=== PATIENT | female | born 1945 | race Caucasian/White ===

== ENCOUNTER → 2017-02-23 | Outpatient (CLI) | payer MEDICARE, BC ==
--- NOTE | 2017-02-24 10:31 | MM ---
Reason for exam: screening (asymptomatic). Last mammogram was performed 1 year and 6 months ago. History: Patient is postmenopausal. Physical Findings: A clinical breast exam by your physician is recommended on an annual basis and results should be correlated with mammographic findings. MG 3D Screening Mammo W/Cad Bilateral CC and MLO view(s) were taken. XCCL view(s) were taken of the right breast. Prior study comparison: August 31, 2015, bilateral MG screening mammo w CAD. August 11, 2014, bilateral MG screening mammo w CAD. The breast tissue is heterogeneously dense. This may lower the sensitivity of mammography. Finding: There are typically benign vascular, round calcifications in both breasts. There is no discrete abnormality. ASSESSMENT: Benign, BI-RAD 2 RECOMMENDATION: Routine screening mammogram of both breasts in 1 year.
== END | disposition home or self-care (01) ==
LOC: RADMAMWWP 14:31
PROVIDERS: ATTEND Family Medicine
DX: Z12.31 Encounter for screening mammogram for malignant neoplasm of breast (principal)
CPT/HCPCS: 77063; G0202

== ENCOUNTER → 2018-04-02 | Outpatient (CLI) | payer MEDICARE, BC ==
--- NOTE | 2018-04-03 14:03 | MM ---
Reason for exam: screening (asymptomatic). Last mammogram was performed 1 year and 1 month ago. History: Patient is postmenopausal. Physical Findings: A clinical breast exam by your physician is recommended on an annual basis and results should be correlated with mammographic findings. MG 3D Screening Mammo W/Cad Bilateral CC and MLO view(s) were taken. Prior study comparison: February 23, 2017, bilateral MG 3d screening mammo w/cad. August 31, 2015, bilateral MG screening mammo w CAD. The breast tissue is heterogeneously dense. This may lower the sensitivity of mammography. No significant changes when compared with prior studies. ASSESSMENT: Benign, BI-RAD 2 RECOMMENDATION: Routine screening mammogram of both breasts in 1 year.
== END | disposition home or self-care (01) ==
LOC: RADMAMWWP 13:02
PROVIDERS: ATTEND Family Medicine
DX: Z12.31 Encounter for screening mammogram for malignant neoplasm of breast (principal)
CPT/HCPCS: 77063; 77067

== ENCOUNTER 2018-11-15 10:57 | Inpatient (IN) | payer MEDICARE, BC ==
[2018-11-15 12:08] LABS: ALT 18 U/L (9-52); AST 36 U/L (14-36); Albumin 3.8 g/dL (3.5-5.0); Alkaline Phosphatase 63 U/L (38-126); Anion Gap 9 mmol/L; Blood Urea Nitrogen 16 mg/dL (7-17); Carbon Dioxide 24 mmol/L (22-30); Chloride 96 mmol/L (98-107); Glucose 89 mg/dL (74-99); INR 0.9 (<1.2); Lipase 224 U/L (23-300); Partial Thromboplastin Time 24.4 sec (22.0-30.0); Potassium 4.2 mmol/L (3.5-5.1); Prothrombin Time 9.9 sec (9.0-12.0); Sodium 129 mmol/L (137-145); Total Bilirubin 0.5 mg/dL (0.2-1.3); Total Protein 6.2 g/dL (6.3-8.2)
[2018-11-15 12:20] LABS: Anisocytosis Slight; HCT 23.1 % (34.0-46.0); Hypochromasia Marked; MCH 17.4 pg (25.0-35.0); MCHC 28.9 g/dL (31.0-37.0); MCV 60.3 fL (80.0-100.0); Mean Platelet Volume 6.6; Microcytosis Marked; Platelet Count 323 k/uL (150-450); Poikilocytosis Moderate; RBC 3.83 m/uL (3.80-5.40); WBC 3.9 k/uL (3.8-10.6)
[2018-11-15 12:23] LABS: HGB 6.7 gm/dL (11.4-16.0)
[2018-11-15 12:37] LABS: Eosinophils # (M) 0.08 k/uL (0-0.7); Lymphocytes # (M) 0.78 k/uL (1.0-4.8); Monocytes # (M) 0.27 k/uL (0-1.0); Neutrophils # (M) 2.77 k/uL (1.3-7.7); Neutrophils % (M) 71 %; Nucleated Red Blood Cells 0 /100 WBC (0-0); Total Cells Counted 100
[2018-11-15] MEDS ORDERED: ONDANSETRON 4 MG/2 ML VIAL IVP PRN (12:46)
--- NOTE | 2018-11-15 12:46 | ED ---
General Adult HPI - General Chief complaint: Recheck/Abnormal Lab/Rx Stated complaint: Abnormal labs Time Seen by Provider: 11/15/18 11:18 Source: patient, RN notes reviewed Mode of arrival: ambulatory Limitations: no limitations - History of Present Illness Initial comments: 73-year-old female presents emergency Department with chief complaint of low hemoglobin. Patient states she saw her email marketing specialist yesterday for her 6 month checkup and had lab work back. Patient states that they called her tongue or her hemoglobin was below 7. Patient denies any shortness breath, chest pain, melena or hematochezia. Patient states no history of anemia denies any cancer. Patient states that she's had no exertional shortness of breath she does have some dizziness which is been chronic - Related Data Home Medications Medication Instructions Recorded Confirmed Cyclobenzaprine [Flexeril] 10 mg PO HS 09/08/16 11/15/18 Ergocalciferol (Vitamin D2) 50,000 unit PO QMONTH 09/08/16 11/15/18 [Drisdol] Levothyroxine Sodium [Synthroid] 88 mcg PO DAILY 09/08/16 11/15/18 Atenolol 50 mg PO DAILY 09/25/16 11/15/18 Lisinopril/Hydrochlorothiazide 1.5 tab PO DAILY 09/25/16 11/15/18 [Lisinopril-Hctz 20-12.5 mg Tab] Naproxen 500 mg PO Q12HR 09/25/16 11/15/18 Alendronate Sodium [Fosamax] 70 mg PO TH 11/15/18 11/15/18 Aspirin EC [Ecotrin] 325 mg PO DAILY 11/15/18 11/15/18 Atenolol [Tenormin] 25 mg PO HS 11/15/18 11/15/18 Gabapentin [Neurontin] 400 mg PO TID 11/15/18 11/15/18 Multivitamins, Thera [Multivitamin 1 tab PO BID 11/15/18 11/15/18 (formulary)] Potassium 595mg 595 mg PO DAILY 11/15/18 11/15/18 Red Yeast Rice 600 mg PO DAILY 11/15/18 11/15/18 amLODIPine [Norvasc] 10 mg PO DAILY 11/15/18 11/15/18 Allergies Allergy/AdvReac Type Severity Reaction Status Date / Time diazepam [From Valium] Allergy Severe Nausea & Verified 11/15/18 11:37 Vomiting, dizzy,muscle pain,mouth numb escitalopram oxalate Allergy Severe Nausea & Verified 11/15/18 11:37 [From Lexapro] Vomiting, dizzy,muscle pain, mouth numb fluticasone propionate Allergy Severe Nausea & Verified 11/15/18 11:37 [From Flonase] Vomiting, dizzy,muscle pain, mouth numb furosemide [From Lasix] Allergy Severe Nausea & Verified 11/15/18 11:37 Vomiting,dizzy, muscle pain, mouth numb hydrocodone bitartrate Allergy Severe Nausea & Verified 11/15/18 11:37 [From Lortab] Vomiting,Dizzy, Muscle Pain, Mouth Numb meclizine HCl [From Antivert] Allergy Severe Nausea & Verified 11/15/18 11:37 Vomiting,dizzy,muscle pain, mouth numb olmesartan medoxomil Allergy Severe Nausea & Verified 11/15/18 11:37 [From Benicar] Vomiting, dizzy, muscle pain, mouth numb promethazine Allergy Severe Nausea & Verified 11/15/18 11:37 Vomiting, dizzy , muscle pain, mouth numb Jlizose-Nkc-Jzp Reductase Allergy Severe Nausea & Verified 11/15/18 11:37 Inhibitor Vomiting,dizzy, muscle pain, mouth numb tizanidine HCl Allergy Severe Nausea & Verified 11/15/18 11:37 [From Zanaflex] Vomiting,dizzy,muscle pain,mouth numb prednisone Allergy Dyspnea, Verified 11/15/18 11:37 Nausea & Vomiting, Dizzy, Muscle Pain, Mouth Numb. Sulfa (Sulfonamide Allergy Nausea & Verified 11/15/18 11:37 Antibiotics) Vomiting,dizzy,muscle pain, mouth numb. Review of Systems ROS Statement: Those systems with pertinent positive or pertinent negative responses have been documented in the HPI. ROS Other: All systems not noted in ROS Statement are negative. Past Medical History Past Medical History: CVA/TIA, Hyperlipidemia, Hypertension, Osteoarthritis (OA) , Thyroid Disorder Additional Past Medical History / Comment(s): ? 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 constipation d/t meds History of Any Multi-Drug Resistant Organisms: None Reported Past Surgical History: Joint Replacement, Orthopedic Surgery Additional Past Surgical History / Comment(s): LITHOTRIPSY, KIDNEY SURGERY X2 FOR STONES, ACHILLES TENDON RUPTURE(LT), RIGHT KNEE ARTHROSCOPY, RIGHT ROTATOR CUFF, MARISOL CARPAL TUNNEL , 05-23-16 total rt knee, Left knee total 08-22-2016. Past Anesthesia/Blood Transfusion Reactions: Motion Sickness Past Psychological History: No Psychological Hx Reported Smoking Status: Former smoker Past Alcohol Use History: Rare Past Drug Use History: None Reported - Past Family History Father Family Medical History: No Reported History Additional Family Medical History / Comment(s): heart disease- age 62 Mother Family Medical History: Hyperlipidemia, Hypertension, Thyroid Disorder Additional Family Medical History / Comment(s): hiatal hernia General Exam Limitations: no limitations General appearance: alert, in no apparent distress Head exam: Present: atraumatic, normocephalic, normal inspection Eye exam: Present: normal appearance, PERRL, EOMI. Absent: scleral icterus, conjunctival injection, periorbital swelling ENT exam: Present: normal exam, normal oropharynx, mucous membranes moist Neck exam: Present: normal inspection, full ROM. Absent: tenderness, meningismus, lymphadenopathy Respiratory exam: Present: normal lung sounds bilaterally. Absent: respiratory distress, wheezes, rales, rhonchi, stridor Cardiovascular Exam: Present: regular rate, normal rhythm, normal heart sounds. Absent: systolic murmur, diastolic murmur, rubs, gallop, clicks GI/Abdominal exam: Present: soft, normal bowel sounds. Absent: distended, tenderness, guarding, rebound, rigid Rectal exam: Present: normal inspection, normal rectal tone, heme (-) stool, other (Exam performed with [facility] HARRIS) Skin exam: Present: warm, dry, intact, normal color. Absent: rash Course Vital Signs 11/15/18 11/15/18 11/15/18 11:01 12:34 12:35 Temperature 97.5 F L Pulse Rate 70 89 Respiratory 18 18 Rate Blood Pressure 117/70 105/67 O2 Sat by Pulse 100 100 100 Oximetry Medical Decision Making - Medical Decision Making 71-year-old female presented for anemia. Hemoglobin currently 6.7. Patient will be transfused one unit of blood. Patiently admitted for further evaluation. - Lab Data Result diagrams: 11/15/18 11:38 11/15/18 11:38 Lab Results 11/15/18 11/15/18 11/15/18 Range/Units 11:38 11:38 11:38 WBC 3.9 (3.8-10.6) k/uL RBC 3.83 (3.80-5.40) m/uL Hgb 6.7 L* (11.4-16.0) gm/dL Hct 23.1 L (34.0-46.0) % MCV 60.3 L (80.0-100.0) fL MCH 17.4 L (25.0-35.0) pg MCHC 28.9 L (31.0-37.0) g/dL RDW 17.0 H (11.5-15.5) % Plt Count 323 (150-450) k/uL Neutrophils % (Manual) 71 % Lymphocytes % (Manual) 20 % Monocytes % (Manual) 7 % Eosinophils % (Manual) 2 % Neutrophils # (Manual) 2.77 (1.3-7.7) k/uL Lymphocytes # (Manual) 0.78 L (1.0-4.8) k/uL Monocytes # (Manual) 0.27 (0-1.0) k/uL Eosinophils # (Manual) 0.08 (0-0.7) k/uL Nucleated RBCs 0 (0-0) /100 WBC Manual Slide Review Performed Hypochromasia Marked Poikilocytosis Moderate Anisocytosis Slight Microcytosis Marked PT 9.9 (9.0-12.0) sec INR 0.9 (<1.2) APTT 24.4 (22.0-30.0) sec Sodium 129 L (137-145) mmol/L Potassium 4.2 (3.5-5.1) mmol/L Chloride 96 L (98-107) mmol/L Carbon Dioxide 24 (22-30) mmol/L Anion Gap 9 mmol/L BUN 16 (7-17) mg/dL Creatinine 0.69 (0.52-1.04) mg/dL Est GFR (CKD-EPI)AfAm >90 (>60 ml/min/1.73 sqM) Est GFR (CKD-EPI)NonAf 87 (>60 ml/min/1.73 sqM) Glucose 89 (74-99) mg/dL Calcium 9.0 (8.4-10.2) mg/dL Total Bilirubin 0.5 (0.2-1.3) mg/dL AST 36 (14-36) U/L ALT 18 (9-52) U/L Alkaline Phosphatase 63 (38-126) U/L Total Protein 6.2 L (6.3-8.2) g/dL Albumin 3.8 (3.5-5.0) g/dL Lipase 224 (23-300) U/L Stool Occult Blood (Negative) 11/15/18 Range/Units 11:51 WBC (3.8-10.6) k/uL RBC (3.80-5.40) m/uL Hgb (11.4-16.0) gm/dL Hct (34.0-46.0) % MCV (80.0-100.0) fL MCH (25.0-35.0) pg MCHC (31.0-37.0) g/dL RDW (11.5-15.5) % Plt Count (150-450) k/uL Neutrophils % (Manual) % Lymphocytes % (Manual) % Monocytes % (Manual) % Eosinophils % (Manual) % Neutrophils # (Manual) (1.3-7.7) k/uL Lymphocytes # (Manual) (1.0-4.8) k/uL Monocytes # (Manual) (0-1.0) k/uL Eosinophils # (Manual) (0-0.7) k/uL Nucleated RBCs (0-0) /100 WBC Manual Slide Review Hypochromasia Poikilocytosis Anisocytosis Microcytosis PT (9.0-12.0) sec INR (<1.2) APTT (22.0-30.0) sec Sodium (137-145) mmol/L Potassium (3.5-5.1) mmol/L Chloride (98-107) mmol/L Carbon Dioxide (22-30) mmol/L Anion Gap mmol/L BUN (7-17) mg/dL Creatinine (0.52-1.04) mg/dL Est GFR (CKD-EPI)AfAm (>60 ml/min/1.73 sqM) Est GFR (CKD-EPI)NonAf (>60 ml/min/1.73 sqM) Glucose (74-99) mg/dL Calcium (8.4-10.2) mg/dL Total Bilirubin (0.2-1.3) mg/dL AST (14-36) U/L ALT (9-52) U/L Alkaline Phosphatase (38-126) U/L Total Protein (6.3-8.2) g/dL Albumin (3.5-5.0) g/dL Lipase (23-300) U/L Stool Occult Blood Negative (Negative) Disposition Clinical Impression: Anemia Disposition: ADMITTED IP TO THIS HOSP Condition: Stable Referrals: Elissa Baird MD [Primary Care Provider] - 1-2 days
--- NOTE | 2018-11-15 14:42 | P.HPIM ---
History of Present Illness H&P Date: 11/15/18 This is a 73-year-old female patient of Dr. castano. Patient presented to the hospital from her primary care recommendation due to low hemoglobin. Patient states she sees her mixing machine tender for her arthritis and was called by her mixing machine tender stating that she had a low hemoglobin. She denies any signs of active bleeding. Patient denies any symptoms of dizziness shortness of breath increased weakness or pallor. Patient does reports she said naproxen for her arthritis pain for many years. Patient denies any alcohol consumption. Patient denies ever having an issue with anemia in the past. Patient does have a significant past medical history for CVA, hyperlipidemia, hypertension, osteoporosis, hypothyroidism and ex-smoker. hemoglobin on admission at 6.7. Occult stool negative for blood. Patient received 1 unit of PRBCs. Patient also to be consulted for GI services. At this time patient is resting comfortably bed with no complaints. Patient denies nausea vomiting or diarrhea. Patient denies any urinary burning or frequency. 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 History of Any Multi-Drug Resistant Organisms: None Reported Past Surgical History: Joint Replacement, Orthopedic Surgery Additional Past Surgical History / Comment(s): LITHOTRIPSY, KIDNEY SURGERY X2 FOR STONES, ACHILLES TENDON RUPTURE(LT), RIGHT KNEE ARTHROSCOPY, RIGHT ROTATOR CUFF, MARISOL CARPAL TUNNEL , bilateral total knee arthroplasties, colonoscopy, sinus surgery, D&C. Past Anesthesia/Blood Transfusion Reactions: No Reported Reaction Smoking Status: Former smoker - Past Family History Father Family Medical History: Coronary Artery Disease (CAD) Additional Family Medical History / Comment(s): heart disease- age 62 Mother Family Medical History: Hyperlipidemia, Hypertension, Thyroid Disorder Additional Family Medical History / Comment(s): hiatal hernia Medications and Allergies Home Medications Medication Instructions Recorded Confirmed Type Cyclobenzaprine [Flexeril] 10 mg PO HS 09/08/16 11/15/18 History Ergocalciferol (Vitamin D2) 50,000 unit PO QMONTH 09/08/16 11/15/18 History [Drisdol] Levothyroxine Sodium [Synthroid] 88 mcg PO DAILY 09/08/16 11/15/18 History Atenolol 50 mg PO DAILY 09/25/16 11/15/18 History Lisinopril/Hydrochlorothiazide 1.5 tab PO DAILY 09/25/16 11/15/18 History [Lisinopril-Hctz 20-12.5 mg Tab] Naproxen 500 mg PO Q12HR 09/25/16 11/15/18 History Alendronate Sodium [Fosamax] 70 mg PO TH 11/15/18 11/15/18 History Aspirin EC [Ecotrin] 325 mg PO DAILY 11/15/18 11/15/18 History Atenolol [Tenormin] 25 mg PO HS 11/15/18 11/15/18 History Gabapentin [Neurontin] 400 mg PO TID 11/15/18 11/15/18 History Multivitamins, Thera [Multivitamin 1 tab PO BID 11/15/18 11/15/18 History (formulary)] Potassium 595mg 595 mg PO DAILY 11/15/18 11/15/18 History Red Yeast Rice 600 mg PO DAILY 11/15/18 11/15/18 History amLODIPine [Norvasc] 10 mg PO DAILY 11/15/18 11/15/18 History Allergies Allergy/AdvReac Type Severity Reaction Status Date / Time diazepam [From Valium] Allergy Severe Nausea & Verified 11/15/18 11:37 Vomiting, dizzy,muscle pain,mouth numb escitalopram oxalate Allergy Severe Nausea & Verified 11/15/18 11:37 [From Lexapro] Vomiting, dizzy,muscle pain, mouth numb fluticasone propionate Allergy Severe Nausea & Verified 11/15/18 11:37 [From Flonase] Vomiting, dizzy,muscle pain, mouth numb furosemide [From Lasix] Allergy Severe Nausea & Verified 11/15/18 11:37 Vomiting,dizzy, muscle pain, mouth numb hydrocodone bitartrate Allergy Severe Nausea & Verified 11/15/18 11:37 [From Lortab] Vomiting,Dizzy, Muscle Pain, Mouth Numb meclizine HCl [From Antivert] Allergy Severe Nausea & Verified 11/15/18 11:37 Vomiting,dizzy,muscle pain, mouth numb olmesartan medoxomil Allergy Severe Nausea & Verified 11/15/18 11:37 [From Benicar] Vomiting, dizzy, muscle pain, mouth numb promethazine Allergy Severe Nausea & Verified 11/15/18 11:37 Vomiting, dizzy , muscle pain, mouth numb Kazpils-Dmk-Mvb Reductase Allergy Severe Nausea & Verified 11/15/18 11:37 Inhibitor Vomiting,dizzy, muscle pain, mouth numb tizanidine HCl Allergy Severe Nausea & Verified 11/15/18 11:37 [From Zanaflex] Vomiting,dizzy,muscle pain,mouth numb prednisone Allergy Dyspnea, Verified 11/15/18 11:37 Nausea & Vomiting, Dizzy, Muscle Pain, Mouth Numb. Sulfa (Sulfonamide Allergy Nausea & Verified 11/15/18 11:37 Antibiotics) Vomiting,dizzy,muscle pain, mouth numb. Physical Exam Vitals: Vital Signs Temp Pulse Resp BP Pulse Ox 11/15/18 12:35 89 18 105/67 100 11/15/18 12:34 100 11/15/18 11:01 97.5 F L 70 18 117/70 100 Intake and Output 11/14/18 11/15/18 11/15/18 22:59 06:59 14:59 Other: Weight 63.503 kg Head normocephalic Neck supple Lungs clear to auscultation bilaterally no wheezing or crackles Heart regular rate and rhythm S1-S2, no rub or gallop Abdomen is soft nontender nondistended positive bowel sounds no hepatosplenomegaly Extremities no edema Neuro alert and orientated to 3 Results CBC & Chem 7: 11/15/18 11:38 11/15/18 11:38 Labs: Abnormal Lab Results - Last 24 Hours (Table) 11/15/18 11/15/18 11/15/18 Range/Units 11:38 11:38 11:38 Hgb 6.7 L* (11.4-16.0) gm/dL Hct 23.1 L (34.0-46.0) % MCV 60.3 L (80.0-100.0) fL MCH 17.4 L (25.0-35.0) pg MCHC 28.9 L (31.0-37.0) g/dL RDW 17.0 H (11.5-15.5) % Lymphocytes # (Manual) 0.78 L (1.0-4.8) k/uL Sodium 129 L (137-145) mmol/L Chloride 96 L (98-107) mmol/L Total Protein 6.2 L (6.3-8.2) g/dL Crossmatch See Detail Thrombosis Risk Factor Assmnt - Choose All That Apply Any of the Below Risk Factors Present?: Yes Each Factor Represents 1 point: Obesity (BMI >25) Other Risk Factors: Yes Each Risk Factor Represents 2 Points: Age 61-74 years Other congenital or acquired thrombophilia - If yes, enter type in comment: No Thrombosis Risk Factor Assessment Total Risk Factor Score: 3 Thrombosis Risk Factor Assessment Level: Moderate Risk Assessment and Plan Assessment: 1. Anemia. Will order iron studies. GI services have been consulted. Stool occult negative. Patient's hemoglobin 6.7. Patient received 1 unit of PRBCs 2. History of arthritis. Patient follows with mixing machine tender 3. History of CVA. 4. History of essential hypertension 5. History of hyperlipidemia 6. History of hypothyroidism 7. Hyponatremia. Sodium 129. Continue to monitor closely DVT prophylaxis SCDs due to anemia. GI prophylaxis Protonix
[2018-11-15] MEDS: GABAPENTIN 400 MG CAP PO SCH ×2 (15:41→20:30)
[2018-11-15] MEDS: SODIUM CHLORIDE 0.9% 1,000 ML IV SCH (15:44)
[2018-11-15] MEDS: CYCLOBENZAPRINE 10 MG TAB PO SCH (20:30)
[2018-11-15] MEDS: ATENOLOL 25 MG TAB PO SCH (20:30)
[2018-11-15] MEDS: MULTIVITAMINS, THERA 1 EACH TAB PO SCH (20:30)
[2018-11-15 20:31] LABS: Iron Saturation 2.07 (12.00-45.00)
[2018-11-15 20:55] LABS: Anisocytosis Moderate; HCT 25.1 % (34.0-46.0); HGB 7.4 gm/dL (11.4-16.0); Hypochromasia Marked; MCH 19.1 pg (25.0-35.0); MCHC 29.4 g/dL (31.0-37.0); MCV 64.9 fL (80.0-100.0); Mean Platelet Volume 5.7; Microcytosis Marked; Platelet Count 267 k/uL (150-450); Poikilocytosis Marked; RBC 3.87 m/uL (3.80-5.40); RDW 20.9 % (11.5-15.5); WBC 3.8 k/uL (3.8-10.6)
[2018-11-15 21:34] LABS: Band Neutrophils % 2 %; Basophils # (M) 0.04 k/uL (0-0.2); Eosinophils # (M) 0.19 k/uL (0-0.7); Lymphocytes # (M) 0.84 k/uL (1.0-4.8); Monocytes # (M) 0.19 k/uL (0-1.0); Neutrophils % (M) 65 %; Nucleated Red Blood Cells 0 /100 WBC (0-0); Poikilocytosis (M) Present; Target Cells Present; Total Cells Counted 100
[2018-11-16] MEDS: LEVOTHYROXINE 88 MCG TAB PO SCH (06:26)
[2018-11-16] MEDS: PANTOPRAZOLE 40 MG/10 ML VIAL IV SCH (07:34)
[2018-11-16] MEDS: ATENOLOL 50 MG TAB PO SCH (07:35)
[2018-11-16] MEDS: GABAPENTIN 400 MG CAP PO SCH ×2 (07:35→16:09)
[2018-11-16] MEDS: MULTIVITAMINS, THERA 1 EACH TAB PO SCH ×2 (07:35→21:10)
[2018-11-16] MEDS ORDERED: amLODIPine 10 MG TAB PO SCH (09:00)
[2018-11-16] MEDS ORDERED: LISINOPRIL-HCTZ 20-12.5 MG 1 EACH TAB PO SCH (09:00)
[2018-11-16 09:17] LABS: Anisocytosis Moderate; Basophils % (A) 1 %; Eosinophils # (A) 0.1 k/uL (0-0.7); Eosinophils % (A) 3 %; HCT 28.5 % (34.0-46.0); HGB 8.3 gm/dL (11.4-16.0); Hypochromasia Marked; Lymphocytes # (A) 0.7 k/uL (1.0-4.8); Lymphocytes % (A) 19 %; MCH 19.5 pg (25.0-35.0); MCHC 29.2 g/dL (31.0-37.0); MCV 66.8 fL (80.0-100.0); Mean Platelet Volume 6.4; Microcytosis Marked; Monocytes # (A) 0.2 k/uL (0-1.0); Monocytes % (A) 7 %; Neutrophils # (A) 2.4 k/uL (1.3-7.7); Neutrophils % (A) 67 %; Platelet Count 296 k/uL (150-450); Poikilocytosis Marked; RBC 4.27 m/uL (3.80-5.40); RDW 21.1 % (11.5-15.5); WBC 3.5 k/uL (3.8-10.6)
[2018-11-16 09:24] LABS: ALT 19 U/L (9-52); AST 22 U/L (14-36); Albumin 3.3 g/dL (3.5-5.0); Alkaline Phosphatase 53 U/L (38-126); Anion Gap 7 mmol/L; Blood Urea Nitrogen 10 mg/dL (7-17); Calcium 8.9 mg/dL (8.4-10.2); Carbon Dioxide 22 mmol/L (22-30); Chloride 103 mmol/L (98-107); Glucose 142 mg/dL (74-99); Potassium 3.9 mmol/L (3.5-5.1); Sodium 132 mmol/L (137-145); Total Bilirubin 0.5 mg/dL (0.2-1.3); Total Protein 5.6 g/dL (6.3-8.2)
--- NOTE | 2018-11-16 09:39 | P.CONS ---
History of Present Illness - Reason for Consult Consult date: 11/16/18 Anemia Requesting physician: Janis Rutledge - Chief Complaint Abnormal outpatient CBC - History of Present Illness 73-year-old active female with a history of CVA 2, chronic vertigo admitted secondary to notification of an abnormal outpatient CBC. Admission hemoglobin 6.7. Patient asymptomatic denies shortness of breath fatigue malaise or chest pain. No history of GI bleed or peptic ulcer disease. She takes Naprosyn 1 tablet twice a day for at least 15 years for arthritic pain. No GI prophylaxis. Admission MCV 60. Platelet 323. BUN 16. Creatinine 0.6. Iron 9. TIBC 434. Iron saturation 2%. Ferritin 5.9. FOBT negative. Received 1 unit of blood current hemoglobin is 8.3. Denies overt bleeding such as hematemesis hematochezia melena. No weight loss fever chills or abdominal pain. No dyspepsia dysphagia odynophagia constipation or diarrhea. Last colonoscopy several years ago to her memory was unremarkable. EGD 4-5 years ago secondary to nausea to her memory unremarkable. No aspirin or additional antiplatelet medications. No alcohol. Review of Systems Constitutional: Denies fever, chills, sweats, weight gain, or loss. HEENT: Negative for migraines, blurred vision or loss, earaches, drainage, tinnitus, oral mucosal lesions, dysphagia, or odynophagia. Chronic vertigo. CARDIAC: Negative for chest pain, arrhythmias, or palpitation. RESPIRATORY: Negative for shortness of breath, hemoptysis, cough, or sputum production. GI: See HPI for pertinent findings. : Negative for hematuria, urgency, frequency, polyuria, or dysuria. GYNc: Negative vaginal discharge. MUSCULOSKELETAL: Negative for muscle aches, swelling, arthritis, and arthralgias. NEUROLOGIC: History CVA 2. ENDOCRINE: Negative for thyroid problems. SKIN: Negative for rash or itching. 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 History of Any Multi-Drug Resistant Organisms: None Reported Past Surgical History: Joint Replacement, Orthopedic Surgery Additional Past Surgical History / Comment(s): LITHOTRIPSY, KIDNEY SURGERY X2 FOR STONES, ACHILLES TENDON RUPTURE(LT), RIGHT KNEE ARTHROSCOPY, RIGHT ROTATOR CUFF, MARISOL CARPAL TUNNEL , bilateral total knee arthroplasties, colonoscopy, sinus surgery, D&C. Past Anesthesia/Blood Transfusion Reactions: No Reported Reaction Smoking Status: Former smoker - Past Family History Father Family Medical History: Coronary Artery Disease (CAD) Additional Family Medical History / Comment(s): heart disease- age 62 Mother Family Medical History: Hyperlipidemia, Hypertension, Thyroid Disorder Additional Family Medical History / Comment(s): hiatal hernia Medications and Allergies Home Medications Medication Instructions Recorded Confirmed Type Cyclobenzaprine [Flexeril] 10 mg PO HS 09/08/16 11/15/18 History Ergocalciferol (Vitamin D2) 50,000 unit PO QMONTH 09/08/16 11/15/18 History [Drisdol] Levothyroxine Sodium [Synthroid] 88 mcg PO DAILY 09/08/16 11/15/18 History Atenolol 50 mg PO DAILY 09/25/16 11/15/18 History Lisinopril/Hydrochlorothiazide 1.5 tab PO DAILY 09/25/16 11/15/18 History [Lisinopril-Hctz 20-12.5 mg Tab] Naproxen 500 mg PO Q12HR 09/25/16 11/15/18 History Alendronate Sodium [Fosamax] 70 mg PO TH 11/15/18 11/15/18 History Aspirin EC [Ecotrin] 325 mg PO DAILY 11/15/18 11/15/18 History Atenolol [Tenormin] 25 mg PO HS 11/15/18 11/15/18 History Gabapentin [Neurontin] 400 mg PO TID 11/15/18 11/15/18 History Multivitamins, Thera [Multivitamin 1 tab PO BID 11/15/18 11/15/18 History (formulary)] Potassium 595mg 595 mg PO DAILY 11/15/18 11/15/18 History Red Yeast Rice 600 mg PO DAILY 11/15/18 11/15/18 History amLODIPine [Norvasc] 10 mg PO DAILY 11/15/18 11/15/18 History Allergies Allergy/AdvReac Type Severity Reaction Status Date / Time diazepam [From Valium] Allergy Severe Nausea & Verified 11/15/18 11:37 Vomiting, dizzy,muscle pain,mouth numb escitalopram oxalate Allergy Severe Nausea & Verified 11/15/18 11:37 [From Lexapro] Vomiting, dizzy,muscle pain, mouth numb fluticasone propionate Allergy Severe Nausea & Verified 11/15/18 11:37 [From Flonase] Vomiting, dizzy,muscle pain, mouth numb furosemide [From Lasix] Allergy Severe Nausea & Verified 11/15/18 11:37 Vomiting,dizzy, muscle pain, mouth numb hydrocodone bitartrate Allergy Severe Nausea & Verified 11/15/18 11:37 [From Lortab] Vomiting,Dizzy, Muscle Pain, Mouth Numb meclizine HCl [From Antivert] Allergy Severe Nausea & Verified 11/15/18 11:37 Vomiting,dizzy,muscle pain, mouth numb olmesartan medoxomil Allergy Severe Nausea & Verified 11/15/18 11:37 [From Benicar] Vomiting, dizzy, muscle pain, mouth numb promethazine Allergy Severe Nausea & Verified 11/15/18 11:37 Vomiting, dizzy , muscle pain, mouth numb Otttobc-Lgg-Tuz Reductase Allergy Severe Nausea & Verified 11/15/18 11:37 Inhibitor Vomiting,dizzy, muscle pain, mouth numb tizanidine HCl Allergy Severe Nausea & Verified 11/15/18 11:37 [From Zanaflex] Vomiting,dizzy,muscle pain,mouth numb prednisone Allergy Dyspnea, Verified 11/15/18 11:37 Nausea & Vomiting, Dizzy, Muscle Pain, Mouth Numb. Sulfa (Sulfonamide Allergy Nausea & Verified 11/15/18 11:37 Antibiotics) Vomiting,dizzy,muscle pain, mouth numb. Physical Exam Vitals: Vital Signs Temp Pulse Pulse Resp BP BP Pulse Ox 11/16/18 06:35 98.0 F 66 18 97/60 96 11/15/18 23:00 98.1 F 65 18 93/54 94 L 11/15/18 17:58 98.2 F 65 16 110/58 11/15/18 15:15 68 14 105/55 99 11/15/18 15:00 97.7 F 57 L 16 118/56 90 L 11/15/18 14:45 98.0 F 65 14 108/57 100 11/15/18 14:35 98.1 F 65 14 108/58 100 11/15/18 12:35 89 18 105/67 100 11/15/18 12:34 100 11/15/18 11:01 97.5 F L 70 18 117/70 100 Intake and Output 11/15/18 11/16/18 11/16/18 22:59 06:59 14:59 Intake Total 610 300 Balance 610 300 Intake: Oral 300 300 Blood Product 310 Rc As-1 Unit 310 [id number] Other: # Voids 1 1 General appearance: The patient is alert, oriented, in no acute distress. HET: Head is normocephalic and atraumatic. Pupils are equal and reactive. Oropharynx is clear without lesions. Neck: Supple without lymphadenopathy. Trachea midline. Heart: S1 S2. Regular rate and rhythm. Lungs: No crackles or wheezes are heard. Abdomen: Soft, nontender, nondistended with bowel sounds. No peritoneal signs. No palpable organomegaly or masses. Extremities: Normal skin color and turgor. No cyanosis, rash, ulceration, clubbing, or edema. Radial and pedal pulses are 2/4 bilaterally. Neurological: No focal deficits. Strength and sensation are grossly intact. Results CBC & Chem 7: 11/16/18 08:40 11/16/18 08:40 Labs: Abnormal Lab Results - Last 24 Hours (Table) 11/15/18 11/15/18 11/15/18 Range/Units 11:38 11:38 11:38 WBC (3.8-10.6) k/uL Hgb 6.7 L* (11.4-16.0) gm/dL Hct 23.1 L (34.0-46.0) % MCV 60.3 L (80.0-100.0) fL MCH 17.4 L (25.0-35.0) pg MCHC 28.9 L (31.0-37.0) g/dL RDW 17.0 H (11.5-15.5) % Lymphocytes # (1.0-4.8) k/uL Lymphocytes # (Manual) 0.78 L (1.0-4.8) k/uL Sodium 129 L (137-145) mmol/L Chloride 96 L (98-107) mmol/L Glucose (74-99) mg/dL Iron (50-170) ug/dL Iron Saturation (12.00-45.00) Ferritin (10.0-291.0) ng/mL Total Protein 6.2 L (6.3-8.2) g/dL Albumin (3.5-5.0) g/dL Crossmatch See Detail 11/15/18 11/15/18 11/16/18 Range/Units 11:38 20:09 08:40 WBC (3.8-10.6) k/uL Hgb 7.4 L (11.4-16.0) gm/dL Hct 25.1 L (34.0-46.0) % MCV 64.9 L (80.0-100.0) fL MCH 19.1 L (25.0-35.0) pg MCHC 29.4 L (31.0-37.0) g/dL RDW 20.9 H (11.5-15.5) % Lymphocytes # (1.0-4.8) k/uL Lymphocytes # (Manual) 0.84 L (1.0-4.8) k/uL Sodium 132 L (137-145) mmol/L Chloride (98-107) mmol/L Glucose 142 H (74-99) mg/dL Iron 9 L (50-170) ug/dL Iron Saturation 2.07 L (12.00-45.00) Ferritin 5.9 L (10.0-291.0) ng/mL Total Protein 5.6 L (6.3-8.2) g/dL Albumin 3.3 L (3.5-5.0) g/dL Crossmatch 11/16/18 Range/Units 08:40 WBC 3.5 L (3.8-10.6) k/uL Hgb 8.3 L (11.4-16.0) gm/dL Hct 28.5 L (34.0-46.0) % MCV 66.8 L (80.0-100.0) fL MCH 19.5 L (25.0-35.0) pg MCHC 29.2 L (31.0-37.0) g/dL RDW 21.1 H (11.5-15.5) % Lymphocytes # 0.7 L (1.0-4.8) k/uL Lymphocytes # (Manual) (1.0-4.8) k/uL Sodium (137-145) mmol/L Chloride (98-107) mmol/L Glucose (74-99) mg/dL Iron (50-170) ug/dL Iron Saturation (12.00-45.00) Ferritin (10.0-291.0) ng/mL Total Protein (6.3-8.2) g/dL Albumin (3.5-5.0) g/dL Crossmatch Assessment and Plan (1) Iron deficiency anemia Narrative/Plan: 73-year-old female presents with asymptomatic microcytic iron deficiency anemia without overt bleeding negative FOBT with an underlying history of chronic NSAID usage greater than 15 years, chronic vertigo and CVA. Etiology of iron deficiency is unclear at this time underlying GI source cannot be entirely excluded. Current Visit: Yes Status: Acute Code(s): D50.9 - IRON DEFICIENCY ANEMIA, UNSPECIFIED SNOMED Code(s): 33910456 (2) NSAID long-term use Current Visit: Yes Status: Acute Code(s): Z79.1 - NURSING HOME (CURRENT) USE OF NON-STEROIDAL NON-INFLAM (NSAID) SNOMED Code(s): 608866149 (3) Chronic vertigo Current Visit: Yes Status: Acute Code(s): R42 - DIZZINESS AND GIDDINESS SNOMED Code(s): 32481464544112 Plan: 1. EGD colonoscopy in a.m with Dr. Ken possible small bowel capsule endoscopy pending endoscopic results. CBC monitoring. Recommend hematology consult if endoscopic exams are unremarkable. The sap bpc architect has discussed the risks, benefits and alternative therapies for the above-mentioned procedure and for both sedation/analgesia as well as necessary blood product administration, if indicated, as they pertain to this patient. The patient has indicated understanding and acceptance of the risks and procedures discussed. Thank you for this kind referral and the opportunity to participate in the care of your patient. This consultation was discussed with Dr. Velocci. The impression and plan of care have been directed as dictated.
[2018-11-16] MEDS: SODIUM CHLORIDE 0.9% 1,000 ML IV SCH (11:58)
[2018-11-16] MEDS ORDERED: BISACODYL 5 MG TABLET.DR PO ONE (12:00)
--- NOTE | 2018-11-16 12:52 | P.PN ---
Subjective Progress Note Date: 11/16/18 This is a 73-year-old female patient of Dr. castano. Patient presented to the hospital from her primary care recommendation due to low hemoglobin. Patient states she sees her reinforced concrete inspector for her arthritis and was called by her reinforced concrete inspector stating that she had a low hemoglobin. She denies any signs of active bleeding. Patient denies any symptoms of dizziness shortness of breath increased weakness or pallor. Patient does reports she said naproxen for her arthritis pain for many years. Patient denies any alcohol consumption. Patient denies ever having an issue with anemia in the past. Patient does have a significant past medical history for CVA, hyperlipidemia, hypertension, osteoporosis, hypothyroidism and ex-smoker. hemoglobin on admission at 6.7. Occult stool negative for blood. Patient received 1 unit of PRBCs. Patient also to be consulted for GI services. At this time patient is resting comfortably bed with no complaints. Patient denies nausea vomiting or diarrhea. Patient denies any urinary burning or frequency. 11/16/2018 patient received 1 unit of blood yesterday. Hemoglobin on admission 6.7 and is now up to 8.3. She has been receiving IV fluids sodium level has improved from 129-132. Patient is scheduled for EGD and colonoscopy in the morning. She's being followed by GI service. Denies any abdominal pain. Denies any nausea or vomiting. Reports no blood or black stools. Fecal occult blood was negative. Naproxen discontinued on admission. Patient has been hypotensive Zestoretic and Norvasc discontinued Objective - Vital Signs Vital signs: Vital Signs Temp 98.0 F 11/16/18 06:35 Pulse 66 11/16/18 06:35 Resp 18 11/16/18 06:35 BP 97/60 11/16/18 06:35 Pulse Ox 96 11/16/18 06:35 Intake & Output 11/15/18 11/16/18 11/16/18 18:59 06:59 18:59 Intake Total 310 600 Balance 310 600 Weight 63.503 kg Intake: Oral 600 Blood Product 310 Rc As-1 Unit 310 [id number] Other: # Voids 1 - Exam Head normocephalic Neck supple Lungs clear to auscultation bilaterally no wheezing or crackles Heart regular rate and rhythm S1-S2, no rub or gallop Abdomen is soft nontender nondistended positive bowel sounds no hepatosplenomegaly Extremities no edema Neuro alert and orientated to 3 - Labs CBC & Chem 7: 11/16/18 08:40 11/16/18 08:40 Labs: Abnormal Lab Results - Last 24 Hours (Table) 11/15/18 11/15/18 11/15/18 Range/Units 11:38 11:38 20:09 WBC (3.8-10.6) k/uL Hgb 7.4 L (11.4-16.0) gm/dL Hct 25.1 L (34.0-46.0) % MCV 64.9 L (80.0-100.0) fL MCH 19.1 L (25.0-35.0) pg MCHC 29.4 L (31.0-37.0) g/dL RDW 20.9 H (11.5-15.5) % Lymphocytes # (1.0-4.8) k/uL Lymphocytes # (Manual) 0.84 L (1.0-4.8) k/uL Sodium (137-145) mmol/L Glucose (74-99) mg/dL Iron 9 L (50-170) ug/dL Iron Saturation 2.07 L (12.00-45.00) Ferritin 5.9 L (10.0-291.0) ng/mL Total Protein (6.3-8.2) g/dL Albumin (3.5-5.0) g/dL Crossmatch See Detail 11/16/18 11/16/18 Range/Units 08:40 08:40 WBC 3.5 L (3.8-10.6) k/uL Hgb 8.3 L (11.4-16.0) gm/dL Hct 28.5 L (34.0-46.0) % MCV 66.8 L (80.0-100.0) fL MCH 19.5 L (25.0-35.0) pg MCHC 29.2 L (31.0-37.0) g/dL RDW 21.1 H (11.5-15.5) % Lymphocytes # 0.7 L (1.0-4.8) k/uL Lymphocytes # (Manual) (1.0-4.8) k/uL Sodium 132 L (137-145) mmol/L Glucose 142 H (74-99) mg/dL Iron (50-170) ug/dL Iron Saturation (12.00-45.00) Ferritin (10.0-291.0) ng/mL Total Protein 5.6 L (6.3-8.2) g/dL Albumin 3.3 L (3.5-5.0) g/dL Crossmatch Assessment and Plan Assessment: 1. Iron deficiency anemia: Iron level low at 9. Admitting hemoglobin 6.7. Stool occult for occult blood is negative. Naproxen on hold. Patient scheduled for EGD and colonoscopy in a.m. GI following. Patient status post 1 unit of blood hemoglobin now up to 8.3 2. History of osteoarthritis. Patient follows with reinforced concrete inspector 3. History of CVA. 4. History of essential hypertension 5. History of hyperlipidemia 6. History of hypothyroidism 7. Hyponatremia. Sodium 129 on admission now to 132. Continue with IV fluid hydration. Discontinue Zestoretic 8. Hypotensive: Discontinue Zestoretic and Norvasc. Parameters have been placed around the atenolol to hold for systolic blood pressure less than 110 or heart rate less than 60. Increase IV fluids to normal saline at 100 mL an hour DVT prophylaxis SCDs due to anemia. GI prophylaxis Protonix I performed an examination of the patient and discussed their management with the physician Ordnance Truck Installation Mechanic. I have reviewed the Physician Ordnance Truck Installation Mechanic's notes and agree with the documented findings and plan of care
[2018-11-16] MEDS ORDERED: PEG 3350-NA SULF,BICARB,CL/KCL 4,000 ML BOTTLE PO ONE (16:00)
[2018-11-16] MEDS: CYCLOBENZAPRINE 10 MG TAB PO SCH (21:09)
[2018-11-16] MEDS: ATENOLOL 25 MG TAB PO SCH (21:09)
[2018-11-17] MEDS: GABAPENTIN 400 MG CAP PO SCH ×4 (00:41→22:14)
[2018-11-17] MEDS: LEVOTHYROXINE 88 MCG TAB PO SCH (06:04)
[2018-11-17] MEDS ORDERED: LIDOCAINE 1% INJ 10MG/ML (20 ML MDV) ONE (07:58)
[2018-11-17] MEDS ORDERED: PROPOFOL 10 MG/ML 20 ML VIAL IV ONE (07:58)
[2018-11-17] MEDS ORDERED: IV FLUID CONTINUATION 300 ML IV ONE (07:59)
--- NOTE | 2018-11-17 08:28 | P.PCN ---
Date of Procedure: 11/17/18 Procedure(s) Performed: Brief history: Patient is a pleasant 73-year-old white female, scheduled for an elective upper endoscopy as well as colonoscopy as a part of evaluation of symptomatic anemia and hemoglobin of 6 g/dL. Denies any active GI bleed. Procedure performed: Esophagogastroduodenoscopy with biopsy Colonoscopy Preoperative diagnosis: Severe symptomatic anemia Anesthesia: MAC Procedure: After informed consent was obtained from the patient was brought into the endoscopy unit and IV sedation was administered by anesthesia under continuous monitoring. Initially upper endoscopy was done. The Olympus GF 160 video endoscope was inserted inserted into the mouth and esophagus intubated without any difficulty and was gradually advanced into the stomach and duodenum and carefully examined. The bulb of the duodenum appeared normal. There was a duodenal superficial ulceration in the second portion the duodenum along with early duodenal stricture and he was able to advance the scope gentle palpation to the second portion of the duodenum which appeared normal. The scope was then withdrawn into the stomach adequately insufflated with air and upon careful examination the antrum had gastritis and biopsies were done from this area. The body, cardia and fundus appeared normal. The scope was then withdrawn into the esophagus. The GE junction was located at 40 cm to the incisors. It appeared regular with no erythema erosions or ulcerations. Rest of the esophagus appeared normal. Patient tolerated the procedure well. At this time the patient continued to remain sedation. Initial digital rectal examination was normal. Olympus CF 160 video colonoscope was then inserted into the rectum and gradually advanced to the cecum without any difficulty. Careful examination was performed as the scope was gradually being withdrawn. The prep was excellent. The cecum, ascending colon, transverse colon, descending colon, sigmoid colon and rectum appeared normal. Retroflexion was performed in the rectum and no lesions were noted. Patient tolerated the procedure well. Impression: 1. Upper endoscopy revealed antral gastritis, superficial duodenal ulcer and duodenal stricture 2. Colonoscopy revealed scattered sigmoid diverticulosis and no evidence of colorectal neoplasia Recommendations: Findings of this examination were discussed with the patient. She was advised to follow with the biopsy results. She will continue with Protonix 40 mg daily. He was also advised to avoid NSAIDs. diet will be advanced as tolerated.
[2018-11-17] MEDS ORDERED: SODIUM CHLORIDE 0.9% 500 ML 500 ML IV ONE (08:29)
[2018-11-17] MEDS: ATENOLOL 50 MG TAB PO SCH (09:13)
[2018-11-17] MEDS: PANTOPRAZOLE 40 MG/10 ML VIAL IV SCH (09:13)
[2018-11-17] MEDS: MULTIVITAMINS, THERA 1 EACH TAB PO SCH ×2 (09:13→22:14)
[2018-11-17 09:27] LABS: Anisocytosis Moderate; Basophils % (A) 1 %; Eosinophils # (A) 0.1 k/uL (0-0.7); Eosinophils % (A) 4 %; HCT 30.3 % (34.0-46.0); HGB 8.8 gm/dL (11.4-16.0); Hypochromasia Marked; Lymphocytes # (A) 0.7 k/uL (1.0-4.8); Lymphocytes % (A) 20 %; MCH 19.3 pg (25.0-35.0); MCV 66.4 fL (80.0-100.0); Mean Platelet Volume 5.6; Microcytosis Marked; Monocytes # (A) 0.3 k/uL (0-1.0); Monocytes % (A) 7 %; Neutrophils # (A) 2.2 k/uL (1.3-7.7); Neutrophils % (A) 64 %; Platelet Count 297 k/uL (150-450); Poikilocytosis Marked; RBC 4.56 m/uL (3.80-5.40); RDW 21.1 % (11.5-15.5); WBC 3.5 k/uL (3.8-10.6)
[2018-11-17 09:44] LABS: ALT 22 U/L (9-52); AST 21 U/L (14-36); Albumin 3.2 g/dL (3.5-5.0); Alkaline Phosphatase 61 U/L (38-126); Anion Gap 6 mmol/L; Blood Urea Nitrogen 10 mg/dL (7-17); Calcium 8.7 mg/dL (8.4-10.2); Carbon Dioxide 22 mmol/L (22-30); Chloride 107 mmol/L (98-107); Glucose 82 mg/dL (74-99); Sodium 135 mmol/L (137-145); Total Bilirubin 0.5 mg/dL (0.2-1.3); Total Protein 5.6 g/dL (6.3-8.2)
[2018-11-17] MEDS: SODIUM CHLORIDE 0.9% 1,000 ML IV SCH (10:20)
--- NOTE | 2018-11-17 17:07 | P.PN ---
Subjective Progress Note Date: 11/17/18 This is a 73-year-old female patient of Dr. castano. Patient presented to the hospital from her primary care recommendation due to low hemoglobin. Patient states she sees her video effects editor for her arthritis and was called by her video effects editor stating that she had a low hemoglobin. She denies any signs of active bleeding. Patient denies any symptoms of dizziness shortness of breath increased weakness or pallor. Patient does reports she said naproxen for her arthritis pain for many years. Patient denies any alcohol consumption. Patient denies ever having an issue with anemia in the past. Patient does have a significant past medical history for CVA, hyperlipidemia, hypertension, osteoporosis, hypothyroidism and ex-smoker. hemoglobin on admission at 6.7. Occult stool negative for blood. Patient received 1 unit of PRBCs. Patient also to be consulted for GI services. At this time patient is resting comfortably bed with no complaints. Patient denies nausea vomiting or diarrhea. Patient denies any urinary burning or frequency. On 11/17/2018 patient is alert and oriented 3 in no apparent distress there is no fever or chills no headache or dizziness no chest pain no shortness of breath no cough no nausea or vomiting no abdominal pain no diarrhea and no urinary symptoms she underwent EGD and colonoscopy today EGD revealed evidence of duodenal ulcer was duodenal stricture colonoscopy revealed evidence of diverticulosis Objective - Vital Signs Vital signs: Vital Signs Temp 98.7 F 11/17/18 14:54 Pulse 67 11/17/18 14:54 Resp 16 11/17/18 14:54 BP 93/58 11/17/18 14:54 Pulse Ox 97 11/17/18 14:54 Intake & Output 11/16/18 11/17/18 11/17/18 18:59 06:59 18:59 Intake Total 1200 800 Balance 1200 800 Intake: IV 0 Intake, IV Titration 800 Amount Sodium Chloride 0.9% 1, 800 000 ml @ 100 mls/hr IV . Q10H ZHANG Rx#:[id number] Oral 1200 Other: Voiding Method Toilet # Voids 1 3 1 # Bowel Movements 3 1 - Exam Head normocephalic Neck supple no JVD no goiter Lungs clear to auscultation bilaterally no wheezing or crackles Heart regular rate and rhythm S1-S2, no rub or gallop Abdomen is soft nontender nondistended positive bowel sounds no hepatosplenomegaly Extremities no edema no cyanosis or clubbing Neuro alert and orientated to 3 - Labs CBC & Chem 7: 11/17/18 08:42 11/17/18 08:42 Labs: Abnormal Lab Results - Last 24 Hours (Table) 11/17/18 11/17/18 Range/Units 08:42 08:42 WBC 3.5 L (3.8-10.6) k/uL Hgb 8.8 L (11.4-16.0) gm/dL Hct 30.3 L (34.0-46.0) % MCV 66.4 L (80.0-100.0) fL MCH 19.3 L (25.0-35.0) pg MCHC 29.0 L (31.0-37.0) g/dL RDW 21.1 H (11.5-15.5) % Lymphocytes # 0.7 L (1.0-4.8) k/uL Sodium 135 L (137-145) mmol/L Total Protein 5.6 L (6.3-8.2) g/dL Albumin 3.2 L (3.5-5.0) g/dL Assessment and Plan Plan: 1. Anemia. Will order iron studies. GI services have been consulted. Stool occult negative. Patient's hemoglobin 6.7. Patient received 1 unit of PRBCs 2. History of arthritis. Patient follows with video effects editor 3. History of CVA. 4. History of essential hypertension 5. History of hyperlipidemia 6. History of hypothyroidism 7. Hyponatremia. Sodium 129. Continue to monitor closely DVT prophylaxis SCDs due to anemia. GI prophylaxis Protonix Patient underwent EGD and colonoscopy today EGD revealed antral gastritis and superficial duodenal ulcer and duodenal stricture Colonoscopy revealed evidence of diverticulosis At this time patient is maintained on IV Protonix will continue Possible discharge to home tomorrow if stable
[2018-11-17] MEDS: ACETAMINOPHEN TAB 325 MG TAB PO PRN (18:37)
[2018-11-17] MEDS: CYCLOBENZAPRINE 10 MG TAB PO SCH (22:13)
[2018-11-17] MEDS: ATENOLOL 25 MG TAB PO SCH (22:13)
[2018-11-18] MEDS: SODIUM CHLORIDE 0.9% 1,000 ML IV SCH (04:58)
[2018-11-18] MEDS: LEVOTHYROXINE 88 MCG TAB PO SCH (06:32)
[2018-11-18] MEDS: ATENOLOL 50 MG TAB PO SCH (08:30)
[2018-11-18] MEDS: GABAPENTIN 400 MG CAP PO SCH ×3 (08:31→21:27)
[2018-11-18] MEDS: PANTOPRAZOLE 40 MG/10 ML VIAL IV SCH (08:31)
[2018-11-18] MEDS: MULTIVITAMINS, THERA 1 EACH TAB PO SCH ×2 (08:31→21:27)
[2018-11-18 10:14] LABS: ALT 17 U/L (9-52); AST 24 U/L (14-36); Albumin 3.1 g/dL (3.5-5.0); Alkaline Phosphatase 48 U/L (38-126); Anion Gap 5 mmol/L; Blood Urea Nitrogen 14 mg/dL (7-17); Calcium 8.6 mg/dL (8.4-10.2); Carbon Dioxide 23 mmol/L (22-30); Chloride 106 mmol/L (98-107); Glucose 110 mg/dL (74-99); Potassium 3.9 mmol/L (3.5-5.1); Sodium 134 mmol/L (137-145); Total Bilirubin 0.3 mg/dL (0.2-1.3); Total Protein 5.3 g/dL (6.3-8.2)
--- NOTE | 2018-11-18 10:22 | PN ---
PROGRESS NOTE DATE OF SERVICE: 11/18/2018. The patient is a 73-year-old pleasant white female admitted to the hospital with severe symptomatic anemia and hemoglobin of 6.4 g/dL, received 1 unit of blood transfusion. No active bleeding. She underwent an EGD and colonoscopy by me yesterday. Upper endoscopy revealed early duodenal stricture and duodenal ulcerations as well as antral gastritis. Colonoscopy was within normal limits. She has been taking Aleve twice daily for almost 20 years for rheumatoid arthritis. This morning she is feeling better. No abdominal pain. No nausea, vomiting. Tolerating diet. PHYSICAL EXAMINATION: Appears comfortable in no apparent distress. VITAL SIGNS: Stable. Blood pressure is 128/86, pulse rate 72, afebrile. HEENT examination unremarkable. Conjunctivae pink. Sclerae anicteric. Oral cavity no lesions. Neck no JVD or lymph node enlargement. Chest was clear to auscultation. HEART: Regular rate and rhythm. ABDOMEN: Soft. Bowel sounds are positive. No organomegaly. Extremities: No pedal edema. Skin no rashes. NEUROLOGIC: Alert and oriented x3. No focal deficits. LAB: Hemoglobin this morning is 8.8 g/dL. WBC 3.5, platelets are normal. IMPRESSION: Iron deficiency anemia secondary to occult gastrointestinal blood loss. EGD and colonoscopy done yesterday revealed duodenal ulcerations/duodenal stricture and antral erosive gastritis related to NSAID use. Hemoglobin stable today. Colonoscopy yesterday was unremarkable. RECOMMENDATIONS: 1. Continue with Protonix 40 mg daily. 2. Avoid Aleve. 3. She was advised to discuss with Dr. Good regarding other medications for arthritis and in the meantime can use Tylenol as needed. 4. Follow up in the office in 2 weeks following discharge from the hospital. Thank you for this consultation. MMODL / IJN: [id number] /
[2018-11-18 11:04] LABS: Anisocytosis Moderate; HCT 27.5 % (34.0-46.0); Hypochromasia Marked; MCH 19.3 pg (25.0-35.0); MCV 66.6 fL (80.0-100.0); Mean Platelet Volume 6.6; Microcytosis Marked; Platelet Count 283 k/uL (150-450); Poikilocytosis Moderate; RBC 4.13 m/uL (3.80-5.40); RDW 21.3 % (11.5-15.5); WBC 3.7 k/uL (3.8-10.6)
[2018-11-18 13:24] LABS: Eosinophils # (M) 0.11 k/uL (0-0.7); Monocytes # (M) 0.41 k/uL (0-1.0); Neutrophils # (M) 2.48 k/uL (1.3-7.7); Neutrophils % (M) 67 %; Nucleated Red Blood Cells 0 /100 WBC (0-0); Total Cells Counted 100
[2018-11-18 13:32] LABS: Target Cells Present
[2018-11-18 13:33] LABS: RBC Fragments Present
[2018-11-18] MEDS ORDERED: SODIUM FERRIC GLUCONAT-SUCROSE 125 MG in SODIUM CHLORIDE 0.9% 100 ML IVPB ONE (14:10)
--- NOTE | 2018-11-18 14:11 | P.PN ---
Subjective Progress Note Date: 11/18/18 This is a 73-year-old female patient of Dr. castano. Patient presented to the hospital from her primary care recommendation due to low hemoglobin. Patient states she sees her social worker delinquency prevention for her arthritis and was called by her social worker delinquency prevention stating that she had a low hemoglobin. She denies any signs of active bleeding. Patient denies any symptoms of dizziness shortness of breath increased weakness or pallor. Patient does reports she said naproxen for her arthritis pain for many years. Patient denies any alcohol consumption. Patient denies ever having an issue with anemia in the past. Patient does have a significant past medical history for CVA, hyperlipidemia, hypertension, osteoporosis, hypothyroidism and ex-smoker. hemoglobin on admission at 6.7. Occult stool negative for blood. Patient received 1 unit of PRBCs. Patient also to be consulted for GI services. At this time patient is resting comfortably bed with no complaints. Patient denies nausea vomiting or diarrhea. Patient denies any urinary burning or frequency. On 11/17/2018 patient is alert and oriented 3 in no apparent distress there is no fever or chills no headache or dizziness no chest pain no shortness of breath no cough no nausea or vomiting no abdominal pain no diarrhea and no urinary symptoms she underwent EGD and colonoscopy today EGD revealed evidence of duodenal ulcer was duodenal stricture colonoscopy revealed evidence of diverticulosis. On 11/18/2018 patient was seen and examined on the medical floor she is alert and oriented 3 in no apparent distress she is feeling weak otherwise she denies any complaints there is no fever or chills no headache or dizziness no chest pain no shortness of breath no cough no nausea or vomiting no abdominal pain no diarrhea and no urinary symptoms Objective - Vital Signs Vital signs: Vital Signs Temp 98.6 F 11/18/18 07:00 Pulse 74 11/18/18 07:00 Resp 16 11/18/18 07:00 BP 96/60 11/18/18 07:00 Pulse Ox 98 11/18/18 07:00 Intake & Output 11/17/18 11/18/18 11/18/18 18:59 06:59 18:59 Intake Total 800 120 0 Balance 800 120 0 Intake: IV 0 Intake, IV Titration 800 120 0 Amount Sodium Chloride 0.9% 1, 800 120 000 ml @ 100 mls/hr IV . Q10H [facility] Rx#:[id number] Sodium Chloride 0.9% 500 0 ml 500 ml @ 0 mls/hr [facility] . [facility] [id number] Other: # Voids 1 2 # Bowel Movements 1 - Exam Head normocephalic Neck supple no JVD no goiter Lungs clear to auscultation bilaterally no wheezing or crackles Heart regular rate and rhythm S1-S2, no rub or gallop Abdomen is soft nontender nondistended positive bowel sounds no hepatosplenomegaly Extremities no edema no cyanosis or clubbing Neuro alert and orientated to 3 - Labs CBC & Chem 7: 11/18/18 09:17 11/18/18 09:17 Labs: Abnormal Lab Results - Last 24 Hours (Table) 11/18/18 11/18/18 Range/Units 09:17 09:17 WBC 3.7 L (3.8-10.6) k/uL Hgb 8.0 L (11.4-16.0) gm/dL Hct 27.5 L (34.0-46.0) % MCV 66.6 L (80.0-100.0) fL MCH 19.3 L (25.0-35.0) pg MCHC 29.0 L (31.0-37.0) g/dL RDW 21.3 H (11.5-15.5) % Lymphocytes # (Manual) 0.70 L (1.0-4.8) k/uL Sodium 134 L (137-145) mmol/L Glucose 110 H (74-99) mg/dL Total Protein 5.3 L (6.3-8.2) g/dL Albumin 3.1 L (3.5-5.0) g/dL Assessment and Plan Plan: 1. Anemia. Will order iron studies. GI services have been consulted. Stool occult negative. Patient's hemoglobin 6.7. Patient received 1 unit of PRBCs 2. History of arthritis. Patient follows with social worker delinquency prevention 3. History of CVA. 4. History of essential hypertension 5. History of hyperlipidemia 6. History of hypothyroidism 7. Hyponatremia. Sodium 129. Continue to monitor closely DVT prophylaxis SCDs due to anemia. GI prophylaxis Protonix Patient underwent EGD and colonoscopy today EGD revealed antral gastritis and superficial duodenal ulcer and duodenal stricture Colonoscopy revealed evidence of diverticulosis At this time patient is maintained on IV Protonix will continue Hemoglobin today is down from 8.8-8 We will give 1 dose of IV iron Venofer at 125 mg today Possible discharge to home tomorrow if stable
[2018-11-18] MEDS: ACETAMINOPHEN TAB 325 MG TAB PO PRN (16:19)
[2018-11-18] MEDS: CYCLOBENZAPRINE 10 MG TAB PO SCH (21:27)
[2018-11-19] MEDS: ATENOLOL 25 MG TAB PO SCH ×2 (00:41→20:58)
[2018-11-19] MEDS: SODIUM CHLORIDE 0.9% 1,000 ML IV SCH (03:03)
[2018-11-19] MEDS: LEVOTHYROXINE 88 MCG TAB PO SCH (06:25)
[2018-11-19] MEDS: MULTIVITAMINS, THERA 1 EACH TAB PO SCH ×2 (08:30→20:58)
[2018-11-19] MEDS: GABAPENTIN 400 MG CAP PO SCH ×3 (08:30→20:58)
[2018-11-19] MEDS: ATENOLOL 50 MG TAB PO SCH (08:31)
[2018-11-19] MEDS: PANTOPRAZOLE 40 MG/10 ML VIAL IV SCH (08:31)
[2018-11-19 10:00] LABS: ALT 16 U/L (9-52); AST 18 U/L (14-36); Albumin 2.8 g/dL (3.5-5.0); Alkaline Phosphatase 47 U/L (38-126); Anion Gap 6 mmol/L; Blood Urea Nitrogen 10 mg/dL (7-17); Calcium 8.4 mg/dL (8.4-10.2); Carbon Dioxide 22 mmol/L (22-30); Chloride 109 mmol/L (98-107); Glucose 127 mg/dL (74-99); Potassium 3.7 mmol/L (3.5-5.1); Sodium 137 mmol/L (137-145); Total Bilirubin 0.2 mg/dL (0.2-1.3)
[2018-11-19 10:13] LABS: Anisocytosis Moderate; Basophils % (A) 1 %; Eosinophils # (A) 0.1 k/uL (0-0.7); Eosinophils % (A) 3 %; HCT 27.7 % (34.0-46.0); HGB 7.9 gm/dL (11.4-16.0); Hypochromasia Marked; Lymphocytes # (A) 0.8 k/uL (1.0-4.8); Lymphocytes % (A) 23 %; MCH 19.4 pg (25.0-35.0); MCHC 28.7 g/dL (31.0-37.0); MCV 67.8 fL (80.0-100.0); Mean Platelet Volume 5.6; Microcytosis Marked; Monocytes # (A) 0.2 k/uL (0-1.0); Monocytes % (A) 7 %; Neutrophils # (A) 2.2 k/uL (1.3-7.7); Neutrophils % (A) 62 %; Platelet Count 260 k/uL (150-450); Poikilocytosis Marked; RBC 4.08 m/uL (3.80-5.40); RDW 21.9 % (11.5-15.5); WBC 3.5 k/uL (3.8-10.6)
[2018-11-19 11:57] LABS: RBC Fragments Present
[2018-11-19] MEDS ORDERED: SODIUM FERRIC GLUCONAT-SUCROSE 125 MG in SODIUM CHLORIDE 0.9% 100 ML IVPB ONE (13:30)
[2018-11-19] MEDS: ACETAMINOPHEN TAB 325 MG TAB PO PRN (13:56)
--- NOTE | 2018-11-19 15:08 | P.PN ---
Subjective Progress Note Date: 11/19/18 This is a 73-year-old female patient of Dr. castano. Patient presented to the hospital from her primary care recommendation due to low hemoglobin. Patient states she sees her mine geologist for her arthritis and was called by her mine geologist stating that she had a low hemoglobin. She denies any signs of active bleeding. Patient denies any symptoms of dizziness shortness of breath increased weakness or pallor. Patient does reports she said naproxen for her arthritis pain for many years. Patient denies any alcohol consumption. Patient denies ever having an issue with anemia in the past. Patient does have a significant past medical history for CVA, hyperlipidemia, hypertension, osteoporosis, hypothyroidism and ex-smoker. hemoglobin on admission at 6.7. Occult stool negative for blood. Patient received 1 unit of PRBCs. Patient also to be consulted for GI services. At this time patient is resting comfortably bed with no complaints. Patient denies nausea vomiting or diarrhea. Patient denies any urinary burning or frequency. 11/16/2018 patient received 1 unit of blood yesterday. Hemoglobin on admission 6.7 and is now up to 8.3. She has been receiving IV fluids sodium level has improved from 129-132. Patient is scheduled for EGD and colonoscopy in the morning. She's being followed by GI service. Denies any abdominal pain. Denies any nausea or vomiting. Reports no blood or black stools. Fecal occult blood was negative. Naproxen discontinued on admission. Patient has been hypotensive Zestoretic and Norvasc discontinued On 11/17/2018 patient is alert and oriented 3 in no apparent distress there is no fever or chills no headache or dizziness no chest pain no shortness of breath no cough no nausea or vomiting no abdominal pain no diarrhea and no urinary symptoms she underwent EGD and colonoscopy today EGD revealed evidence of duodenal ulcer was duodenal stricture colonoscopy revealed evidence of diverticulosis. On 11/18/2018 patient was seen and examined on the medical floor she is alert and oriented 3 in no apparent distress she is feeling weak otherwise she denies any complaints there is no fever or chills no headache or dizziness no chest pain no shortness of breath no cough no nausea or vomiting no abdominal pain no diarrhea and no urinary symptoms 11/19/2018 patient's hemoglobin is 7.9. She'll receive another dose of IV iron today. She denies any active signs of bleeding. No abdominal pain Objective - Vital Signs Vital signs: Vital Signs Temp 99.0 F 11/19/18 07:00 Pulse 73 11/19/18 07:00 Resp 16 11/19/18 07:00 BP 105/62 11/19/18 07:00 Pulse Ox 97 11/19/18 07:00 Intake & Output 11/18/18 11/19/18 11/19/18 18:59 06:59 18:59 Intake Total 0 425 Balance 0 425 Intake: Intake, IV Titration 0 Amount Sodium Chloride 0.9% 500 0 ml 500 ml @ 0 mls/hr IV . [employer] [facility] Rx#: [id number] Oral 425 Other: Voiding Method Toilet # Voids 0 2 # Bowel Movements 0 - Exam Head normocephalic Neck supple Lungs clear to auscultation bilaterally no wheezing or crackles Heart regular rate and rhythm S1-S2, no rub or gallop Abdomen is soft nontender nondistended positive bowel sounds no hepatosplenomegaly Extremities no edema Neuro alert and orientated to 3 - Labs CBC & Chem 7: 11/19/18 09:27 11/19/18 09:27 Labs: Abnormal Lab Results - Last 24 Hours (Table) 11/19/18 11/19/18 Range/Units 09:27 09:27 WBC 3.5 L (3.8-10.6) k/uL Hgb 7.9 L (11.4-16.0) gm/dL Hct 27.7 L (34.0-46.0) % MCV 67.8 L (80.0-100.0) fL MCH 19.4 L (25.0-35.0) pg MCHC 28.7 L (31.0-37.0) g/dL RDW 21.9 H (11.5-15.5) % Lymphocytes # 0.8 L (1.0-4.8) k/uL Chloride 109 H (98-107) mmol/L Glucose 127 H (74-99) mg/dL Total Protein 5.0 L (6.3-8.2) g/dL Albumin 2.8 L (3.5-5.0) g/dL Assessment and Plan Assessment: 1. 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 Colonoscopy revealed diverticulosis. Hemoglobin is still low at 7.9. She will receive another dose of IV iron today. Continue Protonix. Repeat CBC in a.m. Iron level low at 9. Admitting hemoglobin 6.7. Stool occult for occult blood is negative. Naproxen on hold. Patient did require unit of blood during this admission 2. History of osteoarthritis. Patient follows with mine geologist 3. History of CVA. 4. History of essential hypertension 5. History of hyperlipidemia 6. History of hypothyroidism 7. Hyponatremia. Resolved currently off of her Zestoretic 8. Hypotensive: Discontinue Zestoretic and Norvasc. Parameters have been placed around the atenolol to hold for systolic blood pressure less than 110 or heart rate less than 60. Blood pressure currently stable still her side. We' ll monitor DVT prophylaxis SCDs due to anemia. GI prophylaxis Protonix Possible discharge tomorrow I performed an examination of the patient and discussed their management with the physician Mobile Patrol Officer. I have reviewed the Physician Mobile Patrol Officer's notes and agree with the documented findings and plan of care
[2018-11-19] MEDS: CYCLOBENZAPRINE 10 MG TAB PO SCH (20:58)
[2018-11-20] MEDS: LEVOTHYROXINE 88 MCG TAB PO SCH (06:28)
--- NOTE | 2018-11-20 07:16 | P.PN ---
Subjective Progress Note Date: 11/19/18 Principal diagnosis: Anemia Patient sitting bedside, no acute complaints or abdominal pain. No blood per rectum reported. Objective - Vital Signs Vital signs: Vital Signs Temp 98.4 F 11/19/18 23:00 Pulse 78 11/19/18 23:00 Resp 18 11/19/18 23:00 BP 106/67 11/19/18 23:00 Pulse Ox 96 11/19/18 23:00 Intake & Output 11/19/18 11/20/18 11/20/18 18:59 06:59 18:59 Intake Total 400 Balance 400 Intake: Oral 400 Other: # Voids 3 1 - Exam On physical examination, patient appears comfortable in no apparent distress. HEAD: Normocephalic, atraumatic. EYES: No scleral icterus. No conjunctival injection. MOUTH: No lesions, tongue midline. NECK: Trachea midline, no gross abnormalities. CHEST: Clear to auscultation with no wheezing or rhonchi appreciated. HEART: Regular rate and rhythm. ABDOMEN: Soft, obese. Bowel sounds are positive. No organomegaly. No guarding or rigidity. EXTREMITIES: No pedal edema. SKIN: No rashes, no jaundice. NEUROLOGIC: Alert and oriented x3. No focal deficits. - Labs CBC & Chem 7: 11/19/18 09:27 11/19/18 09:27 Labs: Abnormal Lab Results - Last 24 Hours (Table) 11/19/18 11/19/18 Range/Units 09:27 09:27 WBC 3.5 L (3.8-10.6) k/uL Hgb 7.9 L (11.4-16.0) gm/dL Hct 27.7 L (34.0-46.0) % MCV 67.8 L (80.0-100.0) fL MCH 19.4 L (25.0-35.0) pg MCHC 28.7 L (31.0-37.0) g/dL RDW 21.9 H (11.5-15.5) % Lymphocytes # 0.8 L (1.0-4.8) k/uL Chloride 109 H (98-107) mmol/L Glucose 127 H (74-99) mg/dL Total Protein 5.0 L (6.3-8.2) g/dL Albumin 2.8 L (3.5-5.0) g/dL Assessment and Plan (1) Anemia due to blood loss Narrative/Plan: Iron deficiency anemia due to blood loss with the patient having EGD and colonoscopy which were significant for antral gastritis, superficial duodenal ulcers and a duodenal stricture as well as scattered diverticulosis on lower endoscopy. Hemoglobin found to be 7.9 from 8 previously. Current Visit: Yes Status: Acute Code(s): D50.0 - IRON DEFICIENCY ANEMIA SECONDARY TO BLOOD LOSS (CHRONIC) SNOMED Code(s): 504851392 Plan: Supportive care Okay for diet Monitor hemoglobin and transfuse as needed Continue twice daily PPI therapy Avoid NSAID use Thank you for allowing us to participate in the care of the patient we will continue to follow
[2018-11-20] MEDS ORDERED: PANTOPRAZOLE 40 MG TABLET PO SCH (07:30)
[2018-11-20 08:33] VITALS: BP 100/63; PULSE 88; RESP 16; TEMP 98.3
[2018-11-20] MEDS: ATENOLOL 50 MG TAB PO SCH (08:51)
[2018-11-20] MEDS: MULTIVITAMINS, THERA 1 EACH TAB PO SCH (08:52)
[2018-11-20] MEDS: GABAPENTIN 400 MG CAP PO SCH (08:52)
[2018-11-20] MEDS: ACETAMINOPHEN TAB 325 MG TAB PO PRN (08:55)
[2018-11-20] MEDS ORDERED: SUCRALFATE 1 GM TAB PO SCH (09:00)
[2018-11-20 09:52] LABS: Anisocytosis Moderate; Basophils % (A) 1 %; Eosinophils # (A) 0.1 k/uL (0-0.7); Eosinophils % (A) 4 %; HCT 29.5 % (34.0-46.0); HGB 8.4 gm/dL (11.4-16.0); Hypochromasia Marked; Lymphocytes # (A) 0.7 k/uL (1.0-4.8); Lymphocytes % (A) 16 %; MCH 19.4 pg (25.0-35.0); MCHC 28.3 g/dL (31.0-37.0); MCV 68.6 fL (80.0-100.0); Mean Platelet Volume 5.9; Microcytosis Marked; Monocytes # (A) 0.3 k/uL (0-1.0); Monocytes % (A) 6 %; Neutrophils # (A) 2.8 k/uL (1.3-7.7); Neutrophils % (A) 70 %; Platelet Count 261 k/uL (150-450); Poikilocytosis Moderate; RDW 22.1 % (11.5-15.5)
[2018-11-20 10:10] LABS: ALT 19 U/L (9-52); AST 17 U/L (14-36); Albumin 3.1 g/dL (3.5-5.0); Alkaline Phosphatase 53 U/L (38-126); Anion Gap 6 mmol/L; Blood Urea Nitrogen 12 mg/dL (7-17); Calcium 8.7 mg/dL (8.4-10.2); Carbon Dioxide 23 mmol/L (22-30); Chloride 108 mmol/L (98-107); Glucose 141 mg/dL (74-99); Potassium 3.4 mmol/L (3.5-5.1); Sodium 137 mmol/L (137-145); Total Bilirubin 0.2 mg/dL (0.2-1.3); Total Protein 5.3 g/dL (6.3-8.2)
[2018-11-20] MEDS ORDERED: POTASSIUM CHLORIDE ER 20 MEQ TAB.ER PO STA (10:50)
--- NOTE | 2018-11-20 11:08 | P.DS ---
Providers Date of admission: 11/15/18 13:02 Expected date of discharge: 11/20/18 Attending physician: Janis Rutledge Primary care physician: Elissa Baird [facility] Course: Discharge diagnosis 1. 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 Colonoscopy revealed diverticulosis. Patient received IV iron and 1 unit of blood during this admission. Hemoglobin at discharge is 8.4 2. History of osteoarthritis. Patient follows with physicians and surgeons 3. History of CVA. 4. History of essential hypertension 5. History of hyperlipidemia 6. History of hypothyroidism 7. Hyponatremia. Resolved currently off of her Zestoretic 8. Hypotensive: Discontinue Zestoretic and Norvasc. Atenolol will be decreased to 25 twice a day. Blood pressure on discharge 100/63 heart rate 88 9. Hypokalemia Hospital course This is a 73-year-old female patient of Dr. castano. Patient presented to the hospital from her primary care recommendation due to low hemoglobin. Patient states she sees her physicians and surgeons for her arthritis and was called by her physicians and surgeons stating that she had a low hemoglobin. She denies any signs of active bleeding. Patient denies any symptoms of dizziness shortness of breath increased weakness or pallor. Patient does reports she said naproxen for her arthritis pain for many years. Patient denies any alcohol consumption. Patient denies ever having an issue with anemia in the past. Patient does have a significant past medical history for CVA, hyperlipidemia, hypertension, osteoporosis, hypothyroidism and ex-smoker. hemoglobin on admission at 6.7. Occult stool negative for blood. Patient received 1 unit of PRBCs. Patient also to be consulted for GI services. At this time patient is resting comfortably bed with no complaints. Patient denies nausea vomiting or diarrhea. Patient denies any urinary burning or frequency. 11/16/2018 patient received 1 unit of blood yesterday. Hemoglobin on admission 6.7 and is now up to 8.3. She has been receiving IV fluids sodium level has improved from 129-132. Patient is scheduled for EGD and colonoscopy in the morning. She's being followed by GI service. Denies any abdominal pain. Denies any nausea or vomiting. Reports no blood or black stools. Fecal occult blood was negative. Naproxen discontinued on admission. Patient has been hypotensive Zestoretic and Norvasc discontinued On 11/17/2018 patient is alert and oriented 3 in no apparent distress there is no fever or chills no headache or dizziness no chest pain no shortness of breath no cough no nausea or vomiting no abdominal pain no diarrhea and no urinary symptoms she underwent EGD and colonoscopy today EGD revealed evidence of duodenal ulcer was duodenal stricture colonoscopy revealed evidence of diverticulosis. On 11/18/2018 patient was seen and examined on the medical floor she is alert and oriented 3 in no apparent distress she is feeling weak otherwise she denies any complaints there is no fever or chills no headache or dizziness no chest pain no shortness of breath no cough no nausea or vomiting no abdominal pain no diarrhea and no urinary symptoms 11/19/2018 patient's hemoglobin is 7.9. She'll receive another dose of IV iron today. She denies any active signs of bleeding. No abdominal pain 11/20/2018 patient is medically stable for discharge. GI has also cleared her for discharge. Patient's hemoglobin has improved up to 8.4. GI services recommending Protonix and Carafate at the time of discharge. We'll follow-up with her in the office. We'll check CBC in 3 days. Also recommend checking BMP in 3 days to follow-up on her potassium. Patient's blood pressures have been low during this admission. As stated above the Zestoretic and Norvasc were discontinued. She is tolerated this well. Atenolol also be decreased to 25 mg twice a day. Recommend that she follows up with Dr. castano in the next 3 days to check on the blood pressure. And make further adjustments in medications as needed. Also recommend checking CBC and BMP in 3 days. Patient is medically stable for discharge. Please refer to chart for any further details. I performed an examination of the patient and discussed their management with the physician Drug Room Clerk. I have reviewed the Physician Drug Room Clerk's notes and agree with the documented findings and plan of care Patient Condition at Discharge: Stable Plan - Discharge Summary Discharge Rx Participant: No New Discharge Prescriptions: New Sucralfate [Carafate] 1 gm PO BID #28 tablet Pantoprazole [Protonix] 40 mg PO DAILY #30 tablet. Ferrous Sulfate [Feosol] 325 mg PO BID #60 tab Atenolol [Tenormin] 25 mg PO BID #60 tab Continue Levothyroxine Sodium [Synthroid] 88 mcg PO DAILY Cyclobenzaprine [Flexeril] 10 mg PO HS Ergocalciferol (Vitamin D2) [Drisdol] 50,000 unit PO QMONTH Red Yeast Rice 600 mg PO DAILY Multivitamins, Thera [Multivitamin (formulary)] 1 tab PO BID Gabapentin [Neurontin] 400 mg PO TID Potassium 595mg 595 mg PO DAILY Alendronate Sodium [Fosamax] 70 mg PO TH Discontinued Naproxen 500 mg PO Q12HR Lisinopril/Hydrochlorothiazide [Lisinopril-Hctz 20-12.5 mg Tab] 1.5 tab PO DAILY Atenolol 50 mg PO DAILY Aspirin EC [Ecotrin] 325 mg PO DAILY amLODIPine [Norvasc] 10 mg PO DAILY Atenolol [Tenormin] 25 mg PO HS Discharge Medication List Cyclobenzaprine [Flexeril] 10 mg PO HS 09/08/16 [History] Ergocalciferol (Vitamin D2) [Drisdol] 50,000 unit PO QMONTH 09/08/16 [History] Levothyroxine Sodium [Synthroid] 88 mcg PO DAILY 09/08/16 [History] Alendronate Sodium [Fosamax] 70 mg PO TH 11/15/18 [History] Gabapentin [Neurontin] 400 mg PO TID 11/15/18 [History] Multivitamins, Thera [Multivitamin (formulary)] 1 tab PO BID 11/15/18 [History] Potassium 595mg 595 mg PO DAILY 11/15/18 [History] Red Yeast Rice 600 mg PO DAILY 11/15/18 [History] Atenolol [Tenormin] 25 mg PO BID #60 tab 11/20/18 [Rx] Ferrous Sulfate [Feosol] 325 mg PO BID #60 tab 11/20/18 [Rx] Pantoprazole [Protonix] 40 mg PO DAILY #30 tablet. 11/20/18 [Rx] Sucralfate [Carafate] 1 gm PO BID #28 tablet 11/20/18 [Rx] Follow up Appointment(s)/Referral(s): Gaby Ken MD [STAFF PHYSICIAN] - 2 Weeks Elissa Baird MD [Primary Care Provider] - 3 Days Ambulatory/Diagnostic Orders: Complete Blood Count w/diff [LAB.AMB] Time Frame: 3 Days, Location: None Selected Patient Instructions/Handouts: Iron Deficiency Anemia (DC) Activity/Diet/Wound Care/Special Instructions: activity as tolerated bland diet Discharge Disposition: HOME SELF-CARE
== END 2018-11-20 12:40 | disposition home or self-care (01) | DRG 812 ==
LOC: EC 10:57 → 4MS4W 13:02
PROVIDERS: ADMIT Internal Medicine; ATTEND Internal Medicine
PROC: 30233N1 Transfusion of Nonautologous Red Blood Cells into Peripheral Vein, Percutaneous Approach (ICD-10-PCS; principal; 2018-11-15)
PROC: 0DB78ZX Excision of Stomach, Pylorus, Via Natural or Artificial Opening Endoscopic, Diagnostic (ICD-10-PCS; 2018-11-17 08:00)
PROC: 0DJD8ZZ Inspection of Lower Intestinal Tract, Via Natural or Artificial Opening Endoscopic (ICD-10-PCS; 2018-11-17 08:00)
DX: D50.0 Iron deficiency anemia secondary to blood loss (chronic) (principal); E87.1 Hypo-osmolality and hyponatremia; K31.5 Obstruction of duodenum; E03.9 Hypothyroidism, unspecified; E78.5 Hyperlipidemia, unspecified; E87.6 Hypokalemia; H35.30 Unspecified macular degeneration; I10 Essential (primary) hypertension; K29.60 Other gastritis without bleeding; K57.30 Diverticulosis of large intestine without perforation or abscess without bleeding; M06.9 Rheumatoid arthritis, unspecified; M17.0 Bilateral primary osteoarthritis of knee; M81.0 Age-related osteoporosis without current pathological fracture; T39.395A Adverse effect of other nonsteroidal anti-inflammatory drugs [NSAID], initial encounter; Z79.1 Long term (current) use of non-steroidal anti-inflammatories (NSAID); Z79.82 Long term (current) use of aspirin; Z79.83 Long term (current) use of bisphosphonates; Z79.890 Hormone replacement therapy; Z79.899 Other long term (current) drug therapy; Z82.49 Family history of ischemic heart disease and other diseases of the circulatory system; I69.398 Other sequelae of cerebral infarction; H53.8 Other visual disturbances; Z87.442 Personal history of urinary calculi; Z87.891 Personal history of nicotine dependence; Z96.653 Presence of artificial knee joint, bilateral; Z88.8 Allergy status to other drugs, medicaments and biological substances; Z88.2 Allergy status to sulfonamides; K26.9 Duodenal ulcer, unspecified as acute or chronic, without hemorrhage or perforation
CPT/HCPCS: 36415; 43239; 45378; 80053; 82272; 82728; 83540; 83550; 83690; 85025; 85610; 85730; 86850; 86900; 86901; 86920; 88305; 99284

== ENCOUNTER → 2019-01-09 | Outpatient (CLI) | payer MEDICARE, BC ==
[~2019-01-09] MED LIST: SODIUM CHLORIDE 0.9% 500 ML 500 ML in EMPTY BAG 1 BAG IV PRN; ZOLEDRONIC ACID 5 MG in SODIUM CHLORIDE 0.9% 100 ML IV NR
[2019-01-09 10:05] VITALS: BP 143/80; PULSE 68; RESP 16; TEMP 98.1
== END | disposition home or self-care (01) ==
LOC: PROCWHC3 09:41
PROVIDERS: ATTEND Family Medicine
DX: M81.0 Age-related osteoporosis without current pathological fracture (principal)
CPT/HCPCS: 96365; J3489

== ENCOUNTER → 2019-05-01 | Outpatient (CLI) | payer MEDICARE, BC ==
--- NOTE | 2019-05-06 07:38 | MM ---
Reason for exam: screening (asymptomatic). Last mammogram was performed 1 year and 1 month ago. History: Patient is postmenopausal. Physical Findings: A clinical breast exam by your physician is recommended on an annual basis and results should be correlated with mammographic findings. MG 3D Screening Mammo W/Cad Bilateral CC and MLO view(s) were taken. Prior study comparison: April 02, 2018, bilateral MG 3d screening mammo w/cad. February 23, 2017, bilateral MG 3d screening mammo w/cad. The breast tissue is heterogeneously dense. This may lower the sensitivity of mammography. No significant new finding when compared with prior studies. ASSESSMENT: Negative, BI-RAD 1 RECOMMENDATION: Routine screening mammogram of both breasts in 1 year.
== END | disposition home or self-care (01) ==
LOC: RADMAMWWP 13:49
PROVIDERS: ATTEND Family Medicine
DX: Z12.31 Encounter for screening mammogram for malignant neoplasm of breast (principal)
CPT/HCPCS: 77063; 77067

== ENCOUNTER → 2019-07-25 | Outpatient (CLI) | payer MEDICARE, BC ==
[2019-07-25 12:38] LABS: Basophils # (A) 0.1 k/uL (0-0.2); Basophils % (A) 1 %; Eosinophils % (A) 1 %; HGB 14.3 gm/dL (11.4-16.0); Lymphocytes # (A) 1.3 k/uL (1.0-4.8); Lymphocytes % (A) 19 %; MCHC 34.1 g/dL (31.0-37.0); MCV 93.8 fL (80.0-100.0); Mean Platelet Volume 6.9; Monocytes # (A) 0.3 k/uL (0-1.0); Monocytes % (A) 5 %; Neutrophils # (A) 4.7 k/uL (1.3-7.7); Neutrophils % (A) 71 %; Platelet Count 249 k/uL (150-450); RBC 4.47 m/uL (3.80-5.40); RDW 11.9 % (11.5-15.5); WBC 6.6 k/uL (3.8-10.6)
[2019-07-25 13:27] LABS: Erythrocyte Sedimentation Rate 17 mm/hr (0-20)
== END | disposition home or self-care (01) ==
LOC: LABWHC1 11:02
PROVIDERS: ATTEND Physical Medicine & Rehabilitation
DX: M50.122 Cervical disc disorder at C5-C6 level with radiculopathy (principal); M43.12 Spondylolisthesis, cervical region; M47.812 Spondylosis without myelopathy or radiculopathy, cervical region; R20.2 Paresthesia of skin; M35.3 Polymyalgia rheumatica
CPT/HCPCS: 36415; 85025; 85652; 86140

== ENCOUNTER 2019-08-05 15:34 | Observation (INO) | payer MEDICARE, BC ==
[2019-08-05 16:26] LABS: Basophils # (A) 0.1 k/uL (0-0.2); Basophils % (A) 2 %; Eosinophils # (A) 0.1 k/uL (0-0.7); Eosinophils % (A) 1 %; HCT 41.4 % (34.0-46.0); HGB 13.8 gm/dL (11.4-16.0); Lymphocytes % (A) 17 %; MCH 31.9 pg (25.0-35.0); MCHC 33.3 g/dL (31.0-37.0); MCV 95.7 fL (80.0-100.0); Mean Platelet Volume 6.6; Monocytes # (A) 0.4 k/uL (0-1.0); Monocytes % (A) 6 %; Neutrophils # (A) 4.2 k/uL (1.3-7.7); Neutrophils % (A) 71 %; Platelet Count 286 k/uL (150-450); RBC 4.33 m/uL (3.80-5.40); RDW 11.5 % (11.5-15.5)
--- NOTE | 2019-08-05 16:30 | ED ---
Recheck HPI - General Chief Complaint: Recheck/Abnormal Lab/Rx Stated Complaint: Abn labs Time Seen by Provider: 08/05/19 15:42 Source: patient Mode of arrival: ambulatory Limitations: no limitations - History of Present Illness Initial Comments: 74-year-old female presents emergency department for chief complaint of low sodium. Patient states she was found have low sodium outpatient until she may come to emergency from for evaluation. Patient states that she does take lisinopril hydrochlorothiazide 20-12.5mg tablets, 1.5 qAM. Patient denies any h istory of cancer. She states she does think she might be dehydrated. Patient denies any dizziness paresthesias numbness tingling shortness of breath fatigued headache nausea vomiting or any other associated symptoms. Patient appears well on arrival no acute distress. - Related Data Home Medications Medication Instructions Recorded Confirmed Cyclobenzaprine [Flexeril] 10 mg PO HS 09/08/16 08/05/19 Ergocalciferol (Vitamin D2) 50,000 unit PO QMONTH 09/08/16 08/05/19 [Drisdol] Levothyroxine Sodium [Synthroid] 88 mcg PO DAILY 09/08/16 08/05/19 Potassium 595mg 595 mg PO DAILY@1330 11/15/18 08/05/19 Acetaminophen [Tylenol] 1,000 mg PO TID 08/05/19 08/05/19 Atenolol [Tenormin] 25 mg PO HS 08/05/19 08/05/19 Atenolol [Tenormin] 50 mg PO DAILY 08/05/19 08/05/19 Famotidine 20 mg PO BID 08/05/19 08/05/19 Ferrous Sulfate [Feosol] 325 mg PO DAILY@1330 08/05/19 08/05/19 Gabapentin [Neurontin] 300 mg PO TID 08/05/19 08/05/19 Lisinopril-Hctz 20-12.5 mg 1.5 tab PO DAILY 08/05/19 08/05/19 [Zestoretic 20-12.5] Multivitamins, Thera [Multivitamin 2 tab PO DAILY@1330 08/05/19 08/05/19 (formulary)] Red Yeast Rice 1,200 mg PO DAILY@1330 08/05/19 08/05/19 amLODIPine [Norvasc] 10 mg PO DAILY 08/05/19 08/05/19 Allergies Allergy/AdvReac Type Severity Reaction Status Date / Time diazepam [From Valium] Allergy Severe Nausea & Verified 08/05/19 15:57 Vomiting, dizzy,muscle pain,mouth numb escitalopram oxalate Allergy Severe Nausea & Verified 08/05/19 15:57 [From Lexapro] Vomiting, dizzy,muscle pain, mouth numb fluticasone propionate Allergy Severe Nausea & Verified 08/05/19 15:57 [From Flonase] Vomiting, dizzy,muscle pain, mouth numb furosemide [From Lasix] Allergy Severe Nausea & Verified 08/05/19 15:57 Vomiting,dizzy, muscle pain, mouth numb hydrocodone bitartrate Allergy Severe Nausea & Verified 08/05/19 15:57 [From Lortab] Vomiting,Dizzy, Muscle Pain, Mouth Numb meclizine HCl [From Antivert] Allergy Severe Nausea & Verified 08/05/19 15:57 Vomiting,dizzy,muscle pain, mouth numb olmesartan medoxomil Allergy Severe Nausea & Verified 08/05/19 15:57 [From Benicar] Vomiting, dizzy, muscle pain, mouth numb promethazine Allergy Severe Nausea & Verified 08/05/19 15:57 Vomiting, dizzy , muscle pain, mouth numb Mnryiyz-Yyk-Aer Reductase Allergy Severe Nausea & Verified 08/05/19 15:57 Inhibitor Vomiting,dizzy, muscle pain, mouth numb tizanidine HCl Allergy Severe Nausea & Verified 08/05/19 15:57 [From Zanaflex] Vomiting,dizzy,muscle pain,mouth numb prednisone Allergy Dyspnea, Verified 08/05/19 15:57 Nausea & Vomiting, Dizzy, Muscle Pain, Mouth Numb. Sulfa (Sulfonamide Allergy Nausea & Verified 08/05/19 15:57 Antibiotics) Vomiting,dizzy,muscle pain, mouth numb. Review of Systems ROS Statement: Those systems with pertinent positive or pertinent negative responses have been documented in the HPI. ROS Other: All systems not noted in ROS Statement are negative. 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 History of Any Multi-Drug Resistant Organisms: None Reported Past Surgical History: Joint Replacement, Orthopedic Surgery Additional Past Surgical History / Comment(s): LITHOTRIPSY, KIDNEY SURGERY X2 FOR STONES, ACHILLES TENDON RUPTURE(LT), RIGHT KNEE ARTHROSCOPY, RIGHT ROTATOR CUFF, MARISOL CARPAL TUNNEL , bilateral total knee arthroplasties, colonoscopy, sinus surgery, D&C. Past Anesthesia/Blood Transfusion Reactions: No Reported Reaction Past Psychological History: No Psychological Hx Reported Smoking Status: Former smoker Past Alcohol Use History: None Reported Past Drug Use History: None Reported - Past Family History Father Family Medical History: Coronary Artery Disease (CAD) Additional Family Medical History / Comment(s): heart disease- age 62 Mother Family Medical History: Hyperlipidemia, Hypertension, Thyroid Disorder Additional Family Medical History / Comment(s): hiatal hernia General Exam - General Exam Comments Initial Comments: General: The patient is awake and alert, in no distress, and does not appear acutely ill. Eye: +3 mm pupils are equal, round and reactive to light, extra-ocular movements are intact. No nystagmus. There is normal conjunctiva bilaterally. No signs of icterus. Ears, nose, mouth and throat: There are dry mucous membranes and no oral lesions. Cardiovascular: There is a regular rate and rhythm. No murmur, rub or gallop is appreciated. Respiratory: Lungs are clear to auscultation, respirations are non-labored, breath sounds are equal. No wheezes, stridor, rales, or rhonchi. Gastrointestinal: Soft, non-distended, non-tender abdomen without masses or organomegaly noted. There is no rebound or guarding present. Musculoskeletal: Normal ROM, no tenderness. Strength 5/5. Sensation intact. Radial pulses equal bilaterally 2+. Neurological: A&O x 3. CN II-XII intact grossly, There are no obvious motor or sensory deficits. Coordination appears grossly intact. Speech is normal. Skin: Skin is warm and dry and no rashes or lesions are noted. No LE edema. Psychiatric: Cooperative, appropriate mood & affect, normal judgment. Limitations: no limitations Course Vital Signs 08/05/19 08/05/19 15:39 17:28 Temperature 98.3 F Pulse Rate 62 62 Respiratory 20 18 Rate Blood Pressure 134/76 116/65 O2 Sat by Pulse 99 99 Oximetry Medical Decision Making - Medical Decision Making 74-year-old female presenting for low sodium. Patient's sodium 124. No symptoms. Patient instructed mucous membranes. Patient states she does take a sample hydrochlorothiazide. Patient has low serum osmolality. Patient has <280 urine Osm. Remaining urine studies pending. Case discussed with attending Dr. Ochoa who spoke with Dr. Rutledge covering for Dr. Baird who recommends admission with fluids at 50cc/hr. Patient agreeable to admission. Transferred to the floor appearing well. - Lab Data Result diagrams: 08/05/19 16:11 08/05/19 16:11 Lab Results 08/05/19 08/05/19 08/05/19 Range/Units 16:11 16:11 16:11 WBC 6.0 (3.8-10.6) k/uL RBC 4.33 (3.80-5.40) m/uL Hgb 13.8 (11.4-16.0) gm/dL Hct 41.4 (34.0-46.0) % MCV 95.7 (80.0-100.0) fL MCH 31.9 (25.0-35.0) pg MCHC 33.3 (31.0-37.0) g/dL RDW 11.5 (11.5-15.5) % Plt Count 286 (150-450) k/uL Neutrophils % 71 % Lymphocytes % 17 % Monocytes % 6 % Eosinophils % 1 % Basophils % 2 % Neutrophils # 4.2 (1.3-7.7) k/uL Lymphocytes # 1.0 (1.0-4.8) k/uL Monocytes # 0.4 (0-1.0) k/uL Eosinophils # 0.1 (0-0.7) k/uL Basophils # 0.1 (0-0.2) k/uL Sodium 124 L (137-145) mmol/L Potassium 4.0 (3.5-5.1) mmol/L Chloride 88 L (98-107) mmol/L Carbon Dioxide 26 (22-30) mmol/L Anion Gap 10 mmol/L BUN 14 (7-17) mg/dL Creatinine 0.50 L (0.52-1.04) mg/dL Est GFR (CKD-EPI)AfAm >90 (>60 ml/min/1.73 sqM) Est GFR (CKD-EPI)NonAf >90 (>60 ml/min/1.73 sqM) Glucose 103 H (74-99) mg/dL Osmolality 257 L (280-301) mosm/kg Calcium 10.0 (8.4-10.2) mg/dL Total Bilirubin 0.4 (0.2-1.3) mg/dL AST 36 (14-36) U/L ALT 17 (9-52) U/L Alkaline Phosphatase 89 (38-126) U/L Total Protein 7.6 (6.3-8.2) g/dL Albumin 4.7 (3.5-5.0) g/dL Disposition Clinical Impression: Hyponatremia, Hypochloremia Disposition: ADMITTED IP TO THIS [facility] Condition: Stable Is patient prescribed a controlled substance at d/c from ED?: No Referrals: Elissa Baird MD [Primary Care Provider] - 1-2 days Time of Disposition: 18:00 Decision to Admit Reason: Admit from EC Decision Date: 08/05/19 Decision Time: 18:00
[2019-08-05 16:40] LABS: ALT 17 U/L (9-52); AST 36 U/L (14-36); African American GFR (CKD) >90 (>60 ml/min/1.73 sqM); Albumin 4.7 g/dL (3.5-5.0); Alkaline Phosphatase 89 U/L (38-126); Anion Gap 10 mmol/L; Blood Urea Nitrogen 14 mg/dL (7-17); Carbon Dioxide 26 mmol/L (22-30); Chloride 88 mmol/L (98-107); Glucose 103 mg/dL (74-99); Non-African American GFR(CKD) >90 (>60 ml/min/1.73 sqM); Sodium 124 mmol/L (137-145); Total Bilirubin 0.4 mg/dL (0.2-1.3); Total Protein 7.6 g/dL (6.3-8.2)
[2019-08-05] MEDS ORDERED: SODIUM CHLORIDE 0.9% 1,000 ML IV ONE (16:58)
[2019-08-05] MEDS: SODIUM CHLORIDE 0.9% 1,000 ML IV SCH (17:31)
[2019-08-05] MEDS ORDERED: NALOXONE 0.4 MG/ML 1 ML VIAL IV PRN (17:56)
[2019-08-05 18:55] LABS: Creatinine,Urine Random 13.3 mg/dL
[2019-08-05] MEDS: ATENOLOL 25 MG TAB PO SCH (21:13)
[2019-08-05] MEDS: GABAPENTIN 300 MG CAP PO SCH (21:13)
[2019-08-05] MEDS: FAMOTIDINE 20 MG TAB PO SCH (21:13)
[2019-08-05] MEDS: CYCLOBENZAPRINE 10 MG TAB PO SCH (21:13)
[2019-08-05] MEDS: ACETAMINOPHEN TAB 325 MG TAB PO SCH (21:16)
[2019-08-06] MEDS: SODIUM CHLORIDE 0.9% 1,000 ML IV SCH ×2 (04:03→16:25)
[2019-08-06] MEDS: ACETAMINOPHEN TAB 325 MG TAB PO SCH ×3 (05:13→20:33)
[2019-08-06] MEDS: LEVOTHYROXINE 88 MCG TAB PO SCH (05:13)
[2019-08-06] MEDS: FAMOTIDINE 20 MG TAB PO SCH ×2 (07:32→20:35)
[2019-08-06] MEDS: ATENOLOL 50 MG TAB PO SCH (07:32)
[2019-08-06] MEDS: GABAPENTIN 300 MG CAP PO SCH ×3 (07:32→20:34)
[2019-08-06] MEDS: amLODIPine 10 MG TAB PO SCH (07:32)
[2019-08-06] MEDS: LISINOPRIL 10 MG TAB PO SCH (07:32)
[2019-08-06 07:39] LABS: HCT 37.7 % (34.0-46.0); HGB 13.4 gm/dL (11.4-16.0); MCH 33.6 pg (25.0-35.0); MCHC 35.5 g/dL (31.0-37.0); MCV 94.8 fL (80.0-100.0); Mean Platelet Volume 5.7; Platelet Count 241 k/uL (150-450); RBC 3.98 m/uL (3.80-5.40); RDW 11.7 % (11.5-15.5); WBC 2.9 k/uL (3.8-10.6)
[2019-08-06 07:45] LABS: ALT 23 U/L (9-52); AST 31 U/L (14-36); African American GFR (CKD) >90 (>60 ml/min/1.73 sqM); Albumin 3.8 g/dL (3.5-5.0); Alkaline Phosphatase 71 U/L (38-126); Anion Gap 9 mmol/L; Blood Urea Nitrogen 9 mg/dL (7-17); Calcium 8.9 mg/dL (8.4-10.2); Carbon Dioxide 25 mmol/L (22-30); Chloride 98 mmol/L (98-107); Glucose 73 mg/dL (74-99); Non-African American GFR(CKD) >90 (>60 ml/min/1.73 sqM); Potassium 3.7 mmol/L (3.5-5.1); Sodium 132 mmol/L (137-145); Total Bilirubin 0.6 mg/dL (0.2-1.3); Total Protein 6.6 g/dL (6.3-8.2)
--- NOTE | 2019-08-06 11:00 | P.HPIM ---
History of Present Illness H&P Date: 08/06/19 Patient is a 74-year-old female who presented to the emergency room on 08/05/2019 after she was sent by her primary care physician Dr. Baird, for evaluation and treatment of hyponatremia. Low-sodium was revealed on outpatient lab studies. Patient states she takes lisinopril hydrochlorothiazide 2012.5 mg 1.5 tablets every morning. Patient is alert his 3, resting comfortably in bed. Patient denies history of cancer. Patient denies any cardiac history, denies chest pain, denies arrhythmia palpitation. Patient has a history of dizziness that she follows with ENT, remote history of kidney stones, hypertension, hyperlipidemia, osteoarthritis, hypothyroidism, CVA/TIA with no residual. Patie nt denies any current paresthesias, numbness, tingling, shortness of breath, denies chest pain, denies nausea, vomiting, denies any burning or frequency of urination, denies any recent illness. Initial sodium on emergency room admission was 124, on 08/06/2018 sodium has improved to 132. Patient states she does not frequently drink fluids at home. Patient states she has good appetite at home. Patient was admitted October 2018 for GI bleed. Patient had hyponatremia on medication. Lisinopril hydrochlorothiazide was discontinued upon discharge. Patient states she never stopped taking medication, and has been taking regularly ever since. 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 C-DIFF History of Any Multi-Drug Resistant Organisms: None Reported Past Surgical History: Joint Replacement, Orthopedic Surgery Additional Past Surgical History / Comment(s): LITHOTRIPSY, KIDNEY SURGERY X2 FOR STONES, ACHILLES TENDON RUPTURE(LT), RIGHT KNEE ARTHROSCOPY, RIGHT ROTATOR CUFF, MARISOL CARPAL TUNNEL , bilateral total knee arthroplasties, colonoscopy, sinus surgery, D&C. Past Anesthesia/Blood Transfusion Reactions: No Reported Reaction Past Psychological History: No Psychological Hx Reported Additional Psychological History / Comment(s): Pt resides with her spouse. She uses no assistive device. She drives short distances only. She exercises regu larly. Smoking Status: Former smoker Past Alcohol Use History: None Reported Additional Past Alcohol Use History / Comment(s): STARTED SMOKING AT AGE 18, SMOKED 1PPD AT BEGINNING AND TOWARDS THE END, SMOKED 1 CARTON PER MONTH) QUIT 25 YEARS AGO Past Drug Use History: None Reported - Past Family History Father Family Medical History: Coronary Artery Disease (CAD) Additional Family Medical History / Comment(s): heart disease- age 62 Mother Family Medical History: Hyperlipidemia, Hypertension, Thyroid Disorder Additional Family Medical History / Comment(s): hiatal hernia Medications and Allergies Home Medications Medication Instructions Recorded Confirmed Type Cyclobenzaprine [Flexeril] 10 mg PO HS 09/08/16 08/05/19 History Ergocalciferol (Vitamin D2) 50,000 unit PO QMONTH 09/08/16 08/05/19 History [Drisdol] Levothyroxine Sodium [Synthroid] 88 mcg PO DAILY 09/08/16 08/05/19 History Potassium 595mg 595 mg PO DAILY@1330 11/15/18 08/05/19 History Acetaminophen [Tylenol] 1,000 mg PO TID 08/05/19 08/05/19 History Atenolol [Tenormin] 25 mg PO HS 08/05/19 08/05/19 History Atenolol [Tenormin] 50 mg PO DAILY 08/05/19 08/05/19 History Famotidine 20 mg PO BID 08/05/19 08/05/19 History Ferrous Sulfate [Feosol] 325 mg PO DAILY@1330 08/05/19 08/05/19 History Gabapentin [Neurontin] 300 mg PO TID 08/05/19 08/05/19 History Lisinopril-Hctz 20-12.5 mg 1.5 tab PO DAILY 08/05/19 08/05/19 History [Zestoretic 20-12.5] Multivitamins, Thera [Multivitamin 2 tab PO DAILY@1330 10/07/19 10/07/19 History (formulary)] Red Yeast Rice 1,200 mg PO DAILY@1330 08/05/19 08/05/19 History amLODIPine [Norvasc] 10 mg PO DAILY 08/05/19 08/05/19 History Allergies Allergy/AdvReac Type Severity Reaction Status Date / Time diazepam [From Valium] Allergy Severe Nausea & Verified 08/05/19 19:09 Vomiting, dizzy,muscle pain,mouth numb escitalopram oxalate Allergy Severe Nausea & Verified 08/05/19 19:09 [From Lexapro] Vomiting, dizzy,muscle pain, mouth numb fluticasone propionate Allergy Severe Nausea & Verified 08/05/19 19:09 [From Flonase] Vomiting, dizzy,muscle pain, mouth numb furosemide [From Lasix] Allergy Severe Nausea & Verified 08/05/19 19:09 Vomiting,dizzy, muscle pain, mouth numb hydrocodone bitartrate Allergy Severe Nausea & Verified 08/05/19 19:09 [From Lortab] Vomiting,Dizzy, Muscle Pain, Mouth Numb meclizine HCl [From Antivert] Allergy Severe Nausea & Verified 08/05/19 19:09 Vomiting,dizzy,muscle pain, mouth numb olmesartan medoxomil Allergy Severe Nausea & Verified 08/05/19 19:09 [From Benicar] Vomiting, dizzy, muscle pain, mouth numb promethazine Allergy Severe Nausea & Verified 08/05/19 19:09 Vomiting, dizzy , muscle pain, mouth numb Eiwozwu-Qrh-Agk Reductase Allergy Severe Nausea & Verified 08/05/19 19:09 Inhibitor Vomiting,dizzy, muscle pain, mouth numb tizanidine HCl Allergy Severe Nausea & Verified 08/05/19 19:09 [From Zanaflex] Vomiting,dizzy,muscle pain,mouth numb prednisone Allergy Dyspnea, Verified 08/05/19 19:09 Nausea & Vomiting, Dizzy, Muscle Pain, Mouth Numb. Sulfa (Sulfonamide Allergy Nausea & Verified 08/05/19 19:09 Antibiotics) Vomiting,dizzy,muscle pain, mouth numb. Physical Exam Vitals: Vital Signs Temp Pulse Pulse Resp BP BP Pulse Ox 08/06/19 07:00 98.3 F 67 12 103/65 98 08/06/19 03:19 16 08/06/19 01:15 98.0 F 70 18 92/63 97 08/06/19 00:00 16 08/05/19 20:10 18 08/05/19 19:15 97.8 F 69 18 121/77 99 08/05/19 18:53 97.1 F L 65 18 122/72 98 08/05/19 17:28 62 18 116/65 99 08/05/19 15:39 98.3 F 62 20 134/76 99 Intake and Output 08/05/19 08/06/19 08/06/19 22:59 06:59 14:59 Intake Total 300 300 780 Balance 300 300 780 Intake: Intake, IV Titration 300 300 200 Amount Sodium Chloride 0.9% 1, 300 200 000 ml @ 50 mls/hr IV . Q20H [facility] Rx#:[id number] Sodium Chloride 0.9% 1, 300 000 ml @ 999 mls/hr IV . Q1H1M [facility] Rx#:[id number] Oral 580 Other: Voiding Method Toilet Toilet Toilet # Voids 2 2 Weight 61.689 kg Head normocephalic Neck supple Lungs clear to auscultation bilaterally no wheezing or crackles Heart regular rate and rhythm S1-S2, no rub or gallop Abdomen is soft nontender nondistended positive bowel sounds no hepatosplenomegaly Extremities mild edema Neuro alert and orientated to 3 Results CBC & Chem 7: 08/06/19 07:16 08/06/19 07:16 Labs: Abnormal Lab Results - Last 24 Hours (Table) 08/05/19 08/05/19 08/06/19 Range/Units 16:11 16:11 07:16 WBC 2.9 L (3.8-10.6) k/uL Sodium 124 L (137-145) mmol/L Chloride 88 L (98-107) mmol/L Creatinine 0.50 L (0.52-1.04) mg/dL Glucose 103 H (74-99) mg/dL Osmolality 257 L (280-301) mosm/kg 08/06/19 Range/Units 07:16 WBC (3.8-10.6) k/uL Sodium 132 L (137-145) mmol/L Chloride (98-107) mmol/L Creatinine 0.51 L (0.52-1.04) mg/dL Glucose 73 L (74-99) mg/dL Osmolality (280-301) mosm/kg Thrombosis Risk Factor Assmnt - Choose All That Apply Any of the Below Risk Factors Present?: Yes Each Factor Represents 1 point: Obesity (BMI >25) Other Risk Factors: Yes Each Risk Factor Represents 2 Points: Age 61-74 years Other congenital or acquired thrombophilia - If yes, enter type in comment: Yes Thrombosis Risk Factor Assessment Total Risk Factor Score: 3 Thrombosis Risk Factor Assessment Level: Moderate Risk Assessment and Plan Assessment: 1. Hyponatremia. Continue IV fluids 0.9 normal saline at 50 mL per hour. Sodium improved to 132. 2. History of hypertension 3. History of hyperlipidemia 4. History of kidney stones 5. History of osteoarthritis 6. History of hypothyroidism. Continue levothyroxine. 7. History of GI bleeding. Pepcid for GI prophylaxis. 8. History of dizziness. DVT prophylaxis heparin. GI prophylaxis Pepcid. Time with Patient: Greater than 30 (Greater than 60% of the total time spent in counseling and coordination of care. I performed an examination of the patient and discussed their management with the Nurse Practitioner. I have reviewed the Nurse Practitioner's notes and agree with the documented findings and plan of care)
[2019-08-06] MEDS ORDERED: FERROUS SULFATE 325 MG TAB PO SCH (13:30)
[2019-08-06] MEDS: CYCLOBENZAPRINE 10 MG TAB PO SCH (20:33)
[2019-08-06] MEDS: HEPARIN SODIUM,PORCINE 5,000 UNIT/ML 1 ML VIAL SQ SCH (20:35)
[2019-08-06] MEDS: ATENOLOL 25 MG TAB PO SCH (20:35)
[2019-08-06] MEDS ORDERED: ACETAMINOPHEN TAB 325 MG TAB PO SCH (21:00)
[2019-08-07 03:15] VITALS: RESP 16
[2019-08-07] MEDS: LEVOTHYROXINE 88 MCG TAB PO SCH (05:59)
[2019-08-07] MEDS: ACETAMINOPHEN TAB 325 MG TAB PO SCH (05:59)
[2019-08-07 07:26] LABS: ALT 19 U/L (9-52); AST 28 U/L (14-36); African American GFR (CKD) >90 (>60 ml/min/1.73 sqM); Albumin 3.6 g/dL (3.5-5.0); Alkaline Phosphatase 67 U/L (38-126); Anion Gap 7 mmol/L; Blood Urea Nitrogen 11 mg/dL (7-17); Calcium 8.6 mg/dL (8.4-10.2); Carbon Dioxide 23 mmol/L (22-30); Chloride 102 mmol/L (98-107); Glucose 76 mg/dL (74-99); Non-African American GFR(CKD) >90 (>60 ml/min/1.73 sqM); Potassium 3.9 mmol/L (3.5-5.1); Sodium 132 mmol/L (137-145); Total Bilirubin 0.4 mg/dL (0.2-1.3); Total Protein 6.4 g/dL (6.3-8.2)
[2019-08-07 07:50] LABS: Basophils % (A) 1 %; Eosinophils # (A) 0.1 k/uL (0-0.7); Eosinophils % (A) 2 %; HCT 38.2 % (34.0-46.0); HGB 12.4 gm/dL (11.4-16.0); Lymphocytes # (A) 0.9 k/uL (1.0-4.8); Lymphocytes % (A) 32 %; MCH 32.1 pg (25.0-35.0); MCHC 32.4 g/dL (31.0-37.0); MCV 99.2 fL (80.0-100.0); Mean Platelet Volume 6.6; Monocytes # (A) 0.3 k/uL (0-1.0); Monocytes % (A) 9 %; Neutrophils # (A) 1.5 k/uL (1.3-7.7); Neutrophils % (A) 52 %; Platelet Count 217 k/uL (150-450); RBC 3.86 m/uL (3.80-5.40); RDW 11.8 % (11.5-15.5); WBC 2.9 k/uL (3.8-10.6)
[2019-08-07] MEDS: FAMOTIDINE 20 MG TAB PO SCH (09:52)
[2019-08-07] MEDS: GABAPENTIN 300 MG CAP PO SCH (09:52)
[2019-08-07] MEDS: HEPARIN SODIUM,PORCINE 5,000 UNIT/ML 1 ML VIAL SQ SCH (09:52)
[2019-08-07] MEDS: ATENOLOL 50 MG TAB PO SCH (09:54)
--- NOTE | 2019-08-07 10:43 | P.DS ---
Providers Date of admission: 08/05/19 17:52 Expected date of discharge: 08/07/19 Attending physician: Janis Rutledge Primary care physician: Elissa Baird Hospital Course: Discharge diagnosis 1. Hyponatremia. Continue IV fluids 0.9 normal saline at 50 mL per hour. Sodium improved to 132. Zestoretic will be held. Patient will be discharged on lisinopril. Advised possible endocrine workup outpatient per PCP and sodium 132. Sodium ordered for 2 days 2. History of hypertension 3. History of hyperlipidemia 4. History of kidney stones 5. History of osteoarthritis 6. History of hypothyroidism. Continue levothyroxine. 7. History of GI bleeding. Pepcid for GI prophylaxis. 8. History of dizziness. hospital course Patient is a 74-year-old female who presented to the emergency room on 08/05/2019 after she was sent by her primary care physician Dr. Baird, for evaluation and treatment of hyponatremia. Low-sodium was revealed on outpatient lab studies. Patient states she takes lisinopril hydrochlorothiazide 2012.5 mg 1.5 tablets every morning. Patient is alert his 3, resting comfortably in bed. Patient denies history of cancer. Patient denies any cardiac history, denies chest pain, denies arrhythmia palpitation. Patient has a history of dizziness that she follows with ENT, remote history of kidney stones, hypertension, hyperlipidemia, osteoarthritis, hypothyroidism, CVA/TIA with no residual. Patient denies any current paresthesias, numbness, tingling, shortness of breath, denies chest pain, denies nausea, vomiting, denies any burning or frequency of urination, denies any recent illness. Initial sodium on emergency room admission was 124, on 08/06/2018 sodium has improved to 132. Patient states she does not frequently drink fluids at home. Patient states she has good appetite at home. Patient was admitted October 2018 for GI bleed. Patient had hyponatremia on medication. Lisinopril hydrochlorothiazide was discontinued upon discharge. Patient states she never stopped taking medication, and has been taking regularly ever since. On 08/07/2019 patient is alert and oriented 3. Sodium remained at 132. Zestoretic will be held on discharge. Patient advised follow up with PCP and possible endocrine workup outpatient. Patient remains asymptomatic. Patient denies chest pain shortness breath. Patient denies nausea vomiting or diarrhea. Patient denies any urinary burning or frequency. I performed an examination of the patient and discussed their management with the Nurse Practitioner. I have reviewed the Nurse Practitioner's notes and agree with the documented findings and plan of care Patient Condition at Discharge: Stable Plan - Discharge Summary Discharge Rx Participant: Yes New Discharge Prescriptions: New Lisinopril [Zestril] 10 mg PO DAILY 30 Days #30 tab Continue Levothyroxine Sodium [Synthroid] 88 mcg PO DAILY Cyclobenzaprine [Flexeril] 10 mg PO HS Ergocalciferol (Vitamin D2) [Drisdol] 50,000 unit PO QMONTH Potassium 595mg 595 mg PO DAILY@1330 Red Yeast Rice 1,200 mg PO DAILY@1330 Atenolol [Tenormin] 25 mg PO HS amLODIPine [Norvasc] 10 mg PO DAILY Famotidine 20 mg PO BID Acetaminophen [Tylenol] 1,000 mg PO TID Multivitamins, Thera [Multivitamin (formulary)] 2 tab PO DAILY@1330 Gabapentin [Neurontin] 300 mg PO TID Ferrous Sulfate [Iron (65 MG Elemental)] 325 mg PO DAILY@1330 Atenolol [Tenormin] 50 mg PO DAILY Discontinued Lisinopril-Hctz 20-12.5 mg [Zestoretic 20-12.5] 1.5 tab PO DAILY Discharge Medication List Cyclobenzaprine [Flexeril] 10 mg PO HS 09/08/16 [History] Ergocalciferol (Vitamin D2) [Drisdol] 50,000 unit PO QMONTH 09/08/16 [History] Levothyroxine Sodium [Synthroid] 88 mcg PO DAILY 09/08/16 [History] Potassium 595mg 595 mg PO DAILY@1330 11/15/18 [History] Acetaminophen [Tylenol] 1,000 mg PO TID 08/05/19 [History] Atenolol [Tenormin] 25 mg PO HS 08/05/19 [History] Atenolol [Tenormin] 50 mg PO DAILY 08/05/19 [History] Famotidine 20 mg PO BID 08/05/19 [History] Ferrous Sulfate [Iron (65 MG Elemental)] 325 mg PO DAILY@1330 08/05/19 [History] Gabapentin [Neurontin] 300 mg PO TID 08/05/19 [History] Multivitamins, Thera [Multivitamin (formulary)] 2 tab PO DAILY@1330 08/05/19 [History] Red Yeast Rice 1,200 mg PO DAILY@1330 08/05/19 [History] amLODIPine [Norvasc] 10 mg PO DAILY 08/05/19 [History] Lisinopril [Zestril] 10 mg PO DAILY 30 Days #30 tab 08/07/19 [Rx] Follow up Appointment(s)/Referral(s): Elissa Baird MD [Primary Care Provider] - 1-2 days Activity/Diet/Wound Care/Special Instructions: Activity as tolerated Diet heart healthy
[2019-08-07] MEDS: LISINOPRIL 10 MG TAB PO SCH (12:05)
[2019-08-07] MEDS: amLODIPine 10 MG TAB PO SCH (12:06)
[2019-08-07 12:44] VITALS: BP 105/54; PULSE 59; TEMP 97.9
== END 2019-08-07 12:40 | disposition home or self-care (01) ==
LOC: EC 15:34 → 4SSUR 17:52 → 3NMEDONC 08-06 17:45
PROVIDERS: ADMIT Internal Medicine; ATTEND Internal Medicine
DX: E87.1 Hypo-osmolality and hyponatremia (principal); E87.8 Other disorders of electrolyte and fluid balance, not elsewhere classified; I10 Essential (primary) hypertension; E78.5 Hyperlipidemia, unspecified; E03.9 Hypothyroidism, unspecified; E04.2 Nontoxic multinodular goiter; H35.30 Unspecified macular degeneration; K44.9 Diaphragmatic hernia without obstruction or gangrene; H91.91 Unspecified hearing loss, right ear; M19.012 Primary osteoarthritis, left shoulder; M19.011 Primary osteoarthritis, right shoulder; E66.9 Obesity, unspecified; Z68.28 Body mass index [BMI] 28.0-28.9, adult; R42 Dizziness and giddiness; Z79.890 Hormone replacement therapy; Z79.899 Other long term (current) drug therapy; Z88.5 Allergy status to narcotic agent; Z88.2 Allergy status to sulfonamides; Z88.8 Allergy status to other drugs, medicaments and biological substances; Z86.73 Personal history of transient ischemic attack (TIA), and cerebral infarction without residual deficits; Z87.442 Personal history of urinary calculi; Z87.440 Personal history of urinary (tract) infections; Z96.653 Presence of artificial knee joint, bilateral; Z87.891 Personal history of nicotine dependence; Z87.19 Personal history of other diseases of the digestive system; Z87.09 Personal history of other diseases of the respiratory system; Z82.49 Family history of ischemic heart disease and other diseases of the circulatory system; Z83.49 Family history of other endocrine, nutritional and metabolic diseases
CPT/HCPCS: 96372 ×2; 99284; 36415; 84300; 83930; 82570; 80053 ×3; 85025 ×2; 85027; 83935; G0378 ×4; J1644 ×2

== ENCOUNTER → 2019-12-11 | Outpatient (CLI) | payer MEDICARE, BC ==
[2019-12-11 17:29] LABS: % Iron Saturation 34.03 (12.00-45.00)
== END | disposition home or self-care (01) ==
LOC: LABWHC1 09:50
PROVIDERS: ATTEND Family Medicine
DX: D50.9 Iron deficiency anemia, unspecified (principal)
CPT/HCPCS: 36415; 82728; 83540; 83550

== ENCOUNTER → 2019-12-11 | Outpatient (CLI) | payer MEDICARE, BC ==
[2019-12-11 10:32] LABS: Appearance,Urine Clear (Clear); Bilirubin,Urine Negative (Negative); Blood,Urine Negative (Negative); Color,Urine Light Yellow; Glucose,Urine (UA) Negative (Negative); Ketones,Urine Negative (Negative); Leukocyte Esterase,Urine Negative (Negative); Nitrite,Urine Negative (Negative); Protein,Urine Negative (Negative); Specific Gravity,Urine 1.006 (1.001-1.035); Urobilinogen,Urine <2.0 mg/dL (<2.0)
[2019-12-11 10:37] LABS: Partial Thromboplastin Time 26.4 sec (22.0-30.0); Prothrombin Time 9.9 sec (9.0-12.0)
--- NOTE | 2019-12-11 10:55 | XR ---
"EXAMINATION TYPE: XR chest 2V DATE OF EXAM: 12/11/2019 COMPARISON: 08/18/2014 HISTORY: Presurgical evaluation TECHNIQUE: Frontal and lateral views of the chest are obtained. FINDINGS: New anterior mediastinal mass versus right middle lobe mass containing air and measuring a t least 6.4 x 5.6 cm if not greater. Remainder the lungs are well aerated. Cardiomediastinal silhouet te is stable and nonenlarged. Mild diffuse osseous demineralization and similar mid thoracic compress ion deformity. Mild degenerative change of the thoracic spine. 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 thorax with intravenous contrast is recommended for further evaluation. A Yellow level critical message alert has been initiated for Sallie Landon [id number] via the [employer] | Critical Results System on 12/11/2019 10:52 AM. This message alert has been sent to Sallie Landon [id number] via the preferences provided by the clinician for the receipt of Radiology Tona soto Findings. Message ID [id number]."
[2019-12-11 11:13] LABS: HCT 42.7 % (34.0-46.0); HGB 14.2 gm/dL (11.4-16.0); MCH 33.1 pg (25.0-35.0); MCHC 33.2 g/dL (31.0-37.0); MCV 99.7 fL (80.0-100.0); Platelet Count 203 k/uL (150-450); RBC 4.28 m/uL (3.80-5.40); RDW 11.3 % (11.5-15.5); WBC 5.5 k/uL (3.8-10.6)
[2019-12-11 12:01] LABS: Eosinophils # (M) 0.11 k/uL (0-0.7); Lymphocytes # (M) 1.27 k/uL (1.0-4.8); Monocytes # (M) 0.39 k/uL (0-1.0); Neutrophils # (M) 3.74 k/uL (1.3-7.7); Neutrophils % (M) 68 %; Nucleated Red Blood Cells 0 /100 WBC (0-0); Total Cells Counted 100
[2019-12-11 19:11] LABS: African American GFR (CKD) 104.8 (60.0-200.0); Anion Gap 9.2 mmol/L (4.00-12.00); Calcium 9.6 mg/dL (8.7-10.3); Carbon Dioxide 27.8 mmol/L (21.6-31.8); Non-African American GFR(CKD) 90.4 (60.0-200.0); Potassium 4.8 mmol/L (3.5-5.5)
== END ==
LOC: LABPAT 09:45
PROVIDERS: ATTEND Orthopaedic Surgery Orthopaedic Surgery of the Spine
DX: Z01.818 Encounter for other preprocedural examination (principal); Z01.812 Encounter for preprocedural laboratory examination; M48.02 Spinal stenosis, cervical region; Z51.81 Encounter for therapeutic drug level monitoring
CPT/HCPCS: 71046; 80048; 81003; 85025; 85610; 85730; 86850; 86900; 86901; 93005

== ENCOUNTER → 2019-12-13 | Outpatient (CLI) | payer MEDICARE, BC ==
[2019-12-13 14:34] LABS: African American GFR (CKD) >90 (>60 ml/min/1.73 sqM); Blood Urea Nitrogen 14 mg/dL (7-17); Non-African American GFR(CKD) >90 (>60 ml/min/1.73 sqM)
--- NOTE | 2019-12-13 16:24 | CT ---
EXAMINATION TYPE: CT chest w con DATE OF EXAM: 12/13/2019 COMPARISON: Chest x-ray 12/11/2019 HISTORY: Abnormal chest xray. CT DLP: 421 mGycm, Automated exposure control for dose reduction was used. CONTRAST: Performed injected with 100ml mL of Isovue 300. TECHNIQUE: Axial images were obtained at 5 mm thick sections. Reconstructed images are reviewed on [facility] computer in the coronal plane. FINDINGS: Portion of the thyroid visualized is normal. No suspicious lung nodules or focal infiltrates are present. Adjacent to the right heart border is a herniation of mesenteric fat to the anterior right diaphragm. No suspicious cavitary lesion is identified. No discrete masses are evident. No suspicious infiltrat es are present. No enlarged mediastinal or hilar adenopathy is evident. The ascending aorta diameter at the level o f the main pulmonary artery is 3.4 cm. The main pulmonary artery diameter at the bifurcation is 3.0 cm. Coronary artery calcifications present. Limited CT sections are obtained through the upper abdomen. There is a moderate size hiatal hernia pr esent. IMPRESSIONS: 1. 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 No suspicious cavitary lesions or in filtrates are evident. 2. Moderate size hiatal hernia.
== END | disposition home or self-care (01) ==
LOC: RADCTMAIN 13:39
PROVIDERS: ATTEND Family Medicine
DX: J98.4 Other disorders of lung (principal); R91.8 Other nonspecific abnormal finding of lung field
CPT/HCPCS: 82565; 84520; 71260; 36415; Q9967

== ENCOUNTER 2019-12-25 06:14 | Day surgery (SDC) | payer MEDICARE, BC ==
[2019-12-23 13:52] VITALS: BMI 28.8
[~2019-12-25 06:14] MED LIST changes: +BACITRACIN 50,000 UNIT, POLYMYXIN B 500,000 UNIT in SODIUM CHLORIDE 0.9% IRRIGATIO 1,00... IRRIGATION ONE; +DEXAMETHASONE SOD PHOSPHATE 10 MG/ML 1 ML VIAL IV ONE; +HYDROmorphone 0.5 MG/0.5 ML SYRINGE IVP PRN; +LIDOCAINE 1% 20 ML VIAL (10MG/ML) FOR IV START INTRADERMA PRN; +MIDAZOLAM 2 MG/2 ML VIAL IV PRN; +ONDANSETRON 4 MG/2 ML VIAL IVP ONE; +SCOPOLAMINE 1.5MG/72HR PATCH TRANSDERM ONE; -SODIUM CHLORIDE 0.9% 500 ML 500 ML in EMPTY BAG 1 BAG IV PRN; -ZOLEDRONIC ACID 5 MG in SODIUM CHLORIDE 0.9% 100 ML IV NR
[2019-12-25] MEDS: LACTATED RINGERS 1,000 ML IV SCH ×2 (07:08→21:56)
[2019-12-25] MEDS ORDERED: SUCCINYLCHOLINE CHLORIDE 100 MG/5 ML SYR IV ONE (07:25)
[2019-12-25] MEDS ORDERED: DEXAMETHASONE SOD PHOS (MDV) 100 MG/10 ML VIAL ONE (07:25)
[2019-12-25] MEDS ORDERED: MIDAZOLAM 2 MG/2 ML VIAL ONE (07:25)
[2019-12-25] MEDS ORDERED: LIDOCAINE 1% INJ 10MG/ML (20 ML MDV) ONE (07:25)
[2019-12-25] MEDS ORDERED: HYDROmorphone (PF) 1 MG/ML ONE (07:25)
[2019-12-25] MEDS ORDERED: PROPOFOL 10 MG/ML 20 ML VIAL IV ONE (07:25)
[2019-12-25] MEDS ORDERED: ePHEDrine SULFATE/0.9% NACL/PF 50 MG/5 ML SYRINGE IV ONE (07:25)
[2019-12-25] MEDS ORDERED: fentaNYL (PF) 50 MCG/ML 2 ML AMP ONE (07:25)
[2019-12-25] MEDS ORDERED: BUPIVACAINE (PF) 0.5% 30 ML VIAL SQ ONE (08:10)
--- NOTE | 2019-12-25 08:42 | XR ---
EXAMINATION TYPE: XR cervical spine 1V DATE OF EXAM: 12/25/2019 COMPARISON: NONE HISTORY: Localization TECHNIQUE: Crosstable lateral view of the cervical spine was obtained intraoperatively. FINDINGS: Localization device is noted at the anterior C4-5 level. IMPRESSION: As above
[2019-12-25] MEDS ORDERED: LACTATED RINGERS 1,000 ML IV ONE (08:55)
[2019-12-25] MEDS ORDERED: BENZOCAINE/MENTHOL LOZENG 1 EACH LOZENGE MUCOUS MEM PRN (09:28)
[2019-12-25] MEDS ORDERED: HYDROmorphone 0.5 MG/0.5 ML SYRINGE IVP PRN (09:28)
[2019-12-25] MEDS ORDERED: ONDANSETRON 4 MG/2 ML VIAL IVP PRN (09:28)
[2019-12-25] MEDS ORDERED: HYDROcodone/APAP 5-325MG 1 EACH TAB PO PRN (09:28)
[2019-12-25] MEDS ORDERED: traMADol 50 MG TAB PO PRN (09:30)
--- NOTE | 2019-12-25 09:36 | P.OP ---
Date of Procedure: 12/25/19 Preoperative Diagnosis: Spondylolisthesis C4 5, Cervical stenosis C4 5 C5 6, degenerative disc disease, upper extremity radiculopathy, neck pain Postoperative Diagnosis: Same Anesthesia: GETA Pathology: none sent Condition: stable Disposition: PACU Description of Procedure: BRIEF OPERATIVE NOTE Preoperative Diagnosis:Spondylolisthesis C4 5, Cervical stenosis C4 5 C5 6, degenerative disc disease, upper extremity radiculopathy, neck pain Postoperative Diagnosis:Spondylolisthesis C4 5, Cervical stenosis C4 5 C5 6, degenerative disc disease, upper extremity radiculopathy, neck pain Procedure: Anterior cervical decompression with discectomy and fusion C4 5 C5 6 Placement of interbody graft C4 5 C5 6 Reduction of spondylolisthesis C4 5 Application of anterior cervical plate C4 5 C5 6 Surgeon: Dr. Landon Curriculum Writer: Smith Stephens is present throughout the entire the case persistence during positioning, dissection, exposure, visualization, and all crucial elements of the case as well as closure. Anesthesia: General anesthesia per Dr. Aceves Estimated blood loss: Approximately 50 mL Complications: None apparent Components implanted: K2M Glascock anterior cervical plate system with 12 mm screws and Vikos interbody allograft bone graft Disposition: To recovery room in good stable condition. OPERATIVE INDICATIONS The patient has had long-standing issues in their neck and upper extremities. She is found have a spondylolisthesis which was dynamic at C4 5 as well as significant stenosis at C4 5 and C5 6. These findings correlate well with her neck and upper extremity symptoms and pain. She is having worsening symptoms despite aggressive conservative treatment. She is having significant debility due to the issues at her neck. The patient has been through conservative treatment. We discussed various treatment options including surgery, and the patient wishes to proceed with surgery We discussed the risk, patient's alternatives and benefits of surgery including but not limited to, risk of bleeding risk of infection, risk of need for further surgery, risk of decreased, loss of motion, muscle function, malunion nonunion, hardware failure, nerve damage, paralysis, heart attack, and . The patient had further testing and preoperative evaluation and clearance due to findings of a pulmonary mass which turned out to be a significant hiatal hernia for which she has had workup and is continuing management. OPERATIVE SUMMARY After discussing all the risks, patient alternatives and benefits at length, the patient elected to proceed with surgical intervention, signed informed consent, and presented for their procedure. The patient was seen and examined in the preoperative holding area and the surgical site was marked. The patient was given antibiotics and brought to the operating room. The patient was positioned on the operating room table in a supine position being careful to pad any bony prominences and pressure points. The patient was sedated and intubated by anesthesia in standard fashion. Once the airway and C- spine were stabilized the patient's arms were padded and tucked at her side, with her shoulders gently taped. The head was placed in a donut pad with the neck in good neutral alignment and position. We were careful to maintain the patient's cervical spine and good neutral alignment and position throughout. The patient was prepped and draped in a normal standard fashion. An appropriate timeout and keystone protocol performed. We were able to proceed with the surgery. The local wound area was infiltrated with local anesthetic. An incision was made transversely approximately 2-1/2 cm over the appropriate levels at C5. Dissection was taken down subcutaneously to the level of the platysma which was split in line with its fibers. Dissection was taken with a carotid approach, with the trachea and esophagus medial and the carotid sheath laterally. We dissected down to the anterior surface of the vertebral bodies at C4 5 and 6. Intraoperative x-ray was taken which showed a marker at the appropriate level of C4 5 where there was an obvious listhesis. With the appropriate level positively confirmed, we were able to proceed with discectomy at the appropriate levels. All of the operative levels were exposed appropriately. I started first at C4 5 and then moved to C5 6. The patient had all their twitches back, and there was no evidence of recurrent laryngeal issue. The wound was copiously irrigated and suctioned dry as had been done periodically throughout the case. At the appropriate level/levels, I established an annulotomy with an 11 blade scalpel. A discectomy was performed with a combination of pituitary rongeurs, curettes, a high-speed bur, and Kerrison rongeurs. The posterior longitudinal ligament was taken down as were any posterior osteophytes. This gave good central and bilateral foraminal decompression. There is no evidence of any dural tear or leak. The endplates were prepared with a high-speed bur. With the endplates in good parallel position, I was able to size for the appropriate size interbody graft. The wound was irrigated and suctioned dry the graft was prepared and malleted into position. It had good alignment and position with the anterior surface flush with the anterior surface of the vertebral bodies. This was done similarly the appropriate levels first at C4 5 and then at C5 6. There was still a listhesis at C4 5 which I plans to try to reduce with placement of the plate. With the grafts intact, I was able to measure and contour and appropriate sized plate. The plate was positioned at the midline over the appropriate levels at C4 5 and 6. Screw holes were established with a hand drill and drill guide. Screws were placed in good alignment and position with good bony purchase given her somewhat osteopenic bone. I was able to slowly do some reduction of the C5 vertebral body to the plate as we sequentially tightened the screws at C5. We will get them seated well. This had some reduction of the listhesis. It appeared to have good stability. They were seated under the locking device. The construct was checked and found to be stable. Intraoperative x-ray was taken which showed good alignment and position of the implants at the appropriate levels. There was no evidence of any dural tear or leak. Good hemostasis was maintained. The wound was copiously irrigated and suctioned dry as had been done periodically throughout the case. The platysma was closed with absorbable suture. The subcutaneous tissue was closed. The subcuticular tissue was closed with absorbable suture. The wound was cleaned and dried and dressed appropriately. A soft cervical collar was placed appropriately. The patient was woken up by anesthesia, extubated, transferred back gently to their hospital bed and brought to the recovery room in good stable condition. The patient will be admitted to the hospital for appropriate postoperative care, medical management and monitoring. We will continue to follow them closely about the postoperative course.
--- NOTE | 2019-12-25 09:52 | XR ---
EXAMINATION TYPE: XR cervical spine 1V DATE OF EXAM: 12/25/2019 COMPARISON: NONE HISTORY: Fusion TECHNIQUE: Crosstable lateral intraoperative cervical spine FINDINGS: Changes of ACDF at C4-5 and C5-6. Alignment is anatomic. IMPRESSION: As above
[2019-12-25] MEDS: SODIUM CHLORIDE 0.9% 1,000 ML IV SCH ×2 (13:18→21:52)
[2019-12-25] MEDS: ACETAMINOPHEN TAB 325 MG TAB PO PRN (17:14)
[2019-12-25] MEDS ORDERED: BENZOCAINE SPRAY 1 CAN MUCOUS MEM PRN (18:33)
[2019-12-25] MEDS: FAMOTIDINE 20 MG TAB PO SCH (21:05)
[2019-12-26 08:13] VITALS: BP 115/72; PULSE 70; RESP 16; TEMP 98.3
[2019-12-26] MEDS ORDERED: SENNOSIDES-DOCUSATE SODIUM 1 EACH TAB PO SCH (09:00)
[2019-12-26] MEDS: ACETAMINOPHEN TAB 325 MG TAB PO PRN (09:04)
[2019-12-26] MEDS: FAMOTIDINE 20 MG TAB PO SCH (09:05)
--- NOTE | 2019-12-26 10:07 | P.DS ---
Providers Date of admission: 12/25/19 Attending physician: Sallie Landon [facility] Course: The patient presented on the day of admission as per their operative note. She is postoperative day #1 status post anterior cervical decompression with discectomy and fusion C4 5 C5 6 for her spondylolisthesis with spinal stenosis and upper extremity radiculopathy. She feels her arms are doing well and is happy with results thus far. She has been ambulatory and had a bowel movement. She was able to tolerate some oatmeal and limited ice Physical Exam The incision site is clean dry and intact. There is no erythema no drainage. There is no purulence no evidence of infection. Abdomen soft and nontender. Chest has good excursion with deep inspiration and expiration. The patient has active and passive range of motion intact at the upper and lower extremities. There is no acute change in neurologic status. She feels her arms are doing well Hospital Course Postoperative day #1 status post anterior cervical decompression with discectomy and fusion C4 5 C5 6 for her spondylolisthesis with spinal stenosis and lumbar extremity radiculopathy. Patient feels that she is doing well and is happy with her results thus far. The patient has been making good progress postoperatively. They have completed the prophylactic antibiotics without any signs or symptoms of infection. The patient has been able to advance their diet, and is tolerating diet adequately. The pain was initially controlled with IV medications and is now controlled appropriately with oral medications. The patient has been able to increase the ir mobilization. The patient has progressed appropriately. I think they are in good stable condition for discharge today. Her neck is soft and supple with the dressing intact. They will be sent home with appropriate prescriptions. I answered their questions to the best of my ability in a language that they can understand and they are agreeable with the plan. They will follow up as directed in approximately 2 weeks or sooner if she having problems. Plan - Discharge Summary Discharge Rx Participant: Yes New Discharge Prescriptions: New traMADol HCL [Ultram] 50 mg PO Q6HR PRN 3 Days #12 tab PRN Reason: Pain No Action Levothyroxine Sodium [Synthroid] 88 mcg PO DAILY Ergocalciferol (Vitamin D2) [Drisdol] 50,000 unit PO QMONTH Potassium 595mg 595 mg PO DAILY Red Yeast Rice 1,200 mg PO HS Atenolol [Tenormin] 25 mg PO HS amLODIPine [Norvasc] 10 mg PO DAILY Famotidine 20 mg PO BID Acetaminophen [Tylenol] 1,000 mg PO TID Multivitamins, Thera [Multivitamin (formulary)] 2 tab PO DAILY@1330 Ferrous Sulfate [Iron (65 MG Elemental)] 325 mg PO BID Atenolol [Tenormin] 50 mg PO DAILY Lisinopril [Zestril] 40 mg PO DAILY Discharge Medication List Ergocalciferol (Vitamin D2) [Drisdol] 50,000 unit PO QMONTH 09/08/16 [History] Levothyroxine Sodium [Synthroid] 88 mcg PO DAILY 09/08/16 [History] Potassium 595mg 595 mg PO DAILY 11/15/18 [History] Acetaminophen [Tylenol] 1,000 mg PO TID 08/05/19 [History] Atenolol [Tenormin] 25 mg PO HS 08/05/19 [History] Atenolol [Tenormin] 50 mg PO DAILY 08/05/19 [History] Famotidine 20 mg PO BID 08/05/19 [History] Ferrous Sulfate [Iron (65 MG Elemental)] 325 mg PO BID 08/05/19 [History] Multivitamins, Thera [Multivitamin (formulary)] 2 tab PO DAILY@1330 08/05/19 [History] Red Yeast Rice 1,200 mg PO HS 08/05/19 [History] amLODIPine [Norvasc] 10 mg PO DAILY 08/05/19 [History] Lisinopril [Zestril] 40 mg PO DAILY 12/12/19 [History] traMADol HCL [Ultram] 50 mg PO Q6HR PRN 3 Days #12 tab 12/26/19 [Rx] Follow up Appointment(s)/Referral(s): Elissa Baird MD [Primary Care Provider] - 1 Week Sallie Landon DO [Doctor of Osteopathic Medicine] - 01/07/20 11:00 am Activity/Diet/Wound Care/Special Instructions: Patient is to wear hard collar at all times when out of bed. May soft collar when in bed or on the couch with a pillow behind her head. May remove brace for bathing. Keep site clean. May shower with waterproof Tegaderm intact. Do not soak in a tub. After 72 hours postoperatively, patient May remove dressing and then may shower with area uncovered. Leave Steri-Strips intact and allow them to fray off on their own. May ambulate as tolerated. Avoid heavy or rigorous activity. No repetitive bending twisting or lifting. No overhead work. Discharge Disposition: HOME SELF-CARE
== END 2019-12-26 12:45 | disposition home or self-care (01) ==
LOC: OR 06:14 → 4SSUR 10:06 → OR 12-26 12:45
PROVIDERS: ATTEND Orthopaedic Surgery Orthopaedic Surgery of the Spine
DX: M48.02 Spinal stenosis, cervical region (principal); M43.12 Spondylolisthesis, cervical region; M50.10 Cervical disc disorder with radiculopathy, unspecified cervical region; M47.22 Other spondylosis with radiculopathy, cervical region; M25.78 Osteophyte, vertebrae; M79.12 Myalgia of auxiliary muscles, head and neck; R26.81 Unsteadiness on feet; M19.012 Primary osteoarthritis, left shoulder; M19.011 Primary osteoarthritis, right shoulder; I10 Essential (primary) hypertension; D64.9 Anemia, unspecified; R53.1 Weakness; K44.9 Diaphragmatic hernia without obstruction or gangrene; E78.5 Hyperlipidemia, unspecified; E03.9 Hypothyroidism, unspecified; H35.30 Unspecified macular degeneration; H26.9 Unspecified cataract; Z87.891 Personal history of nicotine dependence; H81.09 Meniere's disease, unspecified ear; H40.9 Unspecified glaucoma; Z96.653 Presence of artificial knee joint, bilateral; Z86.73 Personal history of transient ischemic attack (TIA), and cerebral infarction without residual deficits; Z87.442 Personal history of urinary calculi; M81.0 Age-related osteoporosis without current pathological fracture; Z82.49 Family history of ischemic heart disease and other diseases of the circulatory system; H91.90 Unspecified hearing loss, unspecified ear; Z98.890 Other specified postprocedural states; Z97.3 Presence of spectacles and contact lenses; Z79.890 Hormone replacement therapy; Z79.899 Other long term (current) drug therapy; Z88.5 Allergy status to narcotic agent; Z88.2 Allergy status to sulfonamides; Z88.8 Allergy status to other drugs, medicaments and biological substances
CPT/HCPCS: 72020; 22551; 22552; 20931; 22845; L0120; C1713 ×2; C1762 ×2; J2250; J0690 ×2; J2405; J2001; J3010; J1170; J1100; J0330; J2704

== ENCOUNTER 2020-03-16 00:36 | Emergency (ER) | payer MEDICARE, BC ==
[2020-03-16 00:44] VITALS: RESP 18
[2020-03-16] MEDS ORDERED: SODIUM CHLORIDE 0.9% 500 ML 500 ML IV STA (00:53)
--- NOTE | 2020-03-16 01:05 | ED ---
Abdominal Pain HPI - General Chief Complaint: Abdominal Pain Stated Complaint: abd pain Time Seen by Provider: 03/16/20 00:38 Source: patient, EMS Mode of arrival: ambulatory Limitations: no limitations - History of Present Illness Initial Comments: 75-year-old female patient presents to the emergency department today for evaluation of abdominal pain and vomiting. Patient states she started vomiting on Monday, states yesterday she was unable to eat or drink anything. She went to bed this evening and woke up with increased pain to the abdomen. Patient states it is pressure and stabbing sensation, generalized. Denies radiation to her back. Denies any hematochezia, melena, or hematemesis. Denies any fevers. States she had 2 bowel movements on Monday and none since then. Denies any diarrhea. States she is passing gas. Denies any history of abdominal surgery. Has not taken any medications for her symptoms. Patient denies any recent rash, cough, shortness of breath, chest pain, numbness, tingling, dizziness, weakness, hematuria, dysuria, urinary urgency, urinary frequency, headache, visual changes, or any other complaints. - Related Data Home Medications Medication Instructions Recorded Confirmed Ergocalciferol (Vitamin D2) 50,000 unit PO QMONTH 09/08/16 12/25/19 [Drisdol] Levothyroxine Sodium [Synthroid] 88 mcg PO DAILY 09/08/16 12/25/19 Potassium 595mg 595 mg PO DAILY 11/15/18 12/23/19 Acetaminophen [Tylenol] 1,000 mg PO TID 08/05/19 12/25/19 Atenolol [Tenormin] 25 mg PO HS 08/05/19 12/25/19 Atenolol [Tenormin] 50 mg PO DAILY 08/05/19 12/25/19 Famotidine 20 mg PO BID 08/05/19 12/25/19 Ferrous Sulfate [Iron (65 MG 325 mg PO BID 08/05/19 12/25/19 Elemental)] Multivitamins, Thera [Multivitamin 2 tab PO DAILY@1330 08/05/19 12/23/19 (formulary)] Red Yeast Rice 1,200 mg PO HS 08/05/19 12/23/19 amLODIPine [Norvasc] 10 mg PO DAILY 08/05/19 12/25/19 Lisinopril [Zestril] 40 mg PO DAILY 12/12/19 12/25/19 Previous Rx's Medication Instructions Recorded traMADol HCL [Ultram] 50 mg PO Q6HR PRN 3 Days #12 tab 12/26/19 Allergies Allergy/AdvReac Type Severity Reaction Status Date / Time diazepam [From Valium] Allergy Severe Nausea & Verified 03/16/20 00:45 Vomiting, dizzy,muscle pain,mouth numb escitalopram oxalate Allergy Severe Nausea & Verified 03/16/20 00:45 [From Lexapro] Vomiting, dizzy,muscle pain, mouth numb fluticasone propionate Allergy Severe Nausea & Verified 03/16/20 00:45 [From Flonase] Vomiting, dizzy,muscle pain, mouth numb furosemide [From Lasix] Allergy Severe Nausea & Verified 03/16/20 00:45 Vomiting,dizzy, muscle pain, mouth numb hydrocodone bitartrate Allergy Severe Nausea & Verified 03/16/20 00:45 [From Lortab] Vomiting,Dizzy, Muscle Pain, Mouth Numb meclizine HCl [From Antivert] Allergy Severe Nausea & Verified 03/16/20 00:45 Vomiting,dizzy,muscle pain, mouth numb olmesartan medoxomil Allergy Severe Nausea & Verified 03/16/20 00:45 [From Benicar] Vomiting, dizzy, muscle pain, mouth numb promethazine Allergy Severe Nausea & Verified 03/16/20 00:45 Vomiting, dizzy , muscle pain, mouth numb Xfahhgw-Ioe-Wjo Reductase Allergy Severe Nausea & Verified 03/16/20 00:45 Inhibitor Vomiting,dizzy, muscle pain, mouth numb tizanidine HCl Allergy Severe Nausea & Verified 03/16/20 00:45 [From Zanaflex] Vomiting,dizzy,muscle pain,mouth numb prednisone Allergy Dyspnea, Verified 03/16/20 00:45 Nausea & Vomiting, Dizzy, Muscle Pain, Mouth Numb. Sulfa (Sulfonamide Allergy Nausea & Verified 03/16/20 00:45 Antibiotics) Vomiting,dizzy,muscle pain, mouth numb. Review of Systems ROS Statement: Those systems with pertinent positive or pertinent negative responses have been documented in the HPI. ROS Other: All systems not noted in ROS Statement are negative. 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 Past Anesthesia/Blood Transfusion Reactions: No Reported Reaction Past Psychological History: No Psychological Hx Reported Smoking Status: Former smoker Past Alcohol Use History: Rare Past Drug Use History: None Reported - Past Family History Mother Family Medical History: No Reported History Additional Family Medical History / Comment(s): . General Exam Limitations: no limitations General appearance: alert, in no apparent distress, other (This is a well- developed, well-nourished adult female patient in no acute distress. Vital signs upon presentation are temperature 98.3F, respirations 18, blood pressure 136/76) Eye exam: Present: normal appearance, PERRL, EOMI. Absent: scleral icterus, conjunctival injection, periorbital swelling ENT exam: Present: normal exam, normal oropharynx, mucous membranes moist Respiratory exam: Present: normal lung sounds bilaterally. Absent: respiratory distress, wheezes, rales, rhonchi, stridor Cardiovascular Exam: Present: regular rate, normal rhythm, normal heart sounds. Absent: systolic murmur, diastolic murmur, rubs, gallop, clicks GI/Abdominal exam: Present: soft, tenderness (Generalized), normal bowel sounds. Absent: distended, guarding, rebound, rigid Neurological exam: Present: alert, oriented X3, CN II-XII intact Psychiatric exam: Present: normal affect, normal mood Skin exam: Present: warm, dry, intact, normal color. Absent: rash Course Vital Signs 03/16/20 00:38 Temperature 98.3 F Pulse Rate 70 Respiratory 18 Rate Blood Pressure 136/76 O2 Sat by Pulse 98 Oximetry Medical Decision Making - Medical Decision Making 75-year-old female patient presented to the emergency department today for evaluation of 2 days of nausea and vomiting. Patient went to sleep this evening and woke up with severe upper abdominal pain. Physical examination did reveal midepigastric and right upper quadrant tenderness. Labs reviewed and did reveal elevated white blood cell count 11.4. BUN is 26. AST 37. Troponin negative. Lactic acid is 1.9. Urinalysis shows no evidence for infection. 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 Patient did have improvement of symptoms after 3 doses of pain medication and 2 doses of zofran. She is currently resting comfortably. My attending Dr. Vanessa did speak with oncall surgeon Dr. Willard she recommends transfer to higher level of care. I spoke to Dr. Napoles general surgery at [facility] who accepts transfer. - Lab Data Result diagrams: 03/16/20 00:47 03/16/20 00:47 Lab Results 03/16/20 03/16/20 03/16/20 Range/Units 00:47 00:47 00:47 WBC 11.4 H (3.8-10.6) k/uL RBC 4.81 (3.80-5.40) m/uL Hgb 15.0 (11.4-16.0) gm/dL Hct 47.6 H (34.0-46.0) % MCV 99.0 (80.0-100.0) fL MCH 31.1 (25.0-35.0) pg MCHC 31.5 (31.0-37.0) g/dL RDW 12.8 (11.5-15.5) % Plt Count 181 (150-450) k/uL Neutrophils % 85 % Lymphocytes % 9 % Monocytes % 5 % Eosinophils % 0 % Basophils % 0 % Neutrophils # 9.6 H (1.3-7.7) k/uL Lymphocytes # 1.0 (1.0-4.8) k/uL Monocytes # 0.6 (0-1.0) k/uL Eosinophils # 0.0 (0-0.7) k/uL Basophils # 0.0 (0-0.2) k/uL Sodium 138 (137-145) mmol/L Potassium 4.0 (3.5-5.1) mmol/L Chloride 104 (98-107) mmol/L Carbon Dioxide 24 (22-30) mmol/L Anion Gap 10 mmol/L BUN 26 H (7-17) mg/dL Creatinine 0.59 (0.52-1.04) mg/dL Est GFR (CKD-EPI)AfAm >90 (>60 ml/min/1.73 sqM) Est GFR (CKD-EPI)NonAf >90 (>60 ml/min/1.73 sqM) Glucose 129 H (74-99) mg/dL Plasma Lactic Acid Jai 1.9 (0.7-2.0) mmol/L Calcium 9.7 (8.4-10.2) mg/dL Total Bilirubin 1.0 (0.2-1.3) mg/dL AST 37 H (14-36) U/L ALT 18 (4-34) U/L Alkaline Phosphatase 85 (38-126) U/L Troponin I (0.000-0.034) ng/mL Total Protein 7.3 (6.3-8.2) g/dL Albumin 4.5 (3.5-5.0) g/dL Amylase 201 H (30-110) U/L Lipase 1067 H (23-300) U/L Urine Color Urine Appearance (Clear) Urine pH (5.0-8.0) Ur Specific [place] (1.001-1.035) Urine Protein (Negative) Urine Glucose (UA) (Negative) Urine Ketones (Negative) Urine Blood (Negative) Urine Nitrite (Negative) Urine Bilirubin (Negative) Urine Urobilinogen (<2.0) mg/dL Ur Leukocyte Esterase (Negative) Urine RBC (0-5) /hpf Urine WBC (0-5) /hpf Urine Mucus (None) /hpf 03/16/20 03/16/20 Range/Units 00:47 02:20 WBC (3.8-10.6) k/uL RBC (3.80-5.40) m/uL Hgb (11.4-16.0) gm/dL Hct (34.0-46.0) % MCV (80.0-100.0) fL MCH (25.0-35.0) pg MCHC (31.0-37.0) g/dL RDW (11.5-15.5) % Plt Count (150-450) k/uL Neutrophils % % Lymphocytes % % Monocytes % % Eosinophils % % Basophils % % Neutrophils # (1.3-7.7) k/uL Lymphocytes # (1.0-4.8) k/uL Monocytes # (0-1.0) k/uL Eosinophils # (0-0.7) k/uL Basophils # (0-0.2) k/uL Sodium (137-145) mmol/L Potassium (3.5-5.1) mmol/L Chloride (98-107) mmol/L Carbon Dioxide (22-30) mmol/L Anion Gap mmol/L BUN (7-17) mg/dL Creatinine (0.52-1.04) mg/dL Est GFR (CKD-EPI)AfAm (>60 ml/min/1.73 sqM) Est GFR (CKD-EPI)NonAf (>60 ml/min/1.73 sqM) Glucose (74-99) mg/dL Plasma Lactic Acid Jai (0.7-2.0) mmol/L Calcium (8.4-10.2) mg/dL Total Bilirubin (0.2-1.3) mg/dL AST (14-36) U/L ALT (4-34) U/L Alkaline Phosphatase (38-126) U/L Troponin I <0.012 (0.000-0.034) ng/mL Total Protein (6.3-8.2) g/dL Albumin (3.5-5.0) g/dL Amylase (30-110) U/L Lipase (23-300) U/L Urine Color Yellow Urine Appearance Clear (Clear) Urine pH 6.0 (5.0-8.0) Ur Specific [place] 1.036 H (1.001-1.035) Urine Protein 2+ H (Negative) Urine Glucose (UA) Negative (Negative) Urine Ketones 1+ H (Negative) Urine Blood Negative (Negative) Urine Nitrite Negative (Negative) Urine Bilirubin Negative (Negative) Urine Urobilinogen <2.0 (<2.0) mg/dL Ur Leukocyte Esterase Negative (Negative) Urine RBC 2 (0-5) /hpf Urine WBC 5 (0-5) /hpf Urine Mucus Few H (None) /hpf - EKG Data -: EKG Interpreted by Me EKG Comments: EKG obtained at 0101 shows normal sinus rhythm with a ventricular rate of 68, WY interval 140, QRS duration 96, QT 484, QTC 484. No evidence of ST elevation or depression. - Radiology Data Radiology results: report reviewed, image reviewed CT abdomen and pelvis is obtained. Report was reviewed in its entirety. Impr ession by Dr. Delarosa shows markedly dilated stomach. Large hiatal hernia appears complex and appears to contain the gastric antrum and proximal duodenum with resultant gastric volvulus. There is evidence of high-grade gastric outlet obstruction. There is mild abdominal ascites. 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
[2020-03-16 01:08] LABS: Basophils % (A) 0 %; Eosinophils % (A) 0 %; HCT 47.6 % (34.0-46.0); Lymphocytes % (A) 9 %; MCH 31.1 pg (25.0-35.0); MCHC 31.5 g/dL (31.0-37.0); Mean Platelet Volume 8.6; Monocytes # (A) 0.6 k/uL (0-1.0); Monocytes % (A) 5 %; Neutrophils # (A) 9.6 k/uL (1.3-7.7); Neutrophils % (A) 85 %; Platelet Count 181 k/uL (150-450); RBC 4.81 m/uL (3.80-5.40); RDW 12.8 % (11.5-15.5); WBC 11.4 k/uL (3.8-10.6)
[2020-03-16 01:19] LABS: ALT 18 U/L (4-34); African American GFR (CKD) >90 (>60 ml/min/1.73 sqM); Albumin 4.5 g/dL (3.5-5.0); Amylase 201 U/L (30-110); Anion Gap 10 mmol/L; Blood Urea Nitrogen 26 mg/dL (7-17); Calcium 9.7 mg/dL (8.4-10.2); Carbon Dioxide 24 mmol/L (22-30); Chloride 104 mmol/L (98-107); Glucose 129 mg/dL (74-99); Non-African American GFR(CKD) >90 (>60 ml/min/1.73 sqM); Sodium 138 mmol/L (137-145); Total Protein 7.3 g/dL (6.3-8.2)
[2020-03-16] MEDS ORDERED: MORPHINE SULFATE 2 MG/ML SYRINGE IVP STA (01:26)
[2020-03-16 01:35] LABS: AST 37 U/L (14-36); Alkaline Phosphatase 85 U/L (38-126)
[2020-03-16] MEDS ORDERED: ONDANSETRON 4 MG/2 ML VIAL IVP STA ×2 (01:42→04:34)
[2020-03-16] MEDS ORDERED: HYDROmorphone 0.5 MG/0.5 ML SYRINGE IVP STA (02:22)
[2020-03-16 02:42] LABS: Appearance,Urine Clear (Clear); Bilirubin,Urine Negative (Negative); Blood,Urine Negative (Negative); Color,Urine Yellow; Glucose,Urine (UA) Negative (Negative); Ketones,Urine 1+ (Negative); Leukocyte Esterase,Urine Negative (Negative); Mucus,Urine Few /hpf; Nitrite,Urine Negative (Negative); Protein,Urine 2+ (Negative); RBC,Urine 2 /hpf (0-5); Specific Gravity,Urine 1.036 (1.001-1.035); Urobilinogen,Urine <2.0 mg/dL (<2.0); WBC,Urine 5 /hpf (0-5)
--- NOTE | 2020-03-16 02:46 | CT ---
EXAMINATION TYPE: CT abdomen pelvis w con DATE OF EXAM: 03/16/2020 COMPARISON: 08/27/2014 HISTORY: Bilateral Upper Abd Pain CT DLP: 761.10 mGycm Automated exposure control for dose reduction was used. CONTRAST: Performed with IV Contrast, patient injected with 100 mL of Isovue 300. There is mild subsegmental atelectasis at the right lung base. There is hiatal hernia. There is no pl eural effusion. Heart size is normal. There is no pericardial effusion. There is dilated fluid-filled stomach. Hiatal hernia appears complex with the gastric antrum appearing to extend into the hernia. 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 Liver and spleen appear normal. There is no pancreatic mass. Gallbladder appears normal. Bile ducts a re not dilated. There is no adrenal mass. Kidneys have normal size and contour. There is no hydronephrosis. Ureters a re not dilated. There is mild left-sided perinephric fluid. There are bilateral renal calcifications that are probably vascular. Ureters are not dilated. Bladder distends smoothly. There is no inguinal hernia. There is no free fluid in the pelvis. Uterus appears normal. There is small amount of fluid in the le ft paracolic gutter. The bowel is not dilated. There is no mesenteric edema. There is no evidence of free air. There is a first-degree L4-5 spondylolisthesis. There is multilevel spondylotic change in the lumbar spine. There is no compression fracture. There is multilevel lumbar facet arthropathy. The bony pelvi s is intact. IMPRESSION: Markedly dilated stomach. Large hiatal hernia appears complex and appears to contain the gastric antr um and proximal duodenum with resultant gastric volvulus. There is evidence of high-grade gastric out let obstruction. There is mild abdominal ascites. Morganii hernia. Exam was discussed with ER physician at 2:45 AM.
[2020-03-16] MEDS ORDERED: HYDROmorphone 1 MG/ML 1 ML SYRINGE IM STA (04:35)
[2020-03-16] MEDS ORDERED: HYDROmorphone 1 MG/ML 1 ML SYRINGE IVP STA (04:47)
[2020-03-16 04:55] VITALS: BP 124/64; PULSE 64; TEMP 98.7
== END 2020-03-16 05:34 | disposition other institution (70) ==
LOC: EC 00:36
DX: K85.90 Acute pancreatitis without necrosis or infection, unspecified (principal); K56.2 Volvulus; D72.829 Elevated white blood cell count, unspecified; I10 Essential (primary) hypertension; M19.90 Unspecified osteoarthritis, unspecified site; E07.9 Disorder of thyroid, unspecified; Z79.890 Hormone replacement therapy; Z79.899 Other long term (current) drug therapy; Z88.2 Allergy status to sulfonamides; Z88.1 Allergy status to other antibiotic agents; Z88.8 Allergy status to other drugs, medicaments and biological substances; Z88.5 Allergy status to narcotic agent; Z88.6 Allergy status to analgesic agent; Z86.73 Personal history of transient ischemic attack (TIA), and cerebral infarction without residual deficits; Z87.440 Personal history of urinary (tract) infections; Z98.890 Other specified postprocedural states; Z96.653 Presence of artificial knee joint, bilateral; Z87.891 Personal history of nicotine dependence
CPT/HCPCS: 36415; 93005; 80053; 82150; 83605; 83690; 84484; 85025; 81001; 74177; 99285; 96374; 96375 ×2; 96376 ×2; 96361 ×3; J2405; J2270; J1170 ×2; Q9967

== ENCOUNTER → 2020-06-01 | Outpatient (CLI) | payer MEDICARE, BC ==
--- NOTE | 2020-06-02 09:05 | MM ---
Reason for exam: screening (asymptomatic). Last mammogram was performed 1 year and 1 month ago. History: Patient is postmenopausal. Physical Findings: A clinical breast exam by your physician is recommended on an annual basis and results should be correlated with mammographic findings. MG 3D Screening Mammo W/Cad Bilateral CC and MLO view(s) were taken. Prior study comparison: May 01, 2019, bilateral MG 3d screening mammo w/cad. April 02, 2018, bilateral MG 3d screening mammo w/cad. The breast tissue is heterogeneously dense. This may lower the sensitivity of mammography. Stable benign calcifications. There is no discrete abnormality. No significant changes when compared with prior studies. ASSESSMENT: Benign, BI-RAD 2 RECOMMENDATION: Routine screening mammogram of both breasts in 1 year.
== END | disposition home or self-care (01) ==
LOC: RADMAMWWP 08:34
PROVIDERS: ATTEND Family Medicine
DX: Z12.31 Encounter for screening mammogram for malignant neoplasm of breast (principal)
CPT/HCPCS: 77063; 77067

== ENCOUNTER → 2020-08-17 | Outpatient (CLI) | payer MEDICARE, BC ==
--- NOTE | 2020-08-18 20:25 | CT ---
EXAMINATION TYPE: CT abdomen pelvis w con DATE OF EXAM: 08/17/2020 COMPARISON: CT abdomen pelvis 03/16/2020 HISTORY: Follow up gastric surgery. No complaints at time of scan. CT DLP: 1158 mGycm Automated exposure control for dose reduction was used. TECHNIQUE: Helical acquisition of images was performed from the lung bases through the pelvis. CONTRAST: Performed with Oral Contrast and with IV Contrast, patient injected with 100 mL of Isovue 300. FINDINGS: LUNG BASES: Lung bases are grossly clear. No pericardial pleural effusion. Calcified coronary artery disease. Cardiac size normal. LIVER: Normal. BILIARY SYSTEM: Normal. PANCREAS: Normal. SPLEEN: Normal. ADRENALS: Normal. KIDNEYS: No hydronephrosis or hydroureter bilaterally. Vascular appearing renal calcifications. Previ ously described left perinephric fluid on 03/16/2020 CT is resolved on current exam. BOWEL: Large hiatal hernia. Surgical clips, likely gastroplasty clips, seen at the anterior gastric body and anterior abdominal wall, new from 03/16/2020. No evidence of bowel obstruction or thickening. Normal appendix. PERITONEUM: No pneumoperitoneum. No free fluid. Fat-containing right inguinal hernia. LYMPH NODES: No lymphadenopathy. PELVIS: Normal. VASCULATURE: No abdominal aortic aneurysm. MUSCULOSKELETAL: Degenerative changes of the spine. Grade 1 retrolisthesis of L3 on L4. Grade 1 ante rolisthesis of L4 and L5 and of L5 on S1. Mild compression deformity of the superior endplate of T12 appears degenerative. IMPRESSION: Large hiatal hernia. Postsurgical fixation changes of the anterior gastric body and anterior abdomina l wall. No evidence of bowel obstruction.
== END | disposition home or self-care (01) ==
LOC: RADCTMAIN 10:57
PROVIDERS: ATTEND Internal Medicine
DX: K44.9 Diaphragmatic hernia without obstruction or gangrene (principal); Z98.890 Other specified postprocedural states
CPT/HCPCS: 74177; Q9967

== ENCOUNTER → 2020-11-27 | Outpatient (CLI) | payer MEDICARE, BC ==
--- NOTE | 2020-11-27 12:46 | CT ---
EXAMINATION TYPE: CT shoulder RT wo con DATE OF EXAM: 11/27/2020 COMPARISON: None. HISTORY: chronic pain rt shoulder, primary arthritis, complete rotator cuff tear, advanced rotator cu ff arthropathy per order. CT DLP: 210.6 mGycm Automated exposure control for dose reduction was used. FINDINGS: Advanced degenerative change glenohumeral joint with marked joint space loss. There is sclerosis and bony debris formation of the osseous glenoid, this is greatest in severity along the inferior portion with there are additional bony projections. There is loss of spherical shape in the femoral head wit h subchondral cystic change and bony projections particularly along the superior aspect. Irregular elijah ny projection from the posterior aspect of the humeral head extends superiorly. Distal acromion morphology. Acromioclavicular joint is widened at 12 mm. Distal clavicle unremarkable . Mild generalized atrophy of the supraspinatus and infraspinatus muscle bulk. Visualized ribs and right lung are clear. IMPRESSION: As above.
== END | disposition home or self-care (01) ==
LOC: RADCTMAIN 10:23
PROVIDERS: ATTEND Orthopaedic Surgery Sports Medicine
DX: M19.011 Primary osteoarthritis, right shoulder (principal); M25.811 Other specified joint disorders, right shoulder; M62.89 Other specified disorders of muscle

== ENCOUNTER → 2020-12-18 | Outpatient (CLI) | payer MEDICARE, BC ==
[2020-12-18 11:13] LABS: Appearance,Urine Clear (Clear); Bilirubin,Urine Negative (Negative); Blood,Urine Negative (Negative); Color,Urine Light Yellow; Glucose,Urine (UA) Negative (Negative); Ketones,Urine Negative (Negative); Leukocyte Esterase,Urine Negative (Negative); Nitrite,Urine Negative (Negative); PH, Urine 6.5 (5.0-8.0); Protein,Urine Negative (Negative); Specific Gravity,Urine 1.009 (1.001-1.035); Urobilinogen,Urine <2.0 mg/dL (<2.0)
[2020-12-18 15:12] LABS: INR 0.94 (0.90-1.11); Partial Thromboplastin Time 28.8 sec (23.5-31.0); Prothrombin Time 10.3 sec (9.9-11.9)
[2020-12-18 15:50] LABS: African American GFR (CKD) 104.1 (60.0-200.0); Albumin 4.8 g/dL (3.80-4.90); Albumin/Globulin Ratio 2.18 (1.60-3.17); Anion Gap 8.4 mmol/L (4.00-12.00); BUN/Creat Ratio 28.33 Ratio (12.00-20.00); Calcium 9.4 mg/dL (8.7-10.3); Carbon Dioxide 23.6 mmol/L (21.6-31.8); Globulin 2.2 g/dL (1.6-3.3); Non-African American GFR(CKD) 89.8 (60.0-200.0); Potassium 4.9 mmol/L (3.5-5.5); Total Bilirubin 0.5 mg/dL (0.3-1.2)
[2020-12-18 16:15] LABS: HCT 41.8 % (37.2-46.3); HGB 14.2 g/dL (12.0-15.0); MCH 33.2 pg (27.0-32.0); MCV 97.7 fL (80.0-97.0); Mean Platelet Volume 10.8 fL (9.5-12.2); Platelet Count 203 X 10*3/uL (140-440); RBC 4.28 X 10*6/uL (4.10-5.20); RDW 12.3 % (11.5-14.5); WBC 5.87 X 10*3/uL (4.50-10.00)
== END | disposition home or self-care (01) ==
LOC: LABWHC1 10:04
PROVIDERS: ATTEND Orthopaedic Surgery Sports Medicine
DX: Z01.818 Encounter for other preprocedural examination (principal); Z01.812 Encounter for preprocedural laboratory examination; M19.011 Primary osteoarthritis, right shoulder
CPT/HCPCS: 36415; 80053; 81003; 85027; 85610; 85730; 87070

== ENCOUNTER 2021-01-07 06:15 | Inpatient (IN) | payer MEDICARE, BC ==
[2021-01-01 11:13] VITALS: BMI 28.2
[~2021-01-07 06:15] MED LIST changes: +ACETAMINOPHEN TAB 500 MG TAB PO PRN; -BACITRACIN 50,000 UNIT, POLYMYXIN B 500,000 UNIT in SODIUM CHLORIDE 0.9% IRRIGATIO 1,00... IRRIGATION ONE; -DEXAMETHASONE SOD PHOSPHATE 10 MG/ML 1 ML VIAL IV ONE; +DEXAMETHASONE SOD PHOSPHATE 4 MG/ML 1 ML VIAL IV ONE; +GABAPENTIN 300 MG CAP PO PRN; -HYDROmorphone 0.5 MG/0.5 ML SYRINGE IVP PRN; +LIDOCAINE 1% (10MG/ML) FOR IV START INTRADERMA PRN; -LIDOCAINE 1% 20 ML VIAL (10MG/ML) FOR IV START INTRADERMA PRN; +MELOXICAM 7.5 MG TAB PO PRN; -MIDAZOLAM 2 MG/2 ML VIAL IV PRN; +ONDANSETRON 4 MG/2 ML VIAL IVP PRN; -SCOPOLAMINE 1.5MG/72HR PATCH TRANSDERM ONE; +TRANEXAMIC ACID 1,000 MG in SODIUM CHLORIDE 0.9% 100 ML IVPB PRN
[2021-01-07] MEDS: LACTATED RINGERS 1,000 ML IV SCH ×5 (07:15→20:27)
[2021-01-07] MEDS ORDERED: MIDAZOLAM 2 MG/2 ML VIAL IVP ONE (07:27)
[2021-01-07] MEDS ORDERED: DEXAMETHASONE SOD PHOS (MDV) 100 MG/10 ML VIAL IVP ONE (07:38)
[2021-01-07] MEDS ORDERED: SUCCINYLCHOLINE CHLORIDE 100 MG/5 ML SYR IV ONE (07:56)
[2021-01-07] MEDS ORDERED: NEOSTIGMINE 1 MG/ML 10 ML VIAL ONE (07:56)
[2021-01-07] MEDS ORDERED: LIDOCAINE 1% INJ 10MG/ML (20 ML MDV) ONE (07:56)
[2021-01-07] MEDS ORDERED: SODIUM CHLORIDE 0.9% 100 ML BAG ONE (07:56)
[2021-01-07] MEDS ORDERED: ePHEDrine SULFATE/0.9% NACL/PF 50 MG/5 ML SYRINGE IV ONE (07:56)
[2021-01-07] MEDS ORDERED: PROPOFOL 10 MG/ML 20 ML VIAL IV ONE (07:56)
[2021-01-07] MEDS ORDERED: fentaNYL (PF) 50 MCG/ML 2 ML AMP ONE (07:56)
[2021-01-07] MEDS ORDERED: MIDAZOLAM 2 MG/2 ML VIAL ONE (07:56)
[2021-01-07] MEDS ORDERED: ROPIVACAINE 5 MG/ML 30 ML VIAL ONE (07:56)
[2021-01-07] MEDS ORDERED: TRANEXAMIC ACID 1,000 MG/10 ML VIAL ONE (07:56)
[2021-01-07] MEDS ORDERED: ROCURONIUM 10 MG/ML (5 ML VIAL) IV ONE (07:56)
[2021-01-07] MEDS ORDERED: GLYCOPYRROLATE 0.2 MG/ML 2 ML VIAL ONE (07:56)
--- NOTE | 2021-01-07 08:04 | P.ANPRN ---
Procedure Note - Anesthesia - Nerve Block Performed Right Supraclavicular Single Time Out Performed: Yes (726) Date of Procedure: 01/07/21 Procedure Start Time: 07:27 Procedure Stop Time: 07:32 Location of Patient: PreOp Indication: Acute Post-Operative Pain, Requested by Surgeon Specifically requested for management of pain by DrBaljinder: Hubert Hernandez Sedation Type: Sedate with meaningful contact maintained Preparation: Sterile Prep Position: Supine Catheter: None Needle Types: Pajunk Needle Gauge: 21 Ultrasound used to visualize needle placement: Yes Ultrasound used to observe medication spread: Yes Injectate: 0.5% Ropivacaine (see comment for volume) (20cc) Blood Aspirated: No Pain Paresthesia on Injection Noted: No Resistance on Injection: Normal Image Stored and Saved: Yes Events: Uneventful and Well Tolerated
[2021-01-07] MEDS ORDERED: PROCHLORPERAZINE SUPPOSITORY 25 MG SUPP RECTAL PRN (10:04)
[2021-01-07] MEDS ORDERED: HYDROmorphone 0.2 MG/1 ML SYRINGE IVP PRN (10:04)
[2021-01-07] MEDS ORDERED: ONDANSETRON 4 MG/2 ML VIAL IVP PRN (10:04)
[2021-01-07] MEDS ORDERED: HYDROmorphone 0.5 MG/0.5 ML SYRINGE IVP PRN ×2 (10:04)
[2021-01-07] MEDS ORDERED: diphenhydrAMINE 25 MG CAP PO PRN (10:04)
[2021-01-07] MEDS ORDERED: METOCLOPRAMIDE 5 MG/ML 2 ML VIAL IVP PRN (10:04)
[2021-01-07] MEDS ORDERED: SENNOSIDES-DOCUSATE SODIUM 1 EACH TAB PO PRN (10:04)
[2021-01-07] MEDS ORDERED: HYDROcodone/APAP 5-325MG 1 EACH TAB PO PRN ×2 (10:04)
--- NOTE | 2021-01-07 10:40 | XR ---
EXAMINATION TYPE: XR shoulder limited RT DATE OF EXAM: 01/07/2021 COMPARISON: NONE HISTORY: Postop TECHNIQUE: One view submitted FINDINGS: Postsurgical change in near-anatomic alignment. Right basilar subsegmental lung consolidati on. Surgical drain noted with soft tissue edema and emphysema. IMPRESSION: 1. Postoperative change. 2. right basilar atelectasis or infiltrate
[2021-01-07] MEDS ORDERED: LACTATED RINGERS 1,000 ML IV ONE (10:46)
--- NOTE | 2021-01-07 11:25 | OP ---
OPERATIVE REPORT DATE OF PROCEDURE: 01/07/2021 SURGEON: Daniel Matias MD. MANUFACTURED BUILDINGS REPAIRER: Bethel DAN. PREOPERATIVE DIAGNOSIS: Right shoulder osteoarthrosis. POSTOPERATIVE DIAGNOSIS: Right shoulder osteoarthrosis. OPERATION: Right reverse total shoulder arthroplasty. ANESTHESIA: General endotracheal. ESTIMATED BLOOD LOSS: 200 mL. DRAINS: One deep drain. COMPLICATIONS: None apparent. DISPOSITION: Postanesthesia care unit. INDICATIONS: Aleena is a very pleasant 76-year-old female with longstanding right shoulder pain. Workup including x-rays revealed advanced osteoarthrosis of the right shoulder. At this point, it was felt that she has failed conservative management. She would like to proceed with operative intervention. The risks of the procedure were discussed with her in detail. These risks included, but were not limited to risk of infection, nerve damage, bleeding, pain, instability in the shoulder, loosening of the implants and deep infection. There was also small risk of deep vein thrombosis which could lead to fatal pulmonary emboli. The patient understood the risks. All of her questions were answered to her satisfaction. An appropriate informed consent was obtained. DESCRIPTION OF THE PROCEDURE: The patient was identified in preoperative holding area. Surgical site was marked by both the patient and myself. She was given 2 grams of Ancef IV for prophylactic purposes. She was then transferred to the operative suite. She was placed supine on the operating room table. A general anesthetic was then administered and dosed per the anesthesia department without apparent complication. An examination under anesthesia was then performed of the right shoulder. She had elevation to 60 degrees. External rotation at the side was to 10 degrees. She was then placed into the beach chair position well-padded in preparation for surgery. Great care was taken to ensure that her neck was in neutral alignment well- padded and maintained that way throughout the operative procedure. Great care was also taken to ensure that her legs were appropriately padded as well. The patient's right upper extremity was then prepped and draped in usual sterile fashion. Standard surgical pause was undertaken to ensure that we were operating on the correct site and that appropriate preoperative antibiotics had been given. All staff in the room were in agreement and we proceeded. The acromion AC joint clavicle and coracoid were marked with surgical pen. A planned incision starting at the level of the clavicle and extending distally over the deltopectoral interval approximately 1 cm lateral to the coracoid was marked with surgical pen. The incision was then made with a 10 blade scalpel. Dissection was carried down sharply to the deltoid fascia. The deltopectoral interval was then identified at the level of the clavicle. A small band retractor was then placed onto the proximal deltoid. I then released the deltoid fascia on the lateral aspect of the cephalic vein. The vein was left in its bed medially. The cephalic vein was preserved and protected throughout the entire case. I then identified the clavipectoral fascia. This was incised proximally to the level of the coracoacromial ligament. The coracoacromial ligament was left intact. I then used my finger to spread the interval between the conjoint tendon and the subscapularis. I felt for the axillary nerve which was readily palpable. I then cleared the subacromial and subdeltoid spaces of bursal and scar tissue. I then utilized a brown retractor to hold the deltoid and expose the humeral head. I then proceeded with release of the subscapularis in the anterior inferior shoulder capsule. The rotator cuff was inspected. She had a suture evident in the subacromial space from previous rotator cuff repair. The rotator cuff was not intact. I made a decision at this point to proceed with a reverse total shoulder arthroplasty due to the sizable rotator cuff tear as well as the poor condition of the remaining rotator cuff tissue. The rotator interval was identified. The proximal biceps was absent. I then proceeded to release the rotator interval. It was released to the base of the coracoid. The subscapularis and the capsule were then released intratendinously. The subscapularis and capsule released extended distally in a lazy-S fashion approximately 1 cm medial to the bicipital groove. I then continued to release the capsule along the inferior neck in a vertical fashion to about the 6 o'clock position. Great care was taken to ensure that the capsule was always visualized as it was released as to avoid injuring the axillary nerve. I then brought the [employer] film processing shift supervisor with the arm externally rotated and abducted. I continued to release the capsule inferomedially to approximately the 4 o'clock position. She had significant anterior, inferior and posterior osteophytes. I began removing these with a rongeur at this point. I then proceeded with preparation of the humerus. I then removed all the goat's herrera osteophytes. I then removed the subchondral plate from the superior aspect of the humeral head utilizing a large rongeur. I then used a starting reamer to gain access to the humeral canal. This was approximately 1 cm medial to the rotator cuff insertion and 1 cm posterior to the bicipital groove. I then prepared the humeral canal with hand reaming. I started with a 6 mm reamer and progressed incrementally until firm resistance was encountered. This was at 9 mm. The reamer handle was then left in place. I then utilized a humeral resection guide. This was set at 30 degrees of retrotorsion. The cutting block was then set at the level of the rotator cuff insertion. I then proceeded to osteotomize the humeral head with an oscillating saw. I removed the resection guide and then completed the osteotomy. I then proceeded to continue to remove the goat's herrera osteophytes at this time with a rongeur. I then proceeded with trial stem placement. I started with a size 6 broach and then broached the canal up to a 9 broach. The 9 mm trial stem was then left in place. I then utilized the bone hook to pull the humerus out laterally. There were multiple loose bodies in the joint. She had hypertrophic synovium as well. These were all removed. As noted, the biceps tendon had previously been ruptured. The Bhattman retractor was then placed on the posterior glenoid rim. The arm was placed in approximately 70-80 degrees of abduction and in slight flexion on a Jamison stand. I then continued to proceed to remove the hypertrophic labrum to definitively identify the actual glenoid. I then utilized a mini base plate guide to place the starting pin and approximately 10 degrees of inferior tilt in the central aspect of the glenoid. I then proceeded to ream with the mini base plate reamer. This was done as minimal as possible to preserve as much subchondral bone as possible. I then inserted the mini base plate and it was impacted firmly into the glenoid. The guide pin was then removed. I utilized a 25 mm central screw. This was then placed, had an excellent purchase in bone. When it was fully seated, I was able to rotate the scapula with the screwdriver. I then proceeded to place the peripheral locking screws. The posterior, superior and inferior screws were placed. The inferior screw was 25 mm. The superior screw was 20 mm and the posterior screw was 15 mm. All of these were 5 mm locking screws that were placed using standard technique. I then placed the real glenosphere. I utilized a standard 36 mm glenosphere. It was offset as to inferiorly place it as much as possible. This was then impacted on the dry Christy taper onto the glenoid base plate. I checked it and it was firmly seated. I then proceeded to trial. I placed a standard tray and a standard poly trial. The shoulder was then reduced. It was fairly difficult reduction. It was very stable. The conjoint tendon was of appropriate tension. There was no impingement with internal rotation. She had good elevation as well. The shoulder was then carefully redislocated. I then proceeded to have the ocean import representative open a [employer] 9 mini stem, a standard tray and a standard polyethylene. I then utilized some bone graft from the osteotomized humeral head to place around the stem. The real stem was then placed in 30 degrees of retroversion with the bone graft proximally around the stem. The Christy taper was then dried. The poly was then snapped onto the tray on the back table and then the standard poly and tray were then placed onto a dry Christy taper on the real stem. The shoulder was again reduced. Again it was a fairly difficult reduction. The shoulder was very stable throughout a full range of motion. There was no impingement noted. At this point, I proceeded with closure. The wound was thoroughly irrigated with sterile saline solution with antibiotic added via pulse lavage. A deep drain was then placed deep to the deltoid and brought out superiorly away from the incision. Approximately 500 mg of vancomycin powder was placed deep in the wound. The deltopectoral interval was then reapproximated with multiple 0 Vicryl interrupted sutures. Subcutaneous tissue was then thoroughly irrigated with sterile saline solution with antibiotic added via pulse lavage. The remaining 500 mg of vancomycin powder was then placed subcutaneously. Prior to closing of the deltopectoral interval, I did feel for the axillary nerve again and it was readily palpable and intact. The subcutaneous tissue was then closed with 2-0 Vicryl interrupted suture and the skin was closed with a 3-0 Quill suture. Dermabond was then applied to the incision and a sterile dressing was applied. The patient's right upper extremity was placed into a standard sling. All sponge and needle counts were deemed correct prior to closure. The patient tolerated the procedure without apparent complication. She was transferred to the recovery room in stable condition. MMBHUPENDRA / TD: [id number] /
--- NOTE | 2021-01-07 17:43 | P.CONS ---
History of Present Illness - Reason for Consult Consult date: 01/07/21 - History of Present Illness Aleena Tovar, is a 76-year-old female patient of Dr. Baird who was admitted to [facility] due to right shoulder osteoarthritis, that failed conservative management, patient underwent right reverse total shoulder arthroplasty on 01/07/[address] Matias consultation was requested for medical management while hospitalized. Patient has a known history of hypertension, hyperlipidemia , hypothyroidism, anemia, vitamin D deficiency, Mnire's disease with dizziness, she denies any history of coronary artery disease or congestive heart failure no history of diabetes no history of asthma or emphysema no history of kidney or liver disease. Patient used to smoke but quit more than 40 years ago. 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 History of Any Multi-Drug Resistant Organisms: None Reported Past Surgical History: Back Surgery, Joint Replacement, Orthopedic Surgery Additional Past Surgical History / Comment(s): LITHOTRIPSY, Surgery to remove lg stone from ureter, ACHILLES TENDON RUPTURE(LT), RIGHT KNEE ARTHROSCOPY, RIGHT SHOULDER ROTATOR CUFF, MARISOL CARPAL TUNNEL , bilateral total knee arthroplasties, colonoscopy, sinus surgery, D&C., CERVICAL SURGERY WITH PLATE & SCREWS & CADAVER BONE., SURGERY FOR HIATAL HERNIW-THEY BROUGHT STOMACH DOWN AND PUT IN A TEMPORARY "BALLOON" ([facility] FEBRUARY 2020)., Past Anesthesia/Blood Transfusion Reactions: No Reported Reaction Additional Past Anesthesia/Blood Transfusion Reaction / Comm: HX BLOOD TRANSFUSION-NO REACTION Past Psychological History: No Psychological Hx Reported Additional Psychological History / Comment(s): . Smoking Status: Former smoker Past Alcohol Use History: Rare Additional Past Alcohol Use History / Comment(s): STARTED SMOKING AT AGE 18, SMOKED 1PPD , quit age 36 Past Drug Use History: None Reported - Past Family History Father Family Medical History: Coronary Artery Disease (CAD) Additional Family Medical History / Comment(s): heart disease- age 62 Mother Family Medical History: No Reported History Additional Family Medical History / Comment(s): . Sister(s) Family Medical History: Deep Vein Thrombosis (DVT) Medications and Allergies Home Medications Medication Instructions Recorded Confirmed Type Ergocalciferol (Vitamin D2) 50,000 unit PO QMONTH 09/08/16 01/07/21 History [Drisdol] Levothyroxine Sodium [Synthroid] 88 mcg PO DAILY 09/08/16 01/07/21 History Potassium 595mg 595 mg PO DAILY 11/15/18 01/07/21 History Acetaminophen [Tylenol] 1,000 mg PO TID 08/05/19 01/07/21 History Famotidine 20 mg PO BID 08/05/19 01/07/21 History Ferrous Sulfate [Iron (65 MG 325 mg PO BID 08/05/19 01/07/21 History Elemental)] Multivitamins, Thera [Multivitamin 2 tab PO DAILY 08/05/19 01/07/21 History (formulary)] Red Yeast Rice 1,200 mg PO HS 08/05/19 01/07/21 History amLODIPine [Norvasc] 10 mg PO DAILY 08/05/19 01/07/21 History atenoloL [Tenormin] 25 mg PO HS 08/05/19 01/07/21 History atenoloL [Tenormin] 50 mg PO QAM 08/05/19 01/07/21 History lisinopriL [Zestril] 40 mg PO DAILY 12/12/19 01/07/21 History Gabapentin [Neurontin] 600 mg PO TID 01/01/21 01/07/21 History Allergies Allergy/AdvReac Type Severity Reaction Status Date / Time diazepam [From Valium] Allergy Severe Nausea & Verified 01/07/21 06:52 Vomiting, dizzy,muscle pain,mouth numb escitalopram oxalate Allergy Severe Nausea & Verified 01/07/21 06:52 [From Lexapro] Vomiting, dizzy,muscle pain, mouth numb fluticasone propionate Allergy Severe Nausea & Verified 01/07/21 06:52 [From Flonase] Vomiting, dizzy,muscle pain, mouth numb furosemide [From Lasix] Allergy Severe Nausea & Verified 01/07/21 06:52 Vomiting,dizzy, muscle pain, mouth numb hydrocodone bitartrate Allergy Severe Nausea & Verified 01/07/21 06:52 [From Lortab] Vomiting,Dizzy, Muscle Pain, Mouth Numb meclizine HCl [From Antivert] Allergy Severe Nausea & Verified 01/07/21 06:52 Vomiting,dizzy,muscle pain, mouth numb olmesartan medoxomil Allergy Severe Nausea & Verified 01/07/21 06:52 [From Benicar] Vomiting, dizzy, muscle pain, mouth numb promethazine Allergy Severe Nausea & Verified 01/07/21 06:52 Vomiting, dizzy , muscle pain, mouth numb Kirkgqt-Bsg-Yrd Reductase Allergy Severe Nausea & Verified 01/07/21 06:52 Inhibitor Vomiting,dizzy, muscle pain, mouth numb tizanidine HCl Allergy Severe Nausea & Verified 01/07/21 06:52 [From Zanaflex] Vomiting,dizzy,muscle pain,mouth numb tramadol Allergy Severe NAUSEA AND Verified 01/07/21 06:52 VOMITING spironolactone Allergy Unknown NUMBNESS Verified 01/07/21 06:52 [From Aldactone] IN FACE, NAUSEA prednisone Allergy Dyspnea, Verified 01/07/21 06:52 Nausea & Vomiting, Dizzy, Muscle Pain, Mouth Numb. Sulfa (Sulfonamide Allergy Nausea & Verified 01/07/21 06:52 Antibiotics) Vomiting,dizzy,muscle pain, mouth numb. Physical Exam Vitals: Vital Signs Temp Pulse Resp BP BP Pulse Ox 01/07/21 13:38 97.8 F 61 16 114/68 99 01/07/21 12:20 64 14 99/58 97 01/07/21 11:45 55 L 16 99/53 99 01/07/21 11:15 52 L 16 96/55 98 01/07/21 11:00 53 L 14 97/50 98 01/07/21 10:45 52 L 16 94/51 98 01/07/21 10:30 54 L 16 96/52 97 01/07/21 10:15 60 16 100/51 91 L 01/07/21 10:00 63 16 100/51 92 L 01/07/21 09:58 96.8 F L 69 16 96/53 98 01/07/21 07:50 53 L 16 145/71 100 01/07/21 06:58 97.6 F 59 L 16 143/78 98 Intake and Output 01/07/21 01/07/21 01/07/21 06:59 14:59 22:59 Intake Total 1050 Output Total 200 160 Balance 850 -160 Intake: IV 1050 Output: Drainage 60 Right Shoulder 60 Urine 100 Estimated Blood Loss 200 Other: Weight 64.3 kg 64.3 kg In general patient is alert and oriented 3 in no apparent distress HEENT head normocephalic and atraumatic Neck is supple no JVD no goiter no lymphadenopathy Chest exam reveals a few scattered rhonchi no wheezing Cardiac exam reveals regular heart sounds S1 and S2 no gallops no murmurs Abdomen is soft nontender no organomegaly with normal bowel sounds Extremity exam reveals no edema no cyanosis or clubbing Neurological examination reveals no gross focal deficit Assessment and Plan Plan: Status post right reverse total shoulder arthroplasty Underlying history of hypertension blood pressure is on the low side at this time home medications were reviewed and reordered with parameters to hold amlodipine and lisinopril if systolic blood pressure is below 110 Underlying history of hyperlipidemia Underlying history of hypothyroidism Underlying history of Mnire's disease At this time home medication reviewed and reordered Will check labs in a.m.
[2021-01-07] MEDS: FAMOTIDINE 20 MG TAB PO SCH (20:28)
[2021-01-07] MEDS: atenoloL 25 MG TAB PO SCH (20:28)
[2021-01-07] MEDS: ACETAMINOPHEN TAB 500 MG TAB PO SCH (20:28)
[2021-01-07] MEDS: GABAPENTIN 300 MG CAP PO SCH (20:30)
[2021-01-07] MEDS: FERROUS SULFATE 325 MG TAB PO SCH (20:30)
[2021-01-08] MEDS: LACTATED RINGERS 1,000 ML IV SCH ×3 (04:45→16:10)
[2021-01-08] MEDS: LEVOTHYROXINE 88 MCG TAB PO SCH (05:09)
[2021-01-08 06:48] LABS: Basophils % (A) 0 %; Eosinophils % (A) 0 %; HCT 35.4 % (34.0-46.0); HGB 11.9 gm/dL (11.4-16.0); Lymphocytes # (A) 1.2 k/uL (1.0-4.8); Lymphocytes % (A) 14 %; MCH 32.6 pg (25.0-35.0); MCHC 33.6 g/dL (31.0-37.0); MCV 97.2 fL (80.0-100.0); Mean Platelet Volume 7.2; Monocytes # (A) 0.6 k/uL (0-1.0); Monocytes % (A) 7 %; Neutrophils # (A) 6.3 k/uL (1.3-7.7); Neutrophils % (A) 77 %; Platelet Count 178 k/uL (150-450); RBC 3.64 m/uL (3.80-5.40); WBC 8.2 k/uL (3.8-10.6)
[2021-01-08 07:11] LABS: African American GFR (CKD) >90 (>60 ml/min/1.73 sqM); Albumin 3.5 g/dL (3.5-5.0); Albumin/Globulin Ratio 1.5; Anion Gap 9 mmol/L; Blood Urea Nitrogen 13 mg/dL (7-17); Calcium 8.7 mg/dL (8.4-10.2); Carbon Dioxide 24 mmol/L (22-30); Chloride 101 mmol/L (98-107); Globulin 2.3 g/dL; Glucose 126 mg/dL (74-99); Non-African American GFR(CKD) >90 (>60 ml/min/1.73 sqM); Potassium 3.9 mmol/L (3.5-5.1); Sodium 134 mmol/L (137-145); Total Bilirubin 0.4 mg/dL (0.2-1.3); Total Protein 5.8 g/dL (6.3-8.2)
[2021-01-08 07:12] LABS: ALT 16 U/L (4-34); AST 28 U/L (14-36); Alkaline Phosphatase 62 U/L (38-126)
[2021-01-08] MEDS: GABAPENTIN 300 MG CAP PO SCH ×3 (08:07→21:25)
[2021-01-08] MEDS: MULTIVITAMINS, THERA 1 EACH TAB PO SCH (08:07)
[2021-01-08] MEDS: FERROUS SULFATE 325 MG TAB PO SCH ×2 (08:07→21:25)
[2021-01-08] MEDS: ACETAMINOPHEN TAB 500 MG TAB PO SCH ×3 (08:07→21:23)
[2021-01-08] MEDS: FAMOTIDINE 20 MG TAB PO SCH ×2 (08:07→21:25)
[2021-01-08] MEDS: atenoloL 50 MG TAB PO SCH (08:08)
[2021-01-08] MEDS: amLODIPine 10 MG TAB PO SCH (08:09)
[2021-01-08] MEDS: lisinopriL 20 MG TAB PO SCH (08:09)
[2021-01-08] MEDS ORDERED: Acetaminophen-Codeine 300-30mg TAB PO PRN (09:37)
[2021-01-08] MEDS: Acetaminophen-Codeine 300-30mg TAB PO PRN ×4 (10:20→21:25)
--- NOTE | 2021-01-08 10:26 | P.PN ---
Subjective Progress Note Date: 01/08/21 Aleena Tovar, is a 76-year-old female patient of Dr. Baird who was admitted to [facility] due to right shoulder osteoarthritis, that failed conservative management, patient underwent right reverse total shoulder arthroplasty on 01/07/[address] Matias consultation was requested for medical management while hospitalized. Patient has a known history of hypertension, hyperlipidemia , hypothyroidism, anemia, vitamin D deficiency, Mnire's disease with dizziness, she denies any history of coronary artery disease or congestive heart failure no history of diabetes no history of asthma or emphysema no history of kidney or liver disease. Patient used to smoke but quit more than 40 years ago. On review of systems patient is complaining of pain in the shoulder otherwise she denies any complaints there is no fever or chills no headache or dizziness no chest pain no shortness of breath no cough no nausea or vomiting no abdominal pain no diarrhea no blood in the stools no burning with urination no frequency or urgency and no hematuria On 01/08/2021 patient is alert and oriented 3. Patient reports she's had issues with her pain medication. Dilaudid made her increasingly nauseous yesterday. Per nursing staff patient will be kept another 24 hours to adjust pain medications and to achieve adequate pain control. Tylenol 3 has been ordered per orthopedic services. At this time patient denies any chest pain or shortness of breath. Patient denies nausea vomiting or diarrhea. Patient denies any urinary burning or frequency Objective - Vital Signs Vital signs: Vital Signs Temp 99.6 F 01/08/21 08:00 Pulse 74 01/08/21 08:00 Resp 16 01/08/21 08:00 BP 94/59 01/08/21 08:00 Pulse Ox 94 L 01/08/21 08:00 Intake & Output 01/07/21 01/08/21 01/08/21 18:59 06:59 18:59 Intake Total 1050 Output Total 360 Balance 690 Weight 64.3 kg Intake: IV 1050 Output: Drainage 60 Right Shoulder 60 Urine 100 Estimated Blood Loss 200 Other: # Voids 1 1 - Exam In general patient is alert and oriented 3 in no apparent distress HEENT head normocephalic and atraumatic Neck is supple no JVD no goiter no lymphadenopathy Chest exam reveals a few scattered rhonchi no wheezing Cardiac exam reveals regular heart sounds S1 and S2 no gallops no murmurs Abdomen is soft nontender no organomegaly with normal bowel sounds Extremity exam reveals no edema no cyanosis or clubbing Neurological examination reveals no gross focal deficit - Labs CBC & Chem 7: 01/08/21 05:55 01/08/21 05:55 Labs: Abnormal Lab Results - Last 24 Hours (Table) 01/08/21 01/08/21 Range/Units 05:55 05:55 RBC 3.64 L (3.80-5.40) m/uL Sodium 134 L (137-145) mmol/L Creatinine 0.43 L (0.52-1.04) mg/dL Glucose 126 H (74-99) mg/dL Total Protein 5.8 L (6.3-8.2) g/dL Assessment and Plan Plan: Status post right reverse total shoulder arthroplasty Underlying history of hypertension blood pressure is on the low side at this time home medications were reviewed and reordered with parameters to hold amlodipine and lisinopril if systolic blood pressure is below 110 Underlying history of hyperlipidemia Underlying history of hypothyroidism Underlying history of Mnire's disease At this time home medication reviewed and reordered Will check labs in a.m. Pain medications adjusted to Tylenol 3 per orthopedic services due to increased nausea with Dilaudid and [place] Anticipate discharge on 01/09/2021
--- NOTE | 2021-01-08 10:45 | P.PN ---
Subjective Progress Note Date: 01/08/21 Principal diagnosis: Right TSA Patient is seen at bedside this morning. She is postop day #1 from right reverse total shoulder arthroplasty. She has pain at the surgical site as expected but denies any new complaints. She denies numbness, tingling or calf pain. Review of systems is negative for fever, chills, chest pain, shortness of breath or other Objective - Vital Signs Vital signs: Vital Signs Temp 99.6 F 01/08/21 08:00 Pulse 74 01/08/21 08:00 Resp 16 01/08/21 08:00 BP 94/59 01/08/21 08:00 Pulse Ox 94 L 01/08/21 08:00 Intake & Output 01/07/21 01/08/21 01/08/21 18:59 06:59 18:59 Intake Total 1050 Output Total 360 Balance 690 Weight 64.3 kg Intake: IV 1050 Output: Drainage 60 Right Shoulder 60 Urine 100 Estimated Blood Loss 200 Other: # Voids 1 1 - Exam Inspection reveals a benign surgical wound. There is no active bleeding or drainage. Neurovascular status is intact throughout the upper extremity with motor and sensation fully intact. Calves soft and nontender. 2+ radial pulse and less than 2 second cap refill is present. - Constitutional General appearance: Present: no acute distress - Labs CBC & Chem 7: 01/08/21 05:55 01/08/21 05:55 Labs: Abnormal Lab Results - Last 24 Hours (Table) 01/08/21 01/08/21 Range/Units 05:55 05:55 RBC 3.64 L (3.80-5.40) m/uL Sodium 134 L (137-145) mmol/L Creatinine 0.43 L (0.52-1.04) mg/dL Glucose 126 H (74-99) mg/dL Total Protein 5.8 L (6.3-8.2) g/dL Assessment and Plan (1) Osteoarthritis of right shoulder Narrative/Plan: She will continue with routine postop orthopedic protocol including pain management, wound care, DVT prophylaxis and medical management. Expect that she will transfer to home tomorrow Current Visit: Yes Status: Acute Code(s): M19.011 - PRIMARY OSTEOARTHRITIS, RIGHT SHOULDER SNOMED Code(s): [id number] Time with Patient: Less than 30
[2021-01-08] MEDS: atenoloL 25 MG TAB PO SCH (21:25)
[2021-01-09] MEDS: LACTATED RINGERS 1,000 ML IV SCH (01:09)
[2021-01-09] MEDS: Acetaminophen-Codeine 300-30mg TAB PO PRN ×4 (05:32→20:41)
[2021-01-09] MEDS: LEVOTHYROXINE 88 MCG TAB PO SCH (05:32)
[2021-01-09 06:21] LABS: Basophils % (A) 0 %; Eosinophils % (A) 0 %; HCT 34.5 % (34.0-46.0); HGB 11.9 gm/dL (11.4-16.0); Lymphocytes # (A) 0.9 k/uL (1.0-4.8); Lymphocytes % (A) 13 %; MCH 33.9 pg (25.0-35.0); MCHC 34.4 g/dL (31.0-37.0); MCV 98.6 fL (80.0-100.0); Mean Platelet Volume 6.9; Monocytes # (A) 0.6 k/uL (0-1.0); Monocytes % (A) 8 %; Neutrophils # (A) 5.1 k/uL (1.3-7.7); Neutrophils % (A) 76 %; Platelet Count 148 k/uL (150-450); RBC 3.49 m/uL (3.80-5.40); RDW 12.1 % (11.5-15.5); WBC 6.7 k/uL (3.8-10.6)
[2021-01-09 06:35] LABS: ALT 14 U/L (4-34); AST 23 U/L (14-36); African American GFR (CKD) >90 (>60 ml/min/1.73 sqM); Albumin 3.1 g/dL (3.5-5.0); Albumin/Globulin Ratio 1.2; Alkaline Phosphatase 55 U/L (38-126); Anion Gap 7 mmol/L; Blood Urea Nitrogen 10 mg/dL (7-17); Calcium 8.1 mg/dL (8.4-10.2); Carbon Dioxide 28 mmol/L (22-30); Chloride 103 mmol/L (98-107); Globulin 2.5 g/dL; Glucose 114 mg/dL (74-99); Non-African American GFR(CKD) >90 (>60 ml/min/1.73 sqM); Potassium 3.1 mmol/L (3.5-5.1); Sodium 138 mmol/L (137-145); Total Bilirubin 0.4 mg/dL (0.2-1.3); Total Protein 5.6 g/dL (6.3-8.2)
[2021-01-09] MEDS ORDERED: Potassium Replacement Protocol 1 EACH MISC MISCELLANE PRN (06:49)
[2021-01-09] MEDS: amLODIPine 10 MG TAB PO SCH ×2 (07:43→14:31)
[2021-01-09] MEDS: FERROUS SULFATE 325 MG TAB PO SCH ×2 (07:43→20:42)
[2021-01-09] MEDS: GABAPENTIN 300 MG CAP PO SCH ×3 (07:43→22:03)
[2021-01-09] MEDS: atenoloL 50 MG TAB PO SCH (07:43)
[2021-01-09] MEDS: lisinopriL 20 MG TAB PO SCH ×2 (07:43→14:31)
[2021-01-09] MEDS: FAMOTIDINE 20 MG TAB PO SCH ×2 (07:43→20:42)
[2021-01-09] MEDS: MULTIVITAMINS, THERA 1 EACH TAB PO SCH (07:43)
[2021-01-09] MEDS: ACETAMINOPHEN TAB 500 MG TAB PO SCH ×3 (07:44→22:02)
[2021-01-09 10:25] LABS: Appearance,Urine Clear (Clear); Bilirubin,Urine Negative (Negative); Blood,Urine Negative (Negative); Color,Urine Yellow; Glucose,Urine (UA) Negative (Negative); Ketones,Urine Negative (Negative); Leukocyte Esterase,Urine Negative (Negative); Nitrite,Urine Negative (Negative); Protein,Urine Negative (Negative); Specific Gravity,Urine 1.014 (1.001-1.035); Urobilinogen,Urine <2.0 mg/dL (<2.0)
--- NOTE | 2021-01-09 10:50 | P.PN ---
Subjective Progress Note Date: 01/09/21 Aleena Tovar, is a 76-year-old female patient of Dr. Baird who was admitted to [facility] due to right shoulder osteoarthritis, that failed conservative management, patient underwent right reverse total shoulder arthroplasty on 01/07/[address] Matias consultation was requested for medical management while hospitalized. Patient has a known history of hypertension, hyperlipidemia , hypothyroidism, anemia, vitamin D deficiency, Mnire's disease with dizziness, she denies any history of coronary artery disease or congestive heart failure no history of diabetes no history of asthma or emphysema no history of kidney or liver disease. Patient used to smoke but quit more than 40 years ago. On review of systems patient is complaining of pain in the shoulder otherwise she denies any complaints there is no fever or chills no headache or dizziness no chest pain no shortness of breath no cough no nausea or vomiting no abdominal pain no diarrhea no blood in the stools no burning with urination no frequency or urgency and no hematuria On 01/08/2021 patient is alert and oriented 3. Patient reports she's had issues with her pain medication. Dilaudid made her increasingly nauseous yesterday. Per nursing staff patient will be kept another 24 hours to adjust pain medications and to achieve adequate pain control. Tylenol 3 has been ordered per orthopedic services. At this time patient denies any chest pain or shortness of breath. Patient denies nausea vomiting or diarrhea. Patient denies any urinary burning or frequency. on 01/09/2021 patient was seen and examined on the medical floor she is alert and oriented 3 in no apparent distress she is complaining of pain in the shoulder site of surgery otherwise she denies any complaints she is still having episodes of low-grade fever of 99.5 otherwise she denies any complaints there are no chills no headache no dizziness no chest pain no shortness of breath no cough no nausea or vomiting no abdominal pain no diarrhea no blood in the stools no burning with urination no frequency or urgency and no hematuria. Urine an alysis was done and does not reveal any evidence of urinary tract infection. There is no clinical evidence of infection patient denies any cough no diarrhea no abdominal pain. White blood count is normal at 6.7. Patient wants to be discharged home there is no medical contraindication for discharge at this time, patient was told to continue to monitor her temperature closely and to contact her primary care physician if having temperature above 100. Objective - Vital Signs Vital signs: Vital Signs Temp 99.5 F 01/09/21 08:00 Pulse 76 01/09/21 08:00 Resp 17 01/09/21 08:00 BP 117/69 01/09/21 08:00 Pulse Ox 95 01/09/21 08:00 Intake & Output 01/08/21 01/09/21 01/09/21 18:59 06:59 18:59 Other: Voiding Method Toilet # Voids 4 3 # Bowel Movements 0 - Exam In general patient is alert and oriented 3 in no apparent distress HEENT head normocephalic and atraumatic Neck is supple no JVD no goiter no lymphadenopathy Chest exam reveals a few scattered rhonchi no wheezing Cardiac exam reveals regular heart sounds S1 and S2 no gallops no murmurs Abdomen is soft nontender no organomegaly with normal bowel sounds Extremity exam reveals no edema no cyanosis or clubbing Neurological examination reveals no gross focal deficit - Labs CBC & Chem 7: 01/09/21 06:03 01/09/21 06:03 Labs: Abnormal Lab Results - Last 24 Hours (Table) 01/09/21 01/09/21 Range/Units 06:03 06:03 RBC 3.49 L (3.80-5.40) m/uL Plt Count 148 L (150-450) k/uL Lymphocytes # 0.9 L (1.0-4.8) k/uL Potassium 3.1 L (3.5-5.1) mmol/L Creatinine 0.43 L (0.52-1.04) mg/dL Glucose 114 H (74-99) mg/dL Calcium 8.1 L (8.4-10.2) mg/dL Total Protein 5.6 L (6.3-8.2) g/dL Albumin 3.1 L (3.5-5.0) g/dL Microbiology - Last 24 Hours (Table) 01/08/21 14:31 Urine Culture - Preliminary Urine,Clean Catch Assessment and Plan Plan: Status post right reverse total shoulder arthroplasty Underlying history of hypertension blood pressure is on the low side at this time home medications were reviewed and reordered with parameters to hold amlodipine and lisinopril if systolic blood pressure is below 110 Underlying history of hyperlipidemia Underlying history of hypothyroidism Underlying history of Mnire's disease hypokalemia potassium 3.1 correct per protocol low-grade fever no clinical or laboratory evidence of infection plan per orthopedic surgery is for discharge to home today No medical contraindication for discharge Patient instructed to continue to monitor temperature closely and to contact her primary care physician if temperature is above 100
--- NOTE | 2021-01-09 11:17 | P.DS ---
Providers Date of admission: 01/07/21 06:15 Expected date of discharge: 01/09/21 Attending physician: Daniel Matias Consults: 01/07/21 10:04 Consult Physician Routine Consulting Provider: Janis Rutledge Consult Reason/Comments: post op medical management Do you want consulting provider notified?: Yes Primary care physician: Elissa Baird - Discharge Diagnosis(es) (1) Status post total shoulder arthroplasty Current Visit: Yes Status: Acute (2) Hypertension Current Visit: Yes Status: Acute (3) Hyperlipidemia Current Visit: Yes Status: Acute (4) History of CVA (cerebrovascular accident) Current Visit: Yes Status: Acute (5) Thyroid disorder Current Visit: Yes Status: Acute (6) Osteoarthritis of right shoulder Current Visit: Yes Status: Acute Hospital Course: This is a pleasant 76-year-old female who presented with right shoulder osteoarthrosis who failed outpatient conservative therapy. She was admitted for a right reverse total shoulder arthroplasty. The patient tolerated the procedure well and did well postoperatively. The pain in her right shoulder has been well-controlled. She continues to keep a sling intact to the right upper extremity. She has been nonweightbearing on the right upper extremity. She does feel she is ready for discharge today. She has been seen by medicine at the bedside who has cleared the patient for discharge home. Condition on day of discharge stable. Patient will be discharged home. Patient was cleared preoperatively for surgery by Dr. Baird. Patient currently denies any nausea, vomiting, fever, or chills. Patient is eating and voiding freely without difficulty. Patient should keep dressing intact over the right shoulder. If the dressing remains dry over the next 72 hours she may shower without a dressing at that time. She is strict nonweightbearing on the right upper extremity. She'll be discharged home with home health services. [facility] has been previously reviewed. An "Opiod Start Talking" Form has been signed and placed in the patient's chart. A prescription has been written for Tylenol #3 with codeine. Take 1 tab every 4 hours as needed for pain, dispensed #30. Patient is also given prescription for Colace 100 mg 1 tablet twice a day dispensed #60 and doxycycline hyclate 100 mg twice a day dispensed #10. Patient's other medical diagnoses include hypertension, hyperlipidemia, history of CVA/TIA, and thyroid disorder. Physical Exam on day of discharge: Patient is awake, alert, and oriented 3 Vital signs stable Good chest excursion with deep inspiration and expiration Abdomen soft nontender Dressing over the right shoulder is removed and reapplied during physical examination Incision site is clean, dry, intact with gluteal intact No drainage from the surgical site No significant pain with palpation of the surgical site Neurovascularly intact right upper extremity Patient is able to wiggle fingers of the right hand and wrist without difficulty Sling for the right upper extremity intact Procedures: Right reverse total shoulder arthroplasty Patient Condition at Discharge: Stable Plan - Discharge Summary Discharge Rx Participant: Yes New Discharge Prescriptions: New Docusate [Colace] 100 mg PO BID #60 capsule Doxycycline Hyclate 100 mg PO BID #10 tab Acetaminophen-Codeine 300-30mg [Tylenol w/codeine #3] 1 tab PO Q4H PRN #30 tablet PRN Reason: Pain No Action Levothyroxine Sodium [Synthroid] 88 mcg PO DAILY Ergocalciferol (Vitamin D2) [Drisdol] 50,000 unit PO QMONTH Potassium 595mg 595 mg PO DAILY Red Yeast Rice 1,200 mg PO HS atenoloL [Tenormin] 25 mg PO HS amLODIPine [Norvasc] 10 mg PO DAILY Famotidine 20 mg PO BID Acetaminophen [Tylenol] 1,000 mg PO TID Multivitamins, Thera [Multivitamin (formulary)] 2 tab PO DAILY Ferrous Sulfate [Iron (65 MG Elemental)] 325 mg PO BID atenoloL [Tenormin] 50 mg PO QAM lisinopriL [Zestril] 40 mg PO DAILY Gabapentin [Neurontin] 600 mg PO TID Discharge Medication List Ergocalciferol (Vitamin D2) [Drisdol] 50,000 unit PO QMONTH 09/08/16 [History] Levothyroxine Sodium [Synthroid] 88 mcg PO DAILY 09/08/16 [History] Potassium 595mg 595 mg PO DAILY 11/15/18 [History] Acetaminophen [Tylenol] 1,000 mg PO TID 08/05/19 [History] Famotidine 20 mg PO BID 08/05/19 [History] Ferrous Sulfate [Iron (65 MG Elemental)] 325 mg PO BID 08/05/19 [History] Multivitamins, Thera [Multivitamin (formulary)] 2 tab PO DAILY 08/05/19 [History] Red Yeast Rice 1,200 mg PO HS 08/05/19 [History] amLODIPine [Norvasc] 10 mg PO DAILY 08/05/19 [History] atenoloL [Tenormin] 25 mg PO HS 08/05/19 [History] atenoloL [Tenormin] 50 mg PO QAM 08/05/19 [History] lisinopriL [Zestril] 40 mg PO DAILY 12/12/19 [History] Gabapentin [Neurontin] 600 mg PO TID 01/01/21 [History] Acetaminophen-Codeine 300-30mg [Tylenol w/codeine #3] 1 tab PO Q4H PRN #30 tablet 01/08/21 [Rx] Docusate [Colace] 100 mg PO BID #60 capsule 01/08/21 [Rx] Doxycycline Hyclate 100 mg PO BID #10 tab 01/08/21 [Rx] Follow up Appointment(s)/Referral(s): Daniel Matias MD [STAFF PHYSICIAN] - 10 Days Activity/Diet/Wound Care/Special Instructions: Keep wound clean and dry Take meds as directed Follow-up with Dr. Matias in office maintain sling, nonweightbearing May shower in 3 days if no bleeding Discharge Disposition: HOME WITH HOME HEALTH SERVICES
[2021-01-09] MEDS: SODIUM CHLORIDE 0.9% 1,000 ML IV SCH (15:56)
[2021-01-09] MEDS: atenoloL 25 MG TAB PO SCH (20:41)
[2021-01-10] MEDS: Acetaminophen-Codeine 300-30mg TAB PO PRN ×5 (00:58→21:29)
[2021-01-10] MEDS: LEVOTHYROXINE 88 MCG TAB PO SCH (05:39)
[2021-01-10] MEDS: SODIUM CHLORIDE 0.9% 1,000 ML IV SCH ×2 (05:41→15:49)
[2021-01-10] MEDS: ACETAMINOPHEN TAB 500 MG TAB PO SCH (07:18)
[2021-01-10] MEDS: atenoloL 50 MG TAB PO SCH (07:26)
[2021-01-10] MEDS: GABAPENTIN 300 MG CAP PO SCH ×3 (07:27→21:29)
[2021-01-10] MEDS: FAMOTIDINE 20 MG TAB PO SCH ×2 (07:27→21:29)
[2021-01-10] MEDS: FERROUS SULFATE 325 MG TAB PO SCH ×2 (07:27→21:29)
[2021-01-10] MEDS: MULTIVITAMINS, THERA 1 EACH TAB PO SCH (07:27)
--- NOTE | 2021-01-10 11:01 | ECHOF ---
Referral Reason:decreased blood pressure MEASUREMENTS -------- HEIGHT: 147.3 cm WEIGHT: 62.1 kg BP: 117/69 RVIDd: 2.9 cm (< 3.3) IVSd: 1.0 cm (0.6 - 1.1) LVIDd: 4.9 cm (3.9 - 5.3) LVPWd: 1.0 cm (0.6 - 1.1) IVSs: 1.5 cm LVIDs: 3.2 cm LVPWs: 1.3 cm LA Diam: 3.2 cm (2.7 - 3.8) LAESV Index (A-L): 23.83 ml/m Ao Diam: 3.0 cm (2.0 - 3.7) AV Cusp: 1.9 cm (1.5 - 2.6) MV EXCURSION: 15.488 mm (> 18.000) MV EF SLOPE: 74 mm/s (70 - 150) EPSS: 0.5 cm MV E Chong: 1.43 m/s MV DecT: 249 ms MV A Chong: 1.18 m/s MV E/A Ratio: 1.22 RAP: 5.00 mmHg RVSP: 30.81 mmHg FINDINGS -------- Sinus rhythm. This was a technically adequate study. The left ventricular size is normal. Left ventricular wall thickness is normal. Overall left vent ricular systolic function is normal with, an EF between 60 - 65 %. The right ventricle is normal in size. Normal LA size by volume 22+/-6 ml/m2. The right atrium is normal in size. Interatrial and interventricular septum intact. There is mild aortic valve sclerosis. Peak/mean gradient across the Aortic Valve is {AV maxPG} / {A V meanPG}. The mitral valve leaflets are mildly thickened. Mild mitral annular calcification present. There is trace to mild mitral regurgitation. Mild tricuspid regurgitation present. Right ventricular systolic pressure is normal at < 35 mmHg. Trace/mild (physiologic) pulmonic regurgitation. The aortic root size is normal. Normal inferior vena cava with normal inspiratory collapse consistent with estimated right atrial pre ssure of 5 mmHg. There is no pericardial effusion. CONCLUSIONS -------- 1. The left ventricular size is normal. 2. Left ventricular wall thickness is normal. 3. Overall left ventricular systolic function is normal with, an EF between 60 - 65 %. 4. Normal LA size by volume 22+/-6 ml/m2. 5. There is mild aortic valve sclerosis. 6. Peak/mean gradient across the Aortic Valve is {AV maxPG} / {AV meanPG}. 7. The mitral valve leaflets are mildly thickened. 8. Mild mitral annular calcification present. 9. There is trace to mild mitral regurgitation. 10. Mild tricuspid regurgitation present. 11. Trace/mild (physiologic) pulmonic regurgitation. 12. There is no pericardial effusion. TELEPHONE SERVICE ADVISER: Bruna King RDCS
--- NOTE | 2021-01-10 11:32 | P.PN ---
Subjective Progress Note Date: 01/10/21 Aleena Tovar, is a 76-year-old female patient of Dr. Baird who was admitted to [facility] due to right shoulder osteoarthritis, that failed conservative management, patient underwent right reverse total shoulder arthroplasty on 01/07/[address] Matias consultation was requested for medical management while hospitalized. Patient has a known history of hypertension, hyperlipidemia , hypothyroidism, anemia, vitamin D deficiency, Mnire's disease with dizziness, she denies any history of coronary artery disease or congestive heart failure no history of diabetes no history of asthma or emphysema no history of kidney or liver disease. Patient used to smoke but quit more than 40 years ago. On review of systems patient is complaining of pain in the shoulder otherwise she denies any complaints there is no fever or chills no headache or dizziness no chest pain no shortness of breath no cough no nausea or vomiting no abdominal pain no diarrhea no blood in the stools no burning with urination no frequency or urgency and no hematuria On 01/08/2021 patient is alert and oriented 3. Patient reports she's had issues with her pain medication. Dilaudid made her increasingly nauseous yesterday. Per nursing staff patient will be kept another 24 hours to adjust pain medications and to achieve adequate pain control. Tylenol 3 has been ordered per orthopedic services. At this time patient denies any chest pain or shortness of breath. Patient denies nausea vomiting or diarrhea. Patient denies any urinary burning or frequency. on 01/09/2021 patient was seen and examined on the medical floor she is alert and oriented 3 in no apparent distress she is complaining of pain in the shoulder site of surgery otherwise she denies any complaints she is still having episodes of low-grade fever of 99.5 otherwise she denies any complaints there are no chills no headache no dizziness no chest pain no shortness of breath no cough no nausea or vomiting no abdominal pain no diarrhea no blood in the stools no burning with urination no frequency or urgency and no hematuria. Urine an alysis was done and does not reveal any evidence of urinary tract infection. There is no clinical evidence of infection patient denies any cough no diarrhea no abdominal pain. White blood count is normal at 6.7. Patient wants to be discharged home there is no medical contraindication for discharge at this time, patient was told to continue to monitor her temperature closely and to contact her primary care physician if having temperature above 100. On 01/10/2021 patient is alert and oriented 3. Discharge was held on 01/09/2021 due to hypotension. This a.m. blood pressure 110/70 but per nursing staff all blood pressure medications were held. Cardiology services following recommending additional monitoring for 24 hours. Encouraged ambulation to assess for orthostatic hypotension. Patient denies any chest pain or shortness breath. Patient denies nausea vomiting or diarrhea. Patient denies any urinary burning or frequency. 2D echo pending Objective - Vital Signs Vital signs: Vital Signs Temp 98 F 01/10/21 07:50 Pulse 66 01/10/21 07:50 Resp 20 01/10/21 07:50 BP 110/70 01/10/21 07:50 Pulse Ox 97 01/10/21 07:50 Intake & Output 01/09/21 01/10/21 01/10/21 17:59 06:59 18:59 Intake Total 200 Balance 200 Intake: Oral 200 Other: Voiding Method # Voids # Bowel Movements - Exam In general patient is alert and oriented 3 in no apparent distress HEENT head normocephalic and atraumatic Neck is supple no JVD no goiter no lymphadenopathy Chest exam reveals a few scattered rhonchi no wheezing Cardiac exam reveals regular heart sounds S1 and S2 no gallops no murmurs Abdomen is soft nontender no organomegaly with normal bowel sounds Extremity exam reveals no edema no cyanosis or clubbing Neurological examination reveals no gross focal deficit - Labs CBC & Chem 7: 01/09/21 06:03 01/09/21 06:03 Labs: Microbiology - Last 24 Hours (Table) 01/08/21 14:31 Urine Culture - Final Urine,Clean Catch 01/08/21 15:58 Blood Culture - Preliminary Blood No Growth after 24 hours Assessment and Plan Plan: Status post right reverse total shoulder arthroplasty Underlying history of hypertension blood pressure is on the low side at this time home medications were reviewed and reordered with parameters to hold amlodipine and lisinopril if systolic blood pressure is below 110 Underlying history of hyperlipidemia Underlying history of hypothyroidism Underlying history of Mnire's disease hypokalemia potassium 3.1 correct per protocol low-grade fever no clinical or laboratory evidence of infection Hypotension. patient on a significant amount of blood pressure medication. Cardiology service is consulted. 2-D echo ordered. At this time cardiology recommending additional 24 hours of monitoring due to hypotension
--- NOTE | 2021-01-10 11:43 | P.CRDCN ---
History of Present Illness Consult date: 01/10/21 Requesting physician: Janis Rutledge Reason for Consult (text): Hypotension Chief complaint: OA right shoulder, post op History of present illness: This a pleasant 76-year-old female patient with history of hypertension, hyperlipidemia and hypothyroidism as well as anemia, vitamin D deficiency and Mnire's disease. She denies any history of CAD or congestive heart failure. She has no history of diabetes. She is a prior smoker but quit more than 40 years ago. She presented for right reverse total shoulder arthroplasty which was done on 01/07/[address] Matias. She's been doing fairly well postoperatively. We were asked to see the patient in consultation due to hypotension. According to the patient postoperatively she usually has hypotension. She has been on amlodipine 10 mg by mouth daily, lisinopril 40 mg by mouth daily and atenolol 50 mg in the morning and 25 mg in the evening at home. She did undergo echocardiogram which was done on 01/09/2021 that showed normal LV systolic function with trace to mild MR and mild TR. Her antihypertensives were held last night and again this morning blood pressure was low at around midnight last night at 90/61 but was good this morning at 110/70 without any medications. Labs done yesterday showed no evidence of postoperative anemia. Serum was low at 3.1 and that has been replaced. Upon examination the patient is resting comfortably in bed. Overall she's feeling well. She did develop some significant symptoms on getting up to the bathroom yesterday evening. She said she felt like everything was turning blue and she had cotton in her ears. She's been up through the night and again this morning and has tolerated that well. 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 History of Any Multi-Drug Resistant Organisms: None Reported Past Surgical History: Back Surgery, Joint Replacement, Orthopedic Surgery Additional Past Surgical History / Comment(s): LITHOTRIPSY, Surgery to remove lg stone from ureter, ACHILLES TENDON RUPTURE(LT), RIGHT KNEE ARTHROSCOPY, RIGHT SHOULDER ROTATOR CUFF, MARISOL CARPAL TUNNEL , bilateral total knee arthroplasties, colonoscopy, sinus surgery, D&C., CERVICAL SURGERY WITH PLATE & SCREWS & CADAVER BONE., SURGERY FOR HIATAL HERNIW-THEY BROUGHT STOMACH DOWN AND PUT IN A TEMPORARY "BALLOON" ([facility] FEBRUARY 2020)., Past Anesthesia/Blood Transfusion Reactions: No Reported Reaction Additional Past Anesthesia/Blood Transfusion Reaction / Comment(s): HX BLOOD TRANSFUSION-NO REACTION Past Psychological History: No Psychological Hx Reported Additional Psychological History / Comment(s): . Smoking Status: Former smoker Past Alcohol Use History: Rare Additional Past Alcohol Use History / Comment(s): STARTED SMOKING AT AGE 18, SMOKED 1PPD , quit age 36 Past Drug Use History: None Reported - Past Family History Father Family Medical History: Coronary Artery Disease (CAD) Additional Family Medical History / Comment(s): heart disease- age 62 Mother Family Medical History: No Reported History Additional Family Medical History / Comment(s): . Sister(s) Family Medical History: Deep Vein Thrombosis (DVT) Medications and Allergies Home Medications Medication Instructions Recorded Confirmed Type Ergocalciferol (Vitamin D2) 50,000 unit PO QMONTH 09/08/16 01/07/21 History [Drisdol] Levothyroxine Sodium [Synthroid] 88 mcg PO DAILY 09/08/16 01/07/21 History Potassium 595mg 595 mg PO DAILY 11/15/18 01/07/21 History Acetaminophen [Tylenol] 1,000 mg PO TID 08/05/19 01/07/21 History Famotidine 20 mg PO BID 08/05/19 01/07/21 History Ferrous Sulfate [Iron (65 MG 325 mg PO BID 08/05/19 01/07/21 History Elemental)] Multivitamins, Thera [Multivitamin 2 tab PO DAILY 08/05/19 01/07/21 History (formulary)] Red Yeast Rice 1,200 mg PO HS 08/05/19 01/07/21 History amLODIPine [Norvasc] 10 mg PO DAILY 08/05/19 01/07/21 History atenoloL [Tenormin] 25 mg PO HS 08/05/19 01/07/21 History atenoloL [Tenormin] 50 mg PO QAM 08/05/19 01/07/21 History lisinopriL [Zestril] 40 mg PO DAILY 12/12/19 01/07/21 History Gabapentin [Neurontin] 600 mg PO TID 01/01/21 01/07/21 History Acetaminophen-Codeine 300-30mg 1 tab PO Q4H PRN #30 tablet 01/08/21 Rx [Tylenol w/codeine #3] Docusate [Colace] 100 mg PO BID #60 capsule 01/08/21 Rx Doxycycline Hyclate 100 mg PO BID #10 tab 01/08/21 Rx Allergies Allergy/AdvReac Type Severity Reaction Status Date / Time diazepam [From Valium] Allergy Severe Nausea & Verified 01/07/21 06:52 Vomiting, dizzy,muscle pain,mouth numb escitalopram oxalate Allergy Severe Nausea & Verified 01/07/21 06:52 [From Lexapro] Vomiting, dizzy,muscle pain, mouth numb fluticasone propionate Allergy Severe Nausea & Verified 01/07/21 06:52 [From Flonase] Vomiting, dizzy,muscle pain, mouth numb furosemide [From Lasix] Allergy Severe Nausea & Verified 01/07/21 06:52 Vomiting,dizzy, muscle pain, mouth numb hydrocodone bitartrate Allergy Severe Nausea & Verified 01/07/21 06:52 [From Lortab] Vomiting,Dizzy, Muscle Pain, Mouth Numb meclizine HCl [From Antivert] Allergy Severe Nausea & Verified 01/07/21 06:52 Vomiting,dizzy,muscle pain, mouth numb olmesartan medoxomil Allergy Severe Nausea & Verified 01/07/21 06:52 [From Benicar] Vomiting, dizzy, muscle pain, mouth numb promethazine Allergy Severe Nausea & Verified 01/07/21 06:52 Vomiting, dizzy , muscle pain, mouth numb [id number] Reductase Allergy Severe Nausea & Verified 01/07/21 06:52 Inhibitor Vomiting,dizzy, muscle pain, mouth numb tizanidine HCl Allergy Severe Nausea & Verified 01/07/21 06:52 [From Zanaflex] Vomiting,dizzy,muscle pain,mouth numb tramadol Allergy Severe NAUSEA AND Verified 01/07/21 06:52 VOMITING spironolactone Allergy Unknown NUMBNESS Verified 01/07/21 06:52 [From Aldactone] IN FACE, NAUSEA prednisone Allergy Dyspnea, Verified 01/07/21 06:52 Nausea & Vomiting, Dizzy, Muscle Pain, Mouth Numb. Sulfa (Sulfonamide Allergy Nausea & Verified 01/07/21 06:52 Antibiotics) Vomiting,dizzy,muscle pain, mouth numb. Physical Exam Vitals: Vital Signs Temp Pulse Resp BP Pulse Ox 01/10/21 07:50 98 F 66 20 110/70 97 01/10/21 00:37 98.6 F 67 16 98/61 96 01/09/21 19:31 16 01/09/21 18:44 99.2 F 71 15 105/69 97 01/09/21 14:00 99.4 F 76 15 108/66 Intake and Output 01/09/21 01/10/21 01/10/21 21:59 06:59 14:59 Intake Total 200 Balance 200 Intake: Oral 200 Other: Voiding Method # Voids # Bowel Movements PHYSICAL EXAMINATION: This is a 76-year-old female in no apparent distress at the time of my examination. VITAL SIGNS: Blood pressure 110/70, heart rate 66, respirations 20, temp 98F. Patient is 97 % on room air. HEENT: Head is atraumatic, normocephalic. Pupils are equal, round. Sclerae anicteric. Conjunctivae are clear. Mucous membranes of the mouth are moist. Neck is supple. There is no elevated jugular venous pressure. No carotid bruit is heard. CHEST EXAMINATION: Clear to auscultation bilaterally. No wheezes rales or rhonchi. Respirations even and nonlabored. HEART EXAMINATION: Heart regular, positive S1 and S2. No S3. No S4. No clicks, rubs or murmurs. ABDOMEN: Soft, nontender. Bowel sounds are heard. No organomegaly noted. EXTREMITIES: 2+ peripheral pulses with no evidence of peripheral edema and no calf tenderness noted. Right shoulder sling noted. NEUROLOGIC EXAMINATION: Patient is awake, alert and oriented x3. Results 01/09/21 06:03 01/09/21 06:03 Current Medications Generic Name Dose Route Start Last Admin Trade Name Freq PRN Reason Stop Dose Admin Acetaminophen 1,000 mg 01/07/21 22:00 01/10/21 07:18 Acetaminophen Tab 500 Mg Tab PO Not Given TID ZHANG Acetaminophen/Codeine Phosphate 1 each 01/08/21 09:37 01/10/21 05:39 Acetaminophen-Codeine 300-30mg Tab PO 1 each Q4HR PRN Administration Pain Scale 1 to 5 Acetaminophen/Codeine Phosphate 2 each 01/08/21 09:37 Acetaminophen-Codeine 300-30mg Tab PO Q6HR PRN Pain Scale 6 to 10 Hydrocodone Bitart/Acetaminophen 1 each 01/07/21 10:04 Hydrocodone/Apap 5-325mg 1 Each Tab PO Q6HR PRN Pain Scale 1 to 5 Hydrocodone Bitart/Acetaminophen 2 each 01/07/21 10:04 Hydrocodone/Apap 5-325mg 1 Each Tab PO Q6HR PRN Pain Scale 6 to 10 Amlodipine Besylate 10 mg 01/08/21 09:00 01/09/21 14:31 Amlodipine 10 Mg Tab PO Not Given DAILY ZHANG Atenolol 25 mg 01/07/21 21:00 01/09/21 20:41 Atenolol 25 Mg Tab PO Not Given HS ZHANG Atenolol 50 mg 01/08/21 09:00 01/10/21 07:26 Atenolol 50 Mg Tab PO Not Given QAM ZHANG Diphenhydramine HCl 25 mg 01/07/21 10:04 01/07/21 16:27 Diphenhydramine 25 Mg Cap PO 25 mg HS PRN Administration Insomnia Ergocalciferol 1,250 mcg 01/31/21 09:00 Ergocalciferol 1,250 Mcg (50,000 Iu) Capsule PO Q30D ZHANG Famotidine 20 mg 01/07/21 21:00 01/10/21 07:27 Famotidine 20 Mg Tab PO 20 mg BID ZHANG Administration Ferrous Sulfate 325 mg 01/07/21 21:00 01/10/21 07:27 Ferrous Sulfate 325 Mg Tab PO 325 mg BID ZHANG Administration Gabapentin 600 mg 01/07/21 22:00 01/10/21 07:27 Gabapentin 300 Mg Cap PO 600 mg TID ZHANG Administration Hydromorphone HCl 0.2 mg 01/07/21 10:04 Hydromorphone 0.2 Mg/1 Ml Syringe IVP Q3HR PRN Pain Scale 4 to 6 Hydromorphone HCl 0.125 mg 01/07/21 10:04 Hydromorphone 0.5 Mg/0.5 Ml Syringe IVP Q3HR PRN Pain Scale 1 to 3 Hydromorphone HCl 0.5 mg 01/07/21 10:04 01/07/21 15:40 Hydromorphone 0.5 Mg/0.5 Ml Syringe IVP 0.5 mg Q3HR PRN Administration Pain Scale 7 to 10 Sodium Chloride 1,000 mls @ 75 mls/hr 01/09/21 13:30 01/10/21 05:41 Saline 0.9% IV 75 mls/hr .[id number] ZHANG Administration Levothyroxine Sodium 88 mcg 01/08/21 06:30 01/10/21 05:39 Levothyroxine 88 Mcg Tab PO 88 mcg DAILY@0630 ZHANG Administration Lidocaine HCl 0.1 ml 01/06/21 09:04 Lidocaine 1% (10mg/Ml) For Iv Start INTRADERMA PER PROTOCOL PRN IV Start Lisinopril 40 mg 01/08/21 09:00 01/09/21 14:31 Lisinopril 20 Mg Tab PO Not Given DAILY ZHANG Metoclopramide HCl 10 mg 01/07/21 10:04 Metoclopramide 5 Mg/Ml 2 Ml Vial IVP Q6HR PRN Nausea And Vomiting Miscellaneous Information 1 each 01/09/21 06:49 Potassium Replacement Protocol 1 Each Misc MISCELLANE DAILY PRN Per Protocol Protocol Multivitamins 2 each 01/08/21 09:00 01/10/21 07:27 Multivitamins, Thera 1 Each Tab PO 2 each DAILY ZHANG Administration Ondansetron HCl 4 mg 01/07/21 10:04 01/07/21 16:37 Ondansetron 4 Mg/2 Ml Vial IVP 4 mg Q6HR PRN Administration Nausea And Vomiting Prochlorperazine Maleate 25 mg 01/07/21 10:04 Prochlorperazine Suppository 25 Mg Supp RECTAL BID PRN Nausea And Vomiting Senna/Docusate Sodium 2 each 01/07/21 10:04 Sennosides-Docusate Sodium 1 Each Tab PO HS PRN Constipation Intake and Output 01/09/21 01/10/21 01/10/21 21:59 06:59 14:59 Intake Total 200 Balance 200 Intake: Oral 200 Other: Voiding Method # Voids # Bowel Movements 01/09/21 06:03 01/09/21 06:03 Assessment and Plan Assessment: #1 right shoulder osteoarthritis, status post reverse shoulder arthroplasty #2 history of hypertension currently with hypotension #3 hyperlipidemia #4 hypothyroidism #5 Mnire's disease #6 hypokalemia, replaced per protocol, managed by primary Plan: From cardiology's perspective we will continue to hold all antihypertensives at this time. Continue to monitor the blood pressure closely. Obtain orthostatic blood pressures. We will continue to follow the patient 5 further recommendations accordingly. We anticipate the patient will be discharged home in the next 24-48 hours. [employer]ATOR note has been reviewed, I agree with a documented findings and plan of care. Patient was seen and examined.
--- NOTE | 2021-01-10 13:24 | P.PN ---
Progress Note - Text Progress Note Date: 01/10/21 Orthopedics: History of present illness: Patient is a pleasant 76-year-old female who is seen and examined the bedside for follow-up evaluation in regards to her right shoulder. She is status post right reversed total shoulder arthroplasty. She is continued to do well regards to her right shoulder. She was planning for discharge home yesterday after being cleared by medicine and by orthopedics. Prior to discharge home she ambulated to the restroom had significant hypotension with lightheadedness and dizziness. Medicine was undetected and held the discharge pending consultation with cardiology. Her blood pressure medications have been held. Since that time her blood pressure has been better controlled. She has not had any lightheadedness or dizzy spells. An echocardiogram was performed yesterday. Nursing states cardiology would like to keep the patient overnight again until tomorrow with repeat echocardiogram tomorrow. Patient is eating and voiding without difficulty. Her pain is well-controlled. She has no complaints at be ide. She continues to keep her sling intact to the right upper extremity. She is nonweightbearing with the right upper extremity. Patient continues to be seen by medicine and cardiology. Physical Exam: Patient is awake, alert, and oriented 3 Vital signs stable Good chest excursion with deep inspiration and expiration Abdomen soft nontender Dressing over the right shoulder is removed and reapplied during physical examination Incision site is clean, dry, intact with gluteal intact No drainage from the surgical site No significant pain with palpation of the surgical site Neurovascularly intact right upper extremity Patient is able to wiggle fingers of the right hand and wrist without difficulty Sling for the right upper extremity intact Assessment: Status post right reverse total shoulder arthroplasty Right shoulder osteoarthrosis Right shoulder pain Hypotension during admission Hypertension previously Hyperlipidemia History of CVA/TIA Thyroid disorder Plan: 1. In regards to her right shoulder, patient will remain strict nonweightbearing on the right upper extremity. She should keep her sling intact over the right upper extremity. 2. Dressing over the right shoulder is clean, dry, and intact. If the dressing remains dry the next 48 hours, dressing may be removed and patient may shower without a dressing intact at that time. 3. Continue pain control with Tylenol #3 as prescribed as needed for control of her symptoms 4. Patient will continue to be seen and examined by medicine for her other medical diagnoses including current episode of hypotension, history of hypertension, hyperlipidemia, thyroid disorder, and history of CVA/TIA. 5. Patient will continue to be seen in exam by cardiology fine her recent episode of hypotension; blood pressure medications have been held; [facility] cardiology is planned for repeat echocardiogram tomorrow 6. Patient will continue to remain in the hospital until being cleared by both medicine and cardiology; if patient is able be cleared tomorrow, we'll plan for discharge home tomorrow, 01/11/2021 7. Following discharge, patient may follow-up with Bethel Azul PA-C or Dr. Matias at [facility] in 2-3 weeks following discharge.
[2021-01-10 15:04] VITALS: RESP 16
[2021-01-11] MEDS: Acetaminophen-Codeine 300-30mg TAB PO PRN ×3 (02:08→11:47)
[2021-01-11] MEDS: LEVOTHYROXINE 88 MCG TAB PO SCH (05:46)
[2021-01-11] MEDS: SODIUM CHLORIDE 0.9% 1,000 ML IV SCH (05:47)
[2021-01-11] MEDS: MULTIVITAMINS, THERA 1 EACH TAB PO SCH (07:43)
[2021-01-11] MEDS: FAMOTIDINE 20 MG TAB PO SCH (07:43)
[2021-01-11] MEDS: GABAPENTIN 300 MG CAP PO SCH (07:43)
[2021-01-11] MEDS: FERROUS SULFATE 325 MG TAB PO SCH (07:43)
[2021-01-11 08:10] VITALS: BP 118/75; PULSE 67; TEMP 98.1
--- NOTE | 2021-01-11 08:16 | P.PN ---
Subjective HISTORY OF PRESENTING ILLNESS This a pleasant 76-year-old female patient with history of hypertension, hyperlipidemia and hypothyroidism as well as anemia, vitamin D deficiency and Mnire's disease. She denies any history of CAD or congestive heart failure. She has no history of diabetes. She is a prior smoker but quit more than 40 years ago. She presented for right reverse total shoulder arthroplasty which was done on 01/07/[address] Matias. She's been doing fairly well postoperatively. We were asked to see the patient in consultation due to hypotension. According to the patient postoperatively she usually has hypotension. She has been on amlodipine 10 mg by mouth daily, lisinopril 40 mg by mouth daily and atenolol 50 mg in the morning and 25 mg in the evening at home. She did undergo echocardiogram which was done on 01/09/2021 that showed normal LV systolic function with trace to mild MR and mild TR. Her antihypertensives were held last night and again this morning blood pressure was low at around midnight last night at 90/61 but was good this morning at 110/70 without any medications. Labs done yesterday showed no evidence of postoperative anemia. Serum was low at 3.1 and that has been replaced. Upon examination the patient is resting comfortably in bed. Overall she's feeling well. She did develop some significant symptoms on getting up to the bathroom yesterday evening. She said she felt like everything was turning blue and she had cotton in her ears. She's been up through the night and again this morning and has tolerated that well. 01/11 Patient seen and examined. Patient states she feels well this morning. Walking to the bathroom without difficulty. She states she has had issues with hypot ension almost every time she has been in the hospital and usually improves upon discharge with need to go back on antihypertensives. Today she denies any chest pain, pressure, shortness breath. Systolic blood pressures in the 110s to 130s. All her home antihypertensive medications have been held. REVIEW OF SYSTEMS At the time of my exam: CONSTITUTIONAL: Denies fever or chills. CARDIOVASCULAR: Denies chest pain, shortness of breath, orthopnea, PND or palpitations. MUSCULOSKELETAL: Denies myalgias. NEUROLOGIC: Denies numbness, tingling or weakness. HEMATOLOGIC: Denies history of anemia or bleeding. PHYSICAL EXAMINATION Blood pressure 118/75 heart rate 67 afebrile and maintaining oxygen saturation on room air. CONSTITUTIONAL: No apparent distress. HEENT: Head is normocephalic. Pupils are equal, round. Sclerae anicteric. Mucous membranes of the mouth are moist. No JVD. No carotid bruit. CHEST EXAMINATION: Lungs are clear to auscultation. No chest wall tenderness is noted on palpation or with deep breathing. HEART EXAMINATION: Regular rate and rhythm. S1, S2 heard. No murmurs, gallops or rub. ABDOMEN: Soft, nontender. Positive bowel sounds. EXTREMITIES: 2+ peripheral pulses, no lower extremity edema and no calf tenderness. NEUROLOGIC EXAMINATION: Patient is awake, alert and oriented x3. ASSESSMENT #1 right shoulder osteoarthritis, status post reverse shoulder arthroplasty #2 history of hypertension currently with hypotension #3 hyperlipidemia #4 hypothyroidism #5 Mnire's disease #6 hypokalemia, replaced per protocol, managed by primary #7 Hypotension, with multiple similar episodes when in the hospital in the past. May be adrenal insufficiency and may consider outpt workup. May also be vasovagal effects related to pain. Appears improved. PLAN Patient's blood pressure has been stable over the last 24 hours and patient feeling well. Would continue to hold antihypertensive medications. Patient appears stable for discharge from a cardiology standpoint and would recommend to hold all antihypertensives on discharge. Patient states she has a blood pressu re cuff and will check at home. Follow-up in office in 1 week. Objective - Vital Signs Vital signs: Vital Signs Temp 98.1 F 01/11/21 08:00 Pulse 67 01/11/21 08:00 Resp 16 01/11/21 08:00 BP 118/75 01/11/21 08:00 Pulse Ox 97 01/11/21 08:00 Intake & Output 01/10/21 01/11/21 01/11/21 18:59 06:59 18:59 Intake Total 400 Balance 400 Intake: Oral 400 Other: Voiding Method Toilet # Voids 1 1 - Labs CBC & Chem 7: 01/09/21 06:03 01/09/21 06:03 Labs: Microbiology - Last 24 Hours (Table) 01/08/21 15:58 Blood Culture - Preliminary Blood No Growth after 48 hours
--- NOTE | 2021-01-11 10:07 | P.DS ---
Providers Date of admission: 01/07/21 06:15 Expected date of discharge: 01/11/21 Attending physician: Daniel Matias Consults: 01/07/21 10:04 Consult Physician Routine Consulting Provider: Janis Rutledge Consult Reason/Comments: post op medical management Do you want consulting provider notified?: Yes 01/09/21 13:25 Consult Physician Routine Consulting Provider: Isaac Mistry Consult Reason/Comments: decreased blood pressure Do you want consulting provider notified?: Yes Primary care physician: Elissa Baird - Discharge Diagnosis(es) (1) Osteoarthritis of right shoulder Patient was admitted to the OR on 01/07/21 to undergo a right reverse total shoulder arthroplasty. She had failed conservative measures as an outpatient and desired to proceed with elective surgery after given informed consent. She underwent the above procedure which she tolerated well without complication. Postoperative hospital course has remained without complication. On day of discharge she is afebrile, vital signs stable, labs within acceptable ranges, tolerating by mouth meds and diet, voiding without difficulty, positive flatus, denies abdominal pain or calf pain, pain is controlled on oral pain medication and has no new complaints. Wound is benign, neurovascular status is intact, calf is soft and nontender, abdomen soft and nontender. Review of systems is negative for numbness, tingling, fever, chills, chest pain, shortness of breath, nausea, vomiting, dizziness, headaches, slurred speech or other. Current Visit: Yes Status: Acute Priority: Medium Procedures: Right TSA Patient Condition at Discharge: Stable Plan - Discharge Summary Discharge Rx Participant: Yes New Discharge Prescriptions: New Docusate [Colace] 100 mg PO BID #60 capsule Doxycycline Hyclate 100 mg PO BID #10 tab Acetaminophen-Codeine 300-30mg [Tylenol w/codeine #3] 1 tab PO Q4H PRN #30 tablet PRN Reason: Pain No Action Levothyroxine Sodium [Synthroid] 88 mcg PO DAILY Ergocalciferol (Vitamin D2) [Drisdol] 50,000 unit PO QMONTH Potassium 595mg 595 mg PO DAILY Red Yeast Rice 1,200 mg PO HS atenoloL [Tenormin] 25 mg PO HS amLODIPine [Norvasc] 10 mg PO DAILY Famotidine 20 mg PO BID Acetaminophen [Tylenol] 1,000 mg PO TID Multivitamins, Thera [Multivitamin (formulary)] 2 tab PO DAILY Ferrous Sulfate [Iron (65 MG Elemental)] 325 mg PO BID atenoloL [Tenormin] 50 mg PO QAM lisinopriL [Zestril] 40 mg PO DAILY Gabapentin [Neurontin] 600 mg PO TID Discharge Medication List Ergocalciferol (Vitamin D2) [Drisdol] 50,000 unit PO QMONTH 09/08/16 [History] Levothyroxine Sodium [Synthroid] 88 mcg PO DAILY 09/08/16 [History] Potassium 595mg 595 mg PO DAILY 11/15/18 [History] Acetaminophen [Tylenol] 1,000 mg PO TID 08/05/19 [History] Famotidine 20 mg PO BID 08/05/19 [History] Ferrous Sulfate [Iron (65 MG Elemental)] 325 mg PO BID 08/05/19 [History] Multivitamins, Thera [Multivitamin (formulary)] 2 tab PO DAILY 08/05/19 [History] Red Yeast Rice 1,200 mg PO HS 08/05/19 [History] amLODIPine [Norvasc] 10 mg PO DAILY 08/05/19 [History] atenoloL [Tenormin] 25 mg PO HS 08/05/19 [History] atenoloL [Tenormin] 50 mg PO QAM 08/05/19 [History] lisinopriL [Zestril] 40 mg PO DAILY 12/12/19 [History] Gabapentin [Neurontin] 600 mg PO TID 01/01/21 [History] Acetaminophen-Codeine 300-30mg [Tylenol w/codeine #3] 1 tab PO Q4H PRN #30 tablet 01/08/21 [Rx] Docusate [Colace] 100 mg PO BID #60 capsule 01/08/21 [Rx] Doxycycline Hyclate 100 mg PO BID #10 tab 01/08/21 [Rx] Follow up Appointment(s)/Referral(s): Elissa Baird MD [Primary Care Provider] - 01/19/21 11:15 am Daniel Matias MD [STAFF PHYSICIAN] - 01/22/21 1:30 pm Activity/Diet/Wound Care/Special Instructions: Keep wound clean and dry Take meds as directed Follow-up with Dr. Matias in office maintain sling, nonweightbearing May shower in 3 days if no bleeding Discharge Disposition: HOME WITH HOME HEALTH SERVICES
--- NOTE | 2021-01-11 10:30 | P.PN ---
Subjective Progress Note Date: 01/11/21 Aleena Tovar, is a 76-year-old female patient of Dr. Baird who was admitted to [facility] due to right shoulder osteoarthritis, that failed conservative management, patient underwent right reverse total shoulder arthroplasty on 01/07/[address] Matias consultation was requested for medical management while hospitalized. Patient has a known history of hypertension, hyperlipidemia , hypothyroidism, anemia, vitamin D deficiency, Mnire's disease with dizziness, she denies any history of coronary artery disease or congestive heart failure no history of diabetes no history of asthma or emphysema no history of kidney or liver disease. Patient used to smoke but quit more than 40 years ago. On review of systems patient is complaining of pain in the shoulder otherwise she denies any complaints there is no fever or chills no headache or dizziness no chest pain no shortness of breath no cough no nausea or vomiting no abdominal pain no diarrhea no blood in the stools no burning with urination no frequency or urgency and no hematuria On 01/08/2021 patient is alert and oriented 3. Patient reports she's had issues with her pain medication. Dilaudid made her increasingly nauseous yesterday. Per nursing staff patient will be kept another 24 hours to adjust pain medications and to achieve adequate pain control. Tylenol 3 has been ordered per orthopedic services. At this time patient denies any chest pain or shortness of breath. Patient denies nausea vomiting or diarrhea. Patient denies any urinary burning or frequency. on 01/09/2021 patient was seen and examined on the medical floor she is alert and oriented 3 in no apparent distress she is complaining of pain in the shoulder site of surgery otherwise she denies any complaints she is still having episodes of low-grade fever of 99.5 otherwise she denies any complaints there are no chills no headache no dizziness no chest pain no shortness of breath no cough no nausea or vomiting no abdominal pain no diarrhea no blood in the stools no burning with urination no frequency or urgency and no hematuria. Urine an alysis was done and does not reveal any evidence of urinary tract infection. There is no clinical evidence of infection patient denies any cough no diarrhea no abdominal pain. White blood count is normal at 6.7. Patient wants to be discharged home there is no medical contraindication for discharge at this time, patient was told to continue to monitor her temperature closely and to contact her primary care physician if having temperature above 100. On 01/10/2021 patient is alert and oriented 3. Discharge was held on 01/09/2021 due to hypotension. This a.m. blood pressure 110/70 but per nursing staff all blood pressure medications were held. Cardiology services following recommending additional monitoring for 24 hours. Encouraged ambulation to assess for orthostatic hypotension. Patient denies any chest pain or shortness breath. Patient denies nausea vomiting or diarrhea. Patient denies any urinary burning or frequency. 2D echo pending 2020 patient was seen and examined on the medical floor she is alert and oriented 3 in no apparent distress blood pressure has been in good range over the last 24 hours without any blood pressure medications and patient has been maintained on normal saline 75 mL/h. She was evaluated by cardiology and echocardiogram was done, recommendation is to discharge patient to home without any blood pressure medications, patient will monitor her blood pressure very closely at home and will follow up closely was Dr. Baird to assess if she needs to gradually return to any of her blood pressure medications. Otherwise patient has been stable she is clear for discharge from cardiology and medical standpoint she will follow-up with her primary care physician Dr. Baird within one week Objective - Vital Signs Vital signs: Vital Signs Temp 98.1 F 01/11/21 08:00 Pulse 67 01/11/21 08:00 Resp 16 01/11/21 08:00 BP 118/75 01/11/21 08:00 Pulse Ox 97 01/11/21 08:00 Intake & Output 01/10/21 01/11/21 01/11/21 18:59 06:59 18:59 Intake Total 400 Balance 400 Intake: Oral 400 Other: Voiding Method Toilet Toilet # Voids 1 1 - Exam In general patient is alert and oriented 3 in no apparent distress HEENT head normocephalic and atraumatic Neck is supple no JVD no goiter no lymphadenopathy Chest exam reveals a few scattered rhonchi no wheezing Cardiac exam reveals regular heart sounds S1 and S2 no gallops no murmurs Abdomen is soft nontender no organomegaly with normal bowel sounds Extremity exam reveals no edema no cyanosis or clubbing Neurological examination reveals no gross focal deficit - Labs CBC & Chem 7: 01/09/21 06:03 01/09/21 06:03 Labs: Microbiology - Last 24 Hours (Table) 01/08/21 15:58 Blood Culture - Preliminary Blood No Growth after 48 hours Assessment and Plan Plan: Status post right reverse total shoulder arthroplasty Underlying history of hypertension blood pressure is on the low side at this time home medications were reviewed and reordered with parameters to hold amlodipine and lisinopril if systolic blood pressure is below 110 Underlying history of hyperlipidemia Underlying history of hypothyroidism Underlying history of Mnire's disease hypokalemia potassium 3.1 correct per protocol low-grade fever no clinical or laboratory evidence of infection Hypotension. patient on a significant amount of blood pressure medication. Cardiology service is consulted. 2-D echo ordered. At this time cardiology recommending additional 24 hours of monitoring due to hypotension
[2021-01-31] MEDS ORDERED: ERGOCALCIFEROL 1,250 MCG (50,000 IU) CAPSULE PO SCH (09:00)
== END 2021-01-11 12:47 | disposition home health service (06) | DRG 483 ==
LOC: 2ORMAIN 06:15 → 4SSUR 12:31
PROVIDERS: ADMIT Orthopaedic Surgery Sports Medicine; ATTEND Orthopaedic Surgery Sports Medicine
PROC: 0RRJ00Z Replacement of Right Shoulder Joint with Reverse Ball and Socket Synthetic Substitute, Open Approach (ICD-10-PCS; principal; 2021-01-07 07:00)
DX: M19.011 Primary osteoarthritis, right shoulder (principal); E03.9 Hypothyroidism, unspecified; E78.5 Hyperlipidemia, unspecified; I10 Essential (primary) hypertension; E87.6 Hypokalemia; E55.9 Vitamin D deficiency, unspecified; E04.1 Nontoxic single thyroid nodule; H81.09 Meniere's disease, unspecified ear; Z82.49 Family history of ischemic heart disease and other diseases of the circulatory system; Z83.2 Family history of diseases of the blood and blood-forming organs and certain disorders involving the immune mechanism; Z79.890 Hormone replacement therapy; Z79.899 Other long term (current) drug therapy; Z86.73 Personal history of transient ischemic attack (TIA), and cerebral infarction without residual deficits; Z87.442 Personal history of urinary calculi; Z87.891 Personal history of nicotine dependence; Z96.653 Presence of artificial knee joint, bilateral
CPT/HCPCS: 64415; 76942; 80053; 81003; 85025; 87040; 87086; 88300; 93306

== ENCOUNTER → 2021-05-21 | Outpatient (CLI) | payer MEDICARE, BC ==
[2021-05-21 16:16] LABS: African American GFR (CKD) >90 (>60 ml/min/1.73 sqM); Blood Urea Nitrogen 12 mg/dL (7-17); Non-African American GFR(CKD) >90 (>60 ml/min/1.73 sqM)
--- NOTE | 2021-05-23 09:11 | CT ---
EXAMINATION TYPE: CT abdomen pelvis w con DATE OF EXAM: 05/21/2021 COMPARISON: 08/17/2020 HISTORY: Abdominal pain and gas. Hx stomach sx. Pt study run with 24 g due to tiny veins @ 0.8. CT DLP: 483.20 mGycm CONTRAST: CT scan of the abdomen and pelvis is performed with Oral Contrast and with IV Contrast, patient injec rachell with 100 mL of Isovue 300. FINDINGS: LUNG BASES-: No visible nodule. No infiltrate. Fixed hiatal hernia noted. LIVER/GB: No calcified gallstones. No space occupying hepatic lesion. Biliary tree is of normal ca liber. PANCREAS: No inflammation. No distinct mass. SPLEEN: No splenic enlargement. No lesion seen. ADRENALS: No nodule. No thickening. KIDNEYS/BLADDER: No hydronephrosis. Small bilateral renal stones identified. No distinct renal mass. Urinary bladder grossly unremarkable. BOWEL: Normal appendix. Normal bowel caliber. No inflammation. GENITAL ORGANS: No gross abnormality. LYMPH NODES: No greater than 1cm abdominal or pelvic lymph nodes are appreciated. AORTA: No significant abnormality. OSSEOUS STRUCTURES: No significant abnormality is seen. OTHER: Fat-containing right inguinal hernia. IMPRESSION: 1. Moderate fixed hiatal hernia. 2. Nonobstructing nephrolithiasis.
== END | disposition home or self-care (01) ==
LOC: RADCTMAIN 14:54
PROVIDERS: ATTEND Internal Medicine
DX: K44.9 Diaphragmatic hernia without obstruction or gangrene (principal); N20.0 Calculus of kidney
CPT/HCPCS: 82565; 84520; 74177; 36415; Q9967

== ENCOUNTER → 2021-07-28 | Outpatient (CLI) | payer MEDICARE, BC ==
--- NOTE | 2021-07-29 12:09 | MM ---
Reason for exam: screening (asymptomatic). Last mammogram was performed 1 year and 2 months ago. History: Patient is postmenopausal. Physical Findings: A clinical breast exam by your physician is recommended on an annual basis and results should be correlated with mammographic findings. MG 3D Screening Mammo W/Cad Bilateral CC and MLO view(s) were taken. Prior study comparison: June 01, 2020, bilateral MG 3d screening mammo w/cad. May 01, 2019, bilateral MG 3d screening mammo w/cad. The breast tissue is heterogeneously dense. This may lower the sensitivity of mammography. Stable benign calcifications. There is no discrete abnormality. No significant changes when compared with prior studies. ASSESSMENT: Benign, BI-RAD 2 RECOMMENDATION: Routine screening mammogram of both breasts in 1 year.
== END | disposition home or self-care (01) ==
LOC: RADMAMWWP 10:40
PROVIDERS: ATTEND Family Medicine
DX: Z12.31 Encounter for screening mammogram for malignant neoplasm of breast (principal); Z78.0 Asymptomatic menopausal state
CPT/HCPCS: 77063; 77067

== ENCOUNTER 2021-11-26 09:50 | Emergency (ER) | payer MEDICARE, BC ==
[2021-11-26 09:55] VITALS: BP 122/88; PULSE 61; RESP 18; TEMP 98
[2021-11-26] MEDS ORDERED: KETOROLAC 15 MG/ML 1 ML VIAL IM STA (10:51)
[2021-11-26] MEDS ORDERED: methylPREDNISolone SOD SUCCI 40 MG/ML 1 ML VIAL IV STA (10:52)
[2021-11-26] MEDS ORDERED: LIDOCAINE 1% INJ 10MG/ML (20 ML MDV) SQ ONE (10:52)
--- NOTE | 2021-11-26 11:23 | ED ---
General Adult HPI - General Chief complaint: Headache Stated complaint: neck pain Time Seen by Provider: 11/26/21 10:07 Source: patient Mode of arrival: ambulatory Limitations: no limitations - History of Present Illness Initial comments: 76-year-old female with past medical history of CVA, hypertension presents emergency Department with reported right occipital pain. Patient reports that for the past week she has a radiating pain which starts in the base of her neck and radiates up to the top of her head. She describes it as a burning sensation. Reports to worsening of her symptoms with palpation. She normally takes Tylenol at home. States that she took a Tylenol 3 without improvement in her symptoms. She denies any neck pain. No numbness, tingling or weakness into her extremities. Denies any head or neck trauma. No headaches or visual changes. No fevers. No other alleviating, precipitating or modifying factors - Related Data Home Medications Medication Instructions Recorded Confirmed Ergocalciferol (Vitamin D2) 50,000 unit PO Q15D 09/08/16 11/26/21 [Drisdol] Levothyroxine Sodium [Synthroid] 88 mcg PO DAILY 09/08/16 11/26/21 Potassium 595mg 595 mg PO DAILY@1200 11/15/18 11/26/21 Acetaminophen [Tylenol] 1,000 mg PO TID 08/05/19 11/26/21 Ferrous Sulfate [Iron (65 MG 325 mg PO BID 08/05/19 11/26/21 Elemental)] Multivitamins, Thera [Multivitamin 2 tab PO DAILY@1200 08/05/19 11/26/21 (formulary)] Gabapentin [Neurontin] 600 mg PO TID 01/01/21 11/26/21 Atenolol [Tenormin] 50 mg PO DAILY 11/26/21 11/26/21 Atenolol [Tenormin] 50 mg PO DAILY 11/26/21 11/26/21 Famotidine [Pepcid] 20 mg PO BID 11/26/21 11/26/21 Pantoprazole Sodium [Protonix] 40 mg PO DAILY 11/26/21 11/26/21 Red Yeast Rice 1299mg 1 cap PO HS 11/26/21 11/26/21 Simethicone [Gas-X] 125 mg PO 11/26/21 11/26/21 amLODIPine [Norvasc] 10 mg PO DAILY 11/26/21 11/26/21 lisinopriL 40 mg PO DAILY 11/26/21 11/26/21 Previous Rx's Medication Instructions Recorded valACYclovir HCL [Valtrex] 1,000 mg PO Q8HR 7 Days #21 tab 11/26/21 Allergies Allergy/AdvReac Type Severity Reaction Status Date / Time diazepam [From Valium] Allergy Severe Nausea & Verified 11/26/21 11:11 Vomiting, dizzy,muscle pain,mouth numb escitalopram oxalate Allergy Severe Nausea & Verified 11/26/21 11:11 [From Lexapro] Vomiting, dizzy,muscle pain, mouth numb fluticasone propionate Allergy Severe Nausea & Verified 11/26/21 11:11 [From Flonase] Vomiting, dizzy,muscle pain, mouth numb furosemide [From Lasix] Allergy Severe Nausea & Verified 11/26/21 11:11 Vomiting,dizzy, muscle pain, mouth numb hydrocodone bitartrate Allergy Severe Nausea & Verified 11/26/21 11:11 [From Lortab] Vomiting,Dizzy, Muscle Pain, Mouth Numb meclizine HCl [From Antivert] Allergy Severe Nausea & Verified 11/26/21 11:11 Vomiting,dizzy,muscle pain, mouth numb olmesartan medoxomil Allergy Severe Nausea & Verified 11/26/21 11:11 [From Benicar] Vomiting, dizzy, muscle pain, mouth numb promethazine Allergy Severe Nausea & Verified 11/26/21 11:11 Vomiting, dizzy , muscle pain, mouth numb Pojpchi-IMG-NpV Reductase Allergy Severe Nausea & Verified 11/26/21 11:11 Inhibitor Vomiting,dizzy, [Wjjbjlh-Hmh-Eii Reductase muscle Inhibitor] pain, mouth numb tizanidine HCl Allergy Severe Nausea & Verified 11/26/21 11:11 [From Zanaflex] Vomiting,dizzy,muscle pain,mouth numb spironolactone Allergy Unknown NUMBNESS Verified 11/26/21 11:12 [From Aldactone] IN FACE, NAUSEA prednisone Allergy Dyspnea, Verified 11/26/21 11:12 Nausea & Vomiting, Dizzy, Muscle Pain, Mouth Numb. Sulfa (Sulfonamide Allergy Nausea & Verified 11/26/21 11:12 Antibiotics) Vomiting,dizzy,muscle pain, mouth numb. tramadol AdvReac Severe NAUSEA AND Verified 11/26/21 11:12 VOMITING Review of Systems ROS Statement: Those systems with pertinent positive or pertinent negative responses have been documented in the HPI. ROS Other: All systems not noted in ROS Statement are negative. 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 -RT EAR, hx KIDNEY STONES, hx C-DIFF-2017, hx ulcers, History of Any Multi-Drug Resistant Organisms: None Reported Past Surgical History: Joint Replacement, Orthopedic Surgery Additional Past Surgical History / Comment(s): LITHOTRIPSY, KIDNEY SURGERY to remove lg stone from ureter, ACHILLES TENDON RUPTURE(LT), RIGHT KNEE ARTHROSCOPY, RIGHT shoulder ROTATOR CUFF, MARISOL CARPAL TUNNEL , bilateral total knee arthroplasties, colonoscopy, sinus surgery, D&C. Past Anesthesia/Blood Transfusion Reactions: No Reported Reaction Additional Past Anesthesia/Blood Transfusion Reaction / Comment(s): HX BLOOD TRANSFUSION-NO REACTION Past Psychological History: No Psychological Hx Reported Smoking Status: Former smoker Past Alcohol Use History: Rare Past Drug Use History: None Reported - Past Family History Father Family Medical History: Coronary Artery Disease (CAD) Additional Family Medical History / Comment(s): heart disease- age 62 Mother Family Medical History: No Reported History Additional Family Medical History / Comment(s): . Sister(s) Family Medical History: Deep Vein Thrombosis (DVT) General Exam Limitations: no limitations Course Vital Signs 11/26/21 09:51 Temperature 98 F Pulse Rate 61 Respiratory 18 Rate Blood Pressure 122/88 O2 Sat by Pulse 98 Oximetry Medical Decision Making - Medical Decision Making Upon arrival patient was placed into room 24. A thorough history and physical exam is performed. Evaluation of the skin demonstrates multiple vesicles consistent with shingles. No signs of Elda Bright or herpes ophthalmicus. I did perform an occipital nerve injection. 40 mg of Solu-Medrol mixed with 5 mL of lidocaine 1% without epinephrine. 3 mL was injected at the base of the occiput. The patient will be started on valacyclovir. Instructed to take Tylenol at home as needed for pain control. Follow up with her primary care doctor for reevaluation area. Return to the emergency room for any new or worsening symptoms. Patient agreed to the treatment plan and she was discharged home in stable condition Disposition Clinical Impression: Occipital neuralgia of right side, Shingles Disposition: HOME SELF-CARE Condition: Stable Instructions (If sedation given, give patient instructions): Shingles (ED) Additional Instructions: Please take the valacyclovir as directed. Continue taking Tylenol or Tylenol #3 for pain. Follow up with your doctor next week for reevaluation. Return to the emergency room for any new or worsening symptoms to include involvement of your eye or nose. Prescriptions: valACYclovir HCL [Valtrex] 1,000 mg PO Q8HR 7 Days #21 tab Is patient prescribed a controlled substance at d/c from ED?: No Referrals: Elissa Baird MD [Primary Care Provider] - 1-2 days Time of Disposition: 11:29
== END 2021-11-26 11:49 | disposition home or self-care (01) ==
LOC: EC 09:50
DX: M54.81 Occipital neuralgia (principal); B02.9 Zoster without complications; Z86.73 Personal history of transient ischemic attack (TIA), and cerebral infarction without residual deficits; E78.5 Hyperlipidemia, unspecified; I10 Essential (primary) hypertension; M19.90 Unspecified osteoarthritis, unspecified site; Z87.891 Personal history of nicotine dependence; Z72.89 Other problems related to lifestyle; Z79.899 Other long term (current) drug therapy
CPT/HCPCS: 96372; 96374; 99283

== ENCOUNTER → 2022-04-28 | Outpatient (CLI) | payer MEDICARE, BC ==
[~2022-04-28] MED LIST changes: -ACETAMINOPHEN TAB 500 MG TAB PO PRN; -DEXAMETHASONE SOD PHOSPHATE 4 MG/ML 1 ML VIAL IV ONE; -GABAPENTIN 300 MG CAP PO PRN; -LIDOCAINE 1% (10MG/ML) FOR IV START INTRADERMA PRN; -MELOXICAM 7.5 MG TAB PO PRN; -ONDANSETRON 4 MG/2 ML VIAL IVP ONE; -ONDANSETRON 4 MG/2 ML VIAL IVP PRN; +SODIUM CHLORIDE 0.9% 500 ML 500 ML in EMPTY BAG 1 BAG IV PRN; -TRANEXAMIC ACID 1,000 MG in SODIUM CHLORIDE 0.9% 100 ML IVPB PRN; +ZOLEDRONIC ACID 5 MG in SODIUM CHLORIDE 0.9% 100 ML IV NR
[2022-04-28 10:12] VITALS: BP 132/77; PULSE 54; RESP 16; TEMP 98.1
== END ==
LOC: PROCWHC3 09:40
PROVIDERS: ATTEND Internal Medicine
DX: M81.0 Age-related osteoporosis without current pathological fracture (principal); Z88.5 Allergy status to narcotic agent; Z88.2 Allergy status to sulfonamides; Z88.8 Allergy status to other drugs, medicaments and biological substances; Z87.891 Personal history of nicotine dependence
CPT/HCPCS: 96365; J3489

== ENCOUNTER → 2022-08-12 | Outpatient (CLI) | payer MEDICARE, BC ==
--- NOTE | 2022-08-15 09:55 | MM ---
Reason for Exam: Screening (asymptomatic). Last mammogram was performed 1 year(s) and 1 month(s) ago. Patient History: Menarche at age 13. First Full-Term at age 22. Postmenopausal. Risk Values: Bette 5 year model risk: 1.6%. NCI Lifetime model risk: 3.2%. Prior Study Comparison: 05/01/2019 Bilateral Screening Mammogram, [facility]. 06/01/2020 Bilateral Screening Mammogram, [facility]. 07/28/2021 Bilateral Screening Mammogram, [facility]. Tissue Density: There are scattered fibroglandular densities. Findings: Analyzed By CAD. Scattered small benign-appearing round and vascular calcifications bilaterally are redemonstrated. There is no suspicious new group of microcalcifications or new suspicious mass in either breast. Overall Assessment: Benign, BI-RAD 2 Management: Screening Mammogram of both breasts in 1 year. A clinical breast exam by your physician is recommended on an annual basis and results should be correlated with mammographic findings. Electronically signed and approved by: Michael Parra M.D.
== END | disposition home or self-care (01) ==
LOC: RADMAMWWP 16:05
PROVIDERS: ATTEND Family Medicine
DX: Z12.31 Encounter for screening mammogram for malignant neoplasm of breast (principal); Z78.0 Asymptomatic menopausal state
CPT/HCPCS: 77063; 77067

== ENCOUNTER → 2022-08-23 | Outpatient (CLI) | payer MEDICARE, BC ==
[2022-08-23 18:27] LABS: Basophils # (A) 0.03 X 10*3/uL (0.00-0.10); Basophils % (A) 0.6 %; Eosinophils % (A) 1.8 %; HCT 39.9 % (37.2-46.3); HGB 13.9 g/dL (12.0-15.0); Immature Grans, Automated 0.2 %; Lymphocytes % (A) 23.9 %; MCH 32.5 pg (27.0-32.0); MCHC 34.8 g/dL (32.0-37.0); MCV 93.2 fL (80.0-97.0); Mean Platelet Volume 10.5 fL (9.5-12.2); Monocytes # (A) 0.44 X 10*3/uL (0.20-1.00); Monocytes % (A) 8.1 %; NRBC Per 100 WBC 0 /100 WBCS (0.0-0.0); Neutrophils # (A) 3.57 X 10*3/uL (1.80-7.70); Neutrophils % (A) 65.4 %; Platelet Count 197 X 10*3/uL (140-440); RBC 4.28 X 10*6/uL (4.10-5.20); RDW 12.3 % (11.5-14.5); WBC 5.45 X 10*3/uL (4.50-10.00)
[2022-08-23 19:21] LABS: Chol/HDL Ratio 2.96 Ratio; LDL Cholesterol,Calculated 123.5 mg/dL (0.0-131.0); VLDL Calculation 10.32 mg/dL (5.00-40.00)
[2022-08-24 10:15] LABS: African American GFR (CKD) 98.2 (60.0-200.0); Blood Urea Nitrogen 11.2 mg/dL (9.0-27.0); Carbon Dioxide 21.9 mmol/L (20.0-27.5); Non-African American GFR(CKD) 84.7 (60.0-200.0); Potassium 4.6 mmol/L (3.5-5.5)
== END | disposition home or self-care (01) ==
LOC: LABWHC1 11:13
PROVIDERS: ATTEND Internal Medicine
DX: I25.10 Atherosclerotic heart disease of native coronary artery without angina pectoris (principal); E78.5 Hyperlipidemia, unspecified
CPT/HCPCS: 36415; 80051; 80061; 82565; 84520; 85025

== ENCOUNTER → 2022-08-23 | Outpatient (CLI) | payer MEDICARE, BC | END | disposition home or self-care (01) | LOC: LABPAT 11:15 | PROVIDERS: ATTEND Internal Medicine | DX: Z53.9 Procedure and treatment not carried out, unspecified reason (principal) ==

== ENCOUNTER 2022-09-06 07:12 | Day surgery (SDC) | payer MEDICARE, BC ==
[~2022-09-06 07:12] MED LIST changes: +ALPRAZolam 0.25 MG TAB PO PRN; +ALPRAZolam 0.5 MG TAB PO PRN; +ASPIRIN 325 MG TAB PO ONE; +HEPARIN SODIUM,PORCINE 10,000 UNIT in SODIUM CHLORIDE 0.9% 1,000 ML IRRIGATION PRN; +HEPARIN SODIUM,PORCINE 2,500 UNIT in SODIUM CHLORIDE 0.9% 250 ML IRRIGATION PRN; +NITROGLYCERIN SL TABS 0.4 MG TAB SUBLINGUAL PRN; +SODIUM CHLORIDE 0.9% 1,000 ML in EMPTY BAG 1 BAG IV SCH; -SODIUM CHLORIDE 0.9% 500 ML 500 ML in EMPTY BAG 1 BAG IV PRN; -ZOLEDRONIC ACID 5 MG in SODIUM CHLORIDE 0.9% 100 ML IV NR
[2022-09-06 07:50] VITALS: RESP 18; TEMP 98.5
[2022-09-06] MEDS ORDERED: HEPARIN SODIUM 1,000 UN/ML (10ML VL) ONE (09:48)
[2022-09-06] MEDS ORDERED: fentaNYL (PF) 50 MCG/ML 2 ML AMP ONE (09:48)
[2022-09-06] MEDS ORDERED: VERAPAMIL 2.5 MG/ML 2 ML AMP ONE (09:50)
[2022-09-06] MEDS ORDERED: fentaNYL (PF) 50 MCG/ML 2 ML AMP IVP ONE (09:58)
[2022-09-06] MEDS ORDERED: MIDAZOLAM 2 MG/2 ML VIAL IVP ONE (09:59)
[2022-09-06] MEDS ORDERED: LIDOCAINE 1% INJ 10MG/ML (30 ML VIAL-PF) SQ ONE ×2 (09:59→10:00)
[2022-09-06] MEDS ORDERED: VERAPAMIL SYRINGE (5 MG/10 ML) INTRAARTER ONE (10:00)
[2022-09-06] MEDS ORDERED: HEPARIN SODIUM 1,000 UN/ML (10ML VL) IVP ONE (10:01)
[2022-09-06] MEDS ORDERED: IOPAMIDOL-370 100ML BTL INJ ONE (10:13)
[2022-09-06] MEDS ORDERED: RX INFO: IV CONTRAST WAS GIVEN 1 EACH MISC MISCELLANE PRN (10:20)
--- NOTE | 2022-09-06 10:21 | P.CARDCATH ---
Description of Procedure: PROCEDURES PERFORMED: Left heart catheterization, bilateral coronary angiography INDICATION: Abnormal stress test CONSENT:I have discussed the risks, benefits and alternative therapies for the above-mentioned procedure and for both sedation/analgesia as well as necessary blood product administration, if indicated, as they pertain to this patient. The patient has indicated understanding and acceptance of the risks and procedures discussed. PROCEDURE: After the risks, benefits and alternatives of the above mentioned procedure explained in detail with the patient, informed consent was obtained. Patient was taken to the catheterization lab and prepped and draped in usual fashion. 1% lidocaine was used to anesthetize the right radial artery. A 6- [place]ine[place] sheath was placed in the right radial artery using modified Seldinger technique. Left coronary angiography was performed with a 5-[place] JL 3.5 catheter and right coronary angiography was performed with a 5-[place] JR5 catheter in various views. A 5-[place] FR5 catheter was inserted into the left ventricle and pressure measurements were obtained. The right radial sheath was removed and a TR band was placed with hemostasis achieved. The patient tolerated the procedure well. Patient was transported back to the post catheterization holding area in stable condition. Conscious Sedation: Patient was monitored under the direct supervision of vision of myself for conscious sedation using Versed and fentanyl for a total duration of 17 minutes HEMODYNAMICS: Aortic: 106/59 LV: 109/1, LVEDP 12 SELECTIVE CORONARY ARTERIOGRAPHY: LEFT MAIN: The left main is a large caliber vessel which bifurcates into the LAD and circumflex. There is no significant stenosis. LEFT ANTERIOR DESCENDING CORONARY ARTERY: LAD is a large caliber vessel which wraps around to the apex. There is proximal LAD 30% stenosis and a mid LAD 60% stenosis just after a small caliber diagonal 1 and diagonal 2 branch. Diagonal 1 and diagonal 2 branches have 70% and 80% stenosis respectively however. Small caliber approximately 1.5 mm. LEFT CIRCUMFLEX CORONARY ARTERY: Left circumflex is a moderate caliber vessel with mild luminal irregularities. RIGHT CORONARY ARTERY: The right coronary artery is a small caliber vessel which gives off a PDA and PLV branch and is the dominant vessel. There is 100% mid RCA stenosis however has right to right collaterals and appears to be a small caliber vessel approximately 1.5 mm. FINAL IMPRESSION: 1. CAD as described above including 70% diagonal 1, 80% diagonal 2, mid LAD 60%, 100% small caliber RCA with right to right collaterals. 2. Normal left sided filling pressures PLAN: 1. Aggressive risk factor modification per most recent ACC/AHA guidelines. 2. Given small caliber diagonal 1, diagonal 2 and RCA and patient having relatively stable symptoms would recommend continued medical therapy. If patient having more angina may consider further assessment of LAD with iFR however at this time continue with medical therapy.
[2022-09-06 14:01] VITALS: BP 101/62; PULSE 61
== END 2022-09-06 13:50 | disposition home or self-care (01) ==
LOC: CATHCVL 07:12
PROVIDERS: ATTEND Internal Medicine
DX: I25.10 Atherosclerotic heart disease of native coronary artery without angina pectoris (principal); I10 Essential (primary) hypertension; E78.5 Hyperlipidemia, unspecified; R06.02 Shortness of breath
CPT/HCPCS: 93458; C1769; C1894; J2250; J2001; J3010; J1644; Q9967

== ENCOUNTER → 2022-11-16 | Outpatient (CLI) | payer MEDICARE, BC ==
[2022-11-17 11:06] LABS: ALT 16 U/L (8-44); AST 27 U/L (13-35); Chol/HDL Ratio 3.08 Ratio; LDL Cholesterol,Calculated 106.5 mg/dL (0.0-131.0); VLDL Calculation 14.98 mg/dL (5.00-40.00)
== END | disposition home or self-care (01) ==
LOC: LABWHC1 09:14
PROVIDERS: ATTEND Internal Medicine
DX: E78.2 Mixed hyperlipidemia (principal)
CPT/HCPCS: 36415; 80061; 84450; 84460

== ENCOUNTER → 2023-05-12 | Outpatient (CLI) | payer MEDICARE, BC ==
[~2023-05-12] MED LIST changes: -ALPRAZolam 0.25 MG TAB PO PRN; -ALPRAZolam 0.5 MG TAB PO PRN; -ASPIRIN 325 MG TAB PO ONE; -HEPARIN SODIUM,PORCINE 10,000 UNIT in SODIUM CHLORIDE 0.9% 1,000 ML IRRIGATION PRN; -HEPARIN SODIUM,PORCINE 2,500 UNIT in SODIUM CHLORIDE 0.9% 250 ML IRRIGATION PRN; -NITROGLYCERIN SL TABS 0.4 MG TAB SUBLINGUAL PRN; -SODIUM CHLORIDE 0.9% 1,000 ML in EMPTY BAG 1 BAG IV SCH; +SODIUM CHLORIDE 0.9% 500 ML 500 ML in EMPTY BAG 1 BAG IV PRN; +ZOLEDRONIC ACID 5 MG in SODIUM CHLORIDE 0.9% 100 ML IV NR
[2023-05-12 10:04] VITALS: BP 136/77; PULSE 56; RESP 16; TEMP 98
== END ==
LOC: PROCWHC3 09:46
PROVIDERS: ATTEND Internal Medicine
DX: M81.0 Age-related osteoporosis without current pathological fracture (principal)
CPT/HCPCS: 96365; J3489

== ENCOUNTER 2023-06-11 07:50 | Emergency (ER) | payer MEDICARE, BC ==
[2023-06-11 08:04] VITALS: TEMP 98.3
[2023-06-11 08:24] VITALS: RESP 16
--- NOTE | 2023-06-11 08:27 | ED ---
General Adult HPI - General Chief complaint: Extremity Injury, Lower Stated complaint: Hip pain Time Seen by Provider: 06/11/23 07:56 Source: patient, RN notes reviewed, old records reviewed Mode of arrival: ambulatory Limitations: no limitations - History of Present Illness Initial comments: 78 yo presenting for evaluation of right hip pain. Symptoms have been present for the past 2 weeks. She does report pain with activity. She reports a radiating pain into the knee. She has prior history of osteoarthritis and has had symptoms for the past 2 weeks. No fever. No trauma. No fall. - Related Data Home Medications Medication Instructions Recorded Confirmed Ergocalciferol (Vitamin D2) 50,000 unit PO Q15D 09/08/16 05/12/23 [Drisdol] Levothyroxine Sodium [Synthroid] 88 mcg PO DAILY 09/08/16 05/12/23 Potassium 595mg 595 mg PO DAILY@1200 11/15/18 05/12/23 Acetaminophen [Tylenol] 1,000 mg PO TID 08/05/19 05/12/23 Ferrous Sulfate [Iron (65 MG 325 mg PO BID 08/05/19 05/12/23 Elemental)] Multivitamins, Thera [Multivitamin 2 tab PO DAILY@1200 08/05/19 05/12/23 (formulary)] Gabapentin [Neurontin] 600 mg PO TID 01/01/21 05/12/23 Famotidine [Pepcid] 20 mg PO DAILY 11/26/21 05/12/23 Pantoprazole Sodium [Protonix] 40 mg PO DAILY 11/26/21 05/12/23 Red Yeast Rice 1,200 mg PO DAILY 11/26/21 05/12/23 Simethicone [Gas-X] 125 mg PO HS 11/26/21 05/12/23 amLODIPine [Norvasc] 10 mg PO DAILY 11/26/21 05/12/23 atenoloL [Tenormin] 25 mg PO HS 11/26/21 05/12/23 atenoloL [Tenormin] 50 mg PO QAM 11/26/21 05/12/23 lisinopriL 40 mg PO DAILY 11/26/21 05/12/23 Evolocumab [Repatha Syringe] 140 mg SQ Q14D 09/01/22 05/12/23 Loratadine [Claritin] 10 mg PO DAILY 09/01/22 05/12/23 Aspirin 81 mg PO DAILY PRN 09/06/22 05/12/23 Previous Rx's Medication Instructions Recorded Acetaminophen-Codeine 300-30mg 1 tab PO Q6H PRN 3 Days #12 tablet 06/11/23 [Tylenol w/codeine #3] Allergies Allergy/AdvReac Type Severity Reaction Status Date / Time diazepam [From Valium] Allergy Severe Nausea & Verified 06/11/23 08:04 Vomiting, dizzy,muscle pain,mouth numb escitalopram oxalate Allergy Severe Nausea & Verified 06/11/23 08:04 [From Lexapro] Vomiting, dizzy,muscle pain, mouth numb fluticasone propionate Allergy Severe Nausea & Verified 06/11/23 08:04 [From Flonase] Vomiting, dizzy,muscle pain, mouth numb furosemide [From Lasix] Allergy Severe Nausea & Verified 06/11/23 08:04 Vomiting,dizzy, muscle pain, mouth numb hydrocodone bitartrate Allergy Severe Nausea & Verified 06/11/23 08:04 [From Lortab] Vomiting,Dizzy, Muscle Pain, Mouth Numb meclizine HCl [From Antivert] Allergy Severe Nausea & Verified 06/11/23 08:04 Vomiting,dizzy,muscle pain, mouth numb olmesartan medoxomil Allergy Severe Nausea & Verified 06/11/23 08:04 [From Benicar] Vomiting, dizzy, muscle pain, mouth numb promethazine Allergy Severe Nausea & Verified 06/11/23 08:04 Vomiting, dizzy , muscle pain, mouth numb Zkvjgou-FRN-MmN Reductase Allergy Severe Nausea & Verified 06/11/23 08:04 Inhibitor Vomiting,dizzy, [Xxuifly-Xsv-Uyt Reductase muscle Inhibitor] pain, mouth numb tizanidine HCl Allergy Severe Nausea & Verified 06/11/23 08:04 [From Zanaflex] Vomiting,dizzy,muscle pain,mouth numb spironolactone Allergy Unknown NUMBNESS Verified 06/11/23 08:04 [From Aldactone] IN FACE, NAUSEA prednisone Allergy Dyspnea, Verified 06/11/23 08:04 Nausea & Vomiting, Dizzy, Muscle Pain, Mouth Numb. Sulfa (Sulfonamide Allergy Nausea & Verified 06/11/23 08:04 Antibiotics) Vomiting,dizzy,muscle pain, mouth numb. tramadol AdvReac Severe NAUSEA AND Verified 06/11/23 08:04 VOMITING Review of Systems ROS Statement: Those systems with pertinent positive or pertinent negative responses have been documented in the HPI. ROS Other: All systems not noted in ROS Statement are negative. 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 History of Any Multi-Drug Resistant Organisms: None Reported Past Surgical History: Joint Replacement, Orthopedic Surgery Additional Past Surgical History / Comment(s): LITHOTRIPSY, KIDNEY SURGERY to remove lg stone from ureter, ACHILLES TENDON RUPTURE(LT), RIGHT KNEE ARTHROSCOPY, RIGHT shoulder ROTATOR CUFF, MARISOL CARPAL TUNNEL , bilateral total knee arthroplasties, colonoscopy, sinus surgery, D&C. Past Anesthesia/Blood Transfusion Reactions: No Reported Reaction Additional Past Anesthesia/Blood Transfusion Reaction / Comment(s): HX BLOOD TRANSFUSION-NO REACTION Past Psychological History: No Psychological Hx Reported Smoking Status: Never smoker Past Alcohol Use History: None Reported Past Drug Use History: None Reported - Past Family History Mother Family Medical History: No Reported History Additional Family Medical History / Comment(s): . Sister(s) Family Medical History: Deep Vein Thrombosis (DVT) General Exam Limitations: no limitations General appearance: alert, in no apparent distress Head exam: Present: atraumatic, normocephalic Eye exam: Present: normal appearance, PERRL ENT exam: Present: normal exam Neck exam: Present: normal inspection. Absent: tenderness, meningismus Respiratory exam: Present: normal lung sounds bilaterally. Absent: respiratory distress, wheezes Cardiovascular Exam: Present: regular rate, normal rhythm GI/Abdominal exam: Present: soft. Absent: distended, tenderness Extremities exam: Absent: tenderness, calf tenderness Back exam: Absent: CVA tenderness (R), CVA tenderness (L), paraspinal tenderness, vertebral tenderness Neurological exam: Present: alert, oriented X3, CN II-XII intact Psychiatric exam: Present: normal affect, normal mood Skin exam: Present: warm, dry, intact. Absent: cyanosis, diaphoretic Course Vital Signs 06/11/23 08:01 Temperature 98.3 F Pulse Rate 56 L Respiratory 20 Rate Blood Pressure 120/74 O2 Sat by Pulse 98 Oximetry Medical Decision Making - Medical Decision Making Was pt. sent in by a medical professional or institution (, PA, MARGIN TRIMMER, urgent care, hospital, or penitentiary...) When possible be specific @ -No Did you speak to anyone other than the patient for history (EMS, parent, family, police, friend...)? What history was obtained from this source @ -No Did you review nursing and triage notes (agree or disagree)? Why? @ -I reviewed and agree with nursing and triage notes Were old charts reviewed (outside hosp., previous admission, EMS record, old EKG, old radiological studies, urgent care reports/EKG's, penitentiary records)? Report findings @ -No old charts were reviewed Differential Diagnosis (chest pain, altered mental status, abdominal pain women, abdominal pain men, vaginal bleeding, weakness, fever, dyspnea, syncope, headache, dizziness, GI bleed, back pain, seizure, CVA, palpatations, mental health, musculoskeletal)? @ -Differential Musculoskeletal Muscular strain, contusion, ligament sprain, fracture, arthritis, septic arthritis, bursitis, cellulitis, muscle spasm, nerve compression, DVT, arterial occlusion, herpes zoster, electrolyte abnormality, tumor.... This is not meant to be in all inclusive list EKG interpreted by me (3pts min.). @ -As above X-rays interpreted by me (1pt min.). @ -None done CT interpreted by me (1pt min.). @ -None done U/S interpreted by me (1pt. min.). @ -None done What testing was considered but not performed or refused? (CT, X-rays, U/S, labs)? Why? @ -None What meds were considered but not given or refused? Why? @ -None Did you discuss the management of the patient with other professionals (professionals i.e. , PA, MARGIN TRIMMER, lab, RT, psych nurse, social service technician, middle school band teacher, teacher, college service officer, rn field case manager)? Give summary @ -No Was smoking cessation discussed for >3mins.? @ -No Was critical care preformed (if so, how long)? @ -No Were there social determinants of health that impacted care today? How? (Homelessness, low income, unemployed, alcoholism, drug addiction, transportation, low edu. Level, literacy, decrease access to med. care, assisted, rehab)? @ -No Was there de-escalation of care discussed even if they declined (Discuss DNR or withdrawal of care, Hospice)? DNR status @ -No What co-morbidities impacted this encounter? (DM, HTN, Smoking, COPD, CAD, Cancer, CVA, ARF, Chemo, Hep., AIDS, mental health diagnosis, sleep apnea, morbid obesity)? @ -Osteoarthritis Was patient admitted / discharged? Hospital course, mention meds given and rout e, prescriptions, significant lab abnormalities, going to OR and other pertinent info. @ -78-year-old female with complaint of right hip pain. Patient does have some radiating symptoms likely related to sciatica. No alarming features on history or physical exam. No fever. No trauma. I do feel this patient will benefit from outpatient evaluation and should discuss her symptoms with her primary care, may require physical therapy. She cannot take steroids or nonsteroidal anti-inflammatories. She states that Tylenol 3 has worked well for her pain in the past. She is also taking gabapentin. She will follow with her primary care provider tomorrow and return with worsening or changing symptoms. Undiagnosed new problem with uncertain prognosis? @ -No Drug Therapy requiring intensive monitoring for toxicity (Heparin, Nitro, Insulin, Cardizem)? @ -No Were any procedures done? @ -No Diagnosis/symptom? @Right hip pain, sciatic pain Acute, or Chronic, or Acute on Chronic? @Acute on chronic Uncomplicated (without systemic symptoms) or Complicated (systemic symptoms)? @ -default Side effects of treatment? @ -No Exacerbation, Progression, or Severe Exacerbation? @ -No Poses a threat to life or bodily function? How? (Chest pain, [place], [place], pneumonia, PE, COPD, DKA, ARF, appy, cholecystitis, CVA, Diverticulitis, Homicidal, Suicidal, threat to staff... and all critical care pts) @ -No Disposition Clinical Impression: Hip pain, right, Sciatica Disposition: HOME SELF-CARE Condition: Fair Instructions (If sedation given, give patient instructions): Sciatica (ED), Hip Pain (ED) Prescriptions: Acetaminophen-Codeine 300-30mg [Tylenol w/codeine #3] 1 tab PO Q6H PRN 3 Days # 12 tablet PRN Reason: pain Is patient prescribed a controlled substance at d/c from ED?: No Referrals: Elissa Baird MD [Primary Care Provider] - 1-2 days Time of Disposition: 08:22
[2023-06-11 08:45] VITALS: BP 135/75; PULSE 68
== END 2023-06-11 08:40 | disposition home or self-care (01) ==
LOC: EC 07:50
DX: M25.551 Pain in right hip (principal); M54.31 Sciatica, right side; E78.5 Hyperlipidemia, unspecified; I10 Essential (primary) hypertension; Z79.899 Other long term (current) drug therapy; Z88.1 Allergy status to other antibiotic agents; Z88.2 Allergy status to sulfonamides; Z88.5 Allergy status to narcotic agent; Z88.8 Allergy status to other drugs, medicaments and biological substances
CPT/HCPCS: 99283

== ENCOUNTER → 2023-06-30 | Outpatient (CLI) | payer MEDICARE, BC ==
--- NOTE | 2023-06-30 09:58 | XR ---
EXAMINATION TYPE: XR Hip Complete RT DATE OF EXAM: 06/30/2023 9:44 AM INDICATION: Patient age:Female; 78 years old; Reason for study: M25.551; LOCATED WITHIN [facility]. COMPARISON: CT abdomen and pelvis 05/21/2021 TECHNIQUE: The right hip was examined in the frontal and lateral projections . FINDINGS: No evidence of any acute osseous pathology, joint dislocation, or soft tissue swelling. Med ial joint space narrowing with acetabular sclerosis and marginal osteophytosis. Vascular sclerosis. P elvic phleboliths. IMPRESSION: 1. No acute osseous pathology. 2. Mild to moderate osteoarthritic changes of the right hip.
== END | disposition home or self-care (01) ==
LOC: RADXRMAIN 09:32
PROVIDERS: ATTEND Family Medicine
DX: M16.11 Unilateral primary osteoarthritis, right hip (principal)
CPT/HCPCS: 73502

== ENCOUNTER 2023-08-30 06:00 | Inpatient (IN) | payer MEDICARE, BC ==
[~2023-08-30 06:00] MED LIST changes: +ACETAMINOPHEN TAB 500 MG TAB PO PRN; +HEPARIN SODIUM,PORCINE/PF 5,000 UNIT/0.5 ML SYRINGE SQ PRN; -SODIUM CHLORIDE 0.9% 500 ML 500 ML in EMPTY BAG 1 BAG IV PRN; -ZOLEDRONIC ACID 5 MG in SODIUM CHLORIDE 0.9% 100 ML IV NR
[2023-08-30] MEDS ORDERED: ONDANSETRON 4 MG/2 ML VIAL IVP ONE ×2 (06:41→07:26)
[2023-08-30] MEDS ORDERED: LIDOCAINE 1% (10MG/ML) FOR IV START INTRADERMA PRN (06:41)
[2023-08-30] MEDS ORDERED: fentaNYL (PF) 50 MCG/ML 2 ML AMP IV PRN (07:00)
[2023-08-30] MEDS: IV FLUID CONTINUATION 1,000 ML IV ONE ×2 (07:20→10:51)
[2023-08-30] MEDS ORDERED: GLYCOPYRROLATE 0.2 MG/ML 2 ML VIAL ONE (07:25)
[2023-08-30] MEDS ORDERED: KETAMINE HCL IN 0.9 % NACL 50 MG/5 ML SYRINGE ONE (07:25)
[2023-08-30] MEDS ORDERED: ePHEDrine 50 MG/ML 1 ML VIAL ONE (07:25)
[2023-08-30] MEDS ORDERED: ROCURONIUM 10 MG/ML (5 ML VIAL) IV ONE (07:25)
[2023-08-30] MEDS ORDERED: PROPOFOL 10 MG/ML 20 ML VIAL IV ONE (07:25)
[2023-08-30] MEDS ORDERED: PHENYLEPHRINE 10 MG/ML 5 ML VIAL ONE (07:25)
[2023-08-30] MEDS ORDERED: NEOSTIGMINE 1 MG/ML 10 ML VIAL ONE (07:25)
[2023-08-30] MEDS ORDERED: LIDOCAINE 1% INJ 10MG/ML (20 ML MDV) ONE (07:25)
[2023-08-30] MEDS ORDERED: fentaNYL (PF) 50 MCG/ML 2 ML AMP ONE (07:25)
[2023-08-30] MEDS ORDERED: MIDAZOLAM 2 MG/2 ML VIAL ONE (07:25)
[2023-08-30] MEDS: LACTATED RINGERS 1,000 ML IV SCH ×2 (07:33→21:06)
[2023-08-30] MEDS ORDERED: LIDOCAINE 0.5%-EPI 1:200,000 50 ML VIAL SQ ONE ×3 (07:48→07:58)
[2023-08-30] MEDS ORDERED: IV FLUID CONTINUATION 1,000 ML IV ONE ×2 (08:30)
[2023-08-30] MEDS ORDERED: LACTATED RINGERS 1,000 ML IV ONE ×2 (08:42→09:45)
[2023-08-30] MEDS ORDERED: NALOXONE 0.4 MG/ML 1 ML VIAL IV PRN (08:42)
[2023-08-30] MEDS ORDERED: ACETAMINOPHEN TAB 325 MG TAB PO PRN (08:42)
--- NOTE | 2023-08-30 11:50 | P.OP ---
Date of Procedure: 08/30/23 Preoperative Diagnosis: Paraesophageal hiatal hernia Postoperative Diagnosis: Paraesophageal hiatal hernia Procedure(s) Performed: Laparoscopic repair of paraesophageal hiatal hernia Anesthesia: STEVEN Surgeon: Ronnie Steele Estimated Blood Loss (ml): 5 Pathology: none sent Condition: stable Disposition: PACU Description of Procedure: The patient was placed on the operating table in the supine position. She received general anesthesia. She was then placed in dorsal lithotomy position. Her abdomen was prepped and draped in the usual sterile fashion. The skin incision sites were anesthetized with 1% local Xylocaine. The skin was incised in the left periumbilical area with an 11 scalpel. Using a 5 mm blade was trocar under direct visitation the peritoneal cavity was entered. And then insufflated. After adequate insufflation the laparoscope was placed back into the peritoneal cavity. Next a 5 mm trocar was placed in the right epigastric and then the right lateral position. Another 5 mm trochars placed in the left lateral position. Another 5 mm trocar placed in the left epigastric position. And the original left periumbilical trocar was exchanged for a 10 mm trocar. A four-quadrant transversus abdominis plane block was performed with 1% local Xy locaine. The left lateral lobe liver was retracted. The patient had a large paraesophageal hiatal hernia. Using the Harmonic scissors the crural defect was dissected in the Harmonic scissors were used to dissect the hiatal hernia sac. The fundus of the stomach was completely mobilized by using the Harmonic scissors to divide short gastric vessels. The stomach was reduced into the peritoneal cavity. The crura was dissected with the Harmonic scissors. And then the crural repair was performed using 2-0 Ethibond suture. The Ava bio A mesh was then placed over top of the repair and secured with 2-0 Ethibond suture. n. The stomach and esophagus were inspected there is known to any injury to the stomach or esophagus. The abdomen was irrigated there is no bleeding seen. The trochars are withdrawn. Skin was closed interrupted 3-0 Monocryl suture. Dermabond was applied. Patient tolerated procedure well and was sent to recovery in stable condition.
--- NOTE | 2023-08-30 16:21 | P.CONS ---
History of Present Illness - Reason for Consult Consult date: 08/30/23 - History of Present Illness Aleena Tovar, is a 78-year-old female who was admitted to [facility] by Dr. Steele and underwent Laparoscopic repair of paraesophageal hiatal hernia on 08/30/2023, consultation was requested for medical management while hospitalized primary care physician is Dr. mayers. Past medical history is significant for history of hypothyroidism, history of hyperlipidemia, history of hypertension, history of anemia, history of TIA, history of depression with anxiety disorder, history of melanoma, history of coronary artery disease, history of degenerative disc disease with radicu lopathy. On review of systems patient is alert and oriented 3 in no apparent distress there is no fever or chills no headache or dizziness no chest pain no shortness of breath no cough no nausea or vomiting no abdominal pain no diarrhea and no urinary symptoms Past Medical History Past Medical History: Cancer, Eye Disorder, Hearing Disorder / Deafness, Hyp erlipidemia, Hypertension, Musculoskeletal Disorder, Osteoarthritis (OA), Thyroid Disorder Additional Past Medical History / Comment(s): Right leg pain, "severe deterioration in spine." Hx skin cancer. 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 HIATAL HERNIA. CONSTANT DIZZINESS - STATES NERVE DAMAGE FROM BRAIN TO EAR, MILD [place] IN RIGHT EAR, GETTING BETTER. 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 HX KIDNEY STONES. Hx C-DIFF-2017. Hx ulcers. Osteoporosis. Hx Shingles/still has headaches from it daily or every other day. History of Any Multi-Drug Resistant Organisms: None Reported Year Discovered:: 2017 MDRO Source:: stool Past Surgical History: Joint Replacement, Orthopedic Surgery Additional Past Surgical History / Comment(s): LITHOTRIPSY, KIDNEY SURGERY to remove large stone from ureter, LEFT ACHILLES TENDON REPAIR, RIGHT KNEE ARTHROSCOPY, RIGHT ROTATOR CUFF REPAIR, BILATRAL CARPAL TUNNEL SURGERY, bilateral total knee arthroplasties, colonoscopy, sinus surgery, D&C, skin cancer removed from abdomen, right shoulder replacement, emergency diaphragmatic hernia repair. paraesophageal hernia reapair/08/30/23 Past Anesthesia/Blood Transfusion Reactions: No Reported Reaction Additional Past Anesthesia/Blood Transfusion Reaction / Comm: HX BLOOD TRANSFUSION-NO REACTION. Past Psychological History: No Psychological Hx Reported Additional Psychological History / Comment(s): . Smoking Status: Former smoker Past Alcohol Use History: Rare Additional Past Alcohol Use History / Comment(s): STARTED SMOKING AT AGE 18, SMOKED 1PPD, quit at age 36. Past Drug Use History: None Reported - Past Family History Mother Family Medical History: No Reported History Additional Family Medical History / Comment(s): . Sister(s) Family Medical History: Deep Vein Thrombosis (DVT) Medications and Allergies Home Medications Medication Instructions Recorded Confirmed Type Ergocalciferol (Vitamin D2) 50,000 unit PO Q14D 09/08/16 08/30/23 History [Drisdol] Levothyroxine Sodium [Synthroid] 88 mcg PO AC-BRKFST 09/08/16 08/30/23 History Acetaminophen [Tylenol] 1,000 mg PO TID 08/05/19 08/30/23 History Ferrous Sulfate [Iron (65 MG 325 mg PO BID 08/05/19 08/30/23 History Elemental)] Multivitamins, Thera [Multivitamin 2 tab PO DAILY 08/05/19 08/30/23 History (formulary)] Gabapentin [Neurontin] 600 mg PO TID 01/01/21 08/30/23 History Famotidine [Pepcid] 20 mg PO BID 11/26/21 08/30/23 History Pantoprazole Sodium [Protonix] 40 mg PO QAM 11/26/21 08/30/23 History Red Yeast Rice 1,200 mg PO HS 11/26/21 08/30/23 History amLODIPine [Norvasc] 10 mg PO QAM 11/26/21 08/30/23 History atenoloL [Tenormin] 25 mg PO HS 11/26/21 08/30/23 History atenoloL [Tenormin] 50 mg PO QAM 11/26/21 08/30/23 History lisinopriL 40 mg PO QAM 11/26/21 08/30/23 History Evolocumab [Repatha Syringe] 140 mg SQ Q14D 09/01/22 08/30/23 History Loratadine [Claritin] 10 mg PO QAM 09/01/22 08/30/23 History Potassium Gluconate 99 mg PO DAILY 07/04/23 08/30/23 History Rosuvastatin Calcium 5 mg PO TUTH 07/04/23 08/30/23 History Simethicone [Gas-X] 375 mg PO HS 08/23/23 08/30/23 History Allergies Allergy/AdvReac Type Severity Reaction Status Date / Time diazepam [From Valium] Allergy Severe Nausea & Verified 08/30/23 06:56 Vomiting, dizzy,muscle pain,mouth numb escitalopram oxalate Allergy Severe Nausea & Verified 08/30/23 06:56 [From Lexapro] Vomiting, dizzy,muscle pain, mouth numb fluticasone propionate Allergy Severe Nausea & Verified 08/30/23 06:56 [From Flonase] Vomiting, dizzy,muscle pain, mouth numb furosemide [From Lasix] Allergy Severe Nausea & Verified 08/30/23 06:56 Vomiting,dizzy, muscle pain, mouth numb hydrocodone bitartrate Allergy Severe Nausea & Verified 08/30/23 06:56 [From Lortab] Vomiting,Dizzy, Muscle Pain, Mouth Numb meclizine HCl [From Antivert] Allergy Severe Nausea & Verified 08/30/23 06:56 Vomiting,dizzy,muscle pain, mouth numb olmesartan medoxomil Allergy Severe Nausea & Verified 08/30/23 06:56 [From Benicar] Vomiting, dizzy, muscle pain, mouth numb promethazine Allergy Severe Nausea & Verified 08/30/23 06:56 Vomiting, dizzy , muscle pain, mouth numb Rgmsbqx-GSQ-IrB Reductase Allergy Severe Nausea & Verified 08/30/23 06:56 Inhibitor Vomiting,dizzy, [Jdbohxa-Zhr-Kfw Reductase muscle Inhibitor] pain, mouth numb tizanidine HCl Allergy Severe Nausea & Verified 08/30/23 06:56 [From Zanaflex] Vomiting,dizzy,muscle pain,mouth numb spironolactone Allergy Unknown NUMBNESS Verified 08/30/23 06:56 [From Aldactone] IN FACE, NAUSEA ketorolac Allergy Nausea & Verified 08/30/23 06:56 Vomiting prednisone Allergy Dyspnea, Verified 08/30/23 06:56 Nausea & Vomiting, Dizzy, Muscle Pain, Mouth Numb. scopolamine Allergy Chest Pain Verified 08/30/23 06:56 Sulfa (Sulfonamide Allergy Nausea & Verified 08/30/23 06:56 Antibiotics) Vomiting,dizzy,muscle pain, mouth numb. tramadol AdvReac Severe NAUSEA AND Verified 08/30/23 06:56 VOMITING Physical Exam Vitals: Vital Signs Temp Pulse Resp BP Pulse Ox 08/30/23 14:00 98.0 F 74 19 110/67 96 08/30/23 11:37 97.4 F L 58 L 17 103/63 100 08/30/23 10:45 59 L 13 94/52 100 08/30/23 10:30 55 L 14 95/50 99 08/30/23 10:15 58 L 13 95/51 96 08/30/23 10:00 63 20 98/58 96 08/30/23 09:50 60 15 97/48 96 08/30/23 09:35 61 17 97/51 97 08/30/23 09:20 64 15 87/46 98 08/30/23 09:05 65 15 85/41 97 08/30/23 08:49 97 F L 71 16 89/45 99 08/30/23 07:10 97.3 F L 61 14 141/67 98 Intake and Output 08/29/23 08/30/23 08/30/23 22:59 06:59 14:59 Intake Total 1999 Output Total 5 Balance 1994 Intake: IV 1999 Output: Estimated Blood Loss 5 Other: # Voids 1 Weight 62.9 kg In general patient is alert and oriented x 3 in no distress HEENT head normocephalic and atraumatic Neck is supple no JVD no goiter no lymphadenopathy no carotid bruit Chest examination is clear to auscultation no crackles no wheezing Cardiac exam reveals regular heart sounds S1 and S2 no gallops no murmurs Abdomen is soft nontender no organomegaly with normal bowel sounds Extremity exam reveals no edema no cyanosis or clubbing Neurological examination reveals no gross focal deficits Results CBC & Chem 7: 08/30/23 07:25 Labs: Abnormal Lab Results - Last 24 Hours (Table) 08/30/23 Range/Units 07:25 Potassium 5.5 H (3.5-5.1) mmol/L Assessment and Plan Plan: Hiatal hernia status post Laparoscopic repair of paraesophageal hiatal hernia Underlying history of hypertension Underlying history of hyperlipidemia Underlying history of hypothyroidism Underlying history of coronary artery disease Underlying history of degenerative disc disease with radiculopathy Underlying history of depression with anxiety disorder Previous history of TIA At this time patient was seen and examined on the medical floor Home medications reviewed and reordered For DVT prophylaxis subcu Lovenox Will check lab and follow-up in a.m.
[2023-08-30] MEDS: GABAPENTIN 300 MG CAP PO SCH ×2 (16:42→21:04)
[2023-08-30] MEDS: ACETAMINOPHEN TAB 500 MG TAB PO SCH ×2 (16:42→21:05)
[2023-08-30] MEDS: HYDROmorphone 1 MG/ML 1 ML SYRINGE IVP PRN (16:43)
[2023-08-30] MEDS: ONDANSETRON 4 MG/2 ML VIAL IVP PRN (16:54)
[2023-08-30] MEDS ORDERED: NON FORMULARY DRUG (Red Yeast Rice [Red Yeast Rice] 600 MG Tablet) PO SCH (21:00)
[2023-08-30] MEDS: SIMETHICONE 80 MG CHEWABLE PO SCH (21:04)
[2023-08-30] MEDS: atenoloL 25 MG TAB PO SCH (21:04)
[2023-08-30] MEDS: FAMOTIDINE 20 MG TAB PO SCH (21:05)
[2023-08-30] MEDS: FERROUS SULFATE 325 MG TAB PO SCH (21:05)
[2023-08-31] MEDS: HYDROmorphone 1 MG/ML 1 ML SYRINGE IVP PRN ×2 (00:30→15:38)
[2023-08-31] MEDS: PANTOPRAZOLE 40 MG TABLET PO SCH (06:09)
[2023-08-31] MEDS: LEVOTHYROXINE 88 MCG TAB PO SCH (06:09)
[2023-08-31] MEDS: ACETAMINOPHEN TAB 500 MG TAB PO SCH ×3 (08:58→23:51)
[2023-08-31] MEDS: FERROUS SULFATE 325 MG TAB PO SCH ×2 (08:59→21:04)
[2023-08-31] MEDS: LORATADINE 10 MG TAB PO SCH (08:59)
[2023-08-31] MEDS: FAMOTIDINE 20 MG TAB PO SCH ×2 (08:59→21:04)
[2023-08-31] MEDS: MULTIVITAMINS, THERA 1 EACH TAB PO SCH (09:00)
[2023-08-31] MEDS: ENOXAPARIN 40 MG/0.4 ML SYRINGE SQ SCH (09:00)
[2023-08-31] MEDS: GABAPENTIN 300 MG CAP PO SCH ×3 (09:00→23:52)
[2023-08-31] MEDS ORDERED: NON FORMULARY DRUG (Potassium Gluconate [Potassium Gluconate] 99 MG Tablet) PO SCH (09:00)
[2023-08-31] MEDS: NON FORMULARY DRUG (Rosuvastatin Calcium [Rosuvastatin Calcium] 5 MG Tablet) PO SCH (09:15)
[2023-08-31] MEDS: amLODIPine 10 MG TAB PO SCH (10:19)
[2023-08-31] MEDS: atenoloL 50 MG TAB PO SCH (10:19)
[2023-08-31] MEDS: lisinopriL 20 MG TAB PO SCH (10:20)
[2023-08-31 11:03] LABS: Basophils # (A) 0.03 X 10*3/uL (0.00-0.10); Basophils % (A) 0.6 %; Eosinophils # (A) 0.18 X 10*3/uL (0.04-0.35); Eosinophils % (A) 3.7 %; HGB 11.9 d/dL (12.0-15.0); Lymphocytes # (A) 0.93 X 10*3/uL (0.90-5.00); Lymphocytes % (A) 19.1 %; MCH 31.6 pg (27.0-32.0); MCHC 33.1 d/dL (32.0-37.0); MCV 95.7 FL (80.0-97.0); Mean Platelet Volume 9.4 FL (9.5-12.2); Monocytes # (A) 0.45 X 10*3/uL (0.20-1.00); Monocytes % (A) 9.3 %; NRBC Per 100 WBC 0 X 10*3/uL (0.00-0.01); Neutrophils # (A) 3.26 X 10*3/uL (1.80-7.70); Neutrophils % (A) 67.1 %; Platelet Count 237 X 10*3/uL (140-440); RBC 3.76 X 10*6/uL (4.10-5.20); RDW 13.3 % (11.5-14.5); WBC 4.86 X 10*3/uL (4.50-10.00)
[2023-08-31] MEDS: DEXAMETHASONE SOD PHOSPHATE 4 MG/ML 1 ML VIAL IVP SCH ×3 (11:12→17:32)
[2023-08-31] MEDS: LACTATED RINGERS 1,000 ML IV SCH ×2 (11:14→22:20)
[2023-08-31 11:19] LABS: ALT 18 U/L (8-44); AST 30 U/L (13-35); Albumin 3.5 d/dL (3.8-4.9); Albumin/Globulin Ratio 1.75 Ratio (1.60-3.17); Alkaline Phosphatase 66 U/L (41-126); Blood Urea Nitrogen 8.6 mg/dL (9.0-27.0); Carbon Dioxide 25.4 mmol/L (21.6-31.8); Chloride 98 mmol/L (96-109); Glucose 70 mg/dL (70-110); Potassium 4.1 mmol/L (3.5-5.5); Sodium 134 mmol/L (135-145); Total Bilirubin 0.4 mg/dL (0.3-1.2); Total Protein 5.5 d/dL (6.2-8.2)
--- NOTE | 2023-08-31 13:34 | P.PN ---
Subjective Progress Note Date: 08/31/23 CHIEF COMPLAINT: Paraesophageal hiatal hernia HISTORY OF PRESENT ILLNESS: Patient postop day #1 status post laparoscopic repair of paraesophageal hiatal hernia. Patient complains of fullness and pressure after the liquids. She reports that the liquids are sitting in the esophagus and not going down. She denies any vomiting. She is having flatus. She has been up and walking. Afebrile. WBC 4.86 Hgb 11.9 platelets 237 sodium is 134 potassium is 4.1 creatinine 0.5 PHYSICAL EXAM: VITAL SIGNS: Reviewed. GENERAL: Well-developed in no acute distress. ABDOMEN: Soft. Nondistended. Incision site is clean dry and intact NEUROLOGIC: Alert and oriented. Cranial nerves II through XII grossly intact. ASSESSMENT: 1. Paraesophageal hernia status post repair PLAN: -Dexamethasone 4 mg IV every 6 hours added for possible postoperative edema -Continue IV fluid -Continue clear liquids. Educated patient to go very slow and only sip the liquids -Advance diet Full liquids in AM -Encourage patient to ambulate -Continue pain management -DVT prophylaxis Lovenox and GI prophylaxis Pepcid Physician Coal Cutting Machine Operator note has been reviewed by physician. Signing provider agrees with the documented findings, assessment, and plan of care. Objective - Vital Signs Vital signs: Vital Signs Temp 98.5 F 08/31/23 06:59 Pulse 56 L 08/31/23 06:59 Resp 18 08/31/23 06:59 BP 97/60 08/31/23 06:59 Pulse Ox 94 L 08/31/23 06:59 FiO2 Intake & Output 08/30/23 08/31/23 08/31/23 18:59 06:59 18:59 Intake Total 1999 Output Total Balance 1994 Weight 62.9 kg Intake: IV 1999 Output: Estimated Blood Loss 5 Other: # Voids 4 2 # Bowel Movements 1 - Labs CBC & Chem 7: 08/31/23 06:46 08/31/23 06:46 Labs: Abnormal Lab Results - Last 24 Hours (Table) 08/31/23 08/31/23 Range/Units 06:46 06:46 RBC 3.76 L (4.10-5.20) X 10*6/uL Hgb 11.9 L (12.0-15.0) d/dL Hct 36.0 L (37.2-46.3) % MPV 9.4 L (9.5-12.2) FL Sodium 134 L (135-145) mmol/L BUN 8.6 L (9.0-27.0) mg/dL Creatinine 0.5 L (0.6-1.5) mg/dL Total Protein 5.5 L (6.2-8.2) d/dL Albumin 3.5 L (3.8-4.9) d/dL
--- NOTE | 2023-08-31 17:22 | P.PN ---
Subjective Progress Note Date: 08/31/23 Aleena Tovar, is a 78-year-old female who was admitted to [facility] by Dr. Steele and underwent Laparoscopic repair of paraesophageal hiatal hernia on 08/30/2023, consultation was requested for medical management while hospitalized primary care physician is Dr. mayers. Past medical history is significant for history of hypothyroidism, history of hyperlipidemia, history of hypertension, history of anemia, history of TIA, history of depression with anxiety disorder, history of melanoma, history of coronary artery disease, history of degenerative disc disease with radiculopathy. On review of systems patient is alert and oriented 3 in no apparent distress there is no fever or chills no headache or dizziness no chest pain no shortness of breath no cough no nausea or vomiting no abdominal pain no diarrhea and no urinary symptoms On 08/31/2023 patient was seen and examined on the medical floor she is alert and oriented 3 in no apparent distress he is complaining of abdominal bloating otherwise she denies any complaints there is no fever or chills no headache or dizziness no chest pain no shortness of breath no cough no nausea or vomiting no abdominal pain no diarrhea and no urinary symptoms she received a dose of IV steroids today and she felt better. Objective - Vital Signs Vital signs: Vital Signs Temp 98.5 F 08/31/23 13:57 Pulse 68 08/31/23 13:57 Resp 18 08/31/23 13:57 BP 112/62 08/31/23 13:57 Pulse Ox 95 08/31/23 13:57 FiO2 Intake & Output 08/30/23 08/31/23 08/31/23 18:59 06:59 18:59 Intake Total 1999 240 Output Total 5 Balance 1994 240 Weight 62.9 kg Intake: IV 2000 Oral 240 Output: Estimated Blood Loss 5 Other: Voiding Method Toilet # Voids 4 2 # Bowel Movements 1 - Exam In general patient is alert and oriented x 3 in no distress HEENT head normocephalic and atraumatic Neck is supple no JVD no goiter no lymphadenopathy no carotid bruit Chest examination is clear to auscultation no crackles no wheezing Cardiac exam reveals regular heart sounds S1 and S2 no gallops no murmurs Abdomen is soft nontender no organomegaly with normal bowel sounds Extremity exam reveals no edema no cyanosis or clubbing Neurological examination reveals no gross focal deficits - Labs CBC & Chem 7: 08/31/23 06:46 08/31/23 06:46 Labs: Abnormal Lab Results - Last 24 Hours (Table) 08/31/23 08/31/23 Range/Units 06:46 06:46 RBC 3.76 L (4.10-5.20) X 10*6/uL Hgb 11.9 L (12.0-15.0) d/dL Hct 36.0 L (37.2-46.3) % MPV 9.4 L (9.5-12.2) FL Sodium 134 L (135-145) mmol/L BUN 8.6 L (9.0-27.0) mg/dL Creatinine 0.5 L (0.6-1.5) mg/dL Total Protein 5.5 L (6.2-8.2) d/dL Albumin 3.5 L (3.8-4.9) d/dL Assessment and Plan Plan: Hiatal hernia status post Laparoscopic repair of paraesophageal hiatal hernia Underlying history of hypertension Underlying history of hyperlipidemia Underlying history of hypothyroidism Underlying history of coronary artery disease Underlying history of degenerative disc disease with radiculopathy Underlying history of depression with anxiety disorder Previous history of TIA At this time patient was seen and examined on the medical floor Home medications reviewed and reordered For DVT prophylaxis subcu Terezax Will check lab and follow-up in a.m.
[2023-08-31] MEDS: SIMETHICONE 80 MG CHEWABLE PO SCH (21:04)
[2023-08-31] MEDS: atenoloL 25 MG TAB PO SCH (21:04)
[2023-09-01] MEDS: DEXAMETHASONE SOD PHOSPHATE 4 MG/ML 1 ML VIAL IVP SCH ×5 (00:41→23:00)
[2023-09-01] MEDS: LACTATED RINGERS 1,000 ML IV SCH ×4 (05:49→22:26)
[2023-09-01] MEDS: PANTOPRAZOLE 40 MG TABLET PO SCH (06:01)
[2023-09-01] MEDS: LEVOTHYROXINE 88 MCG TAB PO SCH (06:01)
[2023-09-01] MEDS: ONDANSETRON 4 MG/2 ML VIAL IVP PRN ×2 (06:03→13:14)
[2023-09-01] MEDS: ACETAMINOPHEN TAB 500 MG TAB PO SCH ×3 (09:45→21:04)
[2023-09-01] MEDS: GABAPENTIN 300 MG CAP PO SCH ×3 (09:46→21:04)
[2023-09-01] MEDS: FERROUS SULFATE 325 MG TAB PO SCH ×2 (09:46→21:04)
[2023-09-01] MEDS: FAMOTIDINE 20 MG TAB PO SCH ×2 (09:46→21:05)
[2023-09-01] MEDS: atenoloL 50 MG TAB PO SCH (09:46)
[2023-09-01] MEDS: LORATADINE 10 MG TAB PO SCH (09:47)
[2023-09-01] MEDS: ENOXAPARIN 40 MG/0.4 ML SYRINGE SQ SCH (09:47)
[2023-09-01] MEDS: MULTIVITAMINS, THERA 1 EACH TAB PO SCH (09:47)
[2023-09-01] MEDS: amLODIPine 10 MG TAB PO SCH (09:53)
[2023-09-01] MEDS: lisinopriL 20 MG TAB PO SCH (09:53)
--- NOTE | 2023-09-01 10:48 | P.PN ---
Subjective Progress Note Date: 09/01/23 CHIEF COMPLAINT: Paraesophageal hiatal hernia HISTORY OF PRESENT ILLNESS: Patient postop day #2 status post laparoscopic repair of paraesophageal hiatal hernia. Patient tolerated the clear liquids yesterday after she had started the IV Decadron. This morning she difficulty with the full liquids. Again she feels like she has pressure in her esophagus and that the liquids or just sitting. She's had nausea no vomiting. She is having flatus. She has been up and walking. Denies any difficulty urinating. Afebrile. Hypotension improved. labs pending Patient seen and examined with Dr. Steele PHYSICAL EXAM: VITAL SIGNS: Reviewed. GENERAL: Well-developed in no acute distress. ABDOMEN: Soft. Nondistended. Incision site is clean dry and intact NEUROLOGIC: Alert and oriented. Cranial nerves II through XII grossly intact. ASSESSMENT: 1. Paraesophageal hernia status post repair PLAN: -Consult interventional radiology service for PICC line placement for TPN -Consult dietitian to initiate TPN for nutrition support -Downgrade diet to clear liquids -Patient to remain in hospital over the weekend with plans for an esophagram on Monday -Continue Dexamethasone 4 mg IV every 6 hours for possible postoperative edema -Continue IV fluids -Encourage patient to ambulate -Continue pain management -DVT prophylaxis Lovenox and GI prophylaxis Pepcid Physician Rubberizing Mechanic note has been reviewed by physician. Signing provider agrees with the documented findings, assessment, and plan of care. Objective - Vital Signs Vital signs: Vital Signs Temp 97.8 F 09/01/23 07:10 Pulse 67 09/01/23 07:10 Resp 19 09/01/23 07:10 BP 114/79 09/01/23 07:10 Pulse Ox 95 09/01/23 07:10 FiO2 Intake & Output 08/31/23 09/01/23 09/01/23 18:59 06:59 18:59 Intake Total 240 Balance 240 Intake: Oral 240 Other: Voiding Method Toilet Toilet # Voids 5 0 - Labs CBC & Chem 7: 08/31/23 06:46 08/31/23 06:46 Labs: Abnormal Lab Results - Last 24 Hours (Table) 08/31/23 08/31/23 Range/Units 06:46 06:46 RBC 3.76 L (4.10-5.20) X 10*6/uL Hgb 11.9 L (12.0-15.0) d/dL Hct 36.0 L (37.2-46.3) % MPV 9.4 L (9.5-12.2) FL Sodium 134 L (135-145) mmol/L BUN 8.6 L (9.0-27.0) mg/dL Creatinine 0.5 L (0.6-1.5) mg/dL Total Protein 5.5 L (6.2-8.2) d/dL Albumin 3.5 L (3.8-4.9) d/dL
[2023-09-01 11:25] LABS: Basophils # (A) 0.01 X 10*3/uL (0.00-0.10); Basophils % (A) 0.2 %; Eosinophils # (A) 0.01 X 10*3/uL (0.04-0.35); Eosinophils % (A) 0.2 %; HCT 35.7 % (37.2-46.3); HGB 11.9 d/dL (12.0-15.0); Lymphocytes # (A) 0.73 X 10*3/uL (0.90-5.00); Lymphocytes % (A) 12.5 %; MCH 32.1 pg (27.0-32.0); MCHC 33.3 d/dL (32.0-37.0); MCV 96.2 FL (80.0-97.0); Mean Platelet Volume 9.8 FL (9.5-12.2); Monocytes # (A) 0.11 X 10*3/uL (0.20-1.00); Monocytes % (A) 1.9 %; NRBC Per 100 WBC 0 X 10*3/uL (0.00-0.01); Neutrophils # (A) 4.96 X 10*3/uL (1.80-7.70); Neutrophils % (A) 84.9 %; Platelet Count 196 X 10*3/uL (140-440); RBC 3.71 X 10*6/uL (4.10-5.20); RDW 13.1 % (11.5-14.5); WBC 5.84 X 10*3/uL (4.50-10.00)
[2023-09-01] MEDS ORDERED: LIDOCAINE 2% (PF) 20 MG/ML 5 ML VIAL SQ ONE (11:30)
[2023-09-01 11:53] LABS: ALT 14 U/L (8-44); AST 23 U/L (13-35); Albumin 3.6 d/dL (3.8-4.9); Alkaline Phosphatase 68 U/L (41-126); Blood Urea Nitrogen 8.1 mg/dL (9.0-27.0); Calcium 8.9 mg/dL (8.7-10.3); Carbon Dioxide 23.6 mmol/L (21.6-31.8); Chloride 101 mmol/L (96-109); Glucose 139 mg/dL (70-110); Potassium 4.2 mmol/L (3.5-5.5); Sodium 135 mmol/L (135-145); Total Bilirubin <0.2 mg/dL (0.3-1.2); Total Protein 5.6 d/dL (6.2-8.2)
--- NOTE | 2023-09-01 12:38 | IR ---
PICC LINE PLACEMENT: HISTORY: Infection requiring long-term antibiotic therapy PROCEDURE: Ultrasound and fluoroscopic guidance of PICC line placement. COMPLICATIONS: None ANESTHESIA: 1. 1% Lidocaine locally. FINDINGS/TECHNIQUE: The procedure was explained to the patient. The risks, complications, benefits and alternatives were discussed and any questions were answered. Informed consent was obtained. The patient was placed supine on the fluoroscopic table and prepped and draped in the usual sterile fash ion. Utilizing a 21 gauge needle and sonographic and fluoroscopic guidance, access in the left basi lic vein was achieved and there is placement of a 0.018 guidewire. The vein is patent. A 4-F sheath was placed over the guidewire. The guidewire and dilator were removed and a 4-F. PICC line was plac ed through the sheath with the tip at the level of the SVC. The sheath was removed, the catheter was flushed and sutured into position. The patient was stable throughout the procedure and remained sta ble upon discharge from the Department of Radiology. The vein puncture was patent under ultrasound. A dejesus scale image was obtained to document patency of the vein punctured. All elements of the maximal barrier technique were utilized. FLUOROSCOPY TIME: DAP 0.1601Gy cm2 IMPRESSION: Successful PICC line placement under ultrasound and fluoroscopic guidance.
--- NOTE | 2023-09-01 12:50 | P.PN ---
Subjective Progress Note Date: 09/01/23 Aleena Tovar, is a 78-year-old female who was admitted to [facility] by Dr. Steele and underwent Laparoscopic repair of paraesophageal hiatal hernia on 08/30/2023, consultation was requested for medical management while hospitalized primary care physician is Dr. mayers. Past medical history is significant for history of hypothyroidism, history of hyperlipidemia, history of hypertension, history of anemia, history of TIA, history of depression with anxiety disorder, history of melanoma, history of coronary artery disease, history of degenerative disc disease with radiculopathy. On review of systems patient is alert and oriented 3 in no apparent distress there is no fever or chills no headache or dizziness no chest pain no shortness of breath no cough no nausea or vomiting no abdominal pain no diarrhea and no urinary symptoms On 08/31/2023 patient was seen and examined on the medical floor she is alert and oriented 3 in no apparent distress he is complaining of abdominal bloating otherwise she denies any complaints there is no fever or chills no headache or dizziness no chest pain no shortness of breath no cough no nausea or vomiting no abdominal pain no diarrhea and no urinary symptoms she received a dose of IV steroids today and she felt better. On 09/01/2023 patient was seen and examined on the medical floor she is alert and oriented 3 in no apparent distress he is complaining of abdominal bloating, she is unable to tolerate any diet at this time otherwise she denies any complaints there is no fever or chills no headache or dizziness no chest pain no shortness of breath no cough no nausea or vomiting no abdominal pain no diarrhea and no urinary symptoms she received a dose of IV steroids today and she felt better. Plan for surgery is to proceed with PICC line and TPN. Objective - Vital Signs Vital signs: Vital Signs Temp 97.8 F 09/01/23 07:10 Pulse 67 09/01/23 07:10 Resp 19 09/01/23 07:10 BP 114/79 09/01/23 07:10 Pulse Ox 95 09/01/23 07:10 FiO2 Intake & Output 08/31/23 09/01/23 09/01/23 18:59 06:59 18:59 Intake Total 240 Balance 240 Intake: Oral 240 Other: Voiding Method Toilet Toilet # Voids 5 0 - Exam In general patient is alert and oriented x 3 in no distress HEENT head normocephalic and atraumatic Neck is supple no JVD no goiter no lymphadenopathy no carotid bruit Chest examination is clear to auscultation no crackles no wheezing Cardiac exam reveals regular heart sounds S1 and S2 no gallops no murmurs Abdomen is soft nontender no organomegaly with normal bowel sounds Extremity exam reveals no edema no cyanosis or clubbing Neurological examination reveals no gross focal deficits - Labs CBC & Chem 7: 09/01/23 07:22 09/01/23 07:22 Labs: Abnormal Lab Results - Last 24 Hours (Table) 09/01/23 09/01/23 Range/Units 07:22 07:22 RBC 3.71 L (4.10-5.20) X 10*6/uL Hgb 11.9 L (12.0-15.0) d/dL Hct 35.7 L (37.2-46.3) % MCH 32.1 H (27.0-32.0) pg Lymphocytes # 0.73 L (0.90-5.00) X 10*3/uL Monocytes # 0.11 L (0.20-1.00) X 10*3/uL Eosinophils # 0.01 L (0.04-0.35) X 10*3/uL BUN 8.1 L (9.0-27.0) mg/dL Creatinine 0.5 L (0.6-1.5) mg/dL Glucose 139 H (70-110) mg/dL Total Bilirubin <0.2 L (0.3-1.2) mg/dL Total Protein 5.6 L (6.2-8.2) d/dL Albumin 3.6 L (3.8-4.9) d/dL Assessment and Plan Plan: Hiatal hernia status post Laparoscopic repair of paraesophageal hiatal hernia Underlying history of hypertension Underlying history of hyperlipidemia Underlying history of hypothyroidism Underlying history of coronary artery disease Underlying history of degenerative disc disease with radiculopathy Underlying history of depression with anxiety disorder Previous history of TIA At this time patient was seen and examined on the medical floor Home medications reviewed and reordered For DVT prophylaxis subcu Lovenox Will check lab and follow-up in a.m.
[2023-09-01 13:16] LABS: Phosphorus 4.4 mg/dL (2.5-4.5)
[2023-09-01 13:23] VITALS: BMI 29.9
[2023-09-01] MEDS ORDERED: MVI, ADULT NO.4 WITH VIT K 10 ML, TRACE (CONC-1ML/DOSE) 1 ML in AMINO ACID 5%-D20W+LYTE... IV SCH ×3 (15:00)
[2023-09-01] MEDS: SIMETHICONE 80 MG CHEWABLE PO SCH (21:05)
[2023-09-01] MEDS: atenoloL 25 MG TAB PO SCH (21:05)
[2023-09-02] MEDS: DEXAMETHASONE SOD PHOSPHATE 4 MG/ML 1 ML VIAL IVP SCH ×4 (05:15→22:59)
[2023-09-02] MEDS: LEVOTHYROXINE 88 MCG TAB PO SCH (06:09)
[2023-09-02] MEDS: ONDANSETRON 4 MG/2 ML VIAL IVP PRN ×2 (06:12→16:17)
[2023-09-02] MEDS: LACTATED RINGERS 1,000 ML IV SCH (06:26)
[2023-09-02] MEDS: ACETAMINOPHEN TAB 500 MG TAB PO SCH ×3 (08:08→20:55)
[2023-09-02] MEDS: FAMOTIDINE 20 MG TAB PO SCH ×2 (08:08→20:56)
[2023-09-02] MEDS: PANTOPRAZOLE 40 MG TABLET PO SCH (08:08)
[2023-09-02] MEDS: GABAPENTIN 300 MG CAP PO SCH ×3 (08:08→20:55)
[2023-09-02] MEDS: FERROUS SULFATE 325 MG TAB PO SCH ×2 (08:09→20:55)
[2023-09-02] MEDS: LORATADINE 10 MG TAB PO SCH (08:09)
[2023-09-02] MEDS: ENOXAPARIN 40 MG/0.4 ML SYRINGE SQ SCH (08:09)
[2023-09-02] MEDS: atenoloL 50 MG TAB PO SCH (08:09)
[2023-09-02] MEDS: amLODIPine 10 MG TAB PO SCH (08:09)
[2023-09-02] MEDS: lisinopriL 20 MG TAB PO SCH (08:09)
[2023-09-02] MEDS: MULTIVITAMINS, THERA 1 EACH TAB PO SCH (08:09)
[2023-09-02 08:26] LABS: Ionized Calcium 4.8 mg/dL (4.5-5.3)
[2023-09-02 08:36] LABS: African American GFR (CKD) >90 (>60 ml/min/1.73 sqM); Anion Gap 8 mmol/L; Blood Urea Nitrogen 13 mg/dL (7-17); Calcium 8.6 mg/dL (8.4-10.2); Carbon Dioxide 26 mmol/L (22-30); Chloride 101 mmol/L (98-107); Glucose 144 mg/dL (74-99); Magnesium 1.7 mg/dL (1.6-2.3); Non-African American GFR(CKD) >90 (>60 ml/min/1.73 sqM); Phosphorus 2.9 mg/dL (2.5-4.5); Sodium 135 mmol/L (137-145)
[2023-09-02] MEDS ORDERED: PROMETHAZINE 25 MG TAB PO PRN (08:59)
--- NOTE | 2023-09-02 09:02 | P.PN ---
Subjective Patient is a 71-year-old female admitted the for apparent esophageal hernia repairs excessively underwent surgery but does still having significant nausea passing gas didn't move her bowel yet patient is presently on TPN. Patient is receiving Zofran and adding Phenergan although documented as ALLERGY which is nausea. Constitutional: Denied any fatigue denied any fever. Cardio vascular: denied any chest pain, palpitations Gastrointestinal as mentioned in the interval history Pulmonary: Denied any shortness of breath cough Neurologic denied any new focal deficits All inpatient medications were reviewed and appropriate changes in these medi cations as dictated in the interval history and assessment and plan. PHYSICAL EXAMINATION: GENERAL: The patient is alert and oriented x3, not in any acute distress. Well developed, well nourished. HEENT: Pupils are round and equally reacting to light. EOMI. No scleral icterus. No conjunctival pallor. Normocephalic, atraumatic. No pharyngeal erythema. No thyromegaly. CARDIOVASCULAR: S1 and S2 present. No murmurs, rubs, or gallops. PULMONARY: Chest is clear to auscultation, no wheezing or crackles. ABDOMEN: Soft, nontender, nondistended, normoactive bowel sounds. No palpable organomegaly. MUSCULOSKELETAL: No joint swelling or deformity. EXTREMITIES: No cyanosis, clubbing, or pedal edema. NEUROLOGICAL: Gross neurological examination did not reveal any focal deficits. SKIN: No rashes. Assessment and plan -Paraesophageal hernia repair: Patient is still quite a bit nauseous is r eceiving steroids for inflammation the surgical site area along with Protonix, patient is receiving Zofran and adding Phenergan for symptomatically. Patient is receiving a lot of which will be discontinued as patient is able to tolerate oral diet and is also on parenteral nutrition and encouraged her to be 1 monitored. -Hypertension well controlled blood pressure continue with present regimen which is a 3 antihypertensive medications -Gastroesophageal reflux disease -Hyperlipidemia -Hypertension -Hypothyroidism -DVT prophylaxis as per primary service For above-mentioned chronic medical problems patient will will be continued on home medications Objective - Vital Signs Vital signs: Vital Signs Temp 97.9 F 09/02/23 01:25 Pulse 60 09/02/23 01:25 Resp 18 09/02/23 01:25 BP 146/70 09/02/23 01:25 Pulse Ox 96 09/02/23 01:25 FiO2 Intake & Output 1109/02/23 09/02/23 18:59 06:59 18:59 Intake Total 240 Output Total 1 Balance 239 Weight 62.9 kg Intake: Oral 240 Output: Urine 1 Other: Voiding Method Toilet # Voids 1 - Labs CBC & Chem 7: 09/01/23 07:22 09/02/23 07:13 Labs: Abnormal Lab Results - Last 24 Hours (Table) 09/01/23 09/01/23 09/02/23 Range/Units 07:22 07:22 07:13 RBC 3.71 L (4.10-5.20) X 10*6/uL Hgb 11.9 L (12.0-15.0) d/dL Hct 35.7 L (37.2-46.3) % MCH 32.1 H (27.0-32.0) pg Lymphocytes # 0.73 L (0.90-5.00) X 10*3/uL Monocytes # 0.11 L (0.20-1.00) X 10*3/uL Eosinophils # 0.01 L (0.04-0.35) X 10*3/uL Sodium 135 L (137-145) mmol/L BUN 8.1 L (9.0-27.0) mg/dL Creatinine 0.5 L 0.44 L (0.6-1.5) mg/dL Glucose 139 H 144 H (70-110) mg/dL Total Bilirubin <0.2 L (0.3-1.2) mg/dL Total Protein 5.6 L (6.2-8.2) d/dL Albumin 3.6 L (3.8-4.9) d/dL
[2023-09-02] MEDS: HYDROmorphone 1 MG/ML 1 ML SYRINGE IVP PRN ×3 (09:17→23:15)
[2023-09-02] MEDS ORDERED: MAGNESIUM SULFATE-D5W PMX 1 GM in DEXTROSE/WATER 1 100ML.BAG IVPB ONE (10:00)
--- NOTE | 2023-09-02 10:19 | P.PN ---
Subjective Progress Note Date: 09/02/23 (Surgery) CHIEF COMPLAINT: Paraesophageal hiatal hernia HISTORY OF PRESENT ILLNESS: Patient postop day #3 status post laparoscopic repair of paraesophageal hiatal hernia. Patient tolerated the clear liquids yesterday after she had started the IV Decadron. Still has nausea. It is intermittent. Has dysphagia when she takes pills. Again she feels like she has pressure in her esophagus and that the liquids or just sitting. She is having flatus. She has been up and walking. Denies any difficulty urinating. Afebrile. PHYSICAL EXAM: VITAL SIGNS: Reviewed. GENERAL: Well-developed in no acute distress. ABDOMEN: Soft. Nondistended. Incision site is clean dry and intact NEUROLOGIC: Alert and oriented. Cranial nerves II through XII grossly intact. ASSESSMENT: 1. Paraesophageal hernia status post repair PLAN: - TPN -Continue liquids -Patient to remain in hospital over the weekend with plans for an esophagram on Monday -Continue Dexamethasone 4 mg IV every 6 hours for possible postoperative edema -Continue IV fluids -Encourage patient to ambulate -Continue pain management -DVT prophylaxis Lovenox and GI prophylaxis Pepcid Objective - Vital Signs Vital signs: Vital Signs Temp 98.4 F 09/02/23 07:23 Pulse 60 09/02/23 07:23 Resp 17 09/02/23 07:23 BP 122/75 09/02/23 07:23 Pulse Ox 97 09/02/23 07:23 FiO2 Intake & Output 09/01/23 09/02/23 09/02/23 18:59 06:59 18:59 Intake Total 240 Output Total 1 Balance 239 Weight 62.9 kg Intake: Oral 240 Output: Urine 1 Other: Voiding Method Toilet # Voids 1 - Labs CBC & Chem 7: 09/01/23 07:22 09/02/23 07:13 Labs: Abnormal Lab Results - Last 24 Hours (Table) 09/01/23 09/01/23 09/02/23 Range/Units 07:22 07: 07:13 RBC 3.71 L (4.10-5.20) X 10*6/uL Hgb 11.9 L (12.0-15.0) d/dL Hct 35.7 L (37.2-46.3) % MCH 32.1 H (27.0-32.0) pg Lymphocytes # 0.73 L (0.90-5.00) X 10*3/uL Monocytes # 0.11 L (0.20-1.00) X 10*3/uL Eosinophils # 0.01 L (0.04-0.35) X 10*3/uL Sodium 135 L (137-145) mmol/L BUN 8.1 L (9.0-27.0) mg/dL Creatinine 0.5 L 0.44 L (0.6-1.5) mg/dL Glucose 139 H 144 H (70-110) mg/dL Total Bilirubin <0.2 L (0.3-1.2) mg/dL Total Protein 5.6 L (6.2-8.2) d/dL Albumin 3.6 L (3.8-4.9) d/dL
[2023-09-02] MEDS: 1: MVI, ADULT NO.4 WITH VIT K 10 ML, TRACE (CONC-1ML/DOSE) 1 ML in AMINO ACID 5%-D20W+LY IV SCH ×3 (15:55)
[2023-09-02] MEDS: SIMETHICONE 80 MG CHEWABLE PO SCH (20:54)
[2023-09-02] MEDS: atenoloL 25 MG TAB PO SCH (20:56)
[2023-09-02] MEDS ORDERED: FAT EMULSION 20% 250 ML in EMPTY BAG 1 BAG IV SCH (21:00)
[2023-09-03] MEDS: LEVOTHYROXINE 88 MCG TAB PO SCH (05:02)
[2023-09-03] MEDS: DEXAMETHASONE SOD PHOSPHATE 4 MG/ML 1 ML VIAL IVP SCH ×4 (05:02→23:41)
[2023-09-03] MEDS: ONDANSETRON 4 MG/2 ML VIAL IVP PRN ×3 (05:07→17:44)
[2023-09-03] MEDS: HYDROmorphone 1 MG/ML 1 ML SYRINGE IVP PRN (05:08)
[2023-09-03] MEDS: MULTIVITAMINS, THERA 1 EACH TAB PO SCH (08:14)
[2023-09-03] MEDS: amLODIPine 10 MG TAB PO SCH (08:15)
[2023-09-03] MEDS: FAMOTIDINE 20 MG TAB PO SCH ×2 (08:15→21:10)
[2023-09-03] MEDS: PANTOPRAZOLE 40 MG TABLET PO SCH (08:15)
[2023-09-03] MEDS: ACETAMINOPHEN TAB 500 MG TAB PO SCH ×3 (08:15→21:10)
[2023-09-03] MEDS: ENOXAPARIN 40 MG/0.4 ML SYRINGE SQ SCH (08:15)
[2023-09-03] MEDS: atenoloL 50 MG TAB PO SCH (08:15)
[2023-09-03] MEDS: lisinopriL 20 MG TAB PO SCH (08:24)
[2023-09-03] MEDS: GABAPENTIN 300 MG CAP PO SCH ×3 (08:24→21:10)
[2023-09-03] MEDS: FERROUS SULFATE 325 MG TAB PO SCH ×2 (08:24→21:10)
[2023-09-03] MEDS: LORATADINE 10 MG TAB PO SCH (08:24)
[2023-09-03] MEDS: 1: MVI, ADULT NO.4 WITH VIT K 10 ML, TRACE (CONC-1ML/DOSE) 1 ML in AMINO ACID 5%-D20W+LY IV SCH ×3 (08:52)
[2023-09-03 09:11] LABS: African American GFR (CKD) >90 (>60 ml/min/1.73 sqM); Anion Gap 10 mmol/L; Blood Urea Nitrogen 16 mg/dL (7-17); Calcium 8.7 mg/dL (8.4-10.2); Carbon Dioxide 23 mmol/L (22-30); Chloride 102 mmol/L (98-107); Glucose 141 mg/dL (74-99); Non-African American GFR(CKD) >90 (>60 ml/min/1.73 sqM); Potassium 4.1 mmol/L (3.5-5.1); Sodium 135 mmol/L (137-145)
[2023-09-03] MEDS ORDERED: BUMETANIDE 0.25 MG/ML 4 ML VIAL IVP STA (10:26)
--- NOTE | 2023-09-03 10:27 | P.PN ---
Subjective Patient is a 71-year-old female admitted the for apparent esophageal hernia repairs excessively underwent surgery but does still having significant nausea passing gas didn't move her bowel yet patient is presently on TPN. Patient is receiving Zofran and adding Phenergan although documented as ALLERGY which is nausea. 09/03/2023 patient is clinically doing well blood pressures low-normal because of which I'm cutting down the dose of amlodipine to 5 mg patient also has bilateral leg swelling because of IV fluids which were discontinued yesterday and her nausea improved. Patient feels much better today. Constitutional: Denied any fatigue denied any fever. Cardio vascular: denied any chest pain, palpitations Gastrointestinal as mentioned in the interval history Pulmonary: Denied any shortness of breath cough Neurologic denied any new focal deficits All inpatient medications were reviewed and appropriate changes in these medications as dictated in the interval history and assessment and plan. PHYSICAL EXAMINATION: GENERAL: The patient is alert and oriented x3, not in any acute distress. Well developed, well nourished. HEENT: Pupils are round and equally reacting to light. EOMI. No scleral icterus. No conjunctival pallor. Normocephalic, atraumatic. No pharyngeal erythema. No thyromegaly. CARDIOVASCULAR: S1 and S2 present. No murmurs, rubs, or gallops. PULMONARY: Chest is clear to auscultation, no wheezing or crackles. ABDOMEN: Soft, nontender, nondistended, normoactive bowel sounds. No palpable organomegaly. MUSCULOSKELETAL: No joint swelling or deformity. EXTREMITIES: No cyanosis, clubbing, or pedal edema. NEUROLOGICAL: Gross neurological examination did not reveal any focal deficits. SKIN: No rashes. Assessment and plan -Paraesophageal hernia repair: Patient is still quite a bit nauseous is receiving steroids for inflammation the surgical site area along with Protonix, patient is receiving Zofran and adding Phenergan for symptomatically. Patient is receiving a lot of which will be discontinued as patient is able to tolerate oral diet and is also on parenteral nutrition and encouraged her to be 1 monitored. -Hypertension well controlled blood pressure continue with present regimen which is a 3 antihypertensive medications -Gastroesophageal reflux disease -Hyperlipidemia -Hypertension -Hypothyroidism -DVT prophylaxis as per primary service For above-mentioned chronic medical problems patient will will be continued on home medications Objective - Vital Signs Vital signs: Vital Signs Temp 97.9 F 09/03/23 07:01 Pulse 54 L 09/03/23 07:01 Resp 18 09/03/23 07:01 BP 129/72 09/03/23 07:01 Pulse Ox 97 09/03/23 07:01 FiO2 Intake & Output 09/02/23 09/03/23 09/03/23 19:59 06:59 18:59 Output Total Balance Output: Urine Other: Voiding Method # Voids - Labs CBC & Chem 7: 09/01/23 07:22 09/03/23 07:29 Labs: Abnormal Lab Results - Last 24 Hours (Table) 09/03/23 Range/Units 07:29 Sodium 135 L (137-145) mmol/L Creatinine 0.41 L (0.52-1.04) mg/dL Glucose 141 H (74-99) mg/dL
[2023-09-03 10:49] LABS: Phosphorus 2.7 mg/dL (2.5-4.5)
--- NOTE | 2023-09-03 11:40 | P.PN ---
Subjective Progress Note Date: 09/03/23 Principal diagnosis: Dysphagia Patient seen ambulating in the hallways today. States the knot present in her chest is mostly gone. No dysphagia. No vomiting. Tolerating clears. Objective - Vital Signs Vital signs: Vital Signs Temp 97.9 F 09/03/23 07:01 Pulse 54 L 09/03/23 07:01 Resp 18 09/03/23 07:01 BP 129/72 09/03/23 07:01 Pulse Ox 97 09/03/23 07:01 FiO2 Intake & Output 09/02/23 09/03/23 09/03/23 19:59 06:59 18:59 Output Total Balance Output: Urine Other: Voiding Method Toilet # Voids - Exam Abdomen: Soft, nondistended, nontender, incisions clean dry - Labs CBC & Chem 7: 09/01/23 07:22 09/03/23 07:29 Labs: Abnormal Lab Results - Last 24 Hours (Table) 09/03/23 Range/Units 07:29 Sodium 135 L (137-145) mmol/L Creatinine 0.41 L (0.52-1.04) mg/dL Glucose 141 H (74-99) mg/dL Assessment and Plan (1) Paraesophageal hernia Narrative/Plan: Patient seems to be doing better. Continue clears. Await upper GI tomorrow. Current Visit: Yes Status: Acute Code(s): K44.9 - DIAPHRAGMATIC HERNIA WITHOUT OBSTRUCTION OR GANGRENE SNOMED Code(s): 1711731
[2023-09-03] MEDS: atenoloL 25 MG TAB PO SCH (21:10)
[2023-09-03] MEDS: SIMETHICONE 80 MG CHEWABLE PO SCH (21:11)
[2023-09-04] MEDS: 1: MVI, ADULT NO.4 WITH VIT K 10 ML, TRACE (CONC-1ML/DOSE) 1 ML in AMINO ACID 5%-D20W+LY IV SCH ×3 (00:50)
[2023-09-04] MEDS: ONDANSETRON 4 MG/2 ML VIAL IVP PRN ×2 (04:08→16:44)
[2023-09-04] MEDS: LEVOTHYROXINE 88 MCG TAB PO SCH (05:16)
[2023-09-04] MEDS: DEXAMETHASONE SOD PHOSPHATE 4 MG/ML 1 ML VIAL IVP SCH ×3 (05:16→17:05)
[2023-09-04 06:15] LABS: African American GFR (CKD) >90 (>60 ml/min/1.73 sqM); Anion Gap 7 mmol/L; Blood Urea Nitrogen 20 mg/dL (7-17); Calcium 8.8 mg/dL (8.4-10.2); Carbon Dioxide 28 mmol/L (22-30); Chloride 99 mmol/L (98-107); Glucose 162 mg/dL (74-99); Magnesium 1.9 mg/dL (1.6-2.3); Non-African American GFR(CKD) >90 (>60 ml/min/1.73 sqM); Potassium 3.7 mmol/L (3.5-5.1); Sodium 134 mmol/L (137-145)
[2023-09-04] MEDS ORDERED: MAGNESIUM SULFATE-D5W PMX 1 GM in DEXTROSE/WATER 1 100ML.BAG IVPB ONE (10:30)
[2023-09-04] MEDS ORDERED: POTASSIUM CHLORIDE 20 MEQ in WATER FOR INJECTION 1 100ML.BAG IVPB ONE (10:30)
[2023-09-04] MEDS: LORATADINE 10 MG TAB PO SCH (10:52)
[2023-09-04] MEDS: lisinopriL 20 MG TAB PO SCH (10:52)
[2023-09-04] MEDS: FAMOTIDINE 20 MG TAB PO SCH ×2 (10:52→21:23)
[2023-09-04] MEDS: GABAPENTIN 300 MG CAP PO SCH ×3 (10:52→21:23)
[2023-09-04] MEDS: atenoloL 50 MG TAB PO SCH (10:52)
[2023-09-04] MEDS: amLODIPine 5 MG TAB PO SCH (10:52)
[2023-09-04] MEDS: ENOXAPARIN 40 MG/0.4 ML SYRINGE SQ SCH (10:53)
[2023-09-04] MEDS: PANTOPRAZOLE 40 MG TABLET PO SCH (10:53)
[2023-09-04] MEDS: FERROUS SULFATE 325 MG TAB PO SCH ×2 (10:53→21:23)
[2023-09-04] MEDS: ACETAMINOPHEN TAB 500 MG TAB PO SCH ×3 (10:53→21:29)
[2023-09-04] MEDS: MULTIVITAMINS, THERA 1 EACH TAB PO SCH (10:53)
--- NOTE | 2023-09-04 11:18 | FL ---
EXAMINATION TYPE: FL UGI w esophagus DATE OF EXAM: 09/04/2023 11:01 AM CLINICAL INDICATION:Female, 78 years old with history of dysphagia, s/p hiatal hernia repair; COMPARISON: 07/16/2023 TECHNIQUE: The procedure was explained and patient history elicited. All patient questions were ans wered prior to start of procedure. A design coordinator radiograph of the abdomen was also reviewed. Multiple flu oroscopic spot images of the esophagus, stomach and duodenum were obtained following ingestion of liq uid barium. Fluoroscopic time: 45 seconds Fluoroscopic images: None Radiographs taken: 50 DAP: Not reported [id number] FINDINGS: Free flow of contrast through the esophagus. There is tertiary contractions. No extravasation of cont rast. Small hiatal hernia. No reflux visualized. Minimal contrast was retained within the esophagus t hat cleared with subsequent dry swallows. Shoulder arthroplasty hardware appears intact. Fixation wit hin the cervical spine appears intact. There is catheter tubing noted likely representing PICC. IMPRESSION: Esophageal dysmotility with residual contrast remaining in the esophagus. This residual contrast miguel red with subsequent dry swallows. Consider speech evaluation for dysphagia.
[2023-09-04] MEDS ORDERED: 1: MVI, ADULT NO.4 WITH VIT K 10 ML, TRACE (CONC-1ML/DOSE) 1 ML, SODIUM CHLORIDE 4MEQ/ML IV SCH ×4 (11:30)
--- NOTE | 2023-09-04 13:04 | P.PN ---
Subjective Progress Note Date: 09/04/23 CHIEF COMPLAINT: Paraesophageal hiatal hernia HISTORY OF PRESENT ILLNESS: Patient postop day #5 status post laparoscopic repair of paraesophageal hiatal hernia. Patient continues to complain of nausea and fullness. She also reports some dizziness. Denies any vomiting. She reports decreased appetite. She is having flatus no bowel movement. Patient had upper GI completed that did show esophageal dysmotility with residual contrast remaining in the esophagus. This residual contrast cleared with valente bsequent dry swallows. Consider speech evaluation for dysphagia. Afebrile. Sodium 134 potassium 3.7 creatinine 0.44 PHYSICAL EXAM: VITAL SIGNS: Reviewed. GENERAL: Well-developed in no acute distress. ABDOMEN: Soft. Nondistended. Incision site is clean dry and intact NEUROLOGIC: Alert and oriented. Cranial nerves II through XII grossly intact. ASSESSMENT: 1. Paraesophageal hernia status post repair PLAN: -Advance diet to full liquids -Consult speech therapy for possible dysphagia noted on upper GI -Wean off TPN -Continue Dexamethasone 4 mg IV every 6 hours for possible postoperative edema -Encourage patient to ambulate -Encourage patient to sit at bedside chair for meals -Continue pain management -Anticipate possible discharge tomorrow -DVT prophylaxis Lovenox and GI prophylaxis Pepcid Physician Etl [employer] Architect note has been reviewed by physician. Signing provider agrees with the documented findings, assessment, and plan of care. Objective - Vital Signs Vital signs: Vital Signs Temp 98.7 F 09/04/23 07:03 Pulse 57 L 09/04/23 07:03 Resp 19 09/04/23 07:03 BP 128/73 09/04/23 07:03 Pulse Ox 96 09/04/23 08:25 FiO2 Intake & Output 09/03/23 09/04/23 09/04/23 18:59 06:59 18:59 Intake Total 1011 Balance 1011 Intake: Intake, IV Titration 1011 Amount Mvi, Adult No.4 with Vit 1011 K 10 ml Trace (Conc-1Ml/ Dose) 1 ml In Amino Acid 5%-D20w+Lytes*E* 1,000 ml @ 52 mls/hr IV .BY DURATION ZHANG Rx#: [id number] Other: Voiding Method Toilet Toilet # Voids 4 3 - Labs CBC & Chem 7: 09/01/23 07:22 09/04/23 05:13 Labs: Abnormal Lab Results - Last 24 Hours (Table) 09/04/23 Range/Units 05:13 Sodium 134 L (137-145) mmol/L BUN 20 H (7-17) mg/dL Creatinine 0.44 L (0.52-1.04) mg/dL Glucose 162 H (74-99) mg/dL
[2023-09-04] MEDS: atenoloL 25 MG TAB PO SCH (21:23)
[2023-09-04] MEDS: SIMETHICONE 80 MG CHEWABLE PO SCH (21:24)
[2023-09-05] MEDS: DEXAMETHASONE SOD PHOSPHATE 4 MG/ML 1 ML VIAL IVP SCH ×3 (00:29→12:42)
[2023-09-05 04:36] LABS: African American GFR (CKD) >90 (>60 ml/min/1.73 sqM); Anion Gap 10 mmol/L; Blood Urea Nitrogen 29 mg/dL (7-17); Calcium 8.6 mg/dL (8.4-10.2); Carbon Dioxide 25 mmol/L (22-30); Chloride 99 mmol/L (98-107); Glucose 107 mg/dL (74-99); Magnesium 2.1 mg/dL (1.6-2.3); Non-African American GFR(CKD) >90 (>60 ml/min/1.73 sqM); Phosphorus 3.6 mg/dL (2.5-4.5); Potassium 4.4 mmol/L (3.5-5.1); Sodium 134 mmol/L (137-145)
[2023-09-05] MEDS: PANTOPRAZOLE 40 MG TABLET PO SCH (06:11)
[2023-09-05] MEDS: LEVOTHYROXINE 88 MCG TAB PO SCH (06:11)
[2023-09-05 07:45] VITALS: BP 121/72; PULSE 61; RESP 19; TEMP 98.2
[2023-09-05] MEDS: lisinopriL 20 MG TAB PO SCH (08:00)
[2023-09-05] MEDS: MULTIVITAMINS, THERA 1 EACH TAB PO SCH (08:03)
[2023-09-05] MEDS: LORATADINE 10 MG TAB PO SCH (08:03)
[2023-09-05] MEDS: FAMOTIDINE 20 MG TAB PO SCH (08:04)
[2023-09-05] MEDS: atenoloL 50 MG TAB PO SCH (08:04)
[2023-09-05] MEDS: amLODIPine 5 MG TAB PO SCH (08:04)
[2023-09-05] MEDS: ACETAMINOPHEN TAB 500 MG TAB PO SCH ×2 (08:04→17:30)
[2023-09-05] MEDS: FERROUS SULFATE 325 MG TAB PO SCH (08:04)
[2023-09-05] MEDS: GABAPENTIN 300 MG CAP PO SCH ×2 (08:05→17:30)
[2023-09-05] MEDS: ENOXAPARIN 40 MG/0.4 ML SYRINGE SQ SCH (08:05)
[2023-09-05] MEDS: NON FORMULARY DRUG (Rosuvastatin Calcium [Rosuvastatin Calcium] 5 MG Tablet) PO SCH (08:12)
[2023-09-05 08:51] LABS: HGB 13.5 d/dL (12.0-15.0); MCH 31.9 pg (27.0-32.0); MCHC 32.9 d/dL (32.0-37.0); MCV 96.9 FL (80.0-97.0); Mean Platelet Volume 10.6 FL (9.5-12.2); NRBC Per 100 WBC 0.02 X 10*3/uL (0.00-0.01); Platelet Count 204 X 10*3/uL (140-440); RBC 4.23 X 10*6/uL (4.10-5.20); RDW 13.3 % (11.5-14.5); WBC 11.16 X 10*3/uL (4.50-10.00)
[2023-09-05] MEDS ORDERED: ERGOCALCIFEROL 1,250 MCG (50,000 IU) CAPSULE PO SCH (09:00)
--- NOTE | 2023-09-05 12:46 | P.DS ---
Providers Date of admission: 09/01/23 07:45 Expected date of discharge: 09/05/23 Attending physician: Ronnie Steele Consults: 08/30/23 08:42 Consult Physician Routine Consulting Provider: Janis Rutledge Consult Reason/Comments: Medical management Do you want consulting provider notified?: Yes Primary care physician: Elissa Baird Hospital Course: Discharge diagnosis 1. Paraesophageal hiatal hernia status post repair 2. Possible postoperative edema Hospital course This is a 78-year-old female with history of paraesophageal hernia she is status post laparoscopic repair of paraesophageal hiatal hernia. Patient had remained in the hospital due to nausea and feeling of fullness in the esophagus after eating. She was started on IV Decadron for possible postoperative edema. Patient did have an upper GI completed that had shown esophageal dysmotility with residual contrast remaining in the esophagus. This residual contrast cleared with subsequent dry swallows. Patient seen evaluated by speech therapy with no change to diet. Patient reports her pain is controlled. She is tolerating diet. She is having bowel movements. She has been up and ambulating. She is afebrile. She is stable for discharge. Please refer to chart for any further details. Physician Account Leader note has been reviewed by physician. Signing provider agrees with the documented findings, assessment, and plan of care. Patient Condition at Discharge: Stable Plan - Discharge Summary Discharge Rx Participant: No New Discharge Prescriptions: Continue Levothyroxine Sodium [Synthroid] 88 mcg PO AC-BRKFST Ergocalciferol (Vitamin D2) [Drisdol] 50,000 unit PO Q14D Acetaminophen [Tylenol] 1,000 mg PO TID Multivitamins, Thera [Multivitamin (formulary)] 2 tab PO DAILY Ferrous Sulfate [Iron (65 MG Elemental)] 325 mg PO BID Gabapentin [Neurontin] 600 mg PO TID Famotidine [Pepcid] 20 mg PO BID amLODIPine [Norvasc] 10 mg PO QAM atenoloL [Tenormin] 25 mg PO HS atenoloL [Tenormin] 50 mg PO QAM Red Yeast Rice 1,200 mg PO HS Loratadine [Claritin] 10 mg PO QAM Rosuvastatin Calcium 5 mg PO TUTH Pantoprazole Sodium [Protonix] 40 mg PO QAM lisinopriL 40 mg PO QAM Evolocumab [Repatha Syringe] 140 mg SQ Q14D Potassium Gluconate 99 mg PO DAILY Simethicone [Gas-X] 375 mg PO HS Discharge Medication List Ergocalciferol (Vitamin D2) [Drisdol] 50,000 unit PO Q14D 09/08/16 [History] Levothyroxine Sodium [Synthroid] 88 mcg PO AC-BRKFST 09/08/16 [History] Acetaminophen [Tylenol] 1,000 mg PO TID 08/05/19 [History] Ferrous Sulfate [Iron (65 MG Elemental)] 325 mg PO BID 08/05/19 [History] Multivitamins, Thera [Multivitamin (formulary)] 2 tab PO DAILY 08/05/19 [History] Gabapentin [Neurontin] 600 mg PO TID 01/01/21 [History] Famotidine [Pepcid] 20 mg PO BID 11/26/21 [History] Pantoprazole Sodium [Protonix] 40 mg PO QAM 11/26/21 [History] Red Yeast Rice 1,200 mg PO HS 11/26/21 [History] amLODIPine [Norvasc] 10 mg PO QAM 11/26/21 [History] atenoloL [Tenormin] 25 mg PO HS 11/26/21 [History] atenoloL [Tenormin] 50 mg PO QAM 11/26/21 [History] lisinopriL 40 mg PO QAM 11/26/21 [History] Evolocumab [Repatha Syringe] 140 mg SQ Q14D 09/01/22 [History] Loratadine [Claritin] 10 mg PO QAM 09/01/22 [History] Potassium Gluconate 99 mg PO DAILY 07/04/23 [History] Rosuvastatin Calcium 5 mg PO TUTH 07/04/23 [History] Simethicone [Gas-X] 375 mg PO HS 08/23/23 [History] Follow up Appointment(s)/Referral(s): Ronnie Steele MD [STAFF PHYSICIAN] - 09/07/23 1:30 pm Activity/Diet/Wound Care/Special Instructions: No lifting over 10 pounds Shower daily. No soaking or tub baths for 2 weeks Very light activity until you are reevaluated at your follow up appointment with your surgeon Continue a Full liquid diet for the next 2 weeks Discharge Disposition: HOME SELF-CARE
--- NOTE | 2023-09-05 16:22 | P.PN ---
Subjective Progress Note Date: 09/04/23 Aleena Tovar, is a 78-year-old female who was admitted to [facility] by Dr. Steele and underwent Laparoscopic repair of paraesophageal hiatal hernia on 08/30/2023, consultation was requested for medical management while hospitalized primary care physician is Dr. mayers. Past medical history is significant for history of hypothyroidism, history of hyperlipidemia, history of hypertension, history of anemia, history of TIA, history of depression with anxiety disorder, history of melanoma, history of coronary artery disease, history of degenerative disc disease with radiculopathy. On review of systems patient is alert and oriented 3 in no apparent distress there is no fever or chills no headache or dizziness no chest pain no shortness of breath no cough no nausea or vomiting no abdominal pain no diarrhea and no urinary symptoms On 08/31/2023 patient was seen and examined on the medical floor she is alert and oriented 3 in no apparent distress he is complaining of abdominal bloating otherwise she denies any complaints there is no fever or chills no headache or dizziness no chest pain no shortness of breath no cough no nausea or vomiting no abdominal pain no diarrhea and no urinary symptoms she received a dose of IV steroids today and she felt better. On 09/01/2023 patient was seen and examined on the medical floor she is alert and oriented 3 in no apparent distress he is complaining of abdominal bloating, she is unable to tolerate any diet at this time otherwise she denies any complaints there is no fever or chills no headache or dizziness no chest pain no shortness of breath no cough no nausea or vomiting no abdominal pain no diarrhea and no urinary symptoms she received a dose of IV steroids today and she felt better. Plan for surgery is to proceed with PICC line and TPN. Patient was seen over the weekend by [place] hospitalist On 09/02/2023 Patient is a 71-year-old female admitted the for apparent esophageal hernia repairs excessively underwent surgery but does still having significant nausea passing gas didn't move her bowel yet patient is presently on TPN. Patient is receiving Zofran and adding Phenergan although documented as ALLERGY which is nausea. Constitutional: Denied any fatigue denied any fever. Cardio vascular: denied any chest pain, palpitations Gastrointestinal as mentioned in the interval history Pulmonary: Denied any shortness of breath cough Neurologic denied any new focal deficits 09/03/2023 patient is clinically doing well blood pressures low-normal because of which I'm cutting down the dose of amlodipine to 5 mg patient also has bilateral leg swelling because of IV fluids which were discontinued yesterday and her nausea improved. Patient feels much better today. On 09/04/2023 patient was seen and examined on the medical floor she is alert and oriented 3 in no apparent distress there is no fever or chills no headache or dizziness no chest pain no shortness of breath no cough no nausea or vomiting no abdominal pain no diarrhea and no urinary symptoms. She is tolerating diet well and plan is for discharge to home today. Objective - Vital Signs Vital signs: Vital Signs Temp 97.8 F 09/04/23 13:45 Pulse 76 09/04/23 13:45 Resp 18 09/04/23 13:45 BP 133/81 09/04/23 13:45 Pulse Ox 95 09/04/23 13:45 FiO2 Intake & Output 09/03/23 09/04/23 09/04/23 18:59 06:59 18:59 Intake Total 1011 Balance 1011 Weight 62.9 kg Intake: Intake, IV Titration 1011 Amount Mvi, Adult No.4 with Vit 1011 K 10 ml Trace (Conc-1Ml/ Dose) 1 ml In Amino Acid 5%-D20w+Lytes*E* 1,000 ml @ 52 mls/hr IV .BY DURATION [facility] Rx#: [id number] Other: Voiding Method Toilet Toilet # Voids 4 3 - Exam In general patient is alert and oriented x 3 in no distress HEENT head normocephalic and atraumatic Neck is supple no JVD no goiter no lymphadenopathy no carotid bruit Chest examination is clear to auscultation no crackles no wheezing Cardiac exam reveals regular heart sounds S1 and S2 no gallops no murmurs Abdomen is soft nontender no organomegaly with normal bowel sounds Extremity exam reveals no edema no cyanosis or clubbing Neurological examination reveals no gross focal deficits - Labs CBC & Chem 7: 09/05/23 03:53 09/05/23 03:53 Labs: Abnormal Lab Results - Last 24 Hours (Table) 09/04/23 Range/Units 05:13 Sodium 134 L (137-145) mmol/L BUN 20 H (7-17) mg/dL Creatinine 0.44 L (0.52-1.04) mg/dL Glucose 162 H (74-99) mg/dL Assessment and Plan Plan: Hiatal hernia status post Laparoscopic repair of paraesophageal hiatal hernia Underlying history of hypertension Underlying history of hyperlipidemia Underlying history of hypothyroidism Underlying history of coronary artery disease Underlying history of degenerative disc disease with radiculopathy Underlying history of depression with anxiety disorder Previous history of TIA At this time patient was seen and examined on the medical floor Home medications reviewed and reordered For DVT prophylaxis subcu Lovenox Will check lab and follow-up in a.m.
--- NOTE | 2023-09-05 16:24 | P.PN ---
Subjective Progress Note Date: 09/05/23 Aleena Tovar, is a 78-year-old female who was admitted to [facility] by Dr. Steele and underwent Laparoscopic repair of paraesophageal hiatal hernia on 08/30/2023, consultation was requested for medical management while hospitalized primary care physician is Dr. mayers. Past medical history is significant for history of hypothyroidism, history of hyperlipidemia, history of hypertension, history of anemia, history of TIA, history of depression with anxiety disorder, history of melanoma, history of coronary artery disease, history of degenerative disc disease with radiculopathy. On review of systems patient is alert and oriented 3 in no apparent distress there is no fever or chills no headache or dizziness no chest pain no shortness of breath no cough no nausea or vomiting no abdominal pain no diarrhea and no urinary symptoms On 08/31/2023 patient was seen and examined on the medical floor she is alert and oriented 3 in no apparent distress he is complaining of abdominal bloating otherwise she denies any complaints there is no fever or chills no headache or dizziness no chest pain no shortness of breath no cough no nausea or vomiting no abdominal pain no diarrhea and no urinary symptoms she received a dose of IV steroids today and she felt better. On 09/01/2023 patient was seen and examined on the medical floor she is alert and oriented 3 in no apparent distress he is complaining of abdominal bloating, she is unable to tolerate any diet at this time otherwise she denies any complaints there is no fever or chills no headache or dizziness no chest pain no shortness of breath no cough no nausea or vomiting no abdominal pain no diarrhea and no urinary symptoms she received a dose of IV steroids today and she felt better. Plan for surgery is to proceed with PICC line and TPN. Patient was seen over the weekend by [facility] On 09/02/2023 Patient is a 71-year-old female admitted the for apparent esophageal hernia repairs excessively underwent surgery but does still having significant nausea passing gas didn't move her bowel yet patient is presently on TPN. Patient is receiving Zofran and adding Phenergan although documented as ALLERGY which is nausea. Constitutional: Denied any fatigue denied any fever. Cardio vascular: denied any chest pain, palpitations Gastrointestinal as mentioned in the interval history Pulmonary: Denied any shortness of breath cough Neurologic denied any new focal deficits 09/03/2023 patient is clinically doing well blood pressures low-normal because of which I'm cutting down the dose of amlodipine to 5 mg patient also has bilateral leg swelling because of IV fluids which were discontinued yesterday and her nausea improved. Patient feels much better today. On 09/04/2023 patient was seen and examined on the medical floor she is alert and oriented 3 in no apparent distress there is no fever or chills no headache or dizziness no chest pain no shortness of breath no cough no nausea or vomiting no abdominal pain no diarrhea and no urinary symptoms. On 09/05/2023 patient was seen and examined on the medical floor she is alert and oriented 3 in no apparent distress, she is able to tolerate diet and able to ambulate with walker around the room, there is no fever or chills, no headache or dizziness no chest pain no shortness of breath no cough no nausea or vomiting no abdominal pain no diarrhea and no urinary symptoms. Patient is stable and is scheduled to be discharged to home by surgery today Objective - Vital Signs Vital signs: Vital Signs Temp 98.2 F 09/05/23 07:35 Pulse 61 09/05/23 07:35 Resp 19 09/05/23 07:35 BP 121/72 09/05/23 07:35 Pulse Ox 97 09/05/23 07:35 FiO2 Intake & Output 09/04/23 09/05/23 09/05/23 18:59 06:59 18:59 Weight 62.9 kg Other: # Voids 4 1 # Bowel Movements 1 - Exam In general patient is alert and oriented x 3 in no distress HEENT head normocephalic and atraumatic Neck is supple no JVD no goiter no lymphadenopathy no carotid bruit Chest examination is clear to auscultation no crackles no wheezing Cardiac exam reveals regular heart sounds S1 and S2 no gallops no murmurs Abdomen is soft nontender no organomegaly with normal bowel sounds Extremity exam reveals no edema no cyanosis or clubbing Neurological examination reveals no gross focal deficits - Labs CBC & Chem 7: 09/05/23 03:53 09/05/23 03:53 Labs: Abnormal Lab Results - Last 24 Hours (Table) 09/05/23 09/05/23 Range/Units 03:53 03:53 WBC 11.16 H (4.50-10.00) X 10*3/uL NRBC/100 WBC Diff 0.02 H (0.00-0.01) X 10*3/uL Sodium 134 L (137-145) mmol/L BUN 29 H (7-17) mg/dL Creatinine 0.48 L (0.52-1.04) mg/dL Glucose 107 H (74-99) mg/dL Assessment and Plan Plan: Hiatal hernia status post Laparoscopic repair of paraesophageal hiatal hernia Underlying history of hypertension Underlying history of hyperlipidemia Underlying history of hypothyroidism Underlying history of coronary artery disease Underlying history of degenerative disc disease with radiculopathy Underlying history of depression with anxiety disorder Previous history of TIA At this time patient was seen and examined on the medical floor Home medications reviewed and reordered For DVT prophylaxis subcu Urmila Will check lab and follow-up in a.m.
[2023-09-12] MEDS ORDERED: NON FORMULARY DRUG (Evolocumab [Repatha Syringe] 140 MG/ML Each) SQ SCH (09:00)
[2023-09-13] MEDS ORDERED: ERGOCALCIFEROL 1,250 MCG (50,000 IU) CAPSULE PO SCH (09:00)
== END 2023-09-05 16:47 | disposition home or self-care (01) | DRG 328 ==
LOC: OR 06:00 → 4SSUR 10:39 → OR 08-31 14:39 → 4SSUR 08-31 14:39 → OBSVTOIN 09-01 07:45
PROVIDERS: ADMIT Surgery; ATTEND Surgery
PROC: 0BQT4ZZ Repair Diaphragm, Percutaneous Endoscopic Approach (ICD-10-PCS; 2023-08-30)
PROC: 02HV33Z Insertion of Infusion Device into Superior Vena Cava, Percutaneous Approach (ICD-10-PCS; principal; 2023-09-01 14:30)
DX: K44.9 Diaphragmatic hernia without obstruction or gangrene (principal); E03.9 Hypothyroidism, unspecified; E78.5 Hyperlipidemia, unspecified; H91.90 Unspecified hearing loss, unspecified ear; I10 Essential (primary) hypertension; I25.10 Atherosclerotic heart disease of native coronary artery without angina pectoris; K21.9 Gastro-esophageal reflux disease without esophagitis; K22.4 Dyskinesia of esophagus; Z96.611 Presence of right artificial shoulder joint; Z96.653 Presence of artificial knee joint, bilateral; F41.9 Anxiety disorder, unspecified; F32.A Depression, unspecified; M81.0 Age-related osteoporosis without current pathological fracture; Z79.2 Long term (current) use of antibiotics; Z79.890 Hormone replacement therapy; Z79.899 Other long term (current) drug therapy; Z85.820 Personal history of malignant melanoma of skin; Z85.828 Personal history of other malignant neoplasm of skin; Z86.73 Personal history of transient ischemic attack (TIA), and cerebral infarction without residual deficits; Z87.442 Personal history of urinary calculi; Z87.891 Personal history of nicotine dependence; Z88.8 Allergy status to other drugs, medicaments and biological substances; Z88.2 Allergy status to sulfonamides
CPT/HCPCS: 36573; 74240; 80048; 80053; 82330; 83735; 84100; 84132; 84478; 85025; 85027; 94760

== ENCOUNTER → 2024-02-19 | Outpatient (CLI) | payer MEDICARE, BC ==
--- NOTE | 2024-02-19 09:54 | XR ---
EXAMINATION TYPE: XR chest 2V DATE OF EXAM: 02/19/2024 COMPARISON: 12/11/2019 HISTORY: Shortness of breath TECHNIQUE: Frontal and lateral views of the chest are obtained. FINDINGS: Scattered senescent parenchymal changes noted. Moderate fixed hiatal hernia seen. No evidence for infiltrate. No evidence for atelectasis. Heart size is stable. Mediastinal structures are stable and grossly unremarkable. No evidence for hilar prominence. Degenerative changes dorsal spine. IMPRESSION: 1. No evidence for acute pulmonary disease.
[2024-02-19 09:57] LABS: INR 0.9 (<1.2); Partial Thromboplastin Time 26.4 sec (22.0-30.0); Prothrombin Time 10.3 sec (10.0-12.5)
[2024-02-19 15:39] LABS: Basophils # (A) 0.06 X 10*3/uL (0.00-0.10); Eosinophils # (A) 0.24 X 10*3/uL (0.04-0.35); Eosinophils % (A) 4.1 %; HCT 41.9 % (37.2-46.3); HGB 13.9 g/dL (12.0-15.0); Lymphocytes # (A) 1.39 X 10*3/uL (0.90-5.00); Lymphocytes % (A) 23.8 %; MCHC 33.2 g/dL (32.0-37.0); MCV 96.5 FL (80.0-97.0); Mean Platelet Volume 10.6 FL (9.5-12.2); Monocytes # (A) 0.49 X 10*3/uL (0.20-1.00); Monocytes % (A) 8.4 %; NRBC Per 100 WBC 0 X 10*3/uL (0.00-0.01); Neutrophils # (A) 3.64 X 10*3/uL (1.80-7.70); Neutrophils % (A) 62.5 %; Platelet Count 224 X 10*3/uL (140-440); RBC 4.34 X 10*6/uL (4.10-5.20); RDW 12.7 % (11.5-14.5); WBC 5.83 X 10*3/uL (4.50-10.00)
[2024-02-19 15:51] LABS: BUN/Creat Ratio 25.71 Ratio (12.00-20.00); Calcium 9.8 mg/dL (8.7-10.3); Carbon Dioxide 25.9 mmol/L (21.6-31.8); Chloride 99 mmol/L (96-109); Glucose 84 mg/dL (70-110); Potassium 4.8 mmol/L (3.5-5.5); Sodium 137 mmol/L (135-145)
[2024-02-19 16:28] LABS: Appearance,Urine Clear (Clear); Bilirubin,Urine Negative (Negative); Blood,Urine Negative (Negative); Color,Urine Yellow (Yellow); Ketones,Urine Negative (Negative); Nitrite,Urine Negative (Negative); Specific Gravity,Urine 1.016 (1.001-1.030)
[2024-02-19 16:35] LABS: Bacteria,Urine None Seen (None Seen)
== END | disposition home or self-care (01) ==
LOC: LABPAT 08:42
PROVIDERS: ATTEND Orthopaedic Surgery Orthopaedic Surgery of the Spine
DX: Z01.812 Encounter for preprocedural laboratory examination (principal); Z22.322 Carrier or suspected carrier of Methicillin resistant Staphylococcus aureus; M48.061 Spinal stenosis, lumbar region without neurogenic claudication
CPT/HCPCS: 36415; 71046; 80048; 81001; 85025; 85610; 85730; 86850; 86900; 86901; 87070; 93005

== ENCOUNTER 2024-02-28 05:55 | Inpatient (IN) | payer MEDICARE, BC ==
[~2024-02-28 05:55] MED LIST changes: -ACETAMINOPHEN TAB 500 MG TAB PO PRN; -HEPARIN SODIUM,PORCINE/PF 5,000 UNIT/0.5 ML SYRINGE SQ PRN; +LIDOCAINE 1% (10MG/ML) FOR IV START INTRADERMA PRN; +TRANEXAMIC 1,000 MG/100ML-NACL 1,000 MG in SALINE 1 100ML.BAG IVPB PRN; +ceFAZolin 1,000 MG in SODIUM CHLORIDE 0.9% IRRIGATIO 1,000 ML IRRIGATION PRN
[2024-02-28] MEDS: LACTATED RINGERS 1,000 ML IV SCH (06:58)
[2024-02-28] MEDS: ONDANSETRON 4 MG/2 ML VIAL IVP ONE (07:03)
[2024-02-28] MEDS: MIDAZOLAM 2 MG/2 ML VIAL IVP ONE ×2 (07:08)
[2024-02-28] MEDS ORDERED: PHENYLEPHRINE-0.9% NACL SYG 1,000 MCG/10 ML SYRINGE ONE (07:24)
[2024-02-28] MEDS ORDERED: ROCURONIUM 10 MG/ML (5 ML VIAL) IV ONE (07:24)
[2024-02-28] MEDS ORDERED: PROPOFOL 10 MG/ML 20 ML VIAL IV ONE (07:24)
[2024-02-28] MEDS ORDERED: fentaNYL (PF) 50 MCG/ML 2 ML AMP ONE (07:24)
[2024-02-28] MEDS ORDERED: HYDROmorphone (PF) 1 MG/ML ONE (07:24)
[2024-02-28] MEDS ORDERED: KETAMINE HCL IN 0.9 % NACL 50 MG/5 ML SYRINGE ONE (07:24)
[2024-02-28] MEDS ORDERED: NEOSTIGMINE 1 MG/ML 10 ML VIAL ONE (07:24)
[2024-02-28] MEDS ORDERED: GLYCOPYRROLATE 0.2 MG/ML 2 ML VIAL ONE (07:24)
[2024-02-28] MEDS ORDERED: TRANEXAMIC 1,000 MG/100ML-NACL PREMIX BAG ONE (07:24)
[2024-02-28] MEDS ORDERED: SUCCINYLCHOLINE CHLORIDE 200 MG/10 ML VIAL IV ONE (07:24)
[2024-02-28] MEDS ORDERED: LIDOCAINE 1% INJ 10MG/ML (20 ML MDV) ONE (07:24)
[2024-02-28] MEDS: LIDOCAINE 1%-EPI 1:100,000 20 ML VIAL SQ ONE (07:28)
[2024-02-28] MEDS: THROMBIN (BOVINE) 5,000 UNIT VIAL TOPICAL ONE (07:28)
[2024-02-28] MEDS: ceFAZolin 1,000 MG in SODIUM CHLORIDE 0.9% IRRIGATIO 1,000 ML IRRIGATION PRN (08:18)
[2024-02-28 08:58] LABS: Basophils % (A) 0 %; Eosinophils # (A) 0.1 k/uL (0-0.7); Eosinophils % (A) 2 %; HCT 35.6 % (34.0-46.0); HGB 11.9 gm/dL (11.4-16.0); Lymphocytes # (A) 2.3 k/uL (1.0-4.8); Lymphocytes % (A) 37 %; MCH 32.4 pg (25.0-35.0); MCHC 33.6 g/dL (31.0-37.0); MCV 96.6 fL (80.0-100.0); Mean Platelet Volume 8.5; Monocytes # (A) 0.5 k/uL (0-1.0); Monocytes % (A) 7 %; Neutrophils # (A) 3.1 k/uL (1.3-7.7); Neutrophils % (A) 50 %; Platelet Count 158 k/uL (150-450); RBC 3.68 m/uL (3.80-5.40); RDW 12.2 % (11.5-15.5); WBC 6.3 k/uL (3.8-10.6)
[2024-02-28 09:20] LABS: Potassium 3.6 mmol/L (3.5-5.1)
[2024-02-28] MEDS: LACTATED RINGERS 1,000 ML IV ONE ×2 (09:48→10:10)
[2024-02-28] MEDS: ceFAZolin 1,000 MG in SODIUM CHLORIDE 0.9% 1,000 ML IRRIGATION ONE (12:06)
[2024-02-28] MEDS ORDERED: ACETAMINOPHEN TAB 325 MG TAB PO PRN (12:50)
[2024-02-28] MEDS ORDERED: BENZOCAINE/MENTHOL LOZENG 1 EACH LOZENGE MUCOUS MEM PRN (12:50)
--- NOTE | 2024-02-28 13:01 | FL ---
EXAMINATION TYPE: FL guidance operating room, XR lumbar spine 2 or 3V Intraoperative/procedural fluor oscopic services were provided. Total fluoroscopy time is 43 seconds with a total of 8 submitted imag es to PACS. Please see the operative/procedural note for further details. DAP: [id number] cGycm2
--- NOTE | 2024-02-28 13:10 | P.OP ---
Date of Procedure: 02/28/24 Preoperative Diagnosis: Severe spinal stenosis L2-3 L3-4 L4-5 L5-S1, spondylolisthesis grade 3 L4-5, spondylolisthesis grade 2 L5-S1, severe facet arthrosis, foraminal stenosis, lower extremity radiculopathy, neurogenic claudication Postoperative Diagnosis: Same Anesthesia: GETA Pathology: none sent Condition: stable Disposition: PACU Description of Procedure: BRIEF OPERATIVE NOTE Preoperative Diagnosis: Severe spinal stenosis L2-3 L3-4 L4-5 L5-S1, spondylolisthesis grade 3 L4-5, spondylolisthesis grade 2 L5-S1, lower extremity colopathy, neurogenic claudication, degenerative disc disease, facet arthrosis, low back pain Postoperative Diagnosis: Same Procedure: Open posterior lateral decompression and fusion L2-3 L3-4 L4-5 L5-S1 Transforaminal interbody fusion L4-5 for 360 degree fusion Wide bilateral laminectomy with foraminotomies and partial facetectomy for decompression L2-3 L3-4 L4-5 L5-S1 Harvesting of local autogenous bone graft Harvesting of bone marrow aspirate at L2 vertebral body Use of CT-guided navigation imaging intraoperatively for placement of pedicle screws L2 L3-L4-L5 and S1 bilaterally Cement augmentation of pedicle screws with fenestrated cannulated pedicle screws at L2 L3-L4-L5 and S1 bilaterally Discectomy for decompression beyond that of preparation for fusion at L4-5 Use of fluoroscopic guidance Surgeon: Dr. [employer] [employer] Plumber: Smith OCHOA who is present throughout the entire the case persistence during positioning, dissection, exposure, visualization, and all crucial elements of the case as well as closure. Anesthesia: General anesthesia per Dr. Lin Estimated blood loss: Approximately 700 cc with significant given back through Cell Saver Complications: None apparent Components implanted: Yandel K2 M fenestrated cannulated pedicle screw system [place] [employer] with 4.5, 5.5, 6.5, 7.5 millimeter screws as well as 2 rods 1 [place] interbody cage DBX bone sheets to augment the local autogenous bone graft Disposition: To recovery room in good stable condition. OPERATIVE INDICATIONS OPERATIVE SUMMARY The patient is a very pleasant 79-year-old female who has had longstanding history of low back pain. She has had severe debility over the past several months and has become quite miserable due to her pain in her back and her lower extremities. The patient was found to have severe changes at her lumbar spine with severe stenosis at multiple levels as well as instability which is dynamic on imaging. These findings correlate well with her low back and lower extremity symptoms. She is having significant debility and evidence of severe neurogenic claudication from her stenosis and evidence of weakness. She had been through extensive conservative treatment however did not have any prolonged benefit despite aggressive conservative care. We discussed various treatment options including the possibly of surgical intervention. We discussed the nature of her issues and the osteopenia at her bones as well as the complexity of the surgery and the multilevel involvement. We discussed all of the risk complications alternatives and benefits at length. I discussed the risk of bleeding risk infection risk need for further surgery risk of decrease or loss of motion loss of function malunion nonunion hardware failure cement extravasation was all explained to her. After discussing all the risks, patient alternatives and benefits at length, the patient elected to proceed with surgical intervention, signed informed consent, and presented for their procedure. The patient was seen and examined in the preoperative holding area and the surgical site was marked. The patient was given antibiotics and brought to the operating room. The patient was sedated and intubated by anesthesia in standard fashion. The patient was positioned on to the operating room table in a prone position on the appropriate frame which was well-padded and well molded. We were careful to pad any bony prominences and pressure points. We were careful to maintain the patient's cervical spine and good neutral alignment and position throughout. The patient was prepped and draped in a normal standard fashion. An appropriate timeout and keystone protocol performed. We were able to proceed with the surgery. The local wound area was infiltrated with local anesthetic. An incision was made at the midline longitudinally over the appropriate levels from L2-S1. Dissection was taken down subcutaneously to the level of the fascia which was split midline. Dissection was taken over the lamina bilaterally over the facet joints and to the transverse processes. The area was found to have severe facet arthrosis throughout an obvious slip at L4 4 5 and L5-S1. I decorticated over the area and took down the facet joints osteophytes for good exposure. The transverse process or sacral ala was decorticated with a high- speed bur. We were able to bring in the imaging to view the area to positively confirm the appropriate levels from L2-S1. We attached the navigation stereoptician with a spinous process clamp appropriately. Intraoperatively we brought in the machine with appropriate draping and did a Z iehmCT-guided spin to visualize with reconstruction from L2-S1. With this we are able to then prepare for pedicle screw placement. At each of the sites I was able to expose the area and use the intraoperative real-time imaging to help assist with placement of the pedicle screw holes. This was done L2 L3-L4-L5 and S1 bilaterally. I was able to establish the starting point with a Jamshidi needle malleted in position. The pedicle was measured for appropriate size screws. I was able place the wire through the Jamshidi into the vertebral body. This was done at each level appropriately. Imaging was taken which showed excellent position of the wires. With his accomplished were then able to place screws at each level L2 L3-L4-L5 and S1 bilaterally. All the screws had good alignment good position with good bony purchase. With screws intact further imaging was taken which showed X alignment position of the screws from L2-S1 bilaterally. I was able to use these holes to place the appropriate size screw and good alignment and good position with good bony purchase. When the screws were inserted there were stimulated, and found to have no stimulation at 20 mA. I was able to turn my attention to the decompression. There is severe evidence of stenosis at each levels. There is most severe at L3-4 and L4-5. At L3-4 and L4-5 I did complete laminectomy. I was able to get excellent central bilateral foraminal decompression at L2-3 L3-4 L4-5 and L5-S1. Decompression was performed with a combination of rongeurs, curettes, Kerrison rongeurs and a ball-tip feeler. All of the bone that was removed was stripped and morcellized for use as autogenous bone graft later in the case. I was able to obtain good central decompression as well as wide bilateral foraminal decompression. There is no evidence of dural tear or leak. Good hemostasis was maintained. The wound was irrigated and suctioned dry. There is no evidence of any dural tear or leak I performed a complete facetectomy at the appropriate level on the right side of L4-5. All bone that was removed was saved for local autogenous bone grafting. I was able to gain access to the disc space at the appropriate level/levels. In preparation for the TLIF I was able to do a discectomy. There was significant disc protrusion and herniation which was removed to further decompress beyond that of discectomy for preparation for fusion. good hemostasis was maintained. I was able to protect the neurologic structures. A discectomy was performed. This provided further decompression. I was also able to perform complete discectomy and endplate preparation with a combination of pituitary curettes, rasps and scrapers. With the interbody space prepared, I was able to do appropriate sizing. The appropriate size cage was chosen. The wound was irrigated and suctioned dry. The interbody space was packed with local autogenous bone graft and a small portion of bone graft substitute, as was the cage itself. Protecting the soft tissue structures, I was able place the cage in good alignment and good position with good fit and fill. There is no evidence of extrusion of the graft material nor protrusion of the interbody device. The wound was irrigated and suctioned dry. With this intact I was then able to prepare for the cement augmentation at each of the vertebral bodies via the fenestrated screws. We were able to attach the appropriate cement insertion devices. The cement was mixed and when it was appropriately ready we were able to inject cement into the screws and visualize it on C arm as the cement was able to course into the vertebral bodies and augment each of the screws at L2 L3-L4-L5 and S1. Once cement was allowed to harden I was able to move on. I prepared then for placement of the rods. The rods were measured and contoured. I was able to get some reduction at the L5-S1 and L4-5 levels with the placement of the rods. All the screws remained intact with good purchase. With the hardware intact, intraoperative x-ray was again taken which showed good alignment and position of the hardware at the appropriate levels from L2-S1. We were then able to measure, contour and place the rods and appropriate hardware bilaterally. I was able to place capcrews, tighten them down, and torque each of them appropriately. With this intact I was able to place the local autogenous bone graft with additional bone graft enhancer as necessary into the posterior lateral gutters bilaterally. With the bone graft intact, a stable construct, and good decompression at the appropriate levels, we were able to proceed with closure. Good hemostasis was maintained. There is no evidence of dural tear or leak. The fascia was closed for a watertight closure. The subcutaneous tissue was closed over a superficial drain. The subcuticular tissue was closed with absorbable suture. The wound was cleaned and dried and dressed with the appropriate dressing. The drapes were broken down. The patient was gently rolled back onto their hospital bed being careful to maintain their cervical spine and good neutral alignment and position. They were woken up by anesthesia, extubated, and brought to the recovery room in good stable condition. The patient will be admitted to the hospital for appropriate postoperative care, medical management and monitoring. We will continue to follow them closely about the postoperative course.
[2024-02-28] MEDS: ePHEDrine 50 MG/ML 1 ML VIAL IVP ONE (13:20)
[2024-02-28] MEDS: ALBUMIN HUMAN 5% (12.5gm) 250 ML BOTTLE IVPB ONE ×2 (13:30→13:47)
[2024-02-28] MEDS: PHENYLEPHRINE-0.9% NACL SYG 1,000 MCG/10 ML SYRINGE IVP ONE (14:41)
[2024-02-28] MEDS: PHENYLEPHRINE 40 MG in SODIUM CHLORIDE 0.9% 250 ML IV SCH (14:58)
[2024-02-28 14:59] LABS: HCT 27.2 % (34.0-46.0); MCHC 34.1 g/dL (31.0-37.0); MCV 96.9 fL (80.0-100.0); Mean Platelet Volume 7.7; Platelet Count 130 k/uL (150-450); WBC 10.4 k/uL (3.8-10.6)
[2024-02-28 15:00] LABS: HGB 9.3 gm/dL (11.4-16.0)
[2024-02-28 16:41] LABS: Glucose,Whole Blood 131 mg/dL (70-110)
[2024-02-28] MEDS: HYDROmorphone 0.5 MG/0.5 ML SYRINGE IVP PRN (17:00)
--- NOTE | 2024-02-28 17:38 | P.CNPUL ---
History of Present Illness Consult date: 02/28/24 Chief complaint: Hypotension History of present illness: This is a 79-year-old female patient got transferred to the intensive care for the patient underwent a spine surgery and following the surgery the patient was found to be hypotensive. The patient was given Cell Saver's and a liter of IV fluid and started on low-dose Steve-Synephrine. After arrival to the ED ICU, the patient demonstrated adequate blood pressure control. Steve-Synephrine was discontinued. In fact her blood pressure is currently within normal limits and she is known to have hypertension she takes antihypertensive medication at home. Hemoglobin has dropped from a baseline of 11.9 down to 9.3. She has a Hemovac in her surgical bed and there is no evidence of any active bleeding. The patient has a lengthy and extensive surgery for spinal stenosis and the patient had multilevel decompression and fusion involving L2-L3, L3-L4, L4-5, L5-S1. Please refer to the detailed surgical notes. No chest pain. No swelling in lower extremities. The patient is currently on normal citrate of 75 cc an hour. No specific complaints otherwise. Hemodynamically stable and her pulse ox is 98% on 3 L of oxygen by nasal cannula. Review of Systems All systems: negative (Limited back pain. The patient is awake and alert. The patient has no chest pain. No shortness of breath. She is on 2 L of oxygen by nasal cannula and her breathing is nonlabored.) Past Medical History Past Medical History: Cancer, CVA/TIA, Eye Disorder, Hearing Disorder / Deafness, Hyperlipidemia, Hypertension, Musculoskeletal Disorder, Osteoarthritis (OA), Thyroid Disorder Additional Past Medical History / Comment(s): Right leg pain, "severe deterioration in spine." Hx skin cancer. 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 HX KIDNEY STONES. Hx C-DIFF-2017. Hx ulcers. Osteoporosis. Hx Shingles/still has headaches from it daily or every other day. History of Any Multi-Drug Resistant Organisms: None Reported Date of last positivie culture/infection: 2017 MDRO Source:: stool Past Surgical History: Joint Replacement, Orthopedic Surgery Additional Past Surgical History / Comment(s): LITHOTRIPSY, KIDNEY SURGERY to remove large stone from ureter, LEFT ACHILLES TENDON REPAIR, RIGHT KNEE ARTHROSC OPY, RIGHT ROTATOR CUFF REPAIR, BILATRAL CARPAL TUNNEL SURGERY, bilateral total knee arthroplasties, colonoscopy, sinus surgery, D&C, skin cancer removed from abdomen, right shoulder replacement, cervical fusion, emergency diaphragmatic hernia repair. paraesophageal hernia reap08/30/23 Past Anesthesia/Blood Transfusion Reactions: No Reported Reaction Additional Past Anesthesia/Blood Transfusion Reaction / Comment(s): HX BLOOD TRANSFUSION-NO REACTION. Smoking Status: Former smoker - Past Family History Mother Family Medical History: No Reported History Additional Family Medical History / Comment(s): . Sister(s) Family Medical History: Deep Vein Thrombosis (DVT) Medications and Allergies Home Medications Medication Instructions Recorded Confirmed Type Ergocalciferol (Vitamin D2) 50,000 unit PO Q14D 09/08/16 02/28/24 History [Drisdol] Levothyroxine Sodium [Synthroid] 88 mcg PO HS 09/08/16 02/28/24 History Acetaminophen [Tylenol] 1,000 mg PO TID 08/05/19 02/26/24 History Ferrous Sulfate [Iron (65 MG 325 mg PO DAILY 08/05/19 02/26/24 History Elemental)] Multivitamins, Thera [Multivitamin 2 tab PO 1200 08/05/19 02/26/24 History (formulary)] Gabapentin [Neurontin] 600 mg PO TID 01/01/21 02/26/24 History Famotidine [Pepcid] 20 mg PO BID 11/26/21 02/26/24 History Pantoprazole Sodium [Protonix] 40 mg PO QAM 11/26/21 02/28/24 History Red Yeast Rice 1,200 mg PO HS 11/26/21 02/26/24 History amLODIPine [Norvasc] 10 mg PO QAM 11/26/21 02/26/24 History atenoloL [Tenormin] 25 mg PO HS 11/26/21 02/26/24 History atenoloL [Tenormin] 50 mg PO QAM 11/26/21 02/26/24 History lisinopriL 40 mg PO QAM 11/26/21 02/26/24 History Evolocumab [Repatha Syringe] 140 mg SQ Q14D 09/01/22 02/28/24 History Loratadine [Claritin] 10 mg PO QAM 09/01/22 02/26/24 History Potassium Gluconate 99 mg PO DAILY 07/04/23 02/26/24 History Rosuvastatin Calcium 2.5 mg PO TUTH 07/04/23 02/28/24 History Allergies Allergy/AdvReac Type Severity Reaction Status Date / Time diazepam [From Valium] Allergy Severe Nausea & Verified 02/28/24 06:22 Vomiting, dizzy,muscle pain,mouth numb escitalopram oxalate Allergy Severe Nausea & Verified 02/28/24 06:22 [From Lexapro] Vomiting, dizzy,muscle pain, mouth numb fluticasone propionate Allergy Severe Nausea & Verified 02/28/24 06:22 [From Flonase] Vomiting, dizzy,muscle pain, mouth numb furosemide [From Lasix] Allergy Severe Nausea & Verified 02/28/24 06:22 Vomiting,dizzy, muscle pain, mouth numb hydrocodone bitartrate Allergy Severe Nausea & Verified 02/28/24 06:22 [From Lortab] Vomiting,Dizzy, Muscle Pain, Mouth Numb meclizine HCl [From Antivert] Allergy Severe Nausea & Verified 02/28/24 06:22 Vomiting,dizzy,muscle pain, mouth numb olmesartan medoxomil Allergy Severe Nausea & Verified 02/28/24 06:22 [From Benicar] Vomiting, dizzy, muscle pain, mouth numb promethazine Allergy Severe Nausea & Verified 02/28/24 06:22 Vomiting, dizzy , muscle pain, mouth numb [id number]-LGL-PnC Reductase Allergy Severe Nausea & Verified 02/28/24 06:22 Inhibitor Vomiting,dizzy, [Lclhhrn-Rck-Ret Reductase muscle Inhibitor] pain, mouth numb tizanidine HCl Allergy Severe Nausea & Verified 02/28/24 06:22 [From Zanaflex] Vomiting,dizzy,muscle pain,mouth numb spironolactone Allergy Unknown NUMBNESS Verified 02/28/24 06:22 [From Aldactone] IN FACE, NAUSEA ketorolac Allergy Nausea & Verified 02/28/24 06:22 Vomiting NSAIDS (Non-Steroidal Allergy Unknown Verified 02/28/24 06:22 Anti-Inflamma prednisone Allergy Dyspnea, Verified 02/28/24 06:22 Nausea & Vomiting, Dizzy, Muscle Pain, Mouth Numb. scopolamine Allergy Chest Pain Verified 02/28/24 06:22 Sulfa (Sulfonamide Allergy Nausea & Verified 02/28/24 06:22 Antibiotics) Vomiting,dizzy,muscle pain, mouth numb. tramadol AdvReac Severe NAUSEA AND Verified 02/28/24 06:22 VOMITING Physical Exam Vitals: Vital Signs Temp Pulse Pulse Resp BP BP BP 02/28/24 17:10 59 L 7 L 174/90 02/28/24 17:00 59 L 9 L 174/90 02/28/24 16:50 56 L 12 02/28/24 16:38 96.1 F L 0 L 02/28/24 16:00 64 16 106/53 02/28/24 15:45 58 L 16 129/64 02/28/24 15:30 57 L 18 84/56 02/28/24 15:15 50 L 16 78/52 02/28/24 15:00 57 L 16 78/49 02/28/24 14:45 59 L 18 80/44 81/35 02/28/24 14:30 59 L 18 78/43 78/36 02/28/24 14:15 53 L 18 85/46 81/38 02/28/24 14:00 55 L 18 89/54 92/52 02/28/24 13:45 52 L 18 83/47 82/37 02/28/24 13:30 49 L 18 75/40 74/46 02/28/24 13:15 47 L 18 99/52 103/42 02/28/24 13:06 97.2 F L 52 L 18 119/59 113/48 02/28/24 07:19 56 L 16 130/69 02/28/24 06:34 97.8 F 56 L 18 150/71 BP Pulse Ox 02/28/24 17:10 98 02/28/24 17:00 100 02/28/24 16:50 100 02/28/24 16:38 02/28/24 16:00 111/59 100 02/28/24 15:45 133/60 100 02/28/24 15:30 90/52 100 02/28/24 15:15 83/49 99 02/28/24 15:00 86/37 99 02/28/24 14:45 02/28/24 14:30 02/28/24 14:15 02/28/24 14:00 02/28/24 13:45 02/28/24 13:30 02/28/24 13:15 02/28/24 13:06 02/28/24 07:19 02/28/24 06:34 97 Intake and Output 02/28/24 02/28/24 02/28/24 06:59 14:59 22:59 Intake Total 300 3491 75.606 Output Total 1705 635 Balance 300 1786 -559.394 Intake: IV 300 3491 Intake, IV Titration 75.606 Amount Phenylephrine 40 mg In 0.606 Sodium Chloride 0.9% 250 ml @ 0.5 MCG/KG/MIN 12. 135 mls/hr IV .[id number] ZHANG Rx#:[id number] Sodium Chloride 0.9% 1, 75 000 ml @ 75 mls/hr IV . [id number] ZHANG Rx#:[id number] Output: Urine 905 635 Estimated Blood Loss 800 Other: Weight 63.7 kg ABP, PAP, CO, CI - Last 8 Hours Arterial Blood Pressure 103/47 Arterial Blood Pressure 169/71 Arterial Blood Pressure 151/70 Arterial Blood Pressure 109/54 General appearance the patient is calm comfortable no acute distress, currently on 2 L of oxygen by nasal cannula Head exam was generally normal. There was no scleral icterus or corneal arcus. Mucous membranes were moist. Neck was supple and without jugular venous distension, thyromegaly, or carotid bruits. Carotids were easily palpable bilaterally. There was no adenopathy. Lungs were clear to auscultation and percussion, and with normal diaphragmatic excursion. No wheezes or rales were noted. Cardiac exam revealed the PMI to be normally situated and sized. The rhythm was regular and no extrasystoles were noted during several minutes of auscultation. The first and second heart sounds were normal and physiologic splitting of the second heart sound was noted. There were no murmurs, rubs, clicks, or gallops. Abdominal exam revealed normal bowel sounds. The abdomen was soft, non-tender, and without masses, organomegaly, or appreciable enlargement of the abdominal aorta. Examination of the extremities revealed easily palpable radial, femoral and pedal pulses. There was no cyanosis, clubbing or edema. Skin shows a clear surgical wound site over the posterior back area and the patient has a Hemovac in place. Results - Laboratory Findings CBC and BMP: 02/28/24 14:04 02/28/24 08:38 Abnormal lab findings: Abnormal Labs 02/28/24 02/28/24 02/28/24 08:38 08:38 14:04 RBC 3.68 L 2.80 L Hgb 9.3 L D Hct 27.2 L Plt Count 130 L Sodium 134 L POC Glucose (mg/dL) 02/28/24 16:39 RBC Hgb Hct Plt Count Sodium POC Glucose (mg/dL) 131 H Assessment and Plan Plan: Acute hypotension, multifactorial. Could be related to anesthetic effect as the patient had a lengthy prolonged surgery under general anesthesia. There was also some blood loss in order of 800 cc. The patient was given 2 L of Cell Saver's and a liter of IV fluids and the patient's hemoglobin is currently sta ble at 9.3. The patient did encounter a brief hypotension postop and currently she is normotensive. She is off pressors. She required Steve-Synephrine for short period of time and blood pressure normalized. No evidence of any acute or active bleeding Lumbar decompression/fusion, multiple levels L2-S1. Please refer to the surgical note. Hypertension Hyperlipidemia Previous history of CVA/TIA Hypothyroidism Osteoarthritis Previous history of osteoporosis History of skin cancer History of paraesophageal hiatal hernia, with previous laparoscopic surgical repair Coronary artery disease Chronic anxiety/depression Plan Provided incentive spirometer Monitor blood pressure Restart atenolol if the patient's blood pressure continues to be persistently elevated gradually introduce rest of antihypertensive medication including amlodipine and lisinopril Monitor hemoglobin Monitor output from Hemovac Incentive spirometer Pain control with Tylenol 3's and Dilaudid on as-needed basis Normal saline at rate of 75 cc an hour Compression devices to lower extremities for DVT prophylaxis Obtain a chest x-ray Will continue to follow.
--- NOTE | 2024-02-28 18:04 | XR ---
EXAMINATION TYPE: XR chest 1V DATE OF EXAM: 02/28/2024 5:50 PM CLINICAL INDICATION:Female, 79 years old with history of post hypotension; COMPARISON: Chest radiographs from 02/19/2024 TECHNIQUE: XR chest 1V Frontal view of the chest. FINDINGS: Lungs/Pleura: There is no evidence of pleural effusion, focal consolidation, or pneumothorax. Pulmonary vascularity: Unremarkable. Heart/mediastinum: Cardiomediastinal silhouette is unremarkable. Musculoskeletal: No acute osseous pathology. There is fixation hardware in the lower cervical and the upper lumbar spine hardware appears intact. Right shoulder arthroplasty changes hardware appears int act. Left shoulder degeneration changes. Other findings: None IMPRESSION: No acute cardiopulmonary disease/process.
[2024-02-28] MEDS: SODIUM CHLORIDE 0.9% 1,000 ML IV SCH (19:47)
[2024-02-28] MEDS: ONDANSETRON 4 MG/2 ML VIAL IVP PRN (20:09)
[2024-02-29] MEDS: Acetaminophen-Codeine 300-30mg TAB PO PRN (00:28)
[2024-02-29 05:00] LABS: Basophils % (A) 0 %; Eosinophils % (A) 0 %; HCT 28.5 % (34.0-46.0); HGB 9.4 gm/dL (11.4-16.0); Lymphocytes # (A) 0.6 k/uL (1.0-4.8); Lymphocytes % (A) 6 %; MCH 31.9 pg (25.0-35.0); MCHC 32.9 g/dL (31.0-37.0); Mean Platelet Volume 8.2; Monocytes # (A) 0.6 k/uL (0-1.0); Monocytes % (A) 6 %; Neutrophils # (A) 8.4 k/uL (1.3-7.7); Neutrophils % (A) 87 %; Platelet Count 138 k/uL (150-450); RBC 2.94 m/uL (3.80-5.40); RDW 12.3 % (11.5-15.5); WBC 9.7 k/uL (3.8-10.6)
[2024-02-29 05:09] LABS: African American GFR (CKD) >90 (>60 ml/min/1.73 sqM); Anion Gap 8 mmol/L; Blood Urea Nitrogen 10 mg/dL (7-17); Calcium 7.6 mg/dL (8.4-10.2); Carbon Dioxide 22 mmol/L (22-30); Chloride 103 mmol/L (98-107); Glucose 112 mg/dL (74-99); Non-African American GFR(CKD) >90 (>60 ml/min/1.73 sqM); Potassium 3.3 mmol/L (3.5-5.1); Sodium 133 mmol/L (137-145)
[2024-02-29] MEDS ORDERED: Potassium Replacement Protocol 1 EACH MISC MISCELLANE PRN (05:45)
[2024-02-29] MEDS: POTASSIUM CHLORIDE 10 MEQ in WATER FOR INJECTION 1 100ML.BAG IVPB SCH ×2 (05:56→15:30)
--- NOTE | 2024-02-29 06:33 | P.PN ---
Subjective Progress Note Date: 02/29/24 Principal diagnosis: Hypotension. This is a 79-year-old female patient got transferred to the intensive care for the patient underwent a spine surgery and following the surgery the patient was found to be hypotensive. The patient was given Cell Saver's and a liter of IV fluid and started on low-dose Steve-Synephrine. After arrival to the ED ICU, the patient demonstrated adequate blood pressure control. Steve-Synephrine was discontinued. In fact her blood pressure is currently within normal limits and she is known to have hypertension she takes antihypertensive medication at home. Hemoglobin has dropped from a baseline of 11.9 down to 9.3. She has a Hemovac in her surgical bed and there is no evidence of any active bleeding. The patient has a lengthy and extensive surgery for spinal stenosis and the patient had multilevel decompression and fusion involving L2-L3, L3-L4, L4-5, L5-S1. Please refer to the detailed surgical notes. No chest pain. No swelling in low er extremities. The patient is currently on normal citrate of 75 cc an hour. No specific complaints otherwise. Hemodynamically stable and her pulse ox is 98% on 3 L of oxygen by nasal cannula. Progress note dated February 29, 2024. The patient is seen today in room 257. She was admitted on February 27, after having had a extensive surgery of the spine, with multilevel decompression, and fusion, involving L2-S1. The patient is here in the intensive care unit, because of hypotension. The patient has received fluid resuscitation, and is currently on saline at 75 cc an hour. She continues on Ancef, and Steve-Synephrine at 0.5 mcg/kg/min. Today's postop day #1. White count is 9.7, hemoglobin 9.4, he matocrit 28.5, platelet count 138,000. Sodium 133, potassium 3.3, chlorides 103, CO2 22, BUN 10, creatinine 0.36. Glucose is 112. Calcium is 7.6. No chest x-ray today. Chest x-ray from February for shows no acute cardiopulmonary disease. Objective - Vital Signs Vital signs: Vital Signs Temp 96.8 F L 02/29/24 00:00 Pulse 67 02/29/24 05:00 Resp 18 02/29/24 05:00 BP 92/53 02/29/24 01:45 Pulse Ox 100 02/29/24 05:00 FiO2 Intake & Output 02/28/24 02/28/24 02/29/24 06:59 18:59 06:59 Intake Total 300 3793.022 1021.385 Output Total 2490 1160 Balance 300 1303.022 -138.615 Weight 63.7 kg Intake: IV 300 3641 840 Pressure Bag 15 Sodium Chloride 0.9% 1, 150 825 000 ml @ 75 mls/hr IV . [id number] [facility] Rx#:[id number] Intake, IV Titration 152.022 181.385 Amount Phenylephrine 40 mg In 2.022 81.385 Sodium Chloride 0.9% 250 ml @ 0.5 MCG/KG/MIN 12. 135 mls/hr IV .[id number] [facility] Rx#:[id number] Sodium Chloride 0.9% 1, 150 000 ml @ 75 mls/hr IV . [id number] [facility] Rx#:[id number] ceFAZolin 2 gm In Sodium 50 Chloride 0.9% 50 ml @ 100 mls/hr IVPB ONCE PRN Rx# :[id number] ceFAZolin 2 gm In Sodium 50 Chloride 0.9% 50 ml @ 100 mls/hr IVPB Q8HR [facility] Rx# :[id number] Output: Drainage 160 Back 160 Urine 1690 1000 Estimated Blood Loss 800 ABP, PAP, CO, CI - Last Documented Arterial Blood Pressure 109/46 - Exam No acute distress, oriented 3. No respiratory distress or difficulty. HEENT examination is grossly unremarkable. Mucous membranes are moist. No oral lesions. Neck supple. Full range of motion. No adenopathy thyromegaly or neck vein distention. Cardiovascular examination reveals regular rhythm rate. S1-S2 normal. No S3 or S4. No discernible murmur noted. Heart rate 67 bpm. Lungs reveal clear breath sounds. Breath sounds are equal bilaterally. No a dventitious lung sounds including wheezes rhonchi or crackles. Saturations are 99%. Abdomen soft with bowel sounds. No masses or tenderness. Extremities are intact. No cyanosis clubbing or edema. Skin is without rash or lesion. Neurologic examination is brief but nonfocal. - Labs CBC & Chem 7: 02/29/24 04:20 02/29/24 04:20 Labs: Abnormal Lab Results - Last 24 Hours (Table) 05/11/2202/28/24 02/28/24 Range/Units 08:38 08:38 14:04 RBC 3.68 L 2.80 L (3.80-5.40) m/uL Hgb 9.3 L D (11.4-16.0) gm/dL Hct 27.2 L (34.0-46.0) % Plt Count 130 L (150-450) k/uL Neutrophils # (1.3-7.7) k/uL Lymphocytes # (1.0-4.8) k/uL Sodium 134 L (137-145) mmol/L Potassium (3.5-5.1) mmol/L Creatinine (0.52-1.04) mg/dL Glucose (74-99) mg/dL POC Glucose (mg/dL) (70-110) mg/dL Calcium (8.4-10.2) mg/dL 02/28/24 02/29/24 02/29/24 Range/Units 16:39 04:20 04:20 RBC 2.94 L (3.80-5.40) m/uL Hgb 9.4 L (11.4-16.0) gm/dL Hct 28.5 L (34.0-46.0) % Plt Count 138 L (150-450) k/uL Neutrophils # 8.4 H (1.3-7.7) k/uL Lymphocytes # 0.6 L (1.0-4.8) k/uL Sodium 133 L (137-145) mmol/L Potassium 3.3 L (3.5-5.1) mmol/L Creatinine 0.36 L (0.52-1.04) mg/dL Glucose 112 H (74-99) mg/dL POC Glucose (mg/dL) 131 H (70-110) mg/dL Calcium 7.6 L (8.4-10.2) mg/dL Assessment and Plan Assessment: Acute hypotension, multifactorial. Could be related to anesthetic effect as the patient had a lengthy prolonged surgery under general anesthesia. There was also some blood loss in order of 800 cc. The patient was given 2 L of Cell Saver's and a liter of IV fluids and the patient's hemoglobin is currently stable at 9.3. The patient did encounter a brief hypotension postop and currently she is normotensive. She is off pressors. She required Steve- Synephrine for short period of time and blood pressure normalized. No evidence of any acute or active bleeding Lumbar decompression/fusion, multiple levels L2-S1. Please refer to the surgical note. Postoperative day #1. Hypertension Hyperlipidemia Previous history of CVA/TIA Hypothyroidism Osteoarthritis Previous history of osteoporosis History of skin cancer History of paraesophageal hiatal hernia, with previous laparoscopic surgical repair Coronary artery disease Chronic anxiety/depression Plan: Plan dated February 29, 2024. The patient continues to use the incentive spirometer. She continues on Steve- Synephrine for blood pressure support. She is also received 1 unit of packed red blood cells. She is getting saline at 75 cc an hour. She continues on IV Ancef. Labs, x-rays, medications are reviewed. The patient continues on compression devices for lower extremity DVT prophylaxis. We will continue to follow make recommendations along the way. Prognosis is guarded. She has received 1 unit of packed red blood cells. Time with Patient: Greater than 30
[2024-02-29] MEDS: SENNOSIDES-DOCUSATE SODIUM 1 EACH TAB PO SCH (09:41)
--- NOTE | 2024-02-29 11:18 | P.PN ---
Progress Note - Text Progress Note Date: 02/29/24 Postoperative day #1 Patient is seen and examined today at bedside. She is still in the intensive care unit overnight. She remains on pressors as her blood pressure is a bit labile. They tried to wean her down but her blood pressure dropped to the 80s and are continuing with the pressors today. Patient says that she is sore all over and the patient has some pain around the surgical site as expected. Pain is being controlled with medication. She is tolerating the IV Dilaudid with Zofran but still has some nausea which seems to be settling. She feels her legs are doing well. She does not have any new weakness or numbness or tingling. Physical Exam Afebrile with stable vital signs Abdomen is soft nontender. Chest has good excursion deep and space expiration her Schuler catheter is intact The incision site is clean dry and intact. No erythema there is no purulence. Her lower extremities have sustained dorsiflexion plantarflexion EHL intact Extremities have not had neurologic change from prior to surgery. Calves and thighs were soft nontender without evidence of DVT. Assessment/Plan Postoperative day #1 status post open decompression fusion L2-3 L3-4 L4-5 L5-S1 for severe spinal stenosis with spondylolisthesis Patient is progressing a bit slowly as expected from the surgery. Her pressures are still labile and she is requiring pressors to maintain her blood pressure. She will remain in the intensive care unit with close observation from critical care. I agree with her notation. I discussed with the nurse and we are in agreement. It is okay for the patient to try to mobilize and get up at the side of the bed or to up to a chair if she is able and she has remained stable. She does not need a brace to get up to a chair. Her sister has a brace which she is bringing in for her when she does more therapy. I spoke with the patient's daughter and answered her questions as well. We will continue to increase the patient's mobilization with therapy. We will continue pain control with oral or IV medications. We'll continue to follow patient closely.
[2024-02-29] MEDS: HYDROmorphone 1 MG/ML 1 ML SYRINGE IVP PRN (11:49)
--- NOTE | 2024-02-29 18:01 | P.CONS ---
History of Present Illness - Reason for Consult Consult date: 02/29/24 - History of Present Illness Aleena Tovar, is a 79-year-old female who was admitted to [facility] by Dr. Landon and underwent open posterior lateral decompression and fusion L2-3 34 L4-5 L5-S1, please see orthopedic note for complete description of operation, postoperative the patient was hypotensive, she was started on IV fluid And IV pressors and was admitted to intensive care unit, medical consultation was requested. past medical history is significant for history of hypertension, history of hyperlipidemia, history of hypothyroidism, history of degenerative disc disease, history of osteoporosis, history of CVA, and history of thyroid nodule, history of osteoarthritis and history of decreased hearing. Past Medical History Past Medical History: Cancer, CVA/TIA, Eye Disorder, Hearing Disorder / Deafness, Hyperlipidemia, Hypertension, Musculoskeletal Disorder, Osteoarthritis (OA), Thyroid Disorder Additional Past Medical History / Comment(s): Right leg pain, "severe deterioration in spine." Hx skin cancer. 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 CONSTANT DIZZINESS - STATES NERVE DAMAGE FROM BRAIN TO EAR, MILD [place] IN RIGHT EAR, GETTING BETTER. 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 HX KIDNEY STONES. Hx C-DIFF-2017. Hx ulcers. Osteoporosis. Hx Shingles/still has headaches from it daily or every other day. History of Any Multi-Drug Resistant Organisms: None Reported Year Discovered:: None MDRO Source:: None Past Surgical History: Joint Replacement, Orthopedic Surgery Additional Past Surgical History / Comment(s): LITHOTRIPSY, KIDNEY SURGERY to remove large stone from ureter, LEFT ACHILLES TENDON REPAIR, RIGHT KNEE ARTHROSCOPY, RIGHT ROTATOR CUFF REPAIR, BILATRAL CARPAL TUNNEL SURGERY, bilateral total knee arthroplasties, colonoscopy, sinus surgery, D&C, skin cancer removed from abdomen, right shoulder replacement, cervical fusion, emergency diaphragmatic hernia repair. paraesophageal hernia reapair/08/30/23 Past Anesthesia/Blood Transfusion Reactions: No Reported Reaction Additional Past Anesthesia/Blood Transfusion Reaction / Comm: HX BLOOD TRANSFUSION-NO REACTION. Smoking Status: Former smoker - Past Family History Mother Family Medical History: No Reported History Additional Family Medical History / Comment(s): . Sister(s) Family Medical History: Deep Vein Thrombosis (DVT) Medications and Allergies Home Medications Medication Instructions Recorded Confirmed Type Ergocalciferol (Vitamin D2) 50,000 unit PO Q14D 09/08/16 02/28/24 History [Drisdol] Levothyroxine Sodium [Synthroid] 88 mcg PO HS 09/08/16 02/28/24 History Acetaminophen [Tylenol] 1,000 mg PO TID 08/05/19 02/26/24 History Ferrous Sulfate [Iron (65 MG 325 mg PO DAILY 08/05/19 02/26/24 History Elemental)] Multivitamins, Thera [Multivitamin 2 tab PO 1200 08/05/19 02/26/24 History (formulary)] Gabapentin [Neurontin] 600 mg PO TID 01/01/21 02/26/24 History Famotidine [Pepcid] 20 mg PO BID 11/26/21 02/26/24 History Pantoprazole Sodium [Protonix] 40 mg PO QAM 11/26/21 02/28/24 History Red Yeast Rice 1,200 mg PO 11/26/21 02/26/24 History amLODIPine [Norvasc] 10 mg PO QAM 11/26/21 02/26/24 History atenoloL [Tenormin] 25 mg PO HS 11/26/21 02/26/24 History atenoloL [Tenormin] 50 mg PO QAM 11/26/21 02/26/24 History lisinopriL 40 mg PO QAM 11/26/21 02/26/24 History Evolocumab [Repatha Syringe] 140 mg SQ Q14D 09/01/22 02/28/24 History Loratadine [Claritin] 10 mg PO QAM 09/01/22 02/26/24 History Potassium Gluconate 99 mg PO DAILY 07/04/23 02/26/24 History Rosuvastatin Calcium 2.5 mg PO TUTH 07/04/23 02/28/24 History Allergies Allergy/AdvReac Type Severity Reaction Status Date / Time diazepam [From Valium] Allergy Severe Nausea & Verified 02/28/24 06:22 Vomiting, dizzy,muscle pain,mouth numb escitalopram oxalate Allergy Severe Nausea & Verified 02/28/24 06:22 [From Lexapro] Vomiting, dizzy,muscle pain, mouth numb fluticasone propionate Allergy Severe Nausea & Verified 02/28/24 06:22 [From Flonase] Vomiting, dizzy,muscle pain, mouth numb furosemide [From Lasix] Allergy Severe Nausea & Verified 02/28/24 06:22 Vomiting,dizzy, muscle pain, mouth numb hydrocodone bitartrate Allergy Severe Nausea & Verified 02/28/24 06:22 [From Lortab] Vomiting,Dizzy, Muscle Pain, Mouth Numb meclizine HCl [From Antivert] Allergy Severe Nausea & Verified 02/28/24 06:22 Vomiting,dizzy,muscle pain, mouth numb olmesartan medoxomil Allergy Severe Nausea & Verified 02/28/24 06:22 [From Benicar] Vomiting, dizzy, muscle pain, mouth numb promethazine Allergy Severe Nausea & Verified 02/28/24 06:22 Vomiting, dizzy , muscle pain, mouth numb Tkxcypp-BZS-AkX Reductase Allergy Severe Nausea & Verified 02/28/24 06:22 Inhibitor Vomiting,dizzy, [Emmncxq-Cbc-Jiz Reductase muscle Inhibitor] pain, mouth numb tizanidine HCl Allergy Severe Nausea & Verified 02/28/24 06:22 [From Zanaflex] Vomiting,dizzy,muscle pain,mouth numb spironolactone Allergy Unknown NUMBNESS Verified 02/28/24 06:22 [From Aldactone] IN FACE, NAUSEA ketorolac Allergy Nausea & Verified 02/28/24 06:22 Vomiting NSAIDS (Non-Steroidal Allergy Unknown Verified 02/28/24 06:22 Anti-Inflamma prednisone Allergy Dyspnea, Verified 02/28/24 06:22 Nausea & Vomiting, Dizzy, Muscle Pain, Mouth Numb. scopolamine Allergy Chest Pain Verified 02/28/24 06:22 Sulfa (Sulfonamide Allergy Nausea & Verified 02/28/24 06:22 Antibiotics) Vomiting,dizzy,muscle pain, mouth numb. tramadol AdvReac Severe NAUSEA AND Verified 02/28/24 06:22 VOMITING Physical Exam Vitals: Vital Signs Temp Pulse Pulse Resp BP Pulse Ox 02/29/24 17:00 87 19 86/48 90 L 02/29/24 16:30 82 25 H 86/48 98 02/29/24 16:00 99.1 F 76 9 L 86/48 100 02/29/24 15:30 81 4 L 86/48 100 02/29/24 15:00 84 9 L 86/48 99 05/02/24 14:30 80 18 86/48 100 02/29/24 14:00 90 12 86/48 99 02/29/24 13:30 75 7 L 86/48 100 02/29/24 13:00 78 10 L 86/48 99 02/29/24 12:30 74 16 86/48 99 02/29/24 12:00 98.3 F 74 65 11 L 86/48 100 02/29/24 11:30 78 7 L 86/48 100 02/29/24 11:00 71 12 86/48 100 02/29/24 10:30 77 7 L 86/48 100 02/29/24 10:00 74 5 L 114/60 100 02/29/24 09:30 72 18 100 02/29/24 09:00 61 13 114/60 100 02/29/24 08:30 67 0 L 99 02/29/24 08:00 98.9 F 77 65 10 L 99 02/29/24 07:30 71 8 L 99 02/29/24 07:00 71 17 99 02 06:45 71 16 98 02 06:30 68 18 99 02/29/24 06:15 67 16 100 02/29/24 06:00 70 18 99 02/29/24 05:45 65 18 99 02/29/24 05:30 72 17 99 02/29/24 05:15 68 15 100 02/29/24 05:00 67 18 100 02/29/24 04:45 69 19 98 02/29/24 04:30 68 20 99 02 04:15 64 16 99 02/29/24 04:00 66 18 99 02/29/24 03:45 66 17 99 02/29/24 03:30 65 15 98 02 03:24 65 02 03:15 64 17 98 02 03:00 66 15 99 02/29/24 02:45 68 12 98 02 02:30 74 16 98 02 02:15 71 20 99 02/29/24 02:00 70 18 99 02/29/24 01:45 64 6 L 92/53 99 02/29/24 01:30 67 17 92/53 93 L 02/29/24 01:15 76 11 L 92/53 95 02/29/24 01:00 73 10 L 92/53 96 02/29/24 00:45 69 15 92/53 92 L 02/29/24 00:30 81 13 92/53 98 02/29/24 00:15 68 23 95 02/29/24 00:00 96.8 F L 67 15 95 02/28/24 23:45 66 15 93 L 02/28/24 23:30 64 16 95 02/28/24 23:15 64 18 93 L 02/28/24 23:09 64 17 94 L 02/28/24 23:05 65 02/28/24 23:00 68 17 93 L 02/28/24 22:45 63 15 94 L 02/28/24 22:30 62 16 93 L 02/28/24 22:15 64 13 96 02/28/24 22:00 63 17 92/53 100 02/28/24 21:45 65 18 92/53 100 02/28/24 21:30 64 17 100 02/28/24 21:15 64 15 99 02/28/24 21:00 64 16 100 02/28/24 20:45 62 18 100 02/28/24 20:30 78 22 99 02/28/24 20:15 66 20 98 02/28/24 20:00 96.3 F L 68 65 16 99 02/28/24 19:45 60 21 99 02/28/24 19:30 61 19 98 02/28/24 19:15 61 18 98 02/28/24 19:00 74 16 99 02/28/24 18:45 70 8 L 99 02/28/24 18:40 62 2 L 92/53 100 02/28/24 18:30 63 2 L 92/53 100 02/28/24 18:20 64 0 L 92/53 96 02/28/24 18:10 60 2 L 92/53 97 02/28/24 18:00 61 0 L 92/53 99 Intake and Output 02/29/24 02/29/24 02/29/24 06:59 14:59 22:59 Intake Total 630.046 725.610 280.800 Output Total 720 690 280 Balance -89.954 35.610 0.800 Intake: IV 540 624 234 Pressure Bag 15 24 9 Sodium Chloride 0.9% 1, 525 600 225 000 ml @ 75 mls/hr IV . [id number] Rx#:[id number] Intake, IV Titration 90.046 101.610 46.800 Amount Phenylephrine 40 mg In 40.046 101.610 46.800 Sodium Chloride 0.9% 250 ml @ 0.5 MCG/KG/MIN 12. 135 mls/hr IV .[id number] [facility] Rx#:[id number] ceFAZolin 2 gm In Sodium 50 Chloride 0.9% 50 ml @ 100 mls/hr IVPB ONCE PRN Rx# :[id number] Output: Drainage 160 140 Back 160 140 Urine 560 550 280 Other: Weight 69.9 kg ABP, PAP, CO, CI - Last 8 Hours Arterial Blood Pressure 126/54 Arterial Blood Pressure 131/53 Arterial Blood Pressure 123/49 Arterial Blood Pressure 138/49 Arterial Blood Pressure 103/43 Arterial Blood Pressure 99/43 Arterial Blood Pressure 107/54 Arterial Blood Pressure 120/53 Arterial Blood Pressure 114/50 Arterial Blood Pressure 110/47 Arterial Blood Pressure 123/47 Arterial Blood Pressure 118/49 Arterial Blood Pressure 131/55 Arterial Blood Pressure 108/46 Arterial Blood Pressure 108/50 In general patient is alert and oriented x 3 in no distress HEENT head normocephalic and atraumatic Neck is supple no JVD no goiter no lymphadenopathy no carotid bruit Chest examination is clear to auscultation no crackles no wheezing Cardiac exam reveals regular heart sounds S1 and S2 no gallops no murmurs Abdomen is soft nontender no organomegaly with normal bowel sounds Extremity exam reveals no edema no cyanosis or clubbing Neurological examination reveals no gross focal deficits Results CBC & Chem 7: 02/29/24 04:20 02/29/24 14:55 Labs: Abnormal Lab Results - Last 24 Hours (Table) 02/29/24 02/29/24 Range/Units 04:20 04:20 RBC 2.94 L (3.80-5.40) m/uL Hgb 9.4 L (11.4-16.0) gm/dL Hct 28.5 L (34.0-46.0) % Plt Count 138 L (150-450) k/uL Neutrophils # 8.4 H (1.3-7.7) k/uL Lymphocytes # 0.6 L (1.0-4.8) k/uL Sodium 133 L (137-145) mmol/L Potassium 3.3 L (3.5-5.1) mmol/L Creatinine 0.36 L (0.52-1.04) mg/dL Glucose 112 H (74-99) mg/dL Calcium 7.6 L (8.4-10.2) mg/dL Assessment and Plan Plan: postoperative hypotension likely related to anesthesia Status post lumbar decompression and fusion Underlying history of hypertension Underlying history of hyperlipidemia Underlying history of hypothyroidism Previous history of CVA Underlying history of osteoarthritis Underlying history of osteoporosis Underlying history of coronary artery disease Underlying history of depression with anxiety disorder At this time patient is admitted to intensive care unit She is maintained on IV fluid IV pressors has been discontinued Home medications reviewed and reordered, will hold blood pressure medication and advance them as necessary Will follow during this admission for medical management
[2024-02-29] MEDS: CYCLOBENZAPRINE 5 MG TAB PO PRN (19:42)
[2024-03-01 04:44] LABS: Basophils % (A) 0 %; Eosinophils % (A) 0 %; HCT 28.1 % (34.0-46.0); HGB 9.4 gm/dL (11.4-16.0); Lymphocytes # (A) 0.5 k/uL (1.0-4.8); Lymphocytes % (A) 5 %; MCH 32.7 pg (25.0-35.0); MCHC 33.5 g/dL (31.0-37.0); MCV 97.6 fL (80.0-100.0); Mean Platelet Volume 8.5; Monocytes # (A) 0.6 k/uL (0-1.0); Monocytes % (A) 6 %; Neutrophils # (A) 8.1 k/uL (1.3-7.7); Neutrophils % (A) 86 %; Platelet Count 104 k/uL (150-450); RBC 2.88 m/uL (3.80-5.40); RDW 12.4 % (11.5-15.5); WBC 9.4 k/uL (3.8-10.6)
[2024-03-01 05:07] LABS: ALT 14 U/L (4-34); AST 35 U/L (14-36); African American GFR (CKD) >90 (>60 ml/min/1.73 sqM); Albumin 2.8 g/dL (3.5-5.0); Alkaline Phosphatase 67 U/L (38-126); Anion Gap 1 mmol/L; Blood Urea Nitrogen 7 mg/dL (7-17); Calcium 7.8 mg/dL (8.4-10.2); Carbon Dioxide 26 mmol/L (22-30); Chloride 103 mmol/L (98-107); Glucose 106 mg/dL (74-99); Non-African American GFR(CKD) >90 (>60 ml/min/1.73 sqM); Potassium 3.3 mmol/L (3.5-5.1); Sodium 130 mmol/L (137-145); Total Bilirubin 0.5 mg/dL (0.2-1.3); Total Protein 4.8 g/dL (6.3-8.2)
[2024-03-01] MEDS ORDERED: Potassium Replacement Protocol 1 EACH MISC MISCELLANE PRN (05:19)
[2024-03-01] MEDS: POTASSIUM BICARBONATE/CIT AC 20 MEQ TABLET.EFF NG-TUBE SCH (06:05)
--- NOTE | 2024-03-01 08:46 | P.PN ---
Progress Note - Text Progress Note Date: 03/01/24 Orthopedic Spine History of present illness: Patient is a pleasant 79-year-old female who is seen and examined at the bedside following posterior lateral decompression and fusion performed Monday. She continues to be in the ICU due to postoperative hypotension. Nursing states her pressures have significantly improved and have remained stable. They may be planning for transfer out of the ICU today. She does continue have significant difficulty with pain postoperatively. She states she has pain at the surgical site at her lumbar spine as well as generalized pain over her entire lower extremities. She has not mobilized out of bed. She states she is not ready to work with physical therapy. We did discuss the importance of trying to increase her mobility and ambulation. Will try to have her transfer to a bedside chair with physical therapy today. She is progressing slowly postoperatively. Her Schuler catheter remains intact. Her daughter is on the phone in the room and patient is discussed with her daughter. Patient states they are doing well post operatively. Currently does not complain of nausea, vomiting, fever, or chills. Patient states pain has been adequately controlled. Patient is eating and voiding freely without difficulty. Physical Exam Lumbar Fusion: Status post surgical day number 2 Patient is awake, alert, and oriented 3 Vital signs stable Good chest excursion with deep inspiration and expiration Dorsiflexion, plantarflexion, and extensor hallucis longus positive sustained bilaterally Generalized pain with palpation over her entire lower extremities bilaterally No signs or symptoms of DVT; no calf pain; pneumatic cuffs intact bilateral lower extremities Optifoam dressings are clean, dry, and intact over the lumbar spine and right iliac crest; no erythema, purulence, or signs of infection Hemovac drain is removed at the bedside with Optifoam dressing reapplied Neurovascularly intact bilaterally lower extremities Schuler catheter intact Assessment: Status post open L2-3, L3-4, L4-5, and L5-S1 posterior lateral decompression and fusion with L4-5 transforaminal lumbar interbody fusion Low back pain Lower extremity pain 23, L3-4, L4-5, and L5-S1 severe lumbar spinal stenosis L4-5 grade 3 spondylolisthesis L5-S1 grade 2 spondylolisthesis Lumbar foraminal stenosis Neurogenic claudication Severe lumbar facet arthrosis Postoperative hypotension History of hypertension Hyperlipidemia Hypothyroidism History of CVA/TIA History of skin cancer Coronary artery disease Plan: 1. Ambulate as tolerated; work with Physical Therapy to increase mobilization 2. Continue pain control with IV and oral medications as prescribed as needed for pain control 3. Dressings to remain intact with Optifoam; patient may shower with dressings intact; Hemovac drain was discontinued 4. Medicine and pulmonology will continue to manage patient for patient's other medical diagnoses including significant postoperative hypotension 5. We will continue to follow the patient closely; patient will need discharge to a rehabilitation facility at the time of discharge. Patient will need to be cleared by multiple medical providers prior to discharge. Patient will also need better pain control and will need her pain to be able to be controlled with oral medications. 6. Patient can follow-up with Smith Herrera PA-C or Dr. Melvin Landon at [facility] in 2-3 weeks following discharge
--- NOTE | 2024-03-01 11:03 | P.PN ---
Subjective Progress Note Date: 03/01/24 Aleena Tovar, is a 79-year-old female who was admitted to [facility] by Dr. Landon and underwent open posterior lateral decompression and fusion L2-3 34 L4-5 L5-S1, please see orthopedic note for complete description of operation, postoperative the patient was hypotensive, she was started on IV fluid And IV pressors and was admitted to intensive care unit, medical consultation was requested. past medical history is significant for history of hypertension, history of hyperlipidemia, history of hypothyroidism, history of degenerative disc disease, history of osteoporosis, history of CVA, and history of thyroid nodule, history of osteoarthritis and history of decreased hearing. on 03/01/2024 patient is alert and oriented 3. blood pressure is improved but heart rate elevated. cardiology service is consulted. Current vital signsheart rate 109, respiratory rate 12, blood pressure 125 or 69 with pulse ox 98. Patient denies chest pain or shortness breath. Patient denies nausea vomiting or diarrhea. Patient denies any urinary burning or frequency Objective - Vital Signs Vital signs: Vital Signs Temp 99.4 F 03/01/24 07:30 Pulse 84 03/01/24 08:00 Resp 14 03/01/24 08:00 BP 125/69 03/01/24 08:00 Pulse Ox 98 03/01/24 08:00 FiO2 Intake & Output 02/29/24 03/01/24 03/01/24 18:59 06:59 18:59 Intake Total 2484.623 2349 78 Output Total 1025 1045 95 Balance 60.624 -31 -17 Weight 67.6 kg Intake: IV 936 1014 78 Pressure Bag 36 39 3 Sodium Chloride 0.9% 1, 900 975 75 000 ml @ 75 mls/hr IV . [id number] [facility] Rx#:[id number] Intake, IV Titration 149.624 Amount Phenylephrine 40 mg In 149.624 Sodium Chloride 0.9% 250 ml @ 0.5 MCG/KG/MIN 12. 135 mls/hr IV .[id number] [facility] Rx#:[id number] Output: Drainage 140 15 Back 140 15 Urine 885 1030 95 ABP, PAP, CO, CI - Last Documented Arterial Blood Pressure 111/48 - Exam In general patient is alert and oriented x 3 in no distress HEENT head normocephalic and atraumatic Neck is supple no JVD no goiter no lymphadenopathy no carotid bruit Chest examination is clear to auscultation no crackles no wheezing Cardiac exam reveals regular heart sounds S1 and S2 no gallops no murmurs Abdomen is soft nontender no organomegaly with normal bowel sounds Extremity exam reveals no edema no cyanosis or clubbing Neurological examination reveals no gross focal deficits - Labs CBC & Chem 7: 03/01/24 04:30 03/01/24 09:59 Labs: Abnormal Lab Results - Last 24 Hours (Table) 03/01/24 03/01/24 Range/Units 04:30 04:30 RBC 2.88 L (3.80-5.40) m/uL Hgb 9.4 L (11.4-16.0) gm/dL Hct 28.1 L (34.0-46.0) % Plt Count 104 L (150-450) k/uL Neutrophils # 8.1 H (1.3-7.7) k/uL Lymphocytes # 0.5 L (1.0-4.8) k/uL Sodium 130 L (137-145) mmol/L Potassium 3.3 L (3.5-5.1) mmol/L Creatinine 0.34 L (0.52-1.04) mg/dL Glucose 106 H (74-99) mg/dL Calcium 7.8 L (8.4-10.2) mg/dL Total Protein 4.8 L (6.3-8.2) g/dL Albumin 2.8 L (3.5-5.0) g/dL Assessment and Plan Plan: postoperative hypotension likely related to anesthesia Status post lumbar decompression and fusion Underlying history of hypertension Underlying history of hyperlipidemia Underlying history of hypothyroidism Previous history of CVA Underlying history of osteoarthritis Underlying history of osteoporosis Underlying history of coronary artery disease Underlying history of depression with anxiety disorder At this time patient is admitted to intensive care unit She is maintained on IV fluid IV pressors has been discontinued Home medications reviewed and reordered, will hold blood pressure medication and advance them as necessary Will follow during this admission for medical management
[2024-03-01] MEDS: Acetaminophen-Codeine 300-30mg TAB PO PRN (12:18)
--- NOTE | 2024-03-01 13:19 | P.PN ---
Subjective Progress Note Date: 03/01/24 This is a 79-year-old female patient got transferred to the intensive care for the patient underwent a spine surgery and following the surgery the patient was found to be hypotensive. The patient was given Cell Saver's and a liter of IV fluid and started on low-dose Steve-Synephrine. After arrival to the ED ICU, the patient demonstrated adequate blood pressure control. Steve-Synephrine was discontinued. In fact her blood pressure is currently within normal limits and she is known to have hypertension she takes antihypertensive medication at home. Hemoglobin has dropped from a baseline of 11.9 down to 9.3. She has a Hemovac in her surgical bed and there is no evidence of any active bleeding. The patient has a lengthy and extensive surgery for spinal stenosis and the patient had multilevel decompression and fusion involving L2-L3, L3-L4, L4-5, L5-S1. Please refer to the detailed surgical notes. No chest pain. No swelling in lower extremities. The patient is currently on normal citrate of 75 cc an hour. No specific complaints otherwise. Hemodynamically stable and her pulse ox is 98% on 3 L of oxygen by nasal cannula. On today's evaluation of 03/01/2024, the patient is being seen for a follow-up. The patient was monitored in the intensive care following her spine surgery. The patient was hypotensive and she was treated with Steve-Synephrine. Currently she is off pressors and she is maintaining normal blood pressure. Hemoglobin is stable at 9.4 and the Hemovac has been discontinued. Awake and alert and communicating. She is currently on oxygen at 2 L with a pulse ox of 98%. No respiratory distress. No chest pain. She is complaining of some back pain. Able to move her lower extremities. BUN is at 7 with a creatinine of 0.34 and sodium levels at 130 and a potassium level is increased from 3.3 up to 4. WBC count is at 9.4 with a hemoglobin of 9.4 and a platelet count of 104. Otherwise, no other significant issues overnight. Most recent blood pressure is 129/56 and the patient's routine antihypertensive medication includes Norvasc and atenolol and lisinopril and those are still on hold. Will try to ambulate this patient today. Using the incentive spirometer. No other issues otherwise for now. Objective - Vital Signs Vital signs: Vital Signs Temp 99.4 F 03/01/24 07:30 Pulse 84 03/01/24 08:00 Resp 14 03/01/24 08:00 BP 125/69 03/01/24 08:00 Pulse Ox 98 03/01/24 08:00 FiO2 Intake & Output 02/29/24 03/01/24 03/01/24 18:59 06:59 18:59 Intake Total 6739.189 5223 78 Output Total 1025 1045 95 Balance 60.624 -31 -17 Weight 67.6 kg Intake: IV 936 1014 78 Pressure Bag 36 39 3 Sodium Chloride 0.9% 1, 900 975 75 000 ml @ 75 mls/hr IV . [id number] [facility] Rx#:[id number] Intake, IV Titration 149.624 Amount Phenylephrine 40 mg In 149.624 Sodium Chloride 0.9% 250 ml @ 0.5 MCG/KG/MIN 12. 135 mls/hr IV .[id number] [facility] Rx#:[id number] Output: Drainage 140 15 Back 140 15 Urine 885 1030 95 ABP, PAP, CO, CI - Last Documented Arterial Blood Pressure 111/48 - Exam General appearance the patient is calm comfortable no acute distress, currently on 2 L of oxygen by nasal cannula Head exam was generally normal. There was no scleral icterus or corneal arcus. Mucous membranes were moist. Neck was supple and without jugular venous distension, thyromegaly, or carotid bruits. Carotids were easily palpable bilaterally. There was no adenopathy. Lungs were clear to auscultation and percussion, and with normal diaphragmatic excursion. No wheezes or rales were noted. Cardiac exam revealed the PMI to be normally situated and sized. The rhythm was regular and no extrasystoles were noted during several minutes of auscultation. The first and second heart sounds were normal and physiologic splitting of the second heart sound was noted. There were no murmurs, rubs, clicks, or gallops. Abdominal exam revealed normal bowel sounds. The abdomen was soft, non-tender, and without masses, organomegaly, or appreciable enlargement of the abdominal aorta. Examination of the extremities revealed easily palpable radial, femoral and pedal pulses. There was no cyanosis, clubbing or edema. Skin shows a clear surgical wound site over the posterior back area - Labs CBC & Chem 7: 05/03/24 04:30 03/01/24 09:59 Labs: Abnormal Lab Results - Last 24 Hours (Table) 03/01/24 03/01/24 Range/Units 04:30 04:30 RBC 2.88 L (3.80-5.40) m/uL Hgb 9.4 L (11.4-16.0) gm/dL Hct 28.1 L (34.0-46.0) % Plt Count 104 L (150-450) k/uL Neutrophils # 8.1 H (1.3-7.7) k/uL Lymphocytes # 0.5 L (1.0-4.8) k/uL Sodium 130 L (137-145) mmol/L Potassium 3.3 L (3.5-5.1) mmol/L Creatinine 0.34 L (0.52-1.04) mg/dL Glucose 106 H (74-99) mg/dL Calcium 7.8 L (8.4-10.2) mg/dL Total Protein 4.8 L (6.3-8.2) g/dL Albumin 2.8 L (3.5-5.0) g/dL Assessment and Plan Plan: Acute hypotension, multifactorial. This followed an extensive and likely spine surgery and the patient was probably hypotensive due to of the neurologic manipulation of the spine. Rule out distributive shock. The patient responded nicely to Steve-Synephrine and the patient is currently off pressors. Blood pressure normalized. Adequate urine output. Lumbar decompression/fusion, multiple levels L2-S1. Please refer to the surgical note. The patient is postop day #2. Hemovac discontinued. Hemoglobin stable for now. Hypertension Hyperlipidemia Previous history of CVA/TIA Hypothyroidism Osteoarthritis Previous history of osteoporosis History of skin cancer History of paraesophageal hiatal hernia, with previous laparoscopic surgical repair Coronary artery disease Chronic anxiety/depression Plan Provided incentive spirometer Monitor blood pressure and may restart antihypertensive medication over the next 24 hours. Restart atenolol if the patient's blood pressure continues to be persistently elevated gradually introduce rest of antihypertensive medication including amlodipine and lisinopril Monitor hemoglobin, currently stable Hemovac has been removed Incentive spirometer Pain control with Tylenol 3's and Dilaudid on as-needed basis Normal saline at rate of 75 cc an hour Compression devices to lower extremities for DVT prophylaxis Discharge to the medical surgical floor, increase mobility, Ortho is on the case.
--- NOTE | 2024-03-02 08:54 | P.PN ---
Progress Note - Text Progress Note Date: 03/02/24 History of present illness: Patient is a pleasant 79-year-old female who is seen and examined at the bedside following posterior lateral decompression and fusion performed Monday. She transfered out of ICU yesterday. She does continue have significant difficulty with pain postoperatively. She states she has pain at the surgical site at her lumbar spine as well as generalized pain over her entire lower extremities. She has tried to urinate twice on the commode chair and it unable to urinate. This was discussed with nursing staff. She is progressing slowly postoperatively. Her pain is severe this morning and received Dilaudid IVP during my exam. Physical Exam Lumbar Fusion: Status post surgical day number 2 Patient is awake, alert, and oriented 3 Vital signs stable Good chest excursion with deep inspiration and expiration Dorsiflexion, plantarflexion, and extensor hallucis longus positive sustained bilaterally Generalized pain with palpation over her entire lower extremities bilaterally No signs or symptoms of DVT; no calf pain; pneumatic cuffs intact bilateral lower extremities Optifoam dressings are clean, dry, and intact over the lumbar spine and right iliac crest; no erythema, purulence, or signs of infection Hemovac drain is removed at the bedside with Optifoam dressing reapplied Neurovascularly intact bilaterally lower extremities Assessment: Status post open L2-3, L3-4, L4-5, and L5-S1 posterior lateral decompression and fusion with L4-5 transforaminal lumbar interbody fusion Low back pain Lower extremity pain 23, L3-4, L4-5, and L5-S1 severe lumbar spinal stenosis L4-5 grade 3 spondylolisthesis L5-S1 grade 2 spondylolisthesis Lumbar foraminal stenosis Neurogenic claudication Severe lumbar facet arthrosis Postoperative hypotension History of hypertension Hyperlipidemia Hypothyroidism History of CVA/TIA History of skin cancer Coronary artery disease Plan: 1. Ambulate as tolerated; work with Physical Therapy to increase mobilization 2. Continue pain control with IV and oral medications as prescribed as needed for pain control 3. Dressings to remain intact with Optifoam; patient may shower with dressings intact; Hemovac drain was discontinued 4. Medicine and pulmonology will continue to manage patient for patient's other medical diagnoses including significant postoperative hypotension 5. We will continue to follow the patient closely; patient will need discharge to a rehabilitation facility at the time of discharge. Patient will need to be cleared by multiple medical providers prior to discharge. Patient will also need better pain control and will need her pain to be able to be controlled with oral medications. 6. Patient can follow-up with Smith Herrera PA-C or Dr. Melvin Landon at [facility] in 2-3 weeks following discharge
--- NOTE | 2024-03-02 12:01 | P.CRDCN ---
History of Present Illness Consult date: 03/02/24 Requesting physician: Janis Rutledge Reason for Consult (text): tachycardia Chief complaint: back pain s/p open decompression fusion History of present illness: Is a pleasant 79-year-old female patient who follows in the office with Dr. Harrell. She has a history of hypertension, hyperlipidemia, CAD with known EFFICIENCY MANAGER of the RCA with right to right collaterals. She was last seen in the office on February 18 for cardiac clearance prior to undergoing lumbar spine surgery. She presented to the hospital on 02/28/2024 and underwent open decompression and fusion by Dr. Luke. She was admitted to ICU postoperatively and placed on pressors due to tension. At that time her antihypertensives were held including her beta-hernandez. We were asked to the patient in consultation for tachycardia. She has been sinus tachycardia on the monitor. She is overall feeling well from a cardiac standpoint with no chest discomfort or shortness of breath, no orthopnea or PND and no lower extremity edema. She continues to complain of pain postoperatively and is receiving pain medications [id number]. Blood pressure has stabilized running in the 120s to 130s. Past Medical History Past Medical History: Cancer, CVA/TIA, Eye Disorder, Hearing Disorder / Deafness, Hyperlipidemia, Hypertension, Musculoskeletal Disorder, Osteoarthritis (OA), Thyroid Disorder Additional Past Medical History / Comment(s): Right leg pain, "severe deterioration in spine." Hx skin cancer. 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 CONSTANT DIZZINESS - STATES NERVE DAMAGE FROM BRAIN TO EAR, MILD CAMPO IN RIGHT EAR, GETTING BETTER. 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 HX KIDNEY STONES. Hx C-DIFF-2017. Hx ulcers. Osteoporosis. Hx Shingles/still has headaches from it daily or every other day. History of Any Multi-Drug Resistant Organisms: None Reported Date of last positivie culture/infection: None MDRO Source:: None Past Surgical History: Joint Replacement, Orthopedic Surgery Additional Past Surgical History / Comment(s): LITHOTRIPSY, KIDNEY SURGERY to remove large stone from ureter, LEFT ACHILLES TENDON REPAIR, RIGHT KNEE ARTHROSCOPY, RIGHT ROTATOR CUFF REPAIR, BILATRAL CARPAL TUNNEL SURGERY, bilateral total knee arthroplasties, colonoscopy, sinus surgery, D&C, skin cancer removed from abdomen, right shoulder replacement, cervical fusion, emergency diaphragmatic hernia repair. paraesophageal hernia reapair/08/30/23 Past Anesthesia/Blood Transfusion Reactions: No Reported Reaction Additional Past Anesthesia/Blood Transfusion Reaction / Comment(s): HX BLOOD TRANSFUSION-NO REACTION. Smoking Status: Former smoker - Past Family History Mother Family Medical History: No Reported History Additional Family Medical History / Comment(s): . Sister(s) Family Medical History: Deep Vein Thrombosis (DVT) Medications and Allergies Home Medications Medication Instructions Recorded Confirmed Type Ergocalciferol (Vitamin D2) 50,000 unit PO Q14D 09/08/16 02/28/24 History [Drisdol] Levothyroxine Sodium [Synthroid] 88 mcg PO HS 09/08/16 02/28/24 History Acetaminophen [Tylenol] 1,000 mg PO TID 08/05/19 02/26/24 History Ferrous Sulfate [Iron (65 MG 325 mg PO DAILY 08/05/19 02/26/24 History Elemental)] Multivitamins, Thera [Multivitamin 2 tab PO 1200 08/05/19 02/26/24 History (formulary)] Gabapentin [Neurontin] 600 mg PO TID 01/01/21 02/26/24 History Famotidine [Pepcid] 20 mg PO BID 11/26/21 02/26/24 History Pantoprazole Sodium [Protonix] 40 mg PO QAM 11/26/21 02/28/24 History Red Yeast Rice 1,200 mg PO HS 11/26/21 02/26/24 History amLODIPine [Norvasc] 10 mg PO QAM 11/26/21 02/26/24 History atenoloL [Tenormin] 25 mg PO HS 11/26/21 02/26/24 History atenoloL [Tenormin] 50 mg PO QAM 11/26/21 02/26/24 History lisinopriL 40 mg PO QAM 11/26/21 02/26/24 History Evolocumab [Repatha Syringe] 140 mg SQ Q14D 09/01/22 02/28/24 History Loratadine [Claritin] 10 mg PO QAM 09/01/22 02/26/24 History Potassium Gluconate 99 mg PO DAILY 07/04/23 02/26/24 History Rosuvastatin Calcium 2.5 mg PO TUTH 07/04/23 02/28/24 History Allergies Allergy/AdvReac Type Severity Reaction Status Date / Time diazepam [From Valium] Allergy Severe Nausea & Verified 02/28/24 06:22 Vomiting, dizzy,muscle pain,mouth numb escitalopram oxalate Allergy Severe Nausea & Verified 02/28/24 06:22 [From Lexapro] Vomiting, dizzy,muscle pain, mouth numb fluticasone propionate Allergy Severe Nausea & Verified 02/28/24 06:22 [From Flonase] Vomiting, dizzy,muscle pain, mouth numb furosemide [From Lasix] Allergy Severe Nausea & Verified 02/28/24 06:22 Vomiting,dizzy, muscle pain, mouth numb hydrocodone bitartrate Allergy Severe Nausea & Verified 02/28/24 06:22 [From Lortab] Vomiting,Dizzy, Muscle Pain, Mouth Numb meclizine HCl [From Antivert] Allergy Severe Nausea & Verified 02/28/24 06:22 Vomiting,dizzy,muscle pain, mouth numb olmesartan medoxomil Allergy Severe Nausea & Verified 02/28/24 06:22 [From Benicar] Vomiting, dizzy, muscle pain, mouth numb promethazine Allergy Severe Nausea & Verified 02/28/24 06:22 Vomiting, dizzy , muscle pain, mouth numb Suktlhx-DVW-AuD Reductase Allergy Severe Nausea & Verified 02/28/24 06:22 Inhibitor Vomiting,dizzy, [Yiecldj-Xon-Efm Reductase muscle Inhibitor] pain, mouth numb tizanidine HCl Allergy Severe Nausea & Verified 02/28/24 06:22 [From Zanaflex] Vomiting,dizzy,muscle pain,mouth numb spironolactone Allergy Unknown NUMBNESS Verified 02/28/24 06:22 [From Aldactone] IN FACE, NAUSEA ketorolac Allergy Nausea & Verified 02/28/24 06:22 Vomiting NSAIDS (Non-Steroidal Allergy Unknown Verified 02/28/24 06:22 Anti-Inflamma prednisone Allergy Dyspnea, Verified 02/28/24 06:22 Nausea & Vomiting, Dizzy, Muscle Pain, Mouth Numb. scopolamine Allergy Chest Pain Verified 02/28/24 06:22 Sulfa (Sulfonamide Allergy Nausea & Verified 02/28/24 06:22 Antibiotics) Vomiting,dizzy,muscle pain, mouth numb. tramadol AdvReac Severe NAUSEA AND Verified 02/28/24 06:22 VOMITING Physical Exam Vitals: Vital Signs Temp Pulse Pulse Resp BP Pulse Ox 03/02/24 07:22 98.6 F 106 H 16 129/74 97 03/02/24 01:53 97.9 F 101 H 16 121/77 96 03/01/24 20:00 20 03/01/24 19:14 98.3 F 113 H 20 130/79 95 03/01/24 15:47 98.7 F 106 H 20 130/78 98 Intake and Output 03/01/24 03/02/24 03/02/24 22:59 06:59 14:59 Intake Total 384 Output Total 2100 Balance 384 -2100 Intake: IV 384 Pressure Bag 9 Sodium Chloride 0.9% 1, 375 000 ml @ 75 mls/hr IV . [id number] [facility] Rx#:[id number] Output: Urine 2100 Straight 550 Uretheral (Schuler) 500 Other: Voiding Method Bedside Commode # Voids 2 PHYSICAL EXAMINATION: This is a 79-year-old male in no apparent distress at the time of my examination. VITAL SIGNS: Reviewed. HEENT: Head is atraumatic, normocephalic. Pupils are equal, round. Sclerae anicteric. Conjunctivae are clear. Mucous membranes of the mouth are moist. Neck is supple. There is no elevated jugular venous pressure. No carotid bruit is heard. CHEST EXAMINATION: Clear to auscultation bilaterally. No wheezes rales or rhonchi. Respirations even and nonlabored. HEART EXAMINATION: Heart regular, positive S1 and S2. No S3. No S4. No clicks, rubs or murmurs. ABDOMEN: Soft, nontender. Bowel sounds are heard. No organomegaly noted. EXTREMITIES: 2+ peripheral pulses with no evidence of peripheral edema and no calf tenderness noted. NEUROLOGIC EXAMINATION: Patient is awake, alert and oriented x3. Results 03/01/24 04:30 03/01/24 09:59 Current Medications Generic Name Dose Route Start Last Admin Trade Name Freq PRN Reason Stop Dose Admin Acetaminophen 650 mg 02/28/24 12:50 Acetaminophen Tab 325 Mg Tab PO 03/29/24 18:01 Q6HR PRN Pain Acetaminophen/Codeine Phosphate 1 each 02/28/24 12:52 03/01/24 02:13 Acetaminophen-Codeine 300-30mg Tab PO 03/29/24 12:53 1 each Q4HR PRN Administration Pain Acetaminophen/Codeine Phosphate 2 each 02/28/24 12:52 03/02/24 10:00 Acetaminophen-Codeine 300-30mg Tab PO 03/29/24 12:53 2 each Q4HR PRN Administration Pain Benzocaine/Menthol 1 each 02/28/24 12:50 Benzocaine/Menthol Lozeng 1 Each Lozenge MUCOUS MEM 03/29/24 12:51 Q4HR PRN Sore Throat Cyclobenzaprine HCl 5 mg 02/28/24 12:50 02/29/24 19:42 Cyclobenzaprine 5 Mg Tab PO 03/29/24 12:51 5 mg TID PRN Administration Muscle Spasm Hydromorphone HCl 0.5 mg 02/28/24 12:50 03/01/24 06:25 Hydromorphone 0.5 Mg/0.5 Ml Syringe IVP 03/29/24 12:51 0.5 mg Q4HR PRN Administration Pain Hydromorphone HCl 1 mg 02/28/24 12:50 03/02/24 08:36 Hydromorphone 1 Mg/Ml 1 Ml Syringe IVP 03/29/24 12:51 1 mg Q4HR PRN Administration Pain Sodium Chloride 1,000 mls @ 75 mls/hr 02/28/24 13:00 03/02/24 09:39 Saline 0.9% IV 03/29/24 13:01 Not Given .[id number] [facility]ANG Miscellaneous Information 1 each 02/29/24 05:45 Potassium Replacement Protocol 1 Each Misc MISCELLANE DAILY PRN Per Protocol Protocol Ondansetron HCl 4 mg 02/28/24 12:50 02/29/24 23:25 Ondansetron 4 Mg/2 Ml Vial IVP 03/29/24 12:51 4 mg Q8HR PRN Administration Nausea And Vomiting Senna/Docusate Sodium 1 each 02/29/24 09:00 03/02/24 08:36 Sennosides-Docusate Sodium 1 Each Tab PO 03/30/24 09:01 1 each DAILY ZHANG Administration Intake and Output 03/01/24 03/02/24 03/02/24 22:59 06:59 14:59 Intake Total 384 Output Total 2100 Balance 384 -2100 Intake: IV 384 Pressure Bag 9 Sodium Chloride 0.9% 1, 375 000 ml @ 75 mls/hr IV . [id number] [facility] Rx#:[id number] Output: Urine 2100 Straight 550 Uretheral (Schuler) 500 Other: Voiding Method Bedside Commode # Voids 2 03/01/24 04:30 03/01/24 09:59 Assessment and Plan Assessment: #1 severe spinal stenosis status post open decompression and fusion with postoperative hypotension requiring ICU management #2 CAD with known EFFICIENCY MANAGER of the RCA, stable #3 hypertension #4 tachycardia, beta-hernandez has been held #5 hyperlipidemia Plan: From cardiology's perspective medications were reviewed we will resume atenolol 50 mg daily. We will follow the patient's heart rate and blood pressure. Continue to follow patient provide further recommendations accordingly. FLY RAISER LOCKSTITCH note has been reviewed, I agree with a documented findings and plan of care. Patient was seen and examined.
[2024-03-02] MEDS: atenoloL 50 MG TAB PO SCH (12:22)
--- NOTE | 2024-03-02 13:39 | P.PN ---
Subjective Progress Note Date: 03/02/24 Aleena Tovar, is a 79-year-old female who was admitted to [facility] by Dr. Landon and underwent open posterior lateral decompression and fusion L2-3 34 L4-5 L5-S1, please see orthopedic note for complete description of operation, postoperative the patient was hypotensive, she was started on IV fluid And IV pressors and was admitted to intensive care unit, medical consultation was requested. past medical history is significant for history of hypertension, history of hyperlipidemia, history of hypothyroidism, history of degenerative disc disease, history of osteoporosis, history of CVA, and history of thyroid nodule, history of osteoarthritis and history of decreased hearing. on 03/01/2024 patient is alert and oriented 3. blood pressure is improved but heart rate elevated. cardiology service is consulted. Current vital signs heart rate 109, respiratory rate 12, blood pressure 125 or 69 with pulse ox 98. Patient denies chest pain or shortness breath. Patient denies nausea vomiting or diarrhea. Patient denies any urinary burning or frequency. On 03/02/2024 patient was seen and examined on the telemetry floor she is alert and oriented 3 in no apparent distress, she is still complaining of moderate to severe lower back pain, otherwise she denies any complaints there is no fever or chills no headache or dizziness no chest pain no shortness of breath no cough no nausea or vomiting no abdominal pain no diarrhea and no urinary Symptoms. Her vital examination reveals A temperature of 98.6 pulse 114 respiration 16 blood pressure 116/67 pulse ox 94% on room air Objective - Vital Signs Vital signs: Vital Signs Temp 97.9 F 03/02/24 01:53 Pulse 101 H 03/02/24 01:53 Resp 16 03/02/24 01:53 BP 121/77 03/02/24 01:53 Pulse Ox 96 03/02/24 01:53 FiO2 Intake & Output 03/01/24 03/02/24 03/02/24 18:59 06:59 18:59 Intake Total 618 Output Total 195 2100 Balance 423 -2100 Intake: IV 618 Pressure Bag 18 Sodium Chloride 0.9% 1, 600 000 ml @ 75 mls/hr IV . [id number] ZHANG Rx#:[id number] Output: Urine 195 2100 Straight 550 Uretheral (Schuler) 500 Other: # Voids 2 ABP, PAP, CO, CI - Last Documented Arterial Blood Pressure 129/56 - Exam In general patient is alert and oriented x 3 in no distress HEENT head normocephalic and atraumatic Neck is supple no JVD no goiter no lymphadenopathy no carotid bruit Chest examination is clear to auscultation no crackles no wheezing Cardiac exam reveals regular heart sounds S1 and S2 no gallops no murmurs Abdomen is soft nontender no organomegaly with normal bowel sounds Extremity exam reveals no edema no cyanosis or clubbing Neurological examination reveals no gross focal deficits - Labs CBC & Chem 7: 03/01/24 04:30 03/01/24 09:59 Assessment and Plan Plan: postoperative hypotension likely related to anesthesia Status post lumbar decompression and fusion Underlying history of hypertension Underlying history of hyperlipidemia Underlying history of hypothyroidism Previous history of CVA Underlying history of osteoarthritis Underlying history of osteoporosis Underlying history of coronary artery disease Underlying history of depression with anxiety disorder At this time patient is admitted to intensive care unit She is maintained on IV fluid IV pressors has been discontinued Home medications reviewed and reordered, will hold blood pressure medication and advance them as necessary Will follow during this admission for medical management
--- NOTE | 2024-03-02 14:57 | P.PN ---
Subjective Progress Note Date: 03/02/24 This is a 79-year-old female patient got transferred to the intensive care for the patient underwent a spine surgery and following the surgery the patient was found to be hypotensive. The patient was given Cell Saver's and a liter of IV fluid and started on low-dose Tseve-Synephrine. After arrival to the ED ICU, the patient demonstrated adequate blood pressure control. Steve-Synephrine was discontinued. In fact her blood pressure is currently within normal limits and she is known to have hypertension she takes antihypertensive medication at home. Hemoglobin has dropped from a baseline of 11.9 down to 9.3. She has a Hemovac in her surgical bed and there is no evidence of any active bleeding. The patient has a lengthy and extensive surgery for spinal stenosis and the patient had multilevel decompression and fusion involving L2-L3, L3-L4, L4-5, L5-S1. Please refer to the detailed surgical notes. No chest pain. No swelling in lower extremities. The patient is currently on normal citrate of 75 cc an hour. No specific complaints otherwise. Hemodynamically stable and her pulse ox is 98% on 3 L of oxygen by nasal cannula. On today's evaluation of 03/01/2024, the patient is being seen for a follow-up. The patient was monitored in the intensive care following her spine surgery. The patient was hypotensive and she was treated with Steve-Synephrine. Currently she is off pressors and she is maintaining normal blood pressure. Hemoglobin is stable at 9.4 and the Hemovac has been discontinued. Awake and alert and communicating. She is currently on oxygen at 2 L with a pulse ox of 98%. No respiratory distress. No chest pain. She is complaining of some back pain. Able to move her lower extremities. BUN is at 7 with a creatinine of 0.34 and sodium levels at 130 and a potassium level is increased from 3.3 up to 4. WBC count is at 9.4 with a hemoglobin of 9.4 and a platelet count of 104. Otherwise, no other significant issues overnight. Most recent blood pressure is 129/56 and the patient's routine antihypertensive medication includes Norvasc and atenolol and lisinopril and those are still on hold. Will try to ambulate this patient today. Using the incentive spirometer. No other issues otherwise for now. today's evaluation of 03/02/2024, the patient on the medical floor. The patient was seen by cardiology and metoprolol has been restarted. Continues to have postop pain. Pain is essentially at the surgical site involving the lumbar spine. She is receiving Dilaudid for now. She is currently postop day #2 following the multilevel decompression and fusion. No chest pain. No other new complaints otherwise for now and no new labs are available from today. No issues with hypotension. Atenolol was started at a dose of 50 mg p.o. daily and the patient remains on normal saline at rate of 75 cc an hour. Objective - Vital Signs Vital signs: Vital Signs Temp 98.6 F 03/02/24 11:25 Pulse 114 H 03/02/24 11:25 Resp 16 03/02/24 11:25 BP 116/67 03/02/24 11:25 Pulse Ox 94 L 03/02/24 11:25 FiO2 Intake & Output 03/01/24 03/02/24 03/02/24 18:59 06:59 18:59 Intake Total 618 Output Total 195 2100 1261 Balance 423 -2100 -1261 Intake: IV 618 Pressure Bag 18 Sodium Chloride 0.9% 1, 600 000 ml @ 75 mls/hr IV . [id number] ZHANG Rx#:[id number] Output: Urine 195 2100 600 Straight 550 Uretheral (Schuler) 500 600 Post Void Residual 661 Other: Voiding Method Bedside Commode # Voids 2 ABP, PAP, CO, CI - Last Documented Arterial Blood Pressure 129/56 - Exam General appearance the patient is calm comfortable no acute distress, currently on 2 L of oxygen by nasal cannula Head exam was generally normal. There was no scleral icterus or corneal arcus. Mucous membranes were moist. Neck was supple and without jugular venous distension, thyromegaly, or carotid bruits. Carotids were easily palpable bilaterally. There was no adenopathy. Lungs were clear to auscultation and percussion, and with normal diaphragmatic excursion. No wheezes or rales were noted. Cardiac exam revealed the PMI to be normally situated and sized. The rhythm was regular and no extrasystoles were noted during several minutes of auscultation. The first and second heart sounds were normal and physiologic splitting of the second heart sound was noted. There were no murmurs, rubs, clicks, or gallops. Abdominal exam revealed normal bowel sounds. The abdomen was soft, non-tender, and without masses, organomegaly, or appreciable enlargement of the abdominal aorta. Examination of the extremities revealed easily palpable radial, femoral and pedal pulses. There was no cyanosis, clubbing or edema. Skin shows a clear surgical wound site over the posterior back area - Labs CBC & Chem 7: 03/01/24 04:30 03/01/24 09:59 Assessment and Plan Plan: Acute hypotension, multifactorial. This followed an extensive and likely spine surgery and the patient was probably hypotensive due to of the neurologic manipulation of the spine. Rule out distributive shock. The patient responded nicely to Steve-Synephrine and the patient is currently off pressors. Blood pressure normalized. The patient is currently on the medical floor, metoprolol has been restarted Lumbar decompression/fusion, multiple levels L2-S1. Please refer to the surgical note. The patient is postop day #3. Hemovac discontinued. Hemoglobin stable for now. Hypertension Hyperlipidemia Previous history of CVA/TIA Hypothyroidism Osteoarthritis Previous history of osteoporosis History of skin cancer History of paraesophageal hiatal hernia, with previous laparoscopic surgical repair Coronary artery disease Chronic anxiety/depression Plan Provided incentive spirometer Metoprolol restarted Monitor hemoglobin, currently stable Hemovac has been removed Incentive spirometer Pain control with Tylenol 3's and Dilaudid on as-needed basis Normal saline at rate of 75 cc an hour Compression devices to lower extremities for DVT prophylaxis Rest of the management as per medicine and surgical team. Pulmonary and critical care services will sign off.
[2024-03-03 09:25] LABS: Basophils # (A) 0.02 X 10*3/uL (0.00-0.10); Basophils % (A) 0.3 %; Eosinophils # (A) 0.43 X 10*3/uL (0.04-0.35); Eosinophils % (A) 5.6 %; HCT 25.3 % (37.2-46.3); HGB 8.4 g/dL (12.0-15.0); Lymphocytes # (A) 0.79 X 10*3/uL (0.90-5.00); Lymphocytes % (A) 10.2 %; MCH 32.1 pg (27.0-32.0); MCHC 33.2 g/dL (32.0-37.0); MCV 96.6 FL (80.0-97.0); Mean Platelet Volume 10.4 FL (9.5-12.2); Monocytes # (A) 0.65 X 10*3/uL (0.20-1.00); Monocytes % (A) 8.4 %; NRBC Per 100 WBC 0 X 10*3/uL (0.00-0.01); Neutrophils # (A) 5.79 X 10*3/uL (1.80-7.70); Neutrophils % (A) 75.1 %; Platelet Count 143 X 10*3/uL (140-440); RBC 2.62 X 10*6/uL (4.10-5.20); RDW 12.5 % (11.5-14.5); WBC 7.71 X 10*3/uL (4.50-10.00)
--- NOTE | 2024-03-03 09:31 | P.PN ---
Progress Note - Text Progress Note Date: 03/03/24 History of present illness: Patient is a pleasant 79-year-old female who is seen and examined at the bedside following posterior lateral decompression and fusion performed Monday. She does continue have significant difficulty with pain postoperatively. She states she has pain at the surgical site at her lumbar spine as well as generalized pain over her entire lower extremities. The ge catheter was reinserted yesterday. She has been up to the chair. She is progressing slowly postoperatively. Her pain is severe this morning and received Dilaudid IVP and Tylenol #3. Physical Exam Lumbar Fusion: Status post surgical day number 2 Patient is awake, alert, and oriented 3 Vital signs stable Good chest excursion with deep inspiration and expiration Dorsiflexion, plantarflexion, and extensor hallucis longus positive sustained bilaterally Generalized pain with palpation over her entire lower extremities bilaterally No signs or symptoms of DVT; no calf pain; pneumatic cuffs intact bilateral lower extremities Optifoam dressings are clean, dry, and intact over the lumbar spine and right iliac crest; no erythema, purulence, or signs of infection Hemovac drain is removed at the bedside with Optifoam dressing reapplied Neurovascularly intact bilaterally lower extremities Assessment: Status post open L2-3, L3-4, L4-5, and L5-S1 posterior lateral decompression and fusion with L4-5 transforaminal lumbar interbody fusion Low back pain Lower extremity pain 23, L3-4, L4-5, and L5-S1 severe lumbar spinal stenosis L4-5 grade 3 spondylolisthesis L5-S1 grade 2 spondylolisthesis Lumbar foraminal stenosis Neurogenic claudication Severe lumbar facet arthrosis Postoperative hypotension History of hypertension Hyperlipidemia Hypothyroidism History of CVA/TIA History of skin cancer Coronary artery disease Plan: 1. Ambulate as tolerated; work with Physical Therapy to increase mobilization 2. Continue pain control with IV and oral medications as prescribed as needed for pain control 3. Dressings to remain intact with Optifoam; patient may shower with dressings intact 4. Attempt ge removal maybe tomorrow. 5. Medicine and pulmonology will continue to manage patient for patient's other medical diagnoses including significant postoperative hypotension 6. We will continue to follow the patient closely; patient will need discharge to a rehabilitation facility at the time of discharge. Patient will need to be cleared by multiple medical providers prior to discharge. Patient will also need better pain control and will need her pain to be able to be controlled with oral medications. 7. Patient can follow-up with Smith Herrera PA-C or Dr. Melvin Landon at [facility] in 2-3 weeks following discharge
[2024-03-03 09:45] LABS: ALT 14 U/L (8-44); AST 29 U/L (13-35); Albumin 3.3 g/dL (3.8-4.9); Albumin/Globulin Ratio 2.06 Ratio (1.60-3.17); Alkaline Phosphatase 81 U/L (41-126); BUN/Creat Ratio 14.75 Ratio (12.00-20.00); Blood Urea Nitrogen 5.9 mg/dL (9.0-27.0); Calcium 7.9 mg/dL (8.7-10.3); Carbon Dioxide 25.9 mmol/L (21.6-31.8); Chloride 102 mmol/L (96-109); Globulin 1.6 g/dL (1.6-3.3); Glucose 92 mg/dL (70-110); Potassium 3.4 mmol/L (3.5-5.5); Sodium 137 mmol/L (135-145); Total Bilirubin 0.3 mg/dL (0.3-1.2); Total Protein 4.9 g/dL (6.2-8.2)
--- NOTE | 2024-03-03 12:03 | P.PN ---
Subjective Progress Note Date: 03/03/24 This is a pleasant 79-year-old female patient who follows in the office with Dr. Harrell. She has a history of hypertension, hyperlipidemia, CAD with known LABOR SPECIALIST of the RCA with right to right collaterals. She was last seen in the office on February 18 for cardiac clearance prior to undergoing lumbar spine surgery. She presented to the hospital on 02/28/2024 and underwent open decompression and fusion by Dr. Luke. She was admitted to ICU postoperatively and placed on pressors due to tension. At that time her antihypertensives were held including her beta-hernandez. We were asked to the patient in consultation for tachycardia. She has been sinus tachycardia on the monitor. She is overall feeling well from a cardiac standpoint with no chest discomfort or shortness of breath, no orthopnea or PND and no lower extremity edema. She continues to complain of pain postoperatively and is receiving pain medications [id number]. Blood pressure has stabilized running in the 120s to 130s. 03/03/2024 Patient was seen and examined resting comfortably in bed. She is overall feeling better today continues to have significant pain postoperatively. Her heart rate is better controlled and her blood pressure is stable. She said overall she feels better with her heart rate being within normal limits. She does not feel her heart racing. Objective - Vital Signs Vital signs: Vital Signs Temp 98.3 F 03/03/24 07:23 Pulse 69 03/03/24 07:23 Resp 20 03/03/24 07:23 BP 113/71 03/03/24 07:23 Pulse Ox 96 03/03/24 07:23 FiO2 Intake & Output 03/02/24 03/03/24 03/03/24 18:59 06:59 18:59 Intake Total 900 Output Total 2010 1399 Balance -1111 -1400 Intake: IV 900 Sodium Chloride 0.9% 1, 900 000 ml @ 75 mls/hr IV . [id number] ZHANG Rx#:[id number] Output: Urine 1350 1400 Uretheral (Schuler) 600 600 Post Void Residual 661 Other: Voiding Method Bedside Commode Bedside Commode Indwelling Catheter ABP, PAP, CO, CI - Last Documented Arterial Blood Pressure 129/56 - Exam PHYSICAL EXAMINATION: This is a 79-year-old male in no apparent distress at the time of my examination. VITAL SIGNS: Reviewed. HEENT: Head is atraumatic, normocephalic. Pupils are equal, round. Sclerae anicteric. Conjunctivae are clear. Mucous membranes of the mouth are moist. Neck is supple. There is no elevated jugular venous pressure. No carotid bruit is heard. CHEST EXAMINATION: Clear to auscultation bilaterally. No wheezes rales or rhonchi. Respirations even and nonlabored. HEART EXAMINATION: Heart regular, positive S1 and S2. No S3. No S4. No clicks, rubs or murmurs. ABDOMEN: Soft, nontender. Bowel sounds are heard. No organomegaly noted. EXTREMITIES: 2+ peripheral pulses with no evidence of peripheral edema and no calf tenderness noted. NEUROLOGIC EXAMINATION: Patient is awake, alert and oriented x3. - Labs CBC & Chem 7: 03/03/24 06:06 03/03/24 06:06 Labs: Abnormal Lab Results - Last 24 Hours (Table) 03/03/24 03/03/24 Range/Units 06:06 06:06 RBC 2.62 L (4.10-5.20) X 10*6/uL Hgb 8.4 L (12.0-15.0) g/dL Hct 25.3 L (37.2-46.3) % MCH 32.1 H (27.0-32.0) pg Lymphocytes # 0.79 L (0.90-5.00) X 10*3/uL Eosinophils # 0.43 H (0.04-0.35) X 10*3/uL Potassium 3.4 L (3.5-5.5) mmol/L BUN 5.9 L (9.0-27.0) mg/dL Creatinine 0.4 L (0.6-1.5) mg/dL Calcium 7.9 L (8.7-10.3) mg/dL Total Protein 4.9 L (6.2-8.2) g/dL Albumin 3.3 L (3.8-4.9) g/dL Assessment and Plan Assessment: #1 severe spinal stenosis status post open decompression and fusion with postoperative hypotension requiring ICU management #2 CAD with known LABOR SPECIALIST of the RCA, stable #3 hypertension #4 tachycardia, beta-hernandez has been held, improved after resuming beta-hernandez #5 hyperlipidemia Plan: From cardiology's perspective medications were reviewed we will do the same. At this time we will follow the patient on an as-needed basis. Please do not hesitate to contact us with questions. PAPIER MACHE MOLDER note has been reviewed, I agree with a documented findings and plan of care. Patient was seen and examined.
[2024-03-03] MEDS: POTASSIUM CHLORIDE ER 20 MEQ TAB.ER PO SCH (17:37)
--- NOTE | 2024-03-03 19:26 | P.PN ---
Subjective Progress Note Date: 03/03/24 Aleena Tovar, is a 79-year-old female who was admitted to [facility] by Dr. Landon and underwent open posterior lateral decompression and fusion L2-3 34 L4-5 L5-S1, please see orthopedic note for complete description of operation, postoperative the patient was hypotensive, she was started on IV fluid And IV pressors and was admitted to intensive care unit, medical consultation was requested. past medical history is significant for history of hypertension, history of hyperlipidemia, history of hypothyroidism, history of degenerative disc disease, history of osteoporosis, history of CVA, and history of thyroid nodule, history of osteoarthritis and history of decreased hearing. on 03/01/2024 patient is alert and oriented 3. blood pressure is improved but heart rate elevated. cardiology service is consulted. Current vital signs heart rate 109, respiratory rate 12, blood pressure 125 or 69 with pulse ox 98. Patient denies chest pain or shortness breath. Patient denies nausea vomiting or diarrhea. Patient denies any urinary burning or frequency. On 03/02/2024 patient was seen and examined on the telemetry floor she is alert and oriented 3 in no apparent distress, she is still complaining of moderate to severe lower back pain, otherwise she denies any complaints there is no fever or chills no headache or dizziness no chest pain no shortness of breath no cough no nausea or vomiting no abdominal pain no diarrhea and no urinary Symptoms. Her vital examination reveals A temperature of 98.6 pulse 114 respiration 16 blood pressure 116/67 pulse ox 94% on room air. On 03/03/2024 patient was seen and examined on the telemetry floor she is alert and oriented 3 in no apparent distress, she is still complaining of lower back pain, otherwise she denies any complaints there is no fever or chills no headache or dizziness no chest pain no shortness of breath no cough no nausea or vomiting no abdominal pain no diarrhea and no urinary Symptoms. Patient is improving gradually, plan is for possible transfer to rehab in the next 1 to 2 days Objective - Vital Signs Vital signs: Vital Signs Temp 97.9 F 03/03/24 11:35 Pulse 64 03/03/24 11:35 Resp 16 03/03/24 11:35 BP 119/73 03/03/24 11:35 Pulse Ox 98 03/03/24 11:35 FiO2 Intake & Output 03/03/24 03/03/24 03/04/24 06:59 18:59 06:59 Output Total 1400 700 Balance -1400 -700 Output: Urine 1400 700 Uretheral (Schuler) 600 Other: Voiding Method Bedside Commode Indwelling Catheter ABP, PAP, CO, CI - Last Documented Arterial Blood Pressure 129/56 - Exam In general patient is alert and oriented x 3 in no distress HEENT head normocephalic and atraumatic Neck is supple no JVD no goiter no lymphadenopathy no carotid bruit Chest examination is clear to auscultation no crackles no wheezing Cardiac exam reveals regular heart sounds S1 and S2 no gallops no murmurs Abdomen is soft nontender no organomegaly with normal bowel sounds Extremity exam reveals no edema no cyanosis or clubbing Neurological examination reveals no gross focal deficits - Labs CBC & Chem 7: 03/03/24 06:06 03/03/24 06:06 Labs: Abnormal Lab Results - Last 24 Hours (Table) 03/03/24 03/03/24 Range/Units 06:06 06:06 RBC 2.62 L (4.10-5.20) X 10*6/uL Hgb 8.4 L (12.0-15.0) g/dL Hct 25.3 L (37.2-46.3) % MCH 32.1 H (27.0-32.0) pg Lymphocytes # 0.79 L (0.90-5.00) X 10*3/uL Eosinophils # 0.43 H (0.04-0.35) X 10*3/uL Potassium 3.4 L (3.5-5.5) mmol/L BUN 5.9 L (9.0-27.0) mg/dL Creatinine 0.4 L (0.6-1.5) mg/dL Calcium 7.9 L (8.7-10.3) mg/dL Total Protein 4.9 L (6.2-8.2) g/dL Albumin 3.3 L (3.8-4.9) g/dL Assessment and Plan Plan: postoperative hypotension likely related to anesthesia Status post lumbar decompression and fusion Underlying history of hypertension Underlying history of hyperlipidemia Underlying history of hypothyroidism Previous history of CVA Underlying history of osteoarthritis Underlying history of osteoporosis Underlying history of coronary artery disease Underlying history of depression with anxiety disorder At this time patient is admitted to intensive care unit She is maintained on IV fluid IV pressors has been discontinued Home medications reviewed and reordered, will hold blood pressure medication and advance them as necessary Will follow during this admission for medical management
[2024-03-04] MEDS ORDERED: Potassium Replacement Protocol 1 EACH MISC MISCELLANE PRN (00:49)
[2024-03-04] MEDS: POTASSIUM CHLORIDE ER 20 MEQ TAB.ER PO SCH (02:04)
[2024-03-04 07:22] LABS: ALT 18 U/L (4-34); AST 32 U/L (14-36); African American GFR (CKD) >90 (>60 ml/min/1.73 sqM); Albumin 3.1 g/dL (3.5-5.0); Albumin/Globulin Ratio 1.3; Alkaline Phosphatase 90 U/L (38-126); Anion Gap 5 mmol/L; Blood Urea Nitrogen 5 mg/dL (7-17); Carbon Dioxide 25 mmol/L (22-30); Chloride 105 mmol/L (98-107); Globulin 2.3 g/dL; Glucose 93 mg/dL (74-99); Non-African American GFR(CKD) >90 (>60 ml/min/1.73 sqM); Sodium 135 mmol/L (137-145); Total Bilirubin 0.5 mg/dL (0.2-1.3); Total Protein 5.4 g/dL (6.3-8.2)
[2024-03-04 08:02] LABS: Basophils % (A) 0 %; Eosinophils # (A) 0.4 k/uL (0-0.7); Eosinophils % (A) 6 %; HGB 9.9 gm/dL (11.4-16.0); Lymphocytes # (A) 0.8 k/uL (1.0-4.8); Lymphocytes % (A) 12 %; MCH 32.7 pg (25.0-35.0); MCV 99.3 fL (80.0-100.0); Mean Platelet Volume 9.4; Monocytes # (A) 0.4 k/uL (0-1.0); Monocytes % (A) 7 %; Neutrophils # (A) 4.6 k/uL (1.3-7.7); Neutrophils % (A) 72 %; RBC 3.02 m/uL (3.80-5.40); RDW 12.6 % (11.5-15.5); WBC 6.3 k/uL (3.8-10.6)
[2024-03-04 08:03] LABS: Platelet Count 180 k/uL (150-450)
--- NOTE | 2024-03-04 09:00 | P.PN ---
Progress Note - Text Progress Note Date: 03/04/24 Orthopedic Spine History of present illness: Patient is a pleasant 79-year-old female who is seen and examined at the bedside following posterior lateral decompression and fusion performed last Monday. Was able to be transferred out of the ICU last Monday. She has had some improvement over the weekend but does continue have significant pain at her surgical site of the lumbar spine. She is not complaining of any lower extremity weakness or radiculopathy bilaterally. She states she was only able to work with therapy 1 time and has not transferred out of bed recently. We discussed we will plan to have her work through further treatment with physical therapy today. Patient is currently sitting at the bedside eating without any significant difficulty. She did have difficulty urinary retention yesterday. Schuler catheter was reinserted. Currently does not complain of nausea, vomiting, fever, or chills. Patient states pain has been adequately controlled but continues to require IV and oral medications. Physical Exam Lumbar Fusion: Status post surgical day number 5 Patient is awake, alert, and oriented 3 Vital signs stable Good chest excursion with deep inspiration and expiration Dorsiflexion, plantarflexion, and extensor hallucis longus positive sustained bilaterally Generalized pain with palpation over her entire lower extremities bilaterally No signs or symptoms of DVT; no calf pain; pneumatic cuffs intact bilateral lower extremities Optifoam dressings are clean, dry, and intact over the lumbar spine and right iliac crest; no erythema, purulence, or signs of infection No active drainage from the surgical site Neurovascularly intact bilaterally lower extremities Schuler catheter intact Assessment: Status post open L2-3, L3-4, L4-5, and L5-S1 posterior lateral decompression and fusion with L4-5 transforaminal lumbar interbody fusion Low back pain Lower extremity pain 23, L3-4, L4-5, and L5-S1 severe lumbar spinal stenosis L4-5 grade 3 spondylolisthesis L5-S1 grade 2 spondylolisthesis Lumbar foraminal stenosis Neurogenic claudication Severe lumbar facet arthrosis Postoperative urinary retention Postoperative hypotension History of hypertension Hyperlipidemia Hypothyroidism History of CVA/TIA History of skin cancer Coronary artery disease Plan: 1. Ambulate as tolerated; work with Physical Therapy to increase mobilization 2. Continue pain control with IV and oral medications as prescribed as needed for pain control 3. Dressings to remain intact with Optifoam; patient may shower with dressings intact 4. Patient did have urinary retention yesterday and her Schuler catheter was reinserted. Will plan to keep her on bladder rest today with plans to discontinue Schuler catheter tomorrow to see if she is able to void independently. If she is not, we will consider straight catheterization versus further catheter reinsertion with consultation with urology. 4. Medicine and pulmonology will continue to manage patient for patient's other medical diagnoses 5. We will continue to follow the patient closely; patient will need discharge to a rehabilitation facility at the time of discharge. Patient will need to be cleared by multiple medical providers prior to discharge. Patient will also need better pain control and will need her pain to be able to be controlled with oral medications. 6. Patient can follow-up with Smith Herrera PA-C or Dr. Melvin Landon at [facility] in 2-3 weeks following discharge
--- NOTE | 2024-03-04 09:54 | P.PN ---
Subjective Progress Note Date: 03/04/24 Aleena Tovar, is a 79-year-old female who was admitted to [facility] by Dr. Landon and underwent open posterior lateral decompression and fusion L2-3 34 L4-5 L5-S1, please see orthopedic note for complete description of operation, postoperative the patient was hypotensive, she was started on IV fluid And IV pressors and was admitted to intensive care unit, medical consultation was requested. past medical history is significant for history of hypertension, history of hyperlipidemia, history of hypothyroidism, history of degenerative disc disease, history of osteoporosis, history of CVA, and history of thyroid nodule, history of osteoarthritis and history of decreased hearing. on 03/01/2024 patient is alert and oriented 3. blood pressure is improved but heart rate elevated. cardiology service is consulted. Current vital signs heart rate 109, respiratory rate 12, blood pressure 125 or 69 with pulse ox 98. Patient denies chest pain or shortness breath. Patient denies nausea vomiting or diarrhea. Patient denies any urinary burning or frequency. On 03/02/2024 patient was seen and examined on the telemetry floor she is alert and oriented 3 in no apparent distress, she is still complaining of moderate to severe lower back pain, otherwise she denies any complaints there is no fever or chills no headache or dizziness no chest pain no shortness of breath no cough no nausea or vomiting no abdominal pain no diarrhea and no urinary Symptoms. Her vital examination reveals A temperature of 98.6 pulse 114 respiration 16 blood pressure 116/67 pulse ox 94% on room air. On 03/03/2024 patient was seen and examined on the telemetry floor she is alert and oriented 3 in no apparent distress, she is still complaining of lower back pain, otherwise she denies any complaints there is no fever or chills no headache or dizziness no chest pain no shortness of breath no cough no nausea or vomiting no abdominal pain no diarrhea and no urinary Symptoms. Patient is improving gradually, plan is for possible transfer to rehab in the next 1 to 2 days. On 03/04/2024 patient was seen and examined on the medical floor, she is alert and oriented 3 in no apparent distress, she is complaining of back pain, she had urinary retention yesterday and Schuler catheter was inserted, patient will have voiding trials today, if able to urinate, she may be able to be transferred today to rehab, otherwise Schuler catheter will be reinserted and urology consultation will be initiated, otherwise she denies any complaints there is no fever or chills no headache or dizziness no chest pain no shortness of breath no cough no nausea or vomiting no abdominal pain no diarrhea no blood in the stool. Objective - Vital Signs Vital signs: Vital Signs Temp 97.9 F 03/04/24 07:14 Pulse 77 03/04/24 07:14 Resp 16 03/04/24 07:14 BP 136/81 03/04/24 07:14 Pulse Ox 98 03/04/24 07:14 FiO2 Intake & Output 03/03/24 03/04/24 03/04/24 18:59 06:59 18:59 Intake Total 710 Output Total 700 400 Balance -700 310 Intake: Oral 710 Output: Urine 700 400 Other: Voiding Method Indwelling Catheter Indwelling Catheter ABP, PAP, CO, CI - Last Documented Arterial Blood Pressure 129/56 - Exam In general patient is alert and oriented x 3 in no distress HEENT head normocephalic and atraumatic Neck is supple no JVD no goiter no lymphadenopathy no carotid bruit Chest examination is clear to auscultation no crackles no wheezing Cardiac exam reveals regular heart sounds S1 and S2 no gallops no murmurs Abdomen is soft nontender no organomegaly with normal bowel sounds Extremity exam reveals no edema no cyanosis or clubbing Neurological examination reveals no gross focal deficits - Labs CBC & Chem 7: 03/04/24 06:10 03/04/24 06:10 Labs: Abnormal Lab Results - Last 24 Hours (Table) 03/03/24 03/03/24 03/03/24 Range/Units 06:06 06:06 21:16 RBC 2.62 L (4.10-5.20) X 10*6/uL Hgb 8.4 L (12.0-15.0) g/dL Hct 25.3 L (37.2-46.3) % MCH 32.1 H (27.0-32.0) pg Lymphocytes # 0.79 L (0.90-5.00) X 10*3/uL Eosinophils # 0.43 H (0.04-0.35) X 10*3/uL Sodium (137-145) mmol/L Potassium 3.4 L 3.3 L (3.5-5.5) mmol/L BUN 5.9 L (9.0-27.0) mg/dL Creatinine 0.4 L (0.6-1.5) mg/dL Calcium 7.9 L (8.7-10.3) mg/dL Total Protein 4.9 L (6.2-8.2) g/dL Albumin 3.3 L (3.8-4.9) g/dL 03/04/24 03/04/24 Range/Units 06:10 06:10 RBC 3.02 L (4.10-5.20) X 10*6/uL Hgb 9.9 L (12.0-15.0) g/dL Hct 30.0 L (37.2-46.3) % MCH (27.0-32.0) pg Lymphocytes # 0.8 L (0.90-5.00) X 10*3/uL Eosinophils # (0.04-0.35) X 10*3/uL Sodium 135 L (137-145) mmol/L Potassium (3.5-5.5) mmol/L BUN 5 L (9.0-27.0) mg/dL Creatinine 0.30 L (0.6-1.5) mg/dL Calcium 8.0 L (8.7-10.3) mg/dL Total Protein 5.4 L (6.2-8.2) g/dL Albumin 3.1 L (3.8-4.9) g/dL Assessment and Plan Plan: postoperative hypotension likely related to anesthesia Status post lumbar decompression and fusion Underlying history of hypertension Underlying history of hyperlipidemia Underlying history of hypothyroidism Previous history of CVA Underlying history of osteoarthritis Underlying history of osteoporosis Underlying history of coronary artery disease Underlying history of depression with anxiety disorder At this time patient is admitted to intensive care unit She is maintained on IV fluid IV pressors has been discontinued Home medications reviewed and reordered, will hold blood pressure medication and advance them as necessary Will follow during this admission for medical management
[2024-03-04] MEDS: FAMOTIDINE 20 MG TAB PO SCH (21:05)
[2024-03-05] MEDS: PANTOPRAZOLE 40 MG TABLET PO SCH (07:58)
[2024-03-05 08:13] VITALS: BP 152/87; PULSE 79; RESP 19; TEMP 98.4
[2024-03-05] MEDS ORDERED: MAGNESIUM HYDROXIDE 2,400 MG/30 ML CUP PO PRN (08:39)
--- NOTE | 2024-03-05 08:47 | P.DS ---
Providers Date of admission: 02/29/24 08:50 Expected date of discharge: 03/05/24 Attending physician: Sallie Landon Consults: 02/28/24 12:50 Consult Physician Routine Consulting Provider: Janis Rutledge Consult Reason/Comments: Medical management Do you want consulting provider notified?: Yes 02/28/24 17:03 Consult Physician Urgent Consulting Provider: Melissa Vazquez Consult Reason/Comments: icu management Do you want consulting provider notified?: Already Contacted 03/01/24 10:34 Consult Physician Routine Consulting Provider: Abdon Lynch Consult Reason/Comments: tachycardia Do you want consulting provider notified?: Yes, Notify in am Primary care physician: Elissa Baird - Discharge Diagnosis(es) (1) Status post lumbar spinal fusion Current Visit: Yes Status: Acute (2) Spinal stenosis, lumbar region with neurogenic claudication Current Visit: Yes Status: Acute (3) Low back pain Current Visit: Yes Status: Acute (4) Lower extremity pain Current Visit: Yes Status: Acute (5) Spondylolisthesis, lumbosacral region Current Visit: Yes Status: Acute (6) Spondylolisthesis, lumbar region Current Visit: Yes Status: Acute (7) Lumbar facet arthropathy Current Visit: Yes Status: Acute (8) Hypothyroidism Current Visit: Yes Status: Acute (9) Coronary artery disease Current Visit: Yes Status: Acute (10) Contact dermatitis Current Visit: Yes Status: Acute (11) History of skin cancer Current Visit: Yes Status: Acute (12) History of CVA (cerebrovascular accident) Current Visit: No Status: Acute (13) Hyperlipidemia Current Visit: No Status: Acute (14) Hypertension Current Visit: No Status: Acute Hospital Course: This is a pleasant 79-year-old female who presented with L2-3, L3-4, L4-5, and L5-S1 severe spinal stenosis, L4-5 grade 3 spondylolisthesis, L5-S1 grade 2 spo ndylolisthesis, lumbar foraminal stenosis, neurogenic claudication, severe lumbar facet arthrosis, low back pain, and lower extremity pain who failed outpatient conservative therapy. She was admitted for an open L2-3, L3-4, L4-5, and L5-S1 posterior lateral decompression and fusion with L4-5 transforaminal lumbar interbody fusion. She has been progressing slowly postoperatively. She is postoperative day #6. She was having significant hypotension initially postoperatively and was in the ICU. This has continued to improve and she was transferred out of the ICU postoperative day #2. She does feel she has been making progress over the past couple days. He did have pain and spasm in her lumbar spine but feels her pain is better controlled and feels she would charge to read today. She feels she would like to increase her mobility and ambulation and rehab provides her the best opportunity proved postoperatively. She was having urinary retention postoperatively with reinsertion of Schuler catheter. This was discontinued yesterday. Patient has been able to void independently multiple times without significant difficulty without significant residual volume. Patient has not had a bowel movement but her abdomen is soft nontender and she is passing gas. Condition on day of discharge stable. Patient will be discharged to [facility]. Patient was cleared preoperatively for surgery by Dr. Baird. Patient currently denies any nausea, vomiting, fever, or chills. Patient is eating and voiding freely without difficulty. Dressing has been removed over the surgical site of the lumbar spine. Hemovac drain was previously discontinued. Currently, patient may shower without a dressing intact. Patient should refrain from driving until at least after their first follow-up a ppointment in the office. Patient should avoid excessive bending, lifting, and twisting; no lifting greater than 10 pounds. MAPS has been reviewed. An "Opiod Start Talking" Form has been signed and placed in the patient's chart. A prescription has been written for acetaminophencodeine 300 mg - 30 mg, 1 tab, every 4 hours, as needed for acute pain, dispense #42. Prescription is written, signed, and placed in the patient's chart for discharge. Prescriptions were also written for baclofen 10 mg, 1 tab, 3 times daily, as needed for muscle spasm and Senokot-S, 1 tab twice daily, as needed for constipation. Patient's other medical diagnoses include hypertension, hyperlipidemia, hypothyroidism, history of CVA/TIA, history of skin cancer, and coronary artery disease We did discuss patient must be cleared by medicine prior to discharge. Medicine to complete the med rec. Patient is having some contact dermatitis over her thoracic lumbar spine where her skin has been exposed where her gown has been open. She does not have any contact dermatitis over her lumbar incision site where the dressing was intact. This was discussed with nursing. This will be further assessed and managed by medicine prior to discharge. Physical Exam on day of discharge: Status post surgical day number 6 Patient is awake, alert, and oriented 3 Vital signs stable Good chest excursion with deep inspiration and expiration Abdomen is soft nontender Dorsiflexion, plantarflexion, and extensor hallucis longus positive sustained bilaterally No significant pain with palpation over her entire lower extremities bilaterally No signs or symptoms of DVT; no calf pain; pneumatic cuffs not currently intact bilateral lower extremities Optifoam dressing has been removed; surgical incision site remains clean, dry, and intact; no erythema, purulence, or signs of infection No active drainage from the surgical site There is some apparent contact dermatitis over her thoracic and lumbar spine over the area of exposed skin from where her skin was exposed from the gown There is not any contact dermatitis over her lumbar incision site where the dressing was intact No evidence of any contact dermatitis over the rest of her body Neurovascularly intact bilaterally lower extremities Procedures: Open L2-3, L3-4, L4-5, and L5-S1 posterior lateral decompression and fusion with L4-5 transforaminal lumbar interbody fusion Patient Condition at Discharge: Stable Plan - Discharge Summary Discharge Rx Participant: Yes New Discharge Prescriptions: New Acetaminophen-Codeine 300-30mg [Tylenol w/codeine #3] 1 tab PO Q4H PRN 3 Days #42 tablet PRN Reason: Pain Baclofen 10 mg PO TID PRN #60 tab PRN Reason: Spasms Sennosides-Docusate Sodium [Senokot-S] 1 tab PO BID PRN #60 tablet PRN Reason: Constipation No Action Levothyroxine Sodium [Synthroid] 88 mcg PO HS Ergocalciferol (Vitamin D2) [Drisdol] 50,000 unit PO Q14D Acetaminophen [Tylenol] 1,000 mg PO TID Multivitamins, Thera [Multivitamin (formulary)] 2 tab PO 1200 Ferrous Sulfate [Iron (65 MG Elemental)] 325 mg PO DAILY Gabapentin [Neurontin] 600 mg PO TID Famotidine [Pepcid] 20 mg PO BID amLODIPine [Norvasc] 10 mg PO QAM atenoloL [Tenormin] 25 mg PO HS atenoloL [Tenormin] 50 mg PO QAM Red Yeast Rice 1,200 mg PO HS Loratadine [Claritin] 10 mg PO QAM Rosuvastatin Calcium 2.5 mg PO TUTH Pantoprazole Sodium [Protonix] 40 mg PO QAM lisinopriL 40 mg PO QAM Evolocumab [Repatha Syringe] 140 mg SQ Q14D Potassium Gluconate 99 mg PO DAILY Discharge Medication List Ergocalciferol (Vitamin D2) [Drisdol] 50,000 unit PO Q14D 09/08/16 [History] Levothyroxine Sodium [Synthroid] 88 mcg PO HS 09/08/16 [History] Acetaminophen [Tylenol] 1,000 mg PO TID 08/05/19 [History] Ferrous Sulfate [Iron (65 MG Elemental)] 325 mg PO DAILY 08/05/19 [History] Multivitamins, Thera [Multivitamin (formulary)] 2 tab PO 1200 08/05/19 [History] Gabapentin [Neurontin] 600 mg PO TID 01/01/21 [History] Famotidine [Pepcid] 20 mg PO BID 11/26/21 [History] Pantoprazole Sodium [Protonix] 40 mg PO QAM 11/26/21 [History] Red Yeast Rice 1,200 mg PO HS 11/26/21 [History] amLODIPine [Norvasc] 10 mg PO QAM 11/26/21 [History] atenoloL [Tenormin] 25 mg PO HS 11/26/21 [History] atenoloL [Tenormin] 50 mg PO QAM 11/26/21 [History] lisinopriL 40 mg PO QAM 11/26/21 [History] Evolocumab [Repatha Syringe] 140 mg SQ Q14D 09/01/22 [History] Loratadine [Claritin] 10 mg PO QAM 09/01/22 [History] Potassium Gluconate 99 mg PO DAILY 07/04/23 [History] Rosuvastatin Calcium 2.5 mg PO TUTH 07/04/23 [History] Acetaminophen-Codeine 300-30mg [Tylenol w/codeine #3] 1 tab PO Q4H PRN 3 Days #42 tablet 03/05/24 [Rx] Baclofen 10 mg PO TID PRN #60 tab 03/05/24 [Rx] Sennosides-Docusate Sodium [Senokot-S] 1 tab PO BID PRN #60 tablet 03/05/24 [Rx] Follow up Appointment(s)/Referral(s): Smith Herrera, NI [PHYSICIAN EDI CONSULTANT] - 2 Weeks (Patient may follow-up with Smith Herrera PA-C or Dr. Melvin Landon at [facility] in 2-3 weeks following discharge. ) Activity/Diet/Wound Care/Special Instructions: 1. Patient may shower without a dressing intact. 2. Patient may utilize LSO brace for comfort and support with increased activities and while working with physical therapy as needed 3. Patient should refrain from driving until at least after their first follow- up appointment in the office. 4. Patient should avoid excessive bending, twisting, lifting; avoid overhead lifting; no lifting greater than 10 pounds 5. Take medications as prescribed 6. Patient should avoid anti-inflammatory medications over the next 6 weeks postoperatively 7. Do not soak in tub Discharge Disposition: TRANSFER TO SNF/ECF
--- NOTE | 2024-03-05 10:25 | P.PN ---
Subjective Progress Note Date: 03/05/24 Aleena Tovar, is a 79-year-old female who was admitted to [facility] by Dr. Landon and underwent open posterior lateral decompression and fusion L2-3 34 L4-5 L5-S1, please see orthopedic note for complete description of operation, postoperative the patient was hypotensive, she was started on IV fluid And IV pressors and was admitted to intensive care unit, medical consultation was requested. past medical history is significant for history of hypertension, history of hyperlipidemia, history of hypothyroidism, history of degenerative disc disease, history of osteoporosis, history of CVA, and history of thyroid nodule, history of osteoarthritis and history of decreased hearing. on 03/01/2024 patient is alert and oriented 3. blood pressure is improved but heart rate elevated. cardiology service is consulted. Current vital signs heart rate 109, respiratory rate 12, blood pressure 125 or 69 with pulse ox 98. Patient denies chest pain or shortness breath. Patient denies nausea vomiting or diarrhea. Patient denies any urinary burning or frequency. On 03/02/2024 patient was seen and examined on the telemetry floor she is alert and oriented 3 in no apparent distress, she is still complaining of moderate to severe lower back pain, otherwise she denies any complaints there is no fever or chills no headache or dizziness no chest pain no shortness of breath no cough no nausea or vomiting no abdominal pain no diarrhea and no urinary Symptoms. Her vital examination reveals A temperature of 98.6 pulse 114 respiration 16 blood pressure 116/67 pulse ox 94% on room air. On 03/03/2024 patient was seen and examined on the telemetry floor she is alert and oriented 3 in no apparent distress, she is still complaining of lower back pain, otherwise she denies any complaints there is no fever or chills no headache or dizziness no chest pain no shortness of breath no cough no nausea or vomiting no abdominal pain no diarrhea and no urinary Symptoms. Patient is improving gradually, plan is for possible transfer to rehab in the next 1 to 2 days. On 03/04/2024 patient was seen and examined on the medical floor, she is alert and oriented 3 in no apparent distress, she is complaining of back pain, she had urinary retention yesterday and Schuler catheter was inserted, patient will have voiding trials today, if able to urinate, she may be able to be transferred today to rehab, otherwise Schuler catheter will be reinserted and urology consultation will be initiated, otherwise she denies any complaints there is no fever or chills no headache or dizziness no chest pain no shortness of breath no cough no nausea or vomiting no abdominal pain no diarrhea no blood in the stool. On 03/05/2024 patient's alert and oriented 3. Per nursing staff patient has been voiding post Schuler catheter removal with minimum postvoid residual. Patient will be DC'd to medical [facility] today per orthopedic services. This time patient denies chest pain or shortness breath. Patient denies nausea vomiting Objective - Vital Signs Vital signs: Vital Signs Temp 98.4 F 03/05/24 07:43 Pulse 79 03/05/24 07:43 Resp 19 03/05/24 07:43 BP 152/87 03/05/24 07:43 Pulse Ox 97 03/05/24 07:43 FiO2 Intake & Output 03/04/24 03/05/24 03/05/24 18:59 06:59 18:59 Intake Total 900 590 Balance 900 590 Intake: IV 900 Sodium Chloride 0.9% 1, 900 000 ml @ 75 mls/hr IV . [id number] [facility] Rx#:[id number] Oral 590 Other: Voiding Method Indwelling Catheter Bedside Commode Bedside Commode # Voids 1 3 ABP, PAP, CO, CI - Last Documented Arterial Blood Pressure 129/56 - Exam In general patient is alert and oriented x 3 in no distress HEENT head normocephalic and atraumatic Neck is supple no JVD no goiter no lymphadenopathy no carotid bruit Chest examination is clear to auscultation no crackles no wheezing Cardiac exam reveals regular heart sounds S1 and S2 no gallops no murmurs Abdomen is soft nontender no organomegaly with normal bowel sounds Extremity exam reveals no edema no cyanosis or clubbing Neurological examination reveals no gross focal deficits - Labs CBC & Chem 7: 03/04/24 06:10 03/04/24 06:10 Assessment and Plan Plan: postoperative hypotension likely related to anesthesia Status post lumbar decompression and fusion Underlying history of hypertension Underlying history of hyperlipidemia Underlying history of hypothyroidism Previous history of CVA Underlying history of osteoarthritis Underlying history of osteoporosis Underlying history of coronary artery disease Underlying history of depression with anxiety disorder
[2024-03-05] MEDS: polyethylene glycoL 3350 17 GM POWD.PACK PO SCH (10:49)
--- NOTE | 2024-03-08 10:54 | CDI ---
Documentation Clarification Form Date: 03/08/2024 10:26:53 AM From: Michelle Amaro RN, CCDS Phone: [phone] Admit Date: 02/29/2024 08:50:00 AM Patient Name: Aleena Tovar Visit Number: [id number] Discharge Date: 03/05/2024 11:05:00 AM ATTENTION: The Clinical Documentation Specialists (CDI) and [facility] Coding Staff appreciate your assistance in clarifying documentation. Please respond to the clarification below the line at the bottom and electronically sign. The CDI & [facility] Coding staff will review the response and follow-up if needed. Please note: Queries are made part of the Legal Health Record. If you have any questions, please contact the author of this message via ITS. Dr. Janis Rutledge Your patient had a drop in hemoglobin/hematocrit after surgery. Please clarify if there is an additional diagnosis and/or clinical significance related to these lab values. History/Risk Factors: Severe spinal stenosis, neurogenic claudication, failed outpatient therapy. Admitted for an open L2-3, L3-4, L4-5, and L5-S1 posterior lateral decompression and fusion with L4-5 transforaminal lumbar interbody fusion. She progressed slowly postoperatively having significant hypotension initially postoperatively and was in the ICU. Clinical indicators: 02/27 Procedure note: "EBL: Approximately 700 cc with significant given back through Cell Saver." 02/27 Pulmonary consult: "Estimated Blood Loss 800. The patient was given 2 L of Cell Saver's and a liter of IV fluids and the patient's hemoglobin is currently stable at 9.3. Hemoglobin has dropped from a baseline of 11.9 down to 9.3. Skin shows a clear surgical wound site over the posterior back area and the patient has a Hemovac in place." 02/27-03/04 Hgb: 11.9-9.3-8.4-9.9 02/27-03/04 Hct: 35.6-27.2-25.3-30 Treatment: Monitor Hgb/Hct; monitor hemovac output; IV Albumin given on 02/27; 0.9 NS IVF @75mL/hr Is there an additional diagnosis and/or clinical significance related to the above lab result/information: [ xxxxx ] Acute blood loss anemia [ ] No additional diagnosis/Not clinically significant [ ] Unable to determine [ ] Other, please specify MTDD
== END 2024-03-05 11:05 | DRG 454 ==
LOC: OR 05:55 → 4SSUR 12:49 → 2SICU 12:49 → OR 02-29 08:50 → 2SICU 02-29 08:50 → 5NMEDONC 03-01 15:54
PROVIDERS: ADMIT Orthopaedic Surgery Orthopaedic Surgery of the Spine; ATTEND Orthopaedic Surgery Orthopaedic Surgery of the Spine
PROC: 0SG10AJ Fusion of 2 or more Lumbar Vertebral Joints with Interbody Fusion Device, Posterior Approach, Anterior Column, Open Approach (ICD-10-PCS; principal; 2024-02-29)
PROC: 0SG1071 Fusion of 2 or more Lumbar Vertebral Joints with Autologous Tissue Substitute, Posterior Approach, Posterior Column, Open Approach (ICD-10-PCS; 2024-02-29)
PROC: 0SG30AJ Fusion of Lumbosacral Joint with Interbody Fusion Device, Posterior Approach, Anterior Column, Open Approach (ICD-10-PCS; 2024-02-29)
PROC: 0SG3071 Fusion of Lumbosacral Joint with Autologous Tissue Substitute, Posterior Approach, Posterior Column, Open Approach (ICD-10-PCS; 2024-02-29)
PROC: 01NB0ZZ Release Lumbar Nerve, Open Approach (ICD-10-PCS; 2024-02-29)
PROC: 0SB20ZZ Excision of Lumbar Vertebral Disc, Open Approach (ICD-10-PCS; 2024-02-29)
PROC: 0SB40ZZ Excision of Lumbosacral Disc, Open Approach (ICD-10-PCS; 2024-02-29)
PROC: 01NR0ZZ Release Sacral Nerve, Open Approach (ICD-10-PCS; 2024-02-29)
PROC: 00NY0ZZ Release Lumbar Spinal Cord, Open Approach (ICD-10-PCS; 2024-02-29)
PROC: 0SG307J Fusion of Lumbosacral Joint with Autologous Tissue Substitute, Posterior Approach, Anterior Column, Open Approach (ICD-10-PCS; 2024-02-29)
PROC: 8E0WXBG Computer Assisted Procedure of Trunk Region, With Computerized Tomography (ICD-10-PCS; 2024-02-29)
PROC: 4A11X4G Monitoring of Peripheral Nervous Electrical Activity, Intraoperative, External Approach (ICD-10-PCS; 2024-02-29)
PROC: 3E0U0GB Introduction of Recombinant Bone Morphogenetic Protein into Joints, Open Approach (ICD-10-PCS; 2024-02-29)
DX: M51.17 Intervertebral disc disorders with radiculopathy, lumbosacral region (principal); D62 Acute posthemorrhagic anemia; I10 Essential (primary) hypertension; E03.9 Hypothyroidism, unspecified; F32.A Depression, unspecified; I25.82 Chronic total occlusion of coronary artery; M81.0 Age-related osteoporosis without current pathological fracture; Z79.890 Hormone replacement therapy; H91.90 Unspecified hearing loss, unspecified ear; E78.5 Hyperlipidemia, unspecified; F41.9 Anxiety disorder, unspecified; I25.10 Atherosclerotic heart disease of native coronary artery without angina pectoris; L25.9 Unspecified contact dermatitis, unspecified cause; T41.45XA Adverse effect of unspecified anesthetic, initial encounter; M43.17 Spondylolisthesis, lumbosacral region; M47.26 Other spondylosis with radiculopathy, lumbar region; N99.89 Other postprocedural complications and disorders of genitourinary system; R33.8 Other retention of urine; R00.0 Tachycardia, unspecified; I95.2 Hypotension due to drugs; M48.062 Spinal stenosis, lumbar region with neurogenic claudication; Z79.899 Other long term (current) drug therapy; Z85.828 Personal history of other malignant neoplasm of skin; Z86.73 Personal history of transient ischemic attack (TIA), and cerebral infarction without residual deficits; Z87.442 Personal history of urinary calculi; Z87.891 Personal history of nicotine dependence; Z96.611 Presence of right artificial shoulder joint; Z96.653 Presence of artificial knee joint, bilateral; Z87.19 Personal history of other diseases of the digestive system; X58.XXXA Exposure to other specified factors, initial encounter
CPT/HCPCS: 71045; 72100; 80048; 80051; 80053; 84132; 85025; 85027

== ENCOUNTER → 2024-06-18 | Outpatient (CLI) | payer MEDICARE, BC | END | disposition home or self-care (01) | LOC: LABWHC1 10:03 | PROVIDERS: ATTEND Orthopaedic Surgery | DX: Z01.818 Encounter for other preprocedural examination | CPT/HCPCS: 36415; 83036; 87070 ==

== ENCOUNTER 2024-06-28 08:32 | Day surgery (SDC) | payer MEDICARE, BC ==
[2024-06-25 16:11] VITALS: BMI 31.4
[~2024-06-28 08:32] MED LIST changes: +ACETAMINOPHEN TAB 500 MG TAB PO PRN; +FAMOTIDINE 20 MG/2 ML VIAL IVP PRN; +KETOROLAC 15 MG/ML 1 ML VIAL IVP PRN; -LIDOCAINE 1% (10MG/ML) FOR IV START INTRADERMA PRN; +TRANEXAMIC 1,000 MG/100ML-NACL 1,000 MG in SALINE 1 100ML.BAG IV PRN; -ceFAZolin 1,000 MG in SODIUM CHLORIDE 0.9% IRRIGATIO 1,000 ML IRRIGATION PRN
[2024-06-28] MEDS: DOCUSATE 100 MG CAP PO PRN (09:41)
[2024-06-28] MEDS: oxyCODONE ER 10 MG TAB.ER.12H PO PRN (09:41)
[2024-06-28] MEDS: ONDANSETRON 4 MG/2 ML VIAL IVP PRN (09:42)
[2024-06-28] MEDS: DEXAMETHASONE SOD PHOSPHATE 10 MG/ML 1 ML VIAL IV PRN (09:42)
[2024-06-28] MEDS: LACTATED RINGERS 1,000 ML BAG IV STA (09:48)
[2024-06-28] MEDS: IV FLUID CONTINUATION 1,000 ML IV ONE (09:51)
[2024-06-28] MEDS: fentaNYL (PF) 50 MCG/ML 2 ML AMP IVP ONE (09:57)
[2024-06-28] MEDS: MIDAZOLAM 2 MG/2 ML VIAL IV ONE (10:06)
[2024-06-28] MEDS: ROPIVACAINE/EPI/CLONIDINE/KET 50 ML SYRINGE MISCELLANE PRN (10:40)
--- NOTE | 2024-06-28 10:57 | P.ANPRN ---
Procedure Note - Anesthesia - Nerve Block Performed Right Osorio Single Time Out Performed: Yes ([id number]) Date of Procedure: 06/28/24 Procedure Start Time: 09:50 Procedure Stop Time: :55 Location of Patient: PreOp Indication: Acute Post-Operative Pain, Requested by Surgeon Specifically requested for management of pain by DrBaljinder: Prince Gomez Sedation Type: Sedate with meaningful contact maintained Preparation: Sterile Prep Position: Supine Catheter: None Needle Types: Pajunk Needle Gauge: 21 Ultrasound used to visualize needle placement: Yes Ultrasound used to observe medication spread: Yes Injectate: 0.5% Ropivacaine (see comment for volume) (30cc) Blood Aspirated: No Pain Paresthesia on Injection Noted: No Resistance on Injection: Normal Image Stored and Saved: Yes Events: Uneventful and Well Tolerated
[2024-06-28] MEDS ORDERED: ONDANSETRON 4 MG/2 ML VIAL IVP PRN (12:05)
[2024-06-28] MEDS ORDERED: NALOXONE 0.4 MG/ML 1 ML VIAL IV PRN (12:05)
[2024-06-28] MEDS ORDERED: MAGNESIUM HYDROXIDE 2,400 MG/30 ML CUP PO PRN (12:05)
[2024-06-28] MEDS ORDERED: HYDROcodone/APAP 5-325MG 1 EACH TAB PO PRN (12:05)
--- NOTE | 2024-06-28 12:05 | P.OP ---
Date of Procedure: 06/28/24 Preoperative Diagnosis: 1. Severe right hip arthritis with femoral head subchondral fracture and collapse versus avascular necrosis 2. prior lumbar spine fusion Postoperative Diagnosis: same Procedure(s) Performed: right direct anterior total hip arthroplasty Implants: 1. Alpine Trident II Acetabular Cup, Size #48 2. Alpine Accolade C Size #3 Femoral Stem, Standard Offset 3. Dual Mobility OD 38 mm, ID 28 mm, -4 mm neck Anesthesia: SONJAA, regional Surgeon: Prince Gomez Performance Manager #1: Raul Quiroz Estimated Blood Loss (ml): 200 IV fluids (ml): 800 Pathology: none sent Condition: stable Disposition: PACU Indications for Procedure: The is a very pleasant 71-year-old female who presented to my office after being referred by my partner with a right femoral head subchondral fracture with collapse versus avascular necrosis. She also had severe hip arthritis. She was incapacitated by pain from her right hip and the decision was made to proceed with a total hip replacement. I had a long discussion with the patient in the office on the potential risks and complications of an elective total hip replacement through a direct anterior approach. Risks discussed include, but are certainly not limited to, risks from anesthesia, superficial infection requiring local wound care or antibiotics, deep ena-prosthetic joint infection and the treatment required to eradicate infection, intraoperative fracture, postoperative periprosthetic fracture, damage to local blood vessels or nerves particularly the lateral femoral cutaneous nerve, delayed wound healing requiring local wound care or possibly surgical debridement, hip dislocation, leg length discrepancy, soft tissue irritation around the total hip implant such as iliopsoas tendinitis or trochanteric bursitis, wear and osteolysis from the implants, squeaking or audible noises, groin pain, thigh pain, heterotopic ossification, stiffness, aseptic loosening of the implants, dissatisfaction with surgical outcome, need for revision surgery, DVT, PE, swelling of the operative extremity, acute coronary event, stroke, failure to thrive, and possibly loss of life or limb. The patient understands that while these are the most common complications after an elective hip replacement there are certainly other less common complications possible. They were given ample time to ask questions regarding the potential complications of a hip replacement. Following our discussion the patient provided their verbal and written consent to go forward with an elective total hip replacement. Operative Findings: There was a large serosanguineous effusion in the right hip. On inspection of the femoral head there is a subchondral fracture with collapse. There were diffuse arthritic changes throughout the hip. Description of Procedure: The patient was identified in the preoperative holding area and the correct hip was marked with my initials. I reviewed the procedure and consent with the patient. All of their questions were answered. The patient was then brought back into the operating room by anesthesia. While on the [facility] anesthesia was administered by the anesthesia team. Preoperative antibiotics and tranexamic acid were also given. After the patient was under anesthesia I examined their ankles to determine their preoperative leg length discrepancy. The skin over t he anterior aspect of the hip was shaved to remove hair over the site of planned incision. Both feet and ankles were padded with webril and boots for the [place] were applied. The patient was then carefully transferred onto the [place] table. A perineal post was immediately placed. The arms were placed on arm holders and were well-padded. Both boots were secured to the spars on the [place] table. The patient was positioned so that the pelvis was centered over the post. Nonsterile drapes were applied. A timeout was performed identifying the correct patient, operative extremity, and procedure. At this point fluoroscopy was brought in to take preoperative images of the pelvis and operative hip. Using the standing AP pelvis from the office as a template, a comparable image was obtained with fluoroscopy. A metallic bar was used to create a bi-ischial line for use as a reference to leg length adjustments during the procedure. Global offset was also measured on both the operative and nonoperative leg. Fluoroscopy was then brought out and a pre-scrub using a chlorhexidine scrub brush was performed. The operative limb was then prepped and draped in the standard sterile fashion. An anterior longitudinal incision was made lateral and distal to the ASIS. The skin and subcutaneous tissues were incised sharply. The underlying tensor fascia was identified and incised in its midportion. The fascia was dissected free from the underlying muscle and the muscle belly was retracted. A blunt tipped cobra retractor was placed over the superior neck under the muscle fibers of the gluteus minimus. The deep enveloping fascia of the tensor was incised. The anterior leash of vessels were then identified and cauterized. The fascia between the rectus and the capsule was then incised and the pre-capsular fat was excised. A second Cobra was placed inferior to the neck. The interval between the rectus and iliocapsularis and the hip capsule was developed and a retractor was placed carefully over the anterior rim of the acetabulum. A T-shaped anterior capsulotomy was performed. The superior capsular leaflet was left in place in the inferior capsular flap was excised. The Cobra retractors were placed intracapsularly. We then made a femoral neck osteotomy according to preoperative and intraoperative templating and confirmed the level of the osteotomy using fluoroscopic imaging. The femoral head was removed, passed off to the back table, and sized. The superior capsular flap was excised. Retractors were placed circumferentially exposing the acetabulum. We then circumferentially debrided the acetabulum free of labrum and osteophytes. The pulvinar was removed to fully visualize the cotyloid fossa. We then sequentially reamed to achieve peripheral fit and excellent bleeding subchondral bone. The socket was thoroughly irrigated. The acetabular component was impacted into the appropriate position using fluoroscopy to guide version, inclination, and depth of insertion taking care to have a comparable image of the AP pelvis to the standing image taken in the office. An excellent press-fit was achieved and final position was confirmed using fluoroscopy. The press fit was augmented with bony cancellus dome screws. The liner was then impacted into the socket. Attention was then turned to the femur. The remnant dorsal lateral capsule was excised. The short external rotators were visible and protected. A bone hook was used to confirm appropriate translation of the trochanter away from the acetabulum. The leg was then extended and adducted and the bone hook was used to elevate the femur for broaching. On inspection of the patient's proximal femur, they appeared to have poor bone quality so I elected to proceed with cemented fixation of the femoral component. A box osteotome and blunt tipped canal sound was then utilized to gain access to the femoral canal. We then sequentially broached the femur in appropriate anteversion until torsional stability was achieved and the implant was felt to have reached the appropriate size to allow trialing. The neck cut was brought flush to the trial broach with a calcar planar. A trial neck and head were then placed onto the broach and the hip was atraumatically reduced under direct visualization. External rotation to 90 was performed to assess stability. Fluoroscopy was brought in. An AP and lateral fluoroscopic image of the proximal femur was obtained to assess position and fill of the trial broach. An AP of the pelvis was then obtained and matched to the preoperative image taken. A bi-ischial bar was then placed and measurements were taken to assess changes in length and offset. The hip was then carefully dislocated, the proximal femur was exposed, and the trial implants were removed. The proximal femur was then prepared for cementing. The canal was thoroughly irrigated with pulsatile lavage to remove blood and marrow contents. A cement restrictor was placed to a depth just distal to the tip of the final implant. Epinephrine-soaked gauze was then packed into the proximal femur. 2 bags of cement were then mixed using a centrifuge and placed into a cement gun. Anesthesia was notified that cementing was about to commence to make sure the patient was appropriately ventilated and hydrated. Once the cement had reached appropriate consistency, the cement gun was used to fill the canal in a retrograde fashion starting at the restrictor. Cement was then pressurized into the canal with a blue tipped word processor technician. The stem was then carefully introduced into the cement taking care to guide the implant into appropriate version. The stem was held in position until the cement had fully set. All extra cement was removed while the cement was hardening. The trunnion was cleansed and the final head was tapped into place to engage the Christy taper. The acetabulum was irrigated and visualized to be free of debris. The hip was carefully reduced. Stability was checked clinically with external rotation to 90 and there was no evidence of instability. Final fluoroscopic images were taken. The wound was then thoroughly irrigated and soaked with a dilute Betadine rinse for 3 minutes. 3 L of sterile saline was irrigated through the wound using pulsatile lavage. Local anesthetic cocktail was injected into the soft tissues around the surgical field. The wound was then closed in layers. A sterile dressing was placed over the surgical incision. The drapes were taken down and the patient was carefully transferred off of the [place] table. Following removal of the boots the leg lengths felt acceptable. The patient was then taken to recovery room having tolerated the procedure well. Raul Quiroz PA-C was required as a skilled staffing assistant due to the complexity of surgery for patient positioning, draping, exposure, retraction, closure of wound, and application of dressing. PLAN: The patient can weight-bear as tolerated on the operative extremity. 2 doses of postoperative antibiotics. DVT prophylaxis with aspirin 81 mg twice a day based on preoperative risk stratification. Physical therapy for gait training.
[2024-06-28] MEDS: LACTATED RINGERS 1,000 ML IV ONE (12:15)
[2024-06-28] MEDS: HYDROmorphone 0.5 MG/0.5 ML SYRINGE IVP PRN (12:50)
[2024-06-28] MEDS: HYDROcodone/APAP 10-325MG 1 EACH TAB PO PRN (14:26)
[2024-06-28] MEDS: MIDAZOLAM 2 MG/2 ML VIAL IM ONE (14:45)
[2024-06-28] MEDS: SODIUM CHLORIDE 0.9% 1,000 ML IV SCH (14:46)
[2024-06-28] MEDS: ASPIRIN 81 MG PO SCH (22:45)
[2024-06-28] MEDS: SENNOSIDES-DOCUSATE SODIUM 1 EACH TAB PO SCH (22:46)
[2024-06-28] MEDS: FAMOTIDINE 20 MG TAB PO SCH (22:46)
[2024-06-28] MEDS: atenoloL 25 MG TAB PO SCH (22:46)
[2024-06-28] MEDS: GABAPENTIN 300 MG CAP PO SCH (22:47)
[2024-06-29] MEDS: LEVOTHYROXINE 88 MCG TAB PO SCH (06:35)
--- NOTE | 2024-06-29 08:30 | P.PN ---
Subjective Progress Note Date: 06/29/24 Patient is doing well this morning. Mild pain in the right hip. The patient's main complaint is difficulty urinating. She denies chest pain or shortness of breath. Objective - Vital Signs Vital signs: Vital Signs Temp 98.8 F 06/29/24 02:23 Pulse 62 06/29/24 02:52 Resp 17 06/29/24 02:23 BP 96/58 06/29/24 02:52 Pulse Ox 97 06/29/24 02:23 FiO2 Intake & Output 06/28/24 06/29/24 06/29/24 18:59 06:59 18:59 Intake Total 1100 Output Total 200 60 Balance 900 -60 Weight 64.5 kg Intake: IV 1100 Output: Post Void Residual 60 Estimated Blood Loss 200 Other: # Voids 1 2 - Exam Patient is sitting up at bedside. She is alert and able to answer questions. There is a clean dressing over the anterior aspect of the right hip. No drainage or strike through. Mild swelling in the thigh. Femoral nerve function is intact. She is able to actively plantarflex and dorsiflex her ankle and her toes. Assessment and Plan Assessment: Postoperative day #1 status post right direct anterior total hip arthroplasty for subacute femoral head fracture and severe right hip osteoarthritis Plan: 1. Weight bear as tolerated on the operative extremity, up with assistance and a walker 2. DVT prophylaxis with aspirin 81 mg BID 3. 2 doses of post operative antibiotics 4. Leave surgical dressing in place 5. Internal medicine for ena-operative medical management 6. Physical therapy for gait training and mobilization 7. Dispo: Plan for discharge home tomorrow if the patient passes physical therapy and is doing well
[2024-06-29] MEDS: FERROUS SULFATE 325 MG TAB PO SCH (08:55)
[2024-06-29] MEDS: LORATADINE 10 MG TAB PO SCH (08:55)
[2024-06-29] MEDS: PANTOPRAZOLE 40 MG TABLET PO SCH (08:55)
[2024-06-29] MEDS: atenoloL 50 MG TAB PO SCH (08:55)
[2024-06-29] MEDS: MULTIVITAMINS, THERA 1 EACH TAB PO SCH (08:55)
[2024-06-29] MEDS: lisinopriL 20 MG TAB PO SCH (08:56)
[2024-06-29] MEDS: amLODIPine 10 MG TAB PO SCH (08:56)
--- NOTE | 2024-06-29 12:04 | P.CONS ---
History of Present Illness - Reason for Consult Consult date: 06/29/24 - History of Present Illness Aleena Tovar, is a 79-year-old female who was admitted to [facility] by Dr. Gomez due to severe pain in the right hip that failed conservative management, patient underwent right total hip arthroplasty on 06/28/2024 medical consultation was requested for management while hospitalized. Patient has a known history of hypertension, hyperlipidemia, hypothyroidism, osteoarthritis, osteoporosis, she also had a previous history of gastrointestinal bleeding, peptic ulcer disease, history of kidney stones, and history of skin cancer. On review of systems patient is alert and oriented x 3 she denies any fever or chills no headache or dizziness no chest pain no shortness of breath no cough no nausea or vomiting no abdominal pain no diarrhea no blood in the stools no burning with urination no frequency or urgency and no hematuria. Past Medical History Past Medical History: Cancer, GI Bleed, Hearing Disorder / Deafness, Hyperlipidemia, Hypertension, Musculoskeletal Disorder, Osteoarthritis (OA), Thyroid Disorder Additional Past Medical History / Comment(s): "Had little spot freezed off face today by skin " Right leg pain. Hx skin cancer. 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 CONSTANT DIZZINESS/EYES SLIGHTLY BLURRY, MILD ARCTIC VILLAGE IN RIGHT EAR. 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 HX KIDNEY STONES. Hx bleeding ulcers. Osteoporosis. Hx Shingles/still has headaches from it occasionally. History of Any Multi-Drug Resistant Organisms: None Reported Year Discovered:: None MDRO Source:: None Past Surgical History: Back Surgery, Joint Replacement, Orthopedic Surgery Additional Past Surgical History / Comment(s): LITHOTRIPSY, KIDNEY SURGERY to remove large stone from ureter, LEFT ACHILLES TENDON REPAIR, RIGHT KNEE ARTHROSCOPY, RIGHT ROTATOR CUFF REPAIR, BILATRAL CARPAL TUNNEL SURGERY, bilateral total knee arthroplasties, colonoscopy X2, sinus surgery, D&C, skin cancer removed from abdomen, right shoulder replacement, emergency diaphragmatic hernia repair, paraesophageal hernia repair 08/2023, L2-3, L3-4, L4-5, L5-S1 decompression and fusion 02/2024. Past Anesthesia/Blood Transfusion Reactions: No Reported Reaction Additional Past Anesthesia/Blood Transfusion Reaction / Comm: HX BLOOD TRANSFUSION X2-NO REACTION. Smoking Status: Never smoker - Past Family History Mother Family Medical History: No Reported History Additional Family Medical History / Comment(s): . Sister(s) Family Medical History: Deep Vein Thrombosis (DVT) Medications and Allergies Home Medications Medication Instructions Recorded Confirmed Type Ergocalciferol (Vitamin D2) 50,000 unit PO Q14D 09/08/16 06/25/24 History [Drisdol] Levothyroxine Sodium [Synthroid] 88 mcg PO QAM 09/08/16 06/25/24 History Ferrous Sulfate [Iron (65 MG 325 mg PO DAILY 08/05/19 06/25/24 History Elemental)] Multivitamins, Thera [Multivitamin 2 tab PO DAILY 08/05/19 06/25/24 History (formulary)] Famotidine [Pepcid] 20 mg PO BID 11/26/21 06/25/24 History Pantoprazole Sodium [Protonix] 40 mg PO QAM 11/26/21 06/25/24 History Evolocumab [Repatha Syringe] 140 mg SQ Q14D 09/01/22 06/25/24 History Loratadine [Claritin] 10 mg PO DAILY 09/01/22 06/25/24 History Rosuvastatin Calcium 2.5 mg PO MOTH 07/04/23 06/25/24 History Acetaminophen [Tylenol Extra 500 mg PO TID 06/25/24 06/25/24 History Strength] Acetaminophen-Codeine 300-30mg 1 tab PO TID 06/25/24 06/25/24 History [Tylenol w/codeine #3] Gabapentin 600 mg PO TID 06/25/24 06/25/24 History Miralax (Unknown Dose) 1 tab PO DAILY 06/25/24 06/25/24 History Mupirocin 2% Oint [Bactroban 2% 1 applic NASAL DAILY 06/25/24 06/25/24 History Oint] Potassium. 595 mg PO DAILY 06/25/24 06/25/24 History amLODIPine 10 mg PO QAM 06/25/24 06/25/24 History atenoloL 25 mg PO HS 06/25/24 06/25/24 History atenoloL [Tenormin] 50 mg PO QAM 06/25/24 06/25/24 History lisinopriL 40 mg PO QAM 06/25/24 06/25/24 History Aspirin 81 mg PO BID #60 tab 06/29/24 Rx Celecoxib [CeleBREX] 200 mg PO BID #60 cap 06/29/24 Rx Docusate [Colace] 100 mg PO BID #60 capsule 06/29/24 Rx HYDROcodone/APAP 5-325MG [[place] 1 - 2 tab PO Q6HR PRN #48 tab 06/29/24 Rx 5-325] Allergies Allergy/AdvReac Type Severity Reaction Status Date / Time diazepam [From Valium] Allergy Severe Nausea & Verified 06/28/24 09:37 Vomiting, dizzy,muscle pain,mouth numb escitalopram oxalate Allergy Severe Nausea & Verified 06/28/24 09:37 [From Lexapro] Vomiting, dizzy,muscle pain, mouth numb fluticasone propionate Allergy Severe Nausea & Verified 06/28/24 09:37 [From Flonase] Vomiting, dizzy,muscle pain, mouth numb furosemide [From Lasix] Allergy Severe Nausea & Verified 06/28/24 09:37 Vomiting,dizzy, muscle pain, mouth numb hydrocodone bitartrate Allergy Severe Nausea & Verified 06/28/24 09:37 [From Lortab] Vomiting,Dizzy, Muscle Pain, Mouth Numb meclizine HCl [From Antivert] Allergy Severe Nausea & Verified 06/28/24 09:37 Vomiting,dizzy,muscle pain, mouth numb olmesartan medoxomil Allergy Severe Nausea & Verified 06/28/24 09:37 [From Benicar] Vomiting, dizzy, muscle pain, mouth numb promethazine Allergy Severe Nausea & Verified 06/28/24 09:37 Vomiting, dizzy , muscle pain, mouth numb Qwvwxwa-SYZ-KoA Reductase Allergy Severe Nausea & Verified 06/28/24 09:37 Inhibitor Vomiting,dizzy, [Usrnvtu-Qfx-Vzx Reductase muscle Inhibitor] pain, mouth numb tizanidine HCl Allergy Severe Nausea & Verified 06/28/24 09:37 [From Zanaflex] Vomiting,dizzy,muscle pain,mouth numb spironolactone Allergy Unknown NUMBNESS Verified 06/28/24 09:37 [From Aldactone] IN FACE, NAUSEA ketorolac Allergy Nausea & Verified 06/28/24 09:37 Vomiting prednisone Allergy Dyspnea, Verified 06/28/24 09:37 Nausea & Vomiting, Dizzy, Muscle Pain, Mouth Numb. scopolamine Allergy Chest Pain Verified 06/28/24 09:37 Sulfa (Sulfonamide Allergy Nausea & Verified 06/28/24 09:37 Antibiotics) Vomiting,dizzy,muscle pain, mouth numb. tramadol AdvReac Severe NAUSEA AND Verified 06/28/24 09:37 VOMITING NSAIDS (Non-Steroidal AdvReac Hx Verified 06/28/24 09:37 Anti-Inflamma bleeding ulcers Physical Exam Vitals: Vital Signs Temp Pulse Pulse Resp BP Pulse Ox 06/29/24 06:55 98.7 F 58 L 18 91/52 99 06/29/24 02:52 62 96/58 06/29/24 02:23 98.8 F 58 L 17 80/45 97 06/28/24 23:52 14 06/28/24 20:30 98.6 F 64 17 109/60 100 06/28/24 16:34 61 116/68 06/28/24 16:18 61 93/54 06/28/24 16:04 56 L 97/59 06/28/24 15:49 58 L 112/63 06/28/24 15:34 57 L 97/59 06/28/24 15:19 56 L 100/60 06/28/24 15:04 54 L 101/60 06/28/24 14:49 56 L 113/62 06/28/24 14:34 69 137/87 100 06/28/24 14:21 97.4 F L 75 105/57 100 06/28/24 13:45 56 L 12 91/49 96 06/28/24 13:30 55 L 12 96/53 100 06/28/24 13:15 57 L 12 104/52 100 06/28/24 13:00 63 12 97/52 96 06/28/24 12:45 58 L 12 80/49 100 06/28/24 12:27 97.4 F L 64 12 102/50 100 Intake and Output 06/28/24 06/29/24 06/29/24 22:59 06:59 14:59 Output Total 60 Balance -60 Output: Post Void Residual 60 Other: # Voids 1 2 1 In general patient is alert and oriented x 3 in no distress HEENT head normocephalic and atraumatic Neck is supple no JVD no goiter no lymphadenopathy no carotid bruit Chest examination is clear to auscultation no crackles no wheezing Cardiac exam reveals regular heart sounds S1 and S2 no gallops no murmurs Abdomen is soft nontender no organomegaly with normal bowel sounds Extremity exam reveals no edema no cyanosis or clubbing Neurological examination reveals no gross focal deficits Assessment and Plan Plan: Severe right hip osteoarthritis , status post right direct anterior total hip arthroplasty on 06/28/2024 Underlying history of hypertension Underlying history of hyperlipidemia Underlying history of hypothyroidism Underlying history of degenerative disc disease with previous back surgery Underlying history of osteoarthritis Previous history of gastrointestinal bleeding Previous history of kidney stones Underlying history of osteoporosis This time patient was seen and examined Home medications reviewed and reordered Pain management and DVT prophylaxis per orthopedic protocols Will check labs check urine analysis Follow-up during this admission for medical management
[2024-06-29 13:16] LABS: Basophils # (A) 0.01 X 10*3/uL (0.00-0.10); Basophils % (A) 0.1 %; Eosinophils # (A) 0 X 10*3/uL (0.04-0.35); Eosinophils % (A) 0 %; HCT 31.6 % (37.2-46.3); HGB 10.3 g/dL (12.0-15.0); Lymphocytes # (A) 1.04 X 10*3/uL (0.90-5.00); Lymphocytes % (A) 10.9 %; MCH 30.7 pg (27.0-32.0); MCHC 32.6 g/dL (32.0-37.0); MCV 94.3 FL (80.0-97.0); Monocytes # (A) 0.83 X 10*3/uL (0.20-1.00); Monocytes % (A) 8.7 %; NRBC Per 100 WBC 0 X 10*3/uL (0.00-0.01); Neutrophils # (A) 7.59 X 10*3/uL (1.80-7.70); Platelet Count 205 X 10*3/uL (140-440); RBC 3.35 X 10*6/uL (4.10-5.20); RDW 12.7 % (11.5-14.5)
[2024-06-29 19:03] LABS: Appearance,Urine Clear (Clear); Bilirubin,Urine Negative (Negative); Blood,Urine Negative (Negative); Color,Urine Colorless; Glucose,Urine (UA) Negative (Negative); Ketones,Urine Negative (Negative); Leukocyte Esterase,Urine Moderate (Negative); Mucus,Urine Rare /hpf; Nitrite,Urine Positive (Negative); Protein,Urine Negative (Negative); RBC,Urine 3 /hpf (0-5); Squamous Epithelial Cell,Urine <1 /hpf (0-4); Urobilinogen,Urine <2.0 mg/dL (<2.0); WBC,Urine 20 /hpf (0-5)
--- NOTE | 2024-06-30 09:20 | P.PN ---
Subjective Progress Note Date: 06/30/24 Patient is complaining of pain in her right hip. She states that she also had issues with pain control following her back surgeries. She denies chest pain or shortness of breath. Objective - Vital Signs Vital signs: Vital Signs Temp 99.4 F 06/30/24 07:35 Pulse 81 06/30/24 07:35 Resp 16 06/30/24 07:35 BP 99/59 06/30/24 07:35 Pulse Ox 98 06/30/24 07:35 FiO2 Intake & Output 06/29/24 06/30/24 06/30/24 18:59 06:59 18:59 Other: Voiding Method Toilet Toilet # Voids 1 6 - Exam Resting comfortably in bed. The patient does not appear to be in any obvious distress and looks comfortable. On inspection of the right hip there is a clean dressing with no drainage or strike through. There is moderate swelling throughout the leg and resolving ecchymosis. Femoral nerve function is intact. She is able to actively plantar flex bursa for x-ray of her toes. - Labs CBC & Chem 7: 06/29/24 06:36 Labs: Abnormal Lab Results - Last 24 Hours (Table) 06/29/24 06/29/24 Range/Units 06:36 18:40 RBC 3.35 L (4.10-5.20) X 10*6/uL Hgb 10.3 L (12.0-15.0) g/dL Hct 31.6 L (37.2-46.3) % Eosinophils # 0 L (0.04-0.35) X 10*3/uL Urine Nitrite Positive H (Negative) Ur Leukocyte Esterase Moderate H (Negative) Urine WBC 20 H (0-5) /hpf Urine Mucus Rare H (None) /hpf Assessment and Plan Assessment: Postoperative day #2 status post right direct anterior total hip arthroplasty Plan: Continue treatment as outlined yesterday. The patient is still painful and wanting IV Dilaudid rather than oral pain medications. We will work on weaning her off IV pain medication today. I would like her to mobilize out of bed into a chair is able. The patient would like to reassess her pain tomorrow and possibly discharge with home healthcare tomorrow.
--- NOTE | 2024-06-30 09:22 | P.PN ---
Subjective Progress Note Date: 06/30/24 Aleena Tovar, is a 79-year-old female who was admitted to [facility] by Dr. Gomez due to severe pain in the right hip that failed conservative management, patient underwent right total hip arthroplasty on 06/28/2024 medical consultation was requested for management while hospitalized. Patient has a known history of hypertension, hyperlipidemia, hypothyroidism, osteoarthritis, osteoporosis, she also had a previous history of gastrointestinal bleeding, peptic ulcer disease, history of kidney stones, and history of skin cancer. On review of systems patient is alert and oriented x 3 she denies any fever or chills no headache or dizziness no chest pain no shortness of breath no cough no nausea or vomiting no abdominal pain no diarrhea no blood in the stools no burning with urination no frequency or urgency and no hematuria. On 06/30/2024 patient is alert and oriented x 3. Patient reports some increased pain. Patient also positive for UTI low-grade temps. Patient will be started on Rocephin. Patient denies chest pain or shortness of breath. Patient denies nausea vomiting or diarrhea. Patient denies any urinary burning or frequency. Current vital signs temp 99.4, heart rate 81, respiratory rate 16, blood pressure 99/59 with a pulse ox of 98% on room air Objective - Vital Signs Vital signs: Vital Signs Temp 99.4 F 06/30/24 07:35 Pulse 81 06/30/24 07:35 Resp 16 06/30/24 07:35 BP 99/59 06/30/24 07:35 Pulse Ox 98 06/30/24 07:35 FiO2 Intake & Output 06/29/24 06/30/24 06/30/24 18:59 06:59 18:59 Other: Voiding Method Toilet Toilet # Voids 1 6 - Exam In general patient is alert and oriented x 3 in no distress HEENT head normocephalic and atraumatic Neck is supple no JVD no goiter no lymphadenopathy no carotid bruit Chest examination is clear to auscultation no crackles no wheezing Cardiac exam reveals regular heart sounds S1 and S2 no gallops no murmurs Abdomen is soft nontender no organomegaly with normal bowel sounds Extremity exam reveals no edema no cyanosis or clubbing Neurological examination reveals no gross focal deficits - Labs CBC & Chem 7: 06/29/24 06:36 Labs: Abnormal Lab Results - Last 24 Hours (Table) 06/29/24 06/29/24 Range/Units 06:36 18:40 RBC 3.35 L (4.10-5.20) X 10*6/uL Hgb 10.3 L (12.0-15.0) g/dL Hct 31.6 L (37.2-46.3) % Eosinophils # 0 L (0.04-0.35) X 10*3/uL Urine Nitrite Positive H (Negative) Ur Leukocyte Esterase Moderate H (Negative) Urine WBC 20 H (0-5) /hpf Urine Mucus Rare H (None) /hpf Assessment and Plan Assessment: Severe right hip osteoarthritis , status post right direct anterior total hip arthroplasty on 06/28/2024 Urinary tract infection patient started on Rocephin Underlying history of hypertension Underlying history of hyperlipidemia Underlying history of hypothyroidism Underlying history of degenerative disc disease with previous back surgery Underlying history of osteoarthritis Previous history of gastrointestinal bleeding Previous history of kidney stones Underlying history of osteoporosis This time patient was seen and examined Home medications reviewed and reordered Pain management and DVT prophylaxis per orthopedic protocols Will check labs check urine analysis Follow-up during this admission for medical management
[2024-06-30 10:45] LABS: Basophils # (A) 0.02 X 10*3/uL (0.00-0.10); Basophils % (A) 0.3 %; Eosinophils # (A) 0.03 X 10*3/uL (0.04-0.35); Eosinophils % (A) 0.5 %; HCT 26.7 % (37.2-46.3); HGB 8.7 g/dL (12.0-15.0); Lymphocytes # (A) 0.97 X 10*3/uL (0.90-5.00); Lymphocytes % (A) 14.7 %; MCH 30.1 pg (27.0-32.0); MCHC 32.6 g/dL (32.0-37.0); MCV 92.4 FL (80.0-97.0); Mean Platelet Volume 9.6 FL (9.5-12.2); Monocytes # (A) 0.74 X 10*3/uL (0.20-1.00); Monocytes % (A) 11.2 %; NRBC Per 100 WBC 0 X 10*3/uL (0.00-0.01); Platelet Count 166 X 10*3/uL (140-440); RBC 2.89 X 10*6/uL (4.10-5.20); RDW 12.8 % (11.5-14.5); WBC 6.58 X 10*3/uL (4.50-10.00)
[2024-06-30 13:10] LABS: ALT 16 U/L (8-44); AST 35 U/L (13-35); Albumin 3.4 g/dL (3.8-4.9); Albumin/Globulin Ratio 2.27 Ratio (1.60-3.17); Alkaline Phosphatase 70 U/L (41-126); Blood Urea Nitrogen 13.3 mg/dL (9.0-27.0); Calcium 8.3 mg/dL (8.7-10.3); Carbon Dioxide 23.6 mmol/L (21.6-31.8); Chloride 104 mmol/L (96-109); Globulin 1.5 g/dL (1.6-3.3); Glucose 102 mg/dL (70-110); Potassium 4.5 mmol/L (3.5-5.5); Sodium 136 mmol/L (135-145); Total Bilirubin 0.3 mg/dL (0.3-1.2); Total Protein 4.9 g/dL (6.2-8.2)
[2024-06-30] MEDS: hydrOXYzine pamoate 25 MG CAP PO PRN (21:48)
[2024-07-01 08:50] LABS: African American GFR (CKD) >90 (>60 ml/min/1.73 sqM); Anion Gap 2 mmol/L; Blood Urea Nitrogen 7 mg/dL (7-17); Calcium 7.6 mg/dL (8.4-10.2); Carbon Dioxide 26 mmol/L (22-30); Chloride 103 mmol/L (98-107); Glucose 101 mg/dL (74-99); Non-African American GFR(CKD) >90 (>60 ml/min/1.73 sqM); Potassium 3.4 mmol/L (3.5-5.1); Sodium 131 mmol/L (137-145)
--- NOTE | 2024-07-01 09:08 | P.PN ---
Subjective Patient continuing to have issues with anxiety and pain control. She appears comfortable at rest. Objective - Vital Signs Vital signs: Vital Signs Temp 99.3 F 07/01/24 06:45 Pulse 91 07/01/24 06:45 Resp 17 07/01/24 06:45 BP 123/71 07/01/24 06:45 Pulse Ox 95 07/01/24 06:45 FiO2 Intake & Output 06/30/24 07/01/24 07/01/24 18:59 06:59 18:59 Intake Total 400 Output Total 1150 Balance -750 Intake: Oral 400 Output: Urine 1150 Other: Voiding Method Toilet Toilet # Voids 2 - Exam Resting comfortably in bed. She is alert and does not appear to be in any distr ess. On exam of the right hip there is a clean dressing in place. There is moderate swelling. Femoral nerve function is intact. She is able to actively plantar flex and dorsiflex her ankle and her toes. - Labs CBC & Chem 7: 06/30/24 06:16 07/01/24 05:22 Labs: Abnormal Lab Results - Last 24 Hours (Table) 06/30/24 06/30/24 07/01/24 Range/Units 06:16 06:16 05:22 RBC 2.89 L (4.10-5.20) X 10*6/uL Hgb 8.7 L (12.0-15.0) g/dL Hct 26.7 L (37.2-46.3) % Eosinophils # 0.03 L (0.04-0.35) X 10*3/uL Sodium 131 L (137-145) mmol/L Potassium 3.4 L (3.5-5.1) mmol/L Creatinine 0.5 L 0.36 L (0.6-1.5) mg/dL BUN/Creatinine Ratio 26.60 H (12.00-20.00) Ratio Glucose 101 H (74-99) mg/dL Calcium 8.3 L 7.6 L (8.7-10.3) mg/dL Total Protein 4.9 L (6.2-8.2) g/dL Albumin 3.4 L (3.8-4.9) g/dL Globulin 1.5 L (1.6-3.3) g/dL Assessment and Plan Assessment: Postoperative day #3 status post right direct anterior total hip arthroplasty Plan: The patient continues to slowly improve. We'll continue working on pain control. We'll plan on keeping the patient until tomorrow. I would like her to be reassessed by physical therapy for the possibility of discharge to a rehab facility or SNF.
[2024-07-01] MEDS: RIVAROXABAN 10 MG TAB PO SCH (10:56)
--- NOTE | 2024-07-01 12:10 | P.PN ---
Subjective Progress Note Date: 07/01/24 Aleena Tovar, is a 79-year-old female who was admitted to [facility] by Dr. Gomez due to severe pain in the right hip that failed conservative management, patient underwent right total hip arthroplasty on 06/28/2024 medical consultation was requested for management while hospitalized. Patient has a known history of hypertension, hyperlipidemia, hypothyroidism, osteoarthritis, osteoporosis, she also had a previous history of gastrointestinal bleeding, peptic ulcer disease, history of kidney stones, and history of skin cancer. On review of systems patient is alert and oriented x 3 she denies any fever or chills no headache or dizziness no chest pain no shortness of breath no cough no nausea or vomiting no abdominal pain no diarrhea no blood in the stools no burning with urination no frequency or urgency and no hematuria. On 06/30/2024 patient is alert and oriented x 3. Patient reports some increased pain. Patient also positive for UTI low-grade temps. Patient will be started on Rocephin. Patient denies chest pain or shortness of breath. Patient denies nausea vomiting or diarrhea. Patient denies any urinary burning or frequency. Current vital signs temp 99.4, heart rate 81, respiratory rate 16, blood pressure 99/59 with a pulse ox of 98% on room air On 07/01/2024 patient was seen and examined on the medical floor she is alert and oriented x 3 in no apparent distress, she is complaining of hip pain and generalized weakness otherwise she denies any complaints , there is no fever or chills no headache or dizziness no chest pain no shortness of breath no cough, no nausea or vomiting no abdominal pain no diarrhea and no urinary symptoms, yesterday patient had evidence of urinary tract infection and was started on IV ceftriaxone awaiting urine culture results Objective - Vital Signs Vital signs: Vital Signs Temp 99.3 F 07/01/24 06:45 Pulse 91 07/01/24 06:45 Resp 17 07/01/24 06:45 BP 123/71 07/01/24 06:45 Pulse Ox 95 07/01/24 06:45 FiO2 Intake & Output 06/30/24 07/01/24 07/01/24 18:59 06:59 18:59 Intake Total 400 Output Total 1150 Balance -750 Intake: Oral 400 Output: Urine 1150 Other: Voiding Method Toilet Toilet # Voids 2 - Exam In general patient is alert and oriented x 3 in no distress HEENT head normocephalic and atraumatic Neck is supple no JVD no goiter no lymphadenopathy no carotid bruit Chest examination is clear to auscultation no crackles no wheezing Cardiac exam reveals regular heart sounds S1 and S2 no gallops no murmurs Abdomen is soft nontender no organomegaly with normal bowel sounds Extremity exam reveals no edema no cyanosis or clubbing Neurological examination reveals no gross focal deficits - Labs CBC & Chem 7: 06/30/24 06:16 07/01/24 05:22 Labs: Abnormal Lab Results - Last 24 Hours (Table) 06/30/24 07/01/24 Range/Units 06:16 05:22 Sodium 131 L (137-145) mmol/L Potassium 3.4 L (3.5-5.1) mmol/L Creatinine 0.5 L 0.36 L (0.6-1.5) mg/dL BUN/Creatinine Ratio 26.60 H (12.00-20.00) Ratio Glucose 101 H (74-99) mg/dL Calcium 8.3 L 7.6 L (8.7-10.3) mg/dL Total Protein 4.9 L (6.2-8.2) g/dL Albumin 3.4 L (3.8-4.9) g/dL Globulin 1.5 L (1.6-3.3) g/dL Assessment and Plan Plan: Severe right hip osteoarthritis , status post right direct anterior total hip a rthroplasty on 06/28/2024 Urinary tract infection started on IV ceftriaxone Underlying history of hypertension Underlying history of hyperlipidemia Underlying history of hypothyroidism Underlying history of degenerative disc disease with previous back surgery Underlying history of osteoarthritis Previous history of gastrointestinal bleeding Previous history of kidney stones Underlying history of osteoporosis This time patient was seen and examined Home medications reviewed and reordered Pain management and DVT prophylaxis per orthopedic protocols Will check labs check urine analysis Follow-up during this admission for medical management
[2024-07-01 12:53] LABS: HCT 25.8 % (37.2-46.3); HGB 8.2 g/dL (12.0-15.0); MCH 30.3 pg (27.0-32.0); MCHC 31.8 g/dL (32.0-37.0); MCV 95.2 FL (80.0-97.0); Mean Platelet Volume 10.3 FL (9.5-12.2); NRBC Per 100 WBC 0 X 10*3/uL (0.00-0.01); Platelet Count 166 X 10*3/uL (140-440); RBC 2.71 X 10*6/uL (4.10-5.20); RDW 12.9 % (11.5-14.5); WBC 5.53 X 10*3/uL (4.50-10.00)
[2024-07-01 12:54] LABS: Basophils # (A) 0 X 10*3/uL (0.00-0.10); Basophils % (A) 0 %; Eosinophils # (A) 0.09 X 10*3/uL (0.04-0.35); Eosinophils % (A) 1.6 %; Lymphocytes # (A) 0.81 X 10*3/uL (0.90-5.00); Lymphocytes % (A) 14.6 %; Monocytes # (A) 0.57 X 10*3/uL (0.20-1.00); Monocytes % (A) 10.3 %; Neutrophils # (A) 4.04 X 10*3/uL (1.80-7.70); Neutrophils % (A) 73.1 %
[2024-07-02 08:34] VITALS: RESP 18
--- NOTE | 2024-07-02 09:08 | P.PN ---
Subjective Progress Note Date: 07/02/24 Aleena Tovar, is a 79-year-old female who was admitted to [facility] by Dr. Gomez due to severe pain in the right hip that failed conservative management, patient underwent right total hip arthroplasty on 06/28/2024 medical consultation was requested for management while hospitalized. Patient has a known history of hypertension, hyperlipidemia, hypothyroidism, osteoarthritis, osteoporosis, she also had a previous history of gastrointestinal bleeding, peptic ulcer disease, history of kidney stones, and history of skin cancer. On review of systems patient is alert and oriented x 3 she denies any fever or chills no headache or dizziness no chest pain no shortness of breath no cough no nausea or vomiting no abdominal pain no diarrhea no blood in the stools no burning with urination no frequency or urgency and no hematuria. On 06/30/2024 patient is alert and oriented x 3. Patient reports some increased pain. Patient also positive for UTI low-grade temps. Patient will be started on Rocephin. Patient denies chest pain or shortness of breath. Patient denies nausea vomiting or diarrhea. Patient denies any urinary burning or frequency. Current vital signs temp 99.4, heart rate 81, respiratory rate 16, blood pressure 99/59 with a pulse ox of 98% on room air On 07/01/2024 patient was seen and examined on the medical floor she is alert and oriented x 3 in no apparent distress, she is complaining of hip pain and generalized weakness otherwise she denies any complaints , there is no fever or chills no headache or dizziness no chest pain no shortness of breath no cough, no nausea or vomiting no abdominal pain no diarrhea and no urinary symptoms, yesterday patient had evidence of urinary tract infection and was started on IV ceftriaxone awaiting urine culture results On 07/02/2024 patient is alert and oriented x 3. anticpate possible d/c home vs rehab today per orthopedic services. patient will be d/c on ceftin for one week. patient denies chest pain or shortness of breath. denies nausea vomiting or diarrhea. Denies any urinary burnng or frequeny. Objective - Vital Signs Vital signs: Vital Signs Temp 99.0 F 07/02/24 07:49 Pulse 93 07/02/24 07:49 Resp 18 07/02/24 07:49 BP 107/72 07/02/24 07:49 Pulse Ox 97 07/02/24 07:49 FiO2 Intake & Output 07/01/24 07/02/24 07/02/24 18:59 06:59 18:59 Intake Total 200 Output Total 800 Balance -600 Intake: Oral 200 Output: Urine 800 Other: # Voids 3 # Bowel Movements 2 - Exam In general patient is alert and oriented x 3 in no distress HEENT head normocephalic and atraumatic Neck is supple no JVD no goiter no lymphadenopathy no carotid bruit Chest examination is clear to auscultation no crackles no wheezing Cardiac exam reveals regular heart sounds S1 and S2 no gallops no murmurs Abdomen is soft nontender no organomegaly with normal bowel sounds Extremity exam reveals no edema no cyanosis or clubbing Neurological examination reveals no gross focal deficits - Labs CBC & Chem 7: 07/01/24 05:22 07/01/24 05:22 Labs: Abnormal Lab Results - Last 24 Hours (Table) 07/01/24 Range/Units 05:22 RBC 2.71 L (4.10-5.20) X 10*6/uL Hgb 8.2 L (12.0-15.0) g/dL Hct 25.8 L (37.2-46.3) % MCHC 31.8 L (32.0-37.0) g/dL Lymphocytes # 0.81 L (0.90-5.00) X 10*3/uL Assessment and Plan Assessment: Severe right hip osteoarthritis , status post right direct anterior total hip arthroplasty on 06/28/2024 Urinary tract infection patient started on Rocephin Underlying history of hypertension Underlying history of hyperlipidemia Underlying history of hypothyroidism Underlying history of degenerative disc disease with previous back surgery Underlying history of osteoarthritis Previous history of gastrointestinal bleeding Previous history of kidney stones Underlying history of osteoporosis
[2024-07-02 10:45] LABS: Basophils # (A) 0.02 X 10*3/uL (0.00-0.10); Basophils % (A) 0.4 %; Eosinophils # (A) 0.31 X 10*3/uL (0.04-0.35); Eosinophils % (A) 5.6 %; HCT 29.8 % (37.2-46.3); HGB 9.6 g/dL (12.0-15.0); Lymphocytes # (A) 1.31 X 10*3/uL (0.90-5.00); Lymphocytes % (A) 23.8 %; MCH 30.6 pg (27.0-32.0); MCHC 32.2 g/dL (32.0-37.0); MCV 94.9 FL (80.0-97.0); Mean Platelet Volume 9.9 FL (9.5-12.2); Monocytes # (A) 0.61 X 10*3/uL (0.20-1.00); Monocytes % (A) 11.1 %; NRBC Per 100 WBC 0 X 10*3/uL (0.00-0.01); Neutrophils # (A) 3.25 X 10*3/uL (1.80-7.70); Neutrophils % (A) 58.9 %; Platelet Count 203 X 10*3/uL (140-440); RBC 3.14 X 10*6/uL (4.10-5.20); WBC 5.51 X 10*3/uL (4.50-10.00)
[2024-07-02 10:47] LABS: ALT 27 U/L (8-44); AST 45 U/L (13-35); Albumin 3.6 g/dL (3.8-4.9); Alkaline Phosphatase 81 U/L (41-126); BUN/Creat Ratio 16.25 Ratio (12.00-20.00); Blood Urea Nitrogen 6.5 mg/dL (9.0-27.0); Calcium 7.9 mg/dL (8.7-10.3); Chloride 104 mmol/L (96-109); Globulin 1.8 g/dL (1.6-3.3); Glucose 85 mg/dL (70-110); Potassium 3.6 mmol/L (3.5-5.5); Sodium 138 mmol/L (135-145); Total Bilirubin 0.4 mg/dL (0.3-1.2); Total Protein 5.4 g/dL (6.2-8.2)
[2024-07-02 14:44] VITALS: BP 159/76; PULSE 105; TEMP 98.6
== END 2024-07-02 15:29 | disposition home health service (06) ==
LOC: OR 08:32 → 4SSUR 12:17 → OR 07-02 15:29
PROVIDERS: ATTEND Orthopaedic Surgery
DX: M16.11 Unilateral primary osteoarthritis, right hip (principal); E03.9 Hypothyroidism, unspecified; E78.5 Hyperlipidemia, unspecified; F41.9 Anxiety disorder, unspecified; G89.18 Other acute postprocedural pain; I10 Essential (primary) hypertension; M81.0 Age-related osteoporosis without current pathological fracture; H91.90 Unspecified hearing loss, unspecified ear; Z79.890 Hormone replacement therapy; Z79.82 Long term (current) use of aspirin; Z85.828 Personal history of other malignant neoplasm of skin; Z87.11 Personal history of peptic ulcer disease; Z87.442 Personal history of urinary calculi; Z88.1 Allergy status to other antibiotic agents; Z88.2 Allergy status to sulfonamides; Z88.5 Allergy status to narcotic agent; Z88.6 Allergy status to analgesic agent; Z88.8 Allergy status to other drugs, medicaments and biological substances; Z98.890 Other specified postprocedural states; Z79.1 Long term (current) use of non-steroidal anti-inflammatories (NSAID); Z79.899 Other long term (current) drug therapy

== ENCOUNTER → 2025-01-14 | Outpatient (CLI) | payer MEDICARE, BC ==
[2025-01-14 11:02] LABS: INR 0.9 (<1.2); Partial Thromboplastin Time 24.4 sec (22.0-30.0); Prothrombin Time 10.6 sec (10.0-12.5)
[2025-01-14 15:42] LABS: ALT 21 U/L (8-44); AST 33 U/L (13-35); Albumin 4.6 g/dL (3.8-4.9); Albumin/Globulin Ratio 1.92 Ratio (1.60-3.17); Alkaline Phosphatase 131 U/L (41-126); Blood Urea Nitrogen 16.8 mg/dL (9.0-27.0); Calcium 9.5 mg/dL (8.7-10.3); Carbon Dioxide 26.4 mmol/L (21.6-31.8); Chloride 99 mmol/L (96-109); Globulin 2.4 g/dL (1.6-3.3); Glucose 90 mg/dL (70-110); Potassium 4.3 mmol/L (3.5-5.5); Sodium 136 mmol/L (135-145); Total Bilirubin 0.4 mg/dL (0.3-1.2)
[2025-01-14 15:49] LABS: HCT 41.3 % (37.2-46.3); HGB 13.5 g/dL (12.0-15.0); MCHC 32.7 g/dL (32.0-37.0); MCV 97.9 FL (80.0-97.0); Mean Platelet Volume 10.4 FL (9.5-12.2); NRBC Per 100 WBC 0 X 10*3/uL (0.00-0.01); Platelet Count 260 X 10*3/uL (140-440); RBC 4.22 X 10*6/uL (4.10-5.20); RDW 13.1 % (11.5-14.5)
== END | disposition home or self-care (01) ==
LOC: LABWHC1 10:28
PROVIDERS: ATTEND Orthopaedic Surgery Sports Medicine
DX: Z01.812 Encounter for preprocedural laboratory examination (principal); Z22.322 Carrier or suspected carrier of Methicillin resistant Staphylococcus aureus; M19.012 Primary osteoarthritis, left shoulder
CPT/HCPCS: 36415; 80053; 85027; 85610; 85730; 87070; 93005

== ENCOUNTER → 2025-01-29 | Outpatient (CLI) | payer MEDICARE, BC ==
--- NOTE | 2025-01-29 15:34 | CT ---
EXAMINATION TYPE: CT shoulder LT wo con DATE OF EXAM: 01/29/2025 2:43 PM COMPARISON: . Extremity radiograph. CLINICAL INDICATION: Female, 80 years old with history of 3D reconstruction M19.012 PRIMARY OSTEOARTH RITIS,; PH[facility], Pre surgical planning TECHNIQUE: Axial images were obtained of the CT shoulder LT wo con, Additional coronal and sagittal r eformatted images and soft tissue and bone window were obtained for review. 3-D reconstruction was cr eated on a separate workstation. Contrast used: mL of , (None if empty) Oral contrast used: (None if empty) CT DLP: 409.7 mGycm, Automated exposure control for dose reduction was used. FINDINGS: Degeneration changes with osteophyte formation and joint space narrowing. There is acetabul arization of the acromion. Subcoracoid bursa calcified joint body present. The acromion demonstrates fracture line with displacement best appreciated and scapular Y sagittal imaging. Unclear chronicity of this finding. The glenoid and humeral head show gross deformity from end-stage osteoporosis. Fixation changes in the cervical spine appear intact. Severe constipation; the coronary arteries. Mil d aortic valve calcifications. IMPRESSION: 1. Questionable acute fracture through the acromion with severe degeneration with acetabularization of the acromion. 2. 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 There is deformity to both the glenoid and the humeral head. There is associated supraspinatus muscular atrophy changes. [facility], , 01/29/2025 3:31 PM
== END | disposition home or self-care (01) ==
LOC: RADCTMAIN 12:20
PROVIDERS: ATTEND Orthopaedic Surgery Sports Medicine
DX: M19.012 Primary osteoarthritis, left shoulder (principal); M62.512 Muscle wasting and atrophy, not elsewhere classified, left shoulder

== ENCOUNTER 2025-02-06 05:43 | Observation (INO) | payer MEDICARE, BC ==
[~2025-02-06 05:43] MED LIST changes: -ACETAMINOPHEN TAB 500 MG TAB PO PRN; -FAMOTIDINE 20 MG/2 ML VIAL IVP PRN; +GABAPENTIN 300 MG CAP PO PRN; -KETOROLAC 15 MG/ML 1 ML VIAL IVP PRN; +ONDANSETRON 4 MG/2 ML VIAL IVP PRN; -TRANEXAMIC 1,000 MG/100ML-NACL 1,000 MG in SALINE 1 100ML.BAG IV PRN
[2025-02-06] MEDS: IV FLUID CONTINUATION 1,000 ML IV ONE (06:18)
[2025-02-06] MEDS: LACTATED RINGERS 1,000 ML IV SCH ×2 (06:46→17:28)
[2025-02-06] MEDS: MELOXICAM 7.5 MG TAB PO PRN (06:46)
[2025-02-06] MEDS: ACETAMINOPHEN TAB 500 MG TAB PO PRN (06:46)
[2025-02-06] MEDS: ONDANSETRON 4 MG/2 ML VIAL IVP ONE (06:57)
[2025-02-06] MEDS: DEXAMETHASONE SOD PHOSPHATE 4 MG/ML 1 ML VIAL IV ONE (06:57)
[2025-02-06] MEDS: MIDAZOLAM 2 MG/2 ML VIAL IV STA (07:00)
[2025-02-06] MEDS ORDERED: SUCCINYLCHOLINE CHLORIDE 200 MG/10 ML VIAL IV ONE (07:31)
[2025-02-06] MEDS ORDERED: NEOSTIGMINE 1 MG/ML 10 ML VIAL ONE (07:31)
[2025-02-06] MEDS ORDERED: GLYCOPYRROLATE 0.2 MG/ML 2 ML VIAL ONE (07:31)
[2025-02-06] MEDS ORDERED: fentaNYL (PF) 50 MCG/ML 2 ML AMP ONE (07:31)
[2025-02-06] MEDS ORDERED: TRANEXAMIC 1,000 MG/100ML-NACL PREMIX BAG ONE (07:31)
[2025-02-06] MEDS ORDERED: ePHEDrine 50 MG/ML 1 ML VIAL ONE (07:31)
[2025-02-06] MEDS ORDERED: PROPOFOL 10 MG/ML 20 ML VIAL IV ONE (07:31)
[2025-02-06] MEDS ORDERED: ROPIVACAINE 5 MG/ML 30 ML VIAL ONE (07:31)
[2025-02-06] MEDS ORDERED: LIDOCAINE 1% INJ 10MG/ML (20 ML MDV) ONE (07:31)
[2025-02-06] MEDS ORDERED: DEXAMETHASONE SOD PHOSPHATE 4 MG/ML 1 ML VIAL ONE (07:31)
[2025-02-06] MEDS ORDERED: PHENYLEPHRINE-0.9% NACL SYG 1,000 MCG/10 ML SYRINGE ONE (07:31)
[2025-02-06] MEDS ORDERED: ROCURONIUM 10 MG/ML (5 ML VIAL) IV ONE (07:31)
[2025-02-06] MEDS: ceFAZolin 2 GM in DEXTROSE 5% IN WATER 50 ML IVPB PRN (07:34)
[2025-02-06] MEDS: ceFAZolin 1,000 MG in SODIUM CHLORIDE 0.9% 1,000 ML IRRIGATION ONE (08:06)
[2025-02-06] MEDS: VANCOMYCIN 1,000 MG VIAL MISCELLANE ONE (08:42)
[2025-02-06] MEDS: LACTATED RINGERS 1,000 ML IV ONE (09:10)
[2025-02-06] MEDS ORDERED: diphenhydrAMINE 25 MG CAP PO PRN (09:30)
[2025-02-06] MEDS ORDERED: ONDANSETRON 4 MG/2 ML VIAL IVP PRN (09:30)
[2025-02-06] MEDS ORDERED: SENNOSIDES-DOCUSATE SODIUM 1 EACH TAB PO PRN (09:30)
[2025-02-06] MEDS ORDERED: HYDROmorphone 0.5 MG/0.5 ML SYRINGE IVP PRN ×2 (09:30)
[2025-02-06] MEDS ORDERED: HYDROcodone/APAP 7.5-325MG 1 EACH TAB PO PRN ×2 (09:33)
[2025-02-06] MEDS ORDERED: Acetaminophen-Codeine 300-30mg TAB PO PRN ×2 (09:35)
[2025-02-06] MEDS: HYDROmorphone 0.5 MG/0.5 ML SYRINGE IVP PRN ×2 (10:34→17:52)
--- NOTE | 2025-02-06 10:53 | XR ---
EXAMINATION TYPE: XR shoulder limited LT DATE OF EXAM: 02/06/2025 CLINICAL INDICATION: Female, 80 years old with history of post op, pain TECHNIQUE: Single view left shoulder is obtained immediately postoperatively. COMPARISON: Left shoulder CT January 29, 2025. FINDINGS: There is metallic hardware from total reverse left shoulder arthroplasty now present. Harper kristan positioning is satisfactory. There is adjacent air from recent surgery noted IMPRESSION: As above. [facility], , 02/06/2025 10:50 AM
--- NOTE | 2025-02-06 11:02 | OP ---
OPERATIVE REPORT DATE OF SERVICE : 02/06/2025 IRRIGATION MANAGER: Bethel Azul PA-C PREOPERATIVE DIAGNOSIS: Left shoulder advanced rotator cuff arthropathy. POSTOPERATIVE DIAGNOSIS: Left shoulder advanced rotator cuff arthropathy. PROCEDURE PERFORMED: Left reverse total shoulder arthroplasty. ANESTHESIA: General endotracheal. ESTIMATED BLOOD LOSS: 100 mL. DRAINS: None. COMPLICATIONS: None apparent. DISPOSITION: Postanesthesia care unit. INDICATIONS: Aleena is a very pleasant 80-year-old female with longstanding left shoulder pain. Workup including x-rays, CT scan, and physical exam revealed advanced left shoulder rotator cuff arthropathy. At this point, it is felt that she has failed conservative management. She would like to proceed with operative intervention. The risks of procedure were discussed with her in detail. These risks include, but are not limited to risk of infection, nerve damage, bleeding, pain, instability in the shoulder, loosening of the implants, and deep infection. There is also a small risk of deep vein thrombosis, which could lead to fatal pulmonary embolism. The patient understood these risks. All of her questions with regard to the risks of procedure were answered to her satisfaction. An appropriate informed consent was obtained. DESCRIPTION OF PROCEDURE: The patient was identified in preoperative holding area. Surgical site was marked by both the patient and myself. She was given 2 g of Ancef IV for prophylactic purposes. She was then transported to the operative suite. She was placed supine on the operating room table. A general anesthetic was then administered and dosed per the Anesthesia Department without apparent complication. An examination under anesthesia was then performed of the left shoulder. Elevation was 120 degrees. External rotation at the side was to 30 degrees. The patient was then placed into the beach chair position, well-padded in preparation for surgery. Great care was taken to ensure that her cervical spine was in neutral alignment, well-padded and maintained that way throughout the operative procedure. Great care was also taken to ensure that her legs were appropriately padded as well. The patient's left upper extremity was then prepped and draped in the usual sterile fashion. Standard surgical pause was then undertaken to ensure that we were operating the correct site and that appropriate preoperative antibiotics had been given. All staff in room were in agreement, and we proceeded. The acromion AC joint clavicle and coracoid were marked with a surgical pen. A planned incision, starting at the level of the clavicle and extending distally over the deltopectoral interval, approximately 1 cm lateral to the coracoid was marked with a surgical pen. The incision was then made with a 10-blade scalpel. Dissection was carried down sharply to the deltoid fascia. The deltopectoral interval was then identified at the level of the clavicle. A small band retractor was then placed onto the proximal deltoid. I then released the deltoid fascia on the lateral aspect of the cephalic vein. The vein was left in its bed medially. The cephalic vein was preserved and protected throughout the entire case. I then identified the clavipectoral fascia. This was incised proximally to the level of the coracoacromial ligament. The coracoacromial ligament was left intact. I then used my finger to spread the interval between the conjoint tendon and the subscapularis. Winthrop for the axillary nerve, which was readily palpable. I then cleared the subacromial and subdeltoid spaces of bursal and scar tissue. I then used a Brown retractor to hold the deltoid and expose the humeral head. The greater tuberosity was completely devoid of any rotator cuff attachment. She had a complete retracted tears of the supraspinatus and the infraspinatus. The subscapularis just had some inferior fibers that were still attached to the lesser tuberosity. The anterior capsule was then released in a lazy-S type fashion, approximately 1 cm medial to the bicipital groove. 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 The long head of the biceps was absent from the groove. I then continued to release the capsule inferiorly. This was done along the inferior neck in a vertical fashion at approximately 6 o'clock position. Great care was taken to ensure that the capsule was always visualized as it was released as to avoid injuring the axillary nerve. I then brought a [employer] underground distribution engineer with the arm externally rotated and abducted. I continued to release the capsule inferomedially to approximately at the 4 o'clock position. I then proceeded with preparation of the humerus. I removed all the goat's herrera osteophytes. I then removed the subchondral plate from the superior aspect of the humeral head, utilizing a large rongeur. I then used a starting reamer to gain access to the humeral canal. This was approximately 1 cm medial to the rotator cuff insertion and 1 cm posterior to the bicipital groove. I then prepared the humeral canal with hand reaming. I started with a 6 mm reamer and incrementally increased until firm resistance was encountered at 8 mm. The reamer handle was then left in place. I then utilized a humeral resection guide set at 30 degrees of retrotorsion. The cutting block was then set at the previous insertion of the rotator cuff. I then proceeded to osteotomize the head with an oscillating saw. I then removed the resection guide and completed the osteotomy. The remaining goat's herrera osteophytes were then removed using a rongeur. I then proceeded with a trial stem placement. A trial size 8 broach was then broached into the canal, starting with a 6 mm broach and incrementally increasing until we got to the 8 mm broach. The 8 mm trial broach was then left in place. I then proceeded with preparation of the glenoid. Again, she had a massive chronic rotator cuff tear. We proceeded with a reverse total shoulder arthroplasty. The Bhattman retractor was then placed on the posterior glenoid rim. The arm was then placed in approximately 80 degrees of abduction and in slight flexion on the Jamison stand. I then proceeded to remove the hypertrophic labrum to definitively identify the actual glenoid. I then used a mini base plate guide. This was placed just slightly inferior to central on the glenoid. The starting pin was then inserted with approximately 10 degrees of inferior tilt. I then proceeded with reaming of the glenoid, utilizing the mini base plate reamer. I was very careful to do as minimal reaming as possible as to preserve as much subchondral bone as possible. I had the patient account representative open a [employer] mini base plate. This was then inserted over the starting pin and impacted into the glenoid. The starting pin was removed. I then measured the length of the central screw. A 25 mm central screw was then measured. I placed a 25 mm central screw. The head had an excellent bite, when it was firmly seated. I am able to rotate the scapula through the screwdriver when it was firmly seated. I then proceeded with placement of peripheral locking screws. The inferior screw was a 20 mm screw. The anterior, posterior, and superior screws were 15 mm locking screws. I then proceeded to place a 36 mm Glenosphere. It was very minimally offset inferiorly. The Christy taper was dried and the real Glenosphere was then impacted onto the mini base plate. I then ensured that the Glenosphere was fully seated and secured and it was. I then proceeded with trial reduction. I started with a standard tray and a standard poly. It was a mildly difficult reduction. The shoulder was very stable throughout a full range of motion once it was reduced. There was no impingement noted. I made a decision to proceed with a standard tray and standard poly. The shoulder was then very carefully re-dislocated. The wound was then thoroughly irrigated with sterile saline solution with antibiotic added via pulse lavage. I also utilized the Irrisept antiseptic solution at this point. I then had the patient account representative open a [employer] size 8 mini stem, a standard tray and a standard poly for a 36 mm Glenosphere. The real stem was then impacted into the proximal humerus in approximately 30 degrees of retrotorsion. She was fairly osteoporotic. I had used a bone graft from the osteotomized humeral head to pack around the proximal aspect of the stem. The Christy taper was then dried and a standard tray and standard poly was then impacted onto the real stem. The shoulder was again carefully reduced. Again, it was a mildly difficult reduction. It was very stable throughout a range of motion. There is no undue tension on the conjoint tendon. I felt for the axillary nerve at this time. This was readily palpable and seemingly uninjured. I then proceeded with closure. The wound was again thoroughly irrigated. We used the remaining Irrisept solution at this time. Approximately, 500 mg of vancomycin powder was then placed deep. The deltopectoral interval was then reapproximated with an 0 Vicryl interrupted suture. The subcutaneous tissue was then again irrigated and the remaining 500 mg of vancomycin powder was then placed subcutaneously. Subcutaneous tissue was then closed with 2-0 Vicryl interrupted suture and the skin was closed with a running 3-0 Quill suture. Dermabond was applied to the incision. Sterile dressing was applied. The patient's left upper extremity was then placed into a standard sling. All sponge and needle counts were deemed correct prior to closure. The patient tolerated the procedure without apparent complication. She was transferred to the recovery room in stable condition. MMODL / IJN: [id number] /
[2025-02-06] MEDS: ATORVASTATIN 10 MG TAB PO SCH (21:09)
[2025-02-06] MEDS: GABAPENTIN 300 MG CAP PO SCH (21:09)
[2025-02-06] MEDS: ACETAMINOPHEN TAB 500 MG TAB PO SCH (21:09)
[2025-02-06] MEDS: FAMOTIDINE 20 MG TAB PO SCH (21:09)
[2025-02-06] MEDS: atenoloL 25 MG TAB PO SCH (21:13)
[2025-02-06] MEDS: oxyCODONE-APAP 5-325MG 1 EACH TAB PO PRN (22:47)
[2025-02-07] MEDS: LEVOTHYROXINE 88 MCG TAB PO SCH (05:54)
--- NOTE | 2025-02-07 07:01 | P.ANPRN ---
Procedure Note - Anesthesia - Nerve Block Performed Left Interscalene Single Time Out Performed: Yes Date of Procedure: 02/06/25 Procedure Start Time: 07:00 Procedure Stop Time: 07:04 Location of Patient: PreOp Indication: Acute Post-Operative Pain, Requested by Surgeon Sedation Type: Sedate with meaningful contact maintained Preparation: Sterile Prep Position: Supine Needle Types: Pajunk Needle Gauge: 21 Ultrasound used to visualize needle placement: Yes Ultrasound used to observe medication spread: Yes Blood Aspirated: No Pain Paresthesia on Injection Noted: No Resistance on Injection: Normal Image Stored and Saved: Yes Events: Uneventful and Well Tolerated (Ropivacaine 0.5% 20 cc plus dexamethasone 4 mg)
[2025-02-07] MEDS ORDERED: NON FORMULARY DRUG (Potassium Gluconate [Potassium Gluconate] 99 MG Tablet) PO SCH (09:00)
[2025-02-07] MEDS: amLODIPine 10 MG TAB PO SCH (09:39)
[2025-02-07] MEDS: atenoloL 50 MG TAB PO SCH (09:39)
[2025-02-07] MEDS: FERROUS SULFATE 325 MG TAB PO SCH (09:39)
[2025-02-07] MEDS: lisinopriL 20 MG TAB PO SCH (09:39)
[2025-02-07] MEDS: LORATADINE 10 MG TAB PO SCH (09:39)
[2025-02-07] MEDS: PANTOPRAZOLE 40 MG TABLET PO SCH (09:39)
[2025-02-07] MEDS: MULTIVITAMINS, THERA 1 EACH TAB PO SCH (09:39)
[2025-02-07 10:49] LABS: ALT 16 U/L (8-44); AST 31 U/L (13-35); Albumin 3.7 g/dL (3.8-4.9); Albumin/Globulin Ratio 2.18 Ratio (1.60-3.17); Alkaline Phosphatase 80 U/L (41-126); Blood Urea Nitrogen 14.1 mg/dL (9.0-27.0); Calcium 8.2 mg/dL (8.7-10.3); Carbon Dioxide 23.4 mmol/L (21.6-31.8); Chloride 97 mmol/L (96-109); Globulin 1.7 g/dL (1.6-3.3); Glucose 119 mg/dL (70-110); Potassium 4.4 mmol/L (3.5-5.5); Sodium 130 mmol/L (135-145); Total Bilirubin 0.2 mg/dL (0.3-1.2); Total Protein 5.4 g/dL (6.2-8.2)
[2025-02-07 11:14] LABS: Basophils # (A) 0.01 X 10*3/uL (0.00-0.10); Basophils % (A) 0.1 %; Eosinophils # (A) 0 X 10*3/uL (0.04-0.35); Eosinophils % (A) 0 %; HCT 32.3 % (37.2-46.3); HGB 10.7 g/dL (12.0-15.0); Lymphocytes # (A) 0.96 X 10*3/uL (0.90-5.00); Lymphocytes % (A) 10.8 %; MCH 32.4 pg (27.0-32.0); MCHC 33.1 g/dL (32.0-37.0); MCV 97.9 FL (80.0-97.0); Monocytes # (A) 0.67 X 10*3/uL (0.20-1.00); Monocytes % (A) 7.5 %; NRBC Per 100 WBC 0 X 10*3/uL (0.00-0.01); Neutrophils # (A) 7.23 X 10*3/uL (1.80-7.70); Neutrophils % (A) 81.3 %; Platelet Count 200 X 10*3/uL (140-440)
--- NOTE | 2025-02-07 11:21 | P.CONS ---
History of Present Illness - Reason for Consult Consult date: 02/07/25 Medical management - History of Present Illness Aleena Tovar is a 80-year-old female patient who came in for an elective left shoulder arthroplasty with Dr. Matias on 02/06/2025. Patient has a past medical history of hypertension, hyperlipidemia, skin cancer, previous joint replacement, GI bleed and ex-smoker at this time patient is resting comfortably in bed. Patient having trouble urinating after surgery will consult urology services and start patient on Flomax. Current vital signs of 98.4, heart rate 71, respiratory 16, blood pressure 121/74 with a pulse ox of 96% on 2 L. Patient denies chest pain or shortness of breath. Patient denies nausea vomiting or diarrhea. Patient denies any urinary burning or frequency. Review of Systems Please refer to HPI otherwise unremarkable Past Medical History Past Medical History: Cancer, GI Bleed, Hyperlipidemia, Hypertension, Musculoskeletal Disorder, Osteoarthritis (OA), Thyroid Disorder Additional Past Medical History / Comment(s): mariana leg pain/sciatica. Hx skin cancer. 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 CONSTANT DIZZINESS/BLURRY VISION. 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 HX KIDNEY STONES. Hx bleeding ulcers. Osteop orosis. Hx Shingles/still has headaches from it occasionally. History of Any Multi-Drug Resistant Organisms: C-DIFF Year Discovered:: 2016 MDRO Source:: stool Past Surgical History: Back Surgery, Hernia Repair, Joint Replacement, Orthopedic Surgery Additional Past Surgical History / Comment(s): LITHOTRIPSY, KIDNEY SURGERY to remove large stone from ureter, LEFT ACHILLES TENDON REPAIR, RIGHT KNEE ARTHROSCOPY, RIGHT ROTATOR CUFF REPAIR, BILATRAL CARPAL TUNNEL SURGERY, bila teral total knee arthroplasties, colonoscopy X2, sinus surgery, D&C, skin cancer removed from abdomen, right shoulder replacement, emergency diaphragmatic hernia repair, paraesophageal hernia repair, L2-3, L3-4, L4-5, L5-S1 decompression and fusion February 2024. right hip replacement May 2024. Past Anesthesia/Blood Transfusion Reactions: No Reported Reaction Additional Past Anesthesia/Blood Transfusion Reaction / Comm: HX BLOOD TRANSFUSION X2-NO REACTION. Smoking Status: Former smoker - Past Family History Mother Family Medical History: No Reported History Additional Family Medical History / Comment(s): . Sister(s) Family Medical History: Deep Vein Thrombosis (DVT) Medications and Allergies Home Medications Medication Instructions Recorded Confirmed Type Ergocalciferol (Vitamin D2) 50,000 unit PO Q14D 09/08/16 02/06/25 History [Drisdol] Levothyroxine Sodium [Synthroid] 88 mcg PO DAILY 09/08/16 02/06/25 History Ferrous Sulfate [Iron (65 MG 325 mg PO DAILY 08/05/19 02/06/25 History Elemental)] Multivitamins, Thera [Multivitamin 2 tab PO DAILY 08/05/19 02/06/25 History (formulary)] Famotidine [Pepcid] 20 mg PO BID 11/26/21 02/06/25 History Pantoprazole Sodium [Protonix] 40 mg PO QAM 11/26/21 02/06/25 History Evolocumab [Repatha Syringe] 140 mg SQ Q14D 09/01/22 02/06/25 History Loratadine [Claritin] 10 mg PO DAILY 09/01/22 02/06/25 History Rosuvastatin Calcium 2.5 mg PO MOTH 07/04/23 02/06/25 History Acetaminophen [Tylenol Extra 1,000 mg PO TID 06/25/24 02/06/25 History Strength] Gabapentin 600 mg PO TID 06/25/24 02/06/25 History amLODIPine 10 mg PO QAM 06/25/24 02/06/25 History atenoloL 25 mg PO HS 06/25/24 02/06/25 History atenoloL [Tenormin] 50 mg PO QAM 06/25/24 02/06/25 History lisinopriL 40 mg PO QAM 06/25/24 02/06/25 History Potassium Gluconate 99 mg PO DAILY 01/31/25 02/06/25 History Allergies Allergy/AdvReac Type Severity Reaction Status Date / Time diazepam [From Valium] Allergy Severe Nausea & Verified 02/06/25 06:36 Vomiting, dizzy,muscle pain,mouth numb escitalopram oxalate Allergy Severe Nausea & Verified 02/06/25 06:36 [From Lexapro] Vomiting, dizzy,muscle pain, mouth numb fluticasone propionate Allergy Severe Nausea & Verified 02/06/25 06:36 [From Flonase] Vomiting, dizzy,muscle pain, mouth numb furosemide [From Lasix] Allergy Severe Nausea & Verified 02/06/25 06:36 Vomiting,dizzy, muscle pain, mouth numb hydrocodone bitartrate Allergy Severe Nausea & Verified 02/06/25 06:36 [From Lortab] Vomiting,Dizzy, Muscle Pain, Mouth Numb meclizine HCl [From Antivert] Allergy Severe Nausea & Verified 02/06/25 06:36 Vomiting,dizzy,muscle pain, mouth numb olmesartan medoxomil Allergy Severe Nausea & Verified 02/06/25 06:36 [From Benicar] Vomiting, dizzy, muscle pain, mouth numb promethazine Allergy Severe Nausea & Verified 02/06/25 06:36 Vomiting, dizzy , muscle pain, mouth numb Kgwtjsf-MFX-HnR Reductase Allergy Severe Nausea & Verified 02/06/25 06:36 Inhibitor Vomiting,dizzy, [Qevbbfm-Kkl-Xem Reductase muscle Inhibitor] pain, mouth numb tizanidine HCl Allergy Severe Nausea & Verified 02/06/25 06:36 [From Zanaflex] Vomiting,dizzy,muscle pain,mouth numb spironolactone Allergy Unknown NUMBNESS Verified 02/06/25 06:36 [From Aldactone] IN FACE, NAUSEA ketorolac Allergy Nausea & Verified 02/06/25 06:36 Vomiting prednisone Allergy Dyspnea, Verified 02/06/25 06:36 Nausea & Vomiting, Dizzy, Muscle Pain, Mouth Numb. scopolamine Allergy Chest Pain Verified 02/06/25 06:36 Sulfa (Sulfonamide Allergy Nausea & Verified 02/06/25 06:36 Antibiotics) Vomiting,dizzy,muscle pain, mouth numb. tramadol AdvReac Severe NAUSEA AND Verified 02/06/25 06:36 VOMITING NSAIDS (Non-Steroidal AdvReac Hx Verified 02/06/25 06:36 Anti-Inflamma bleeding ulcers Physical Exam Vitals: Vital Signs Temp Pulse Resp BP Pulse Ox 02/07/25 07:09 98.4 F 71 16 98/61 95 02/07/25 00:45 97.6 F 63 16 121/74 96 02/06/25 19:23 97.6 F 76 20 111/67 98 02/06/25 13:15 97.6 F 62 16 102/62 98 02/06/25 12:30 55 L 18 88/56 95 02/06/25 12:00 62 18 85/52 95 02/06/25 11:30 56 L 18 90/51 95 Intake and Output 02/06/25 02/07/25 02/07/25 22:59 06:59 14:59 Intake Total 1250 Output Total 650 600 Balance -650 650 Intake: Intake, IV Titration 1250 Amount Lactated Ringers 1,000 ml 1200 @ 100 mls/hr IV .Q10H ZHANG Rx#:[id number] ceFAZolin 2 gm In Sodium 50 Chloride 0.9% 50 ml @ 100 mls/hr IVPB Q8HR ZHANG Rx# :[id number] Output: Urine 650 600 Straight 650 600 Other: # Voids 0 In general patient is alert and oriented Ã-3 in no distress HEENT head normocephalic and atraumatic Neck is supple no JVD no goiter no lymphadenopathy no carotid bruit Chest examination is clear to auscultation no crackles no wheezing Cardiac exam reveals regular heart sounds S1 and S2 no gallops no murmurs Abdomen is soft nontender no organomegaly with normal bowel sounds Extremity exam reveals no edema no cyanosis or clubbing Neurological examination reveals no gross focal deficits Results CBC & Chem 7: 02/07/25 06:04 Labs: Abnormal Lab Results - Last 24 Hours (Table) 02/07/25 Range/Units 06:04 Sodium 130 L (135-145) mmol/L Creatinine 0.5 L (0.6-1.5) mg/dL BUN/Creatinine Ratio 28.20 H (12.00-20.00) Ratio Glucose 119 H (70-110) mg/dL Calcium 8.2 L (8.7-10.3) mg/dL Total Bilirubin 0.2 L (0.3-1.2) mg/dL Total Protein 5.4 L (6.2-8.2) g/dL Albumin 3.7 L (3.8-4.9) g/dL Assessment and Plan Assessment: 1. Status post left shoulder arthroplasty with Dr. Matias on 02/06/2025 2. Urinary retention. Urology services will be consulted 3. History of essential hypertension 4. History of hyperlipidemia 5. History of hypothyroidism 6. History of degenerative disc disease with previous back surgery 7. History of osteoarthritis with previous right hip surgery 8. History of GI bleed Thank you for this consultation we will continue to follow patient closely throughout stay Urology services consulted. repeat labs ordered in a.m.
--- NOTE | 2025-02-07 13:15 | P.GSCN ---
History of Present Illness Consult date: 02/07/25 History of present illness: 80-year-old female in the hospital after having a left shoulder arthroplasty by Dr. Matias. She has had problems voiding postoperatively we were asked see the patient. She had to be straight catheterized for 650 mL. Her most recent postvoid residuals 165 mL. No notable problems voiding prior to hospitalization. Urologically she has had kidney stones including shockwave lithotripsy and a ureteroscopy. Otherwise there is no significant voiding dysfunction or incontinence. She is very uncomfortable due to her shoulder surgery aggravated by recent shingles in the scalp. She stated that once before when she had a severe amount of pain she had struggles with voiding. Review of Systems All systems: negative - Constitutional Denies fever, Denies weight loss - EENT Eyes: denies blurred vision Ears, nose, mouth and throat: Denies dysphagia - Cardiovascular Denies chest pain, Denies shortness of breath - Respiratory Denies cough, Denies 7 - Gastrointestinal Reports as per HPI - Genitourinary Genitourinary: Denies dysuria, Denies hematuria - Integumentary Denies rash, Denies unusual bruising - Neurological Denies headaches, Denies syncope - Hematologic/Lymphatic Denies easy bleeding, Denies easy bruising Past Medical History Past Medical History: Cancer, GI Bleed, Hyperlipidemia, Hypertension, Musculoskeletal Disorder, Osteoarthritis (OA), Thyroid Disorder Additional Past Medical History / Comment(s): mariana leg pain/sciatica. Hx skin cancer. 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 CONSTANT DIZZINESS/BLURRY VISION. 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 HX KIDNEY STONES. Hx bleeding ulcers. Osteoporosis. Hx Shingles/still has headaches from it occasionally. History of Any Multi-Drug Resistant Organisms: C-DIFF Year Discovered:: 2016 MDRO Source:: stool Past Surgical History: Back Surgery, Hernia Repair, Joint Replacement, Orthopedic Surgery Additional Past Surgical History / Comment(s): LITHOTRIPSY, KIDNEY SURGERY to remove large stone from ureter, LEFT ACHILLES TENDON REPAIR, RIGHT KNEE ARTHROSCOPY, RIGHT ROTATOR CUFF REPAIR, BILATRAL CARPAL TUNNEL SURGERY, bilateral total knee arthroplasties, colonoscopy X2, sinus surgery, D&C, skin cancer removed from abdomen, right shoulder replacement, emergency diaphragmatic hernia repair, paraesophageal hernia repair, L2-3, L3-4, L4-5, L5-S1 decompression and fusion February 2024. right hip replacement May 2024. Past Anesthesia/Blood Transfusion Reactions: No Reported Reaction Additional Past Anesthesia/Blood Transfusion Reaction / Comm: HX BLOOD TRANSFUSION X2-NO REACTION. Smoking Status: Former smoker - Past Family History Mother Family Medical History: No Reported History Additional Family Medical History / Comment(s): . Sister(s) Family Medical History: Deep Vein Thrombosis (DVT) Medications and Allergies Home Medications Medication Instructions Recorded Confirmed Type Ergocalciferol (Vitamin D2) 50,000 unit PO Q14D 09/08/16 02/06/25 History [Drisdol] Levothyroxine Sodium [Synthroid] 88 mcg PO DAILY 09/08/16 02/06/25 History Ferrous Sulfate [Iron (65 MG 325 mg PO DAILY 08/05/19 02/06/25 History Elemental)] Multivitamins, Thera [Multivitamin 2 tab PO DAILY 08/05/19 02/06/25 History (formulary)] Famotidine [Pepcid] 20 mg PO BID 11/26/21 02/06/25 History Pantoprazole Sodium [Protonix] 40 mg PO QAM 11/26/21 02/06/25 History Evolocumab [Repatha Syringe] 140 mg SQ Q14D 09/01/22 02/06/25 History Loratadine [Claritin] 10 mg PO DAILY 09/01/22 02/06/25 History Rosuvastatin Calcium 2.5 mg PO MOTH 07/04/23 02/06/25 History Acetaminophen [Tylenol Extra 1,000 mg PO TID 06/25/24 02/06/25 History Strength] Gabapentin 600 mg PO TID 06/25/24 02/06/25 History amLODIPine 10 mg PO QAM 06/25/24 02/06/25 History atenoloL 25 mg PO HS 06/25/24 02/06/25 History atenoloL [Tenormin] 50 mg PO QAM 06/25/24 02/06/25 History lisinopriL 40 mg PO QAM 06/25/24 02/06/25 History Potassium Gluconate 99 mg PO DAILY 01/31/25 02/06/25 History Allergies Allergy/AdvReac Type Severity Reaction Status Date / Time diazepam [From Valium] Allergy Severe Nausea & Verified 02/06/25 06:36 Vomiting, dizzy,muscle pain,mouth numb escitalopram oxalate Allergy Severe Nausea & Verified 02/06/25 06:36 [From Lexapro] Vomiting, dizzy,muscle pain, mouth numb fluticasone propionate Allergy Severe Nausea & Verified 02/06/25 06:36 [From Flonase] Vomiting, dizzy,muscle pain, mouth numb furosemide [From Lasix] Allergy Severe Nausea & Verified 02/06/25 06:36 Vomiting,dizzy, muscle pain, mouth numb hydrocodone bitartrate Allergy Severe Nausea & Verified 02/06/25 06:36 [From Lortab] Vomiting,Dizzy, Muscle Pain, Mouth Numb meclizine HCl [From Antivert] Allergy Severe Nausea & Verified 02/06/25 06:36 Vomiting,dizzy,muscle pain, mouth numb olmesartan medoxomil Allergy Severe Nausea & Verified 02/06/25 06:36 [From Benicar] Vomiting, dizzy, muscle pain, mouth numb promethazine Allergy Severe Nausea & Verified 02/06/25 06:36 Vomiting, dizzy , muscle pain, mouth numb [id number]-NiK Reductase Allergy Severe Nausea & Verified 02/06/25 06:36 Inhibitor Vomiting,dizzy, [Wqszleg-Gec-Dis Reductase muscle Inhibitor] pain, mouth numb tizanidine HCl Allergy Severe Nausea & Verified 02/06/25 06:36 [From Zanaflex] Vomiting,dizzy,muscle pain,mouth numb spironolactone Allergy Unknown NUMBNESS Verified 02/06/25 06:36 [From Aldactone] IN FACE, NAUSEA ketorolac Allergy Nausea & Verified 02/06/25 06:36 Vomiting prednisone Allergy Dyspnea, Verified 02/06/25 06:36 Nausea & Vomiting, Dizzy, Muscle Pain, Mouth Numb. scopolamine Allergy Chest Pain Verified 02/06/25 06:36 Sulfa (Sulfonamide Allergy Nausea & Verified 02/06/25 06:36 Antibiotics) Vomiting,dizzy,muscle pain, mouth numb. tramadol AdvReac Severe NAUSEA AND Verified 02/06/25 06:36 VOMITING NSAIDS (Non-Steroidal AdvReac Hx Verified 02/06/25 06:36 Anti-Inflamma bleeding ulcers Surgical - Exam Vital Signs Temp Pulse Resp BP Pulse Ox 97.3 F L 57 L 18 127/61 99 02/06/25 06:39 02/06/25 06:39 02/06/25 06:39 02/06/25 06:39 02/06/25 06:39 - General well developed, well nourished, no distress - Eyes normal ocular movement, no icteric - ENT no hearing loss, no congestion - Neck no masses, trachea midline - Respiratory normal respiratory effort, clear to auscultation - Abdomen Abdomen: soft, non tender, no guarding, no rigid, no rebound - Integumentary no rash, no abnormal pigmentation - Neurologic no disoriented, no combative - Psychiatric oriented to time, oriented to person, oriented to place, speech is normal, memory intact Results - Labs 02/07/25 06:04 02/07/25 06:04 Abnormal Lab Results - Last 24 Hours (Table) 02/07/25 02/07/25 Range/Units 06:04 06:04 RBC 3.30 L (4.10-5.20) X 10*6/uL Hgb 10.7 L (12.0-15.0) g/dL Hct 32.3 L (37.2-46.3) % MCV 97.9 H (80.0-97.0) FL MCH 32.4 H (27.0-32.0) pg Eosinophils # 0 L (0.04-0.35) X 10*3/uL Sodium 130 L (135-145) mmol/L Creatinine 0.5 L (0.6-1.5) mg/dL BUN/Creatinine Ratio 28.20 H (12.00-20.00) Ratio Glucose 119 H (70-110) mg/dL Calcium 8.2 L (8.7-10.3) mg/dL Total Bilirubin 0.2 L (0.3-1.2) mg/dL Total Protein 5.4 L (6.2-8.2) g/dL Albumin 3.7 L (3.8-4.9) g/dL Diabetes panel 02/07/25 Range/Units 06:04 Sodium 130 L (135-145) mmol/L Potassium 4.4 (3.5-5.5) mmol/L Chloride 97 (96-109) mmol/L Carbon Dioxide 23.4 (21.6-31.8) mmol/L BUN 14.1 (9.0-27.0) mg/dL Creatinine 0.5 L (0.6-1.5) mg/dL Glucose 119 H (70-110) mg/dL Calcium 8.2 L (8.7-10.3) mg/dL AST 31 (13-35) U/L ALT 16 (8-44) U/L Alkaline Phosphatase 80 (41-126) U/L Total Protein 5.4 L (6.2-8.2) g/dL Albumin 3.7 L (3.8-4.9) g/dL Calcium panel 02/07/25 Range/Units 06:04 Calcium 8.2 L (8.7-10.3) mg/dL Albumin 3.7 L (3.8-4.9) g/dL Pituitary panel 02/07/25 Range/Units 06:04 Sodium 130 L (135-145) mmol/L Potassium 4.4 (3.5-5.5) mmol/L Chloride 97 (96-109) mmol/L Carbon Dioxide 23.4 (21.6-31.8) mmol/L BUN 14.1 (9.0-27.0) mg/dL Creatinine 0.5 L (0.6-1.5) mg/dL Glucose 119 H (70-110) mg/dL Calcium 8.2 L (8.7-10.3) mg/dL Adrenal panel 02/07/25 Range/Units 06:04 Sodium 130 L (135-145) mmol/L Potassium 4.4 (3.5-5.5) mmol/L Chloride 97 (96-109) mmol/L Carbon Dioxide 23.4 (21.6-31.8) mmol/L BUN 14.1 (9.0-27.0) mg/dL Creatinine 0.5 L (0.6-1.5) mg/dL Glucose 119 H (70-110) mg/dL Calcium 8.2 L (8.7-10.3) mg/dL Total Bilirubin 0.2 L (0.3-1.2) mg/dL AST 31 (13-35) U/L ALT 16 (8-44) U/L Alkaline Phosphatase 80 (41-126) U/L Total Protein 5.4 L (6.2-8.2) g/dL Albumin 3.7 L (3.8-4.9) g/dL Assessment and Plan Assessment: Impression: Postoperative voiding dysfunction. Status post left shoulder arthroplasty Recommendations: It is not uncommon for senior individuals to have difficulty voiding postoperatively after major surgeries. As her pain is controlled and she becomes more ambulatory most likely she will more easily and completely. When the patient is ambulatory a catheter can be removed. If she wishes to have a catheter while she is not ambulatory that is up to the patient and the nursing staff. Follow. Time with Patient: Greater than 30
--- NOTE | 2025-02-07 14:07 | P.PN ---
Subjective Progress Note Date: 02/07/25 Principal diagnosis: Left reverse TSA Patient is seen at bedside this morning. She is postop day #1 from left reverse total shoulder arthroplasty. She has pain at the surgical site as expected but denies any new complaints. She denies numbness, tingling or calf pain. Review of systems is negative for fever, chills, chest pain, shortness of breath or other Objective - Vital Signs Vital signs: Vital Signs Temp 98.4 F 02/07/25 07:09 Pulse 71 02/07/25 07:09 Resp 16 02/07/25 07:09 BP 98/61 02/07/25 07:09 Pulse Ox 95 02/07/25 07:09 FiO2 Intake & Output 02/06/25 02/07/25 02/07/25 18:59 06:59 18:59 Intake Total 1051 1250 Output Total 750 600 Balance 301 650 Weight 67.8 kg Intake: IV 1051 Intake, IV Titration 1250 Amount Lactated Ringers 1,000 ml 1200 @ 100 mls/hr IV .Q10H ZHANG Rx#:[id number] ceFAZolin 2 gm In Sodium 50 Chloride 0.9% 50 ml @ 100 mls/hr IVPB Q8HR ZHANG Rx# :[id number] Output: Urine 650 600 Straight 650 600 Estimated Blood Loss 100 Other: # Voids 0 - Exam Inspection reveals a benign surgical wound. There is no active bleeding or drainage. Neurovascular status is intact throughout the upper extremity with motor and sensation fully intact. Calves are soft and nontender. 2+ radial pulse and less than 2 second cap refill is present. - Constitutional General appearance: Present: no acute distress - Labs CBC & Chem 7: 02/07/25 06:04 02/07/25 06:04 Labs: Abnormal Lab Results - Last 24 Hours (Table) 02/07/25 02/07/25 Range/Units 06:04 06:04 RBC 3.30 L (4.10-5.20) X 10*6/uL Hgb 10.7 L (12.0-15.0) g/dL Hct 32.3 L (37.2-46.3) % MCV 97.9 H (80.0-97.0) FL MCH 32.4 H (27.0-32.0) pg Eosinophils # 0 L (0.04-0.35) X 10*3/uL Sodium 130 L (135-145) mmol/L Creatinine 0.5 L (0.6-1.5) mg/dL BUN/Creatinine Ratio 28.20 H (12.00-20.00) Ratio Glucose 119 H (70-110) mg/dL Calcium 8.2 L (8.7-10.3) mg/dL Total Bilirubin 0.2 L (0.3-1.2) mg/dL Total Protein 5.4 L (6.2-8.2) g/dL Albumin 3.7 L (3.8-4.9) g/dL Assessment and Plan (1) Osteoarthritis of left shoulder Narrative/Plan: She will continue with routine postop orthopedic protocol including pain management, wound care, DVT prophylaxis and medical management. Expect that she will transfer to home tomorrow Current Visit: Yes Status: Acute Priority: Medium Code(s): M19.012 - [facility] OSTEOARTHRITIS, LEFT SHOULDER SNOMED Code(s): 449809357777823 Time with Patient: Less than 30
[2025-02-07 14:17] VITALS: RESP 17
[2025-02-08 07:21] VITALS: BP 104/64; PULSE 77; TEMP 97.8
--- NOTE | 2025-02-08 08:35 | P.DS ---
Providers Date of admission: 02/07/25 13:39 Attending physician: Daniel Matias Consults: 02/06/25 09:30 Consult Physician Routine Consulting Provider: Janis Rutledge Consult Reason/Comments: post op medical management Do you want consulting provider notified?: Yes 02/07/25 11:15 Consult Physician Routine Consulting Provider: Chester Groves Consult Reason/Comments: urinary retention Do you want consulting provider notified?: Yes Primary care physician: Elissa Baird [facility] Course: Patient is a 80-year-old female who failed conservative management of severe left rotator cuff arthropathy. On 02/06/2025 patient presented to [facility] pre-op department for scheduled left total reverse shoulder arthroplasty with Dr. Daniel Matias. Patient tolerated the procedure well. Patient was transferred to orthopedic floor afterwards. Patient stayed for pain control. Patient was examined at bedside this morning. Patient states that there pain has been well-controlled. Patient is resting comfortably upright in a bed in no acute distress. Patient is awake, alert, and oriented to time person and place. Patient had sling and dressing in place. No drainage or strikethrough. Patient's hand without swelling. Patient axillary, musculocutaneous, median, radial, ulnar, and anterior interosseous nerve motor function was grossly intact. Patient's sensation to light touch intact throughout the extremity. Patient's capillary refill was under 2 seconds. Patient would like to be discharged home today. Patient's prescriptions were sent to home pharmacy as in house pharmacy was closed today. Assessment: 02/06/2025 status post left reverse total shoulder arthroplasty for left advanced rotator cuff arthropathy. Plan - Discharge Summary Discharge Rx Participant: Yes New Discharge Prescriptions: New oxyCODONE-APAP 5-325MG [Percocet 5-325 mg] 1 tab PO Q4HR PRN #32 tab PRN Reason: Pain Docusate [Colace] 100 mg PO BID #60 capsule Doxycycline Hyclate 100 mg PO BID #10 cap Ondansetron [Zofran] 4 mg PO Q6HR PRN #30 tab PRN Reason: Nausea No Action Levothyroxine Sodium [Synthroid] 88 mcg PO DAILY Ergocalciferol (Vitamin D2) [Drisdol] 50,000 unit PO Q14D Multivitamins, Thera [Multivitamin (formulary)] 2 tab PO DAILY Ferrous Sulfate [Iron (65 MG Elemental)] 325 mg PO DAILY Famotidine [Pepcid] 20 mg PO BID Loratadine [Claritin] 10 mg PO DAILY Rosuvastatin Calcium 2.5 mg PO MOTH atenoloL 25 mg PO HS atenoloL [Tenormin] 50 mg PO QAM Gabapentin 600 mg PO TID Potassium Gluconate 99 mg PO DAILY Pantoprazole Sodium [Protonix] 40 mg PO QAM Evolocumab [Repatha Syringe] 140 mg SQ Q14D lisinopriL 40 mg PO QAM amLODIPine 10 mg PO QAM Acetaminophen [Tylenol Extra Strength] 1,000 mg PO TID Discharge Medication List Ergocalciferol (Vitamin D2) [Drisdol] 50,000 unit PO Q14D 09/08/16 [History] Levothyroxine Sodium [Synthroid] 88 mcg PO DAILY 09/08/16 [History] Ferrous Sulfate [Iron (65 MG Elemental)] 325 mg PO DAILY 08/05/19 [History] Multivitamins, Thera [Multivitamin (formulary)] 2 tab PO DAILY 08/05/19 [History] Famotidine [Pepcid] 20 mg PO BID 11/26/21 [History] Pantoprazole Sodium [Protonix] 40 mg PO QAM 11/26/21 [History] Evolocumab [Repatha Syringe] 140 mg SQ Q14D 09/01/22 [History] Loratadine [Claritin] 10 mg PO DAILY 09/01/22 [History] Rosuvastatin Calcium 2.5 mg PO MOTH 07/04/23 [History] Acetaminophen [Tylenol Extra Strength] 1,000 mg PO TID 06/25/24 [History] Gabapentin 600 mg PO TID 06/25/24 [History] amLODIPine 10 mg PO QAM 06/25/24 [History] atenoloL 25 mg PO HS 06/25/24 [History] atenoloL [Tenormin] 50 mg PO QAM 06/25/24 [History] lisinopriL 40 mg PO QAM 06/25/24 [History] Potassium Gluconate 99 mg PO DAILY 01/31/25 [History] Docusate [Colace] 100 mg PO BID #60 capsule 02/08/25 [Rx] Doxycycline Hyclate 100 mg PO BID #10 cap 02/08/25 [Rx] Ondansetron [Zofran] 4 mg PO Q6HR PRN #30 tab 02/08/25 [Rx] oxyCODONE-APAP 5-325MG [Percocet 5-325 mg] 1 tab PO Q4HR PRN #32 tab 02/08/25 [Rx] Follow up Appointment(s)/Referral(s): Daniel Matias MD [STAFF PHYSICIAN] - 10 Days Activity/Diet/Wound Care/Special Instructions: Keep wound clean and dry take meds as directed f/u in office maintain sling may shower in 3 days if no bleeding Discharge Disposition: HOME SELF-CARE
[2025-02-08] MEDS: TAMSULOSIN 0.4 MG CAP.ER.24H PO SCH (10:00)
--- NOTE | 2025-02-08 10:29 | P.PN ---
Subjective Progress Note Date: 02/08/25 The patient was seen for postoperative urinary retention. It was felt this was situational. Now the patient's pain is less and she is ambulatory the catheter is out and she is voiding without difficulty. No further urologic care is required. Objective - Vital Signs Vital signs: Vital Signs Temp 97.8 F 02/08/25 07:19 Pulse 77 02/08/25 09:30 Resp 17 02/08/25 09:30 BP 104/64 02/08/25 07:19 Pulse Ox 93 L 02/08/25 07:19 FiO2 Intake & Output 02/07/25 02/08/25 02/08/25 18:59 06:59 18:59 Output Total 700 1350 Balance -700 -1350 Output: Urine 700 1350 Other: Voiding Method Toilet Toilet # Voids 3 # Bowel Movements 0 - Labs CBC & Chem 7: 02/07/25 06:04 02/07/25 06:04 Labs: Abnormal Lab Results - Last 24 Hours (Table) 02/07/25 02/07/25 Range/Units 06:04 06:04 RBC 3.30 L (4.10-5.20) X 10*6/uL Hgb 10.7 L (12.0-15.0) g/dL Hct 32.3 L (37.2-46.3) % MCV 97.9 H (80.0-97.0) FL MCH 32.4 H (27.0-32.0) pg Eosinophils # 0 L (0.04-0.35) X 10*3/uL Sodium 130 L (135-145) mmol/L Creatinine 0.5 L (0.6-1.5) mg/dL BUN/Creatinine Ratio 28.20 H (12.00-20.00) Ratio Glucose 119 H (70-110) mg/dL Calcium 8.2 L (8.7-10.3) mg/dL Total Bilirubin 0.2 L (0.3-1.2) mg/dL Total Protein 5.4 L (6.2-8.2) g/dL Albumin 3.7 L (3.8-4.9) g/dL
--- NOTE | 2025-02-08 12:15 | P.PN ---
Subjective Progress Note Date: 02/08/25 Aleena Tovar is a 80-year-old female patient who came in for an elective left shoulder arthroplasty with Dr. Matias on 02/06/2025. Patient has a past medical history of hypertension, hyperlipidemia, skin cancer, previous joint replacement, GI bleed and ex-smoker at this time patient is resting comfortably in bed. Patient having trouble urinating after surgery will consult urology services and start patient on Flomax. Current vital signs of 98.4, heart rate 71, respiratory 16, blood pressure 121/74 with a pulse ox of 96% on 2 L. Patient denies chest pain or shortness of breath. Patient denies nausea vomiting or diarrhea. Patient denies any urinary burning or frequency. On 02/08/2025 patient was seen and examined on the medical floor she is alert and oriented x 3 in no apparent distress there is no fever or chills no headache or dizziness no chest pain no shortness of breath no cough no nausea or vomiting no abdominal pain no diarrhea no urinary symptoms. Patient will be discharged to home today. Objective - Vital Signs Vital signs: Vital Signs Temp 97.8 F 02/08/25 07:19 Pulse 77 02/08/25 09:30 Resp 17 02/08/25 09:30 BP 104/64 02/08/25 07:19 Pulse Ox 93 L 02/08/25 07:19 FiO2 Intake & Output 02/07/25 02/08/25 02/08/25 18:59 06:59 18:59 Output Total 700 1350 Balance -700 -1350 Output: Urine 700 1350 Other: Voiding Method Toilet Toilet # Voids 3 # Bowel Movements 0 - Exam In general patient is alert and oriented x 3 in no distress HEENT head normocephalic and atraumatic Neck is supple no JVD no goiter no lymphadenopathy no carotid bruit Chest examination is clear to auscultation no crackles no wheezing Cardiac exam reveals regular heart sounds S1 and S2 no gallops no murmurs Abdomen is soft nontender no organomegaly with normal bowel sounds Extremity exam reveals no edema no cyanosis or clubbing Neurological examination reveals no gross focal deficits - Labs CBC & Chem 7: 02/07/25 06:04 02/07/25 06:04 Assessment and Plan Assessment: 1. Status post left shoulder arthroplasty with Dr. Matias on 02/06/2025 2. Urinary retention. Urology services will be consulted 3. History of essential hypertension 4. History of hyperlipidemia 5. History of hypothyroidism 6. History of degenerative disc disease with previous back surgery 7. History of osteoarthritis with previous right hip surgery 8. History of GI bleed Thank you for this consultation we will continue to follow patient closely throughout stay Urology services consulted. repeat labs ordered in a.m.
[2025-02-10] MEDS ORDERED: ERGOCALCIFEROL 1,250 MCG (50,000 IU) CAPSULE PO SCH (09:00)
[2025-02-17] MEDS ORDERED: NON FORMULARY DRUG (Evolocumab [Repatha Syringe] 140 MG/ML Each) SQ SCH (09:00)
== END 2025-02-08 14:31 | disposition home or self-care (01) ==
LOC: OR 05:43 → 4SSUR 12:48 → OR 02-07 13:39
PROVIDERS: ADMIT Orthopaedic Surgery Sports Medicine; ATTEND Orthopaedic Surgery Sports Medicine
DX: M19.012 Primary osteoarthritis, left shoulder (principal); N99.89 Other postprocedural complications and disorders of genitourinary system; R33.8 Other retention of urine; I10 Essential (primary) hypertension; E78.5 Hyperlipidemia, unspecified; E03.9 Hypothyroidism, unspecified; M19.90 Unspecified osteoarthritis, unspecified site; B02.9 Zoster without complications; Z79.890 Hormone replacement therapy; Z79.899 Other long term (current) drug therapy; Z88.6 Allergy status to analgesic agent; Z88.5 Allergy status to narcotic agent; Z88.2 Allergy status to sulfonamides; Z88.8 Allergy status to other drugs, medicaments and biological substances; Z87.19 Personal history of other diseases of the digestive system; Z87.442 Personal history of urinary calculi; Z96.653 Presence of artificial knee joint, bilateral; Z96.611 Presence of right artificial shoulder joint; Z96.641 Presence of right artificial hip joint; Z98.1 Arthrodesis status; Z98.890 Other specified postprocedural states; Z85.828 Personal history of other malignant neoplasm of skin; Z87.891 Personal history of nicotine dependence
CPT/HCPCS: 23472; 64415; 80053; 85025; 73020; G0378 ×2; C1776; J2250; J3370; J0330; J1100; J2710; J0690 ×2; J2405; J2003; J3010; J2795; J2704; J1171 ×3; J2371; J1596